=== PATIENT | male | born 1945 | race Caucasian/White ===

== ENCOUNTER → 2017-08-30 13:59 | Outpatient (CLI) | payer MEDICARE, MEDICAID, SELFPAY ==
--- NOTE | 2017-08-30 14:02 | ECHOCS_ITS ---
Reason For Study: CAD/ASHD Procedure This was a 2D Doppler, Color Flow transthoracic echocardiogram. Exam performed in department. Left Ventricle Mild concentric left ventricular hypertrophy. The estimated ejection fraction is 65 %. Stage 1 diastolic dysfunction. No regional wall motion abnormalities noted. Right Ventricle Normal size and thickness. Normal systolic function. Atria Normal left atrium. Normal right atrium. Normal atrial septum. Bubble contrast study negative for right to left interatrial shunt. Mitral Valve The mitral valve is structurally normal. No prolapse or stenosis seen. Mild (1+) mitral valve insufficiency. Tricuspid Valve Normal tricuspid valve. Trivial tricuspid valve insufficiency. Right ventricular systolic pressure estimated to be 31 mmHg. Aortic Valve Trisinus/trileaflet aortic valve. Mild focal aortic valve thickening. There is no aortic stenosis. Trivial aortic valve insufficiency. Pulmonic Valve Normal pulmonic valve. Great Vessels Normal aortic root. Normal arch. Normal inferior vena cava. Inferior vena cava collapse with sniff. Pericardium/Pleural No pericardial effusion. Medication Performed a rapid injection of agitated mix of 9 cc saline and 1cc air to assess for atrial septal defect. Definity0.4ml given slow IV push to enhance endocardial definition. MMode/2D Measurements & Calculations LVIDd: 4.9 cm IVSd: 1.4 cm Ao root diam: 3.1 cm LVIDs: 3.5 cm LVPWd: 0.86 cm RVDd: 3.9 cm FS: 28.3 % LAV(MOD-bp): 38.0 ml LA A4 area: 13.2 cm2 RA A4 area: 16.3 cm2 LAV(MOD-bp) Indexed: 17.4 ml/m2 LAV(MOD-sp2): 38.9 ml LAV(MOD-sp4): 33.9 ml Doppler Measurements & Calculations MV E max rosalino: 64.2 cm/sec Lat Peak E' Rosalino: 7.2 cm/sec Med Peak E' Rosalino: 6.0 cm/sec MV A max rosalino: 86.8 cm/sec E/E' lat: 9.0 E/E' med: 10.7 MV E/A: 0.74 Ao V2 max: 162.2 cm/sec LV V1 max: 77.4 cm/sec PA V2 max: 101.2 cm/sec Ao max P.5 mmHg LV V1 max P.4 mmHg Ao V2 mean: 113.8 cm/sec Ao mean P.7 mmHg Ao V2 VTI: 28.8 cm PI end-d rosalino: 108.3 cm/sec TR max rosalino: 242.8 cm/sec TR max P.6 mmHg Interpretation Summary Mild concentric left ventricular hypertrophy. The estimated ejection fraction is 65 %. Stage 1 diastolic dysfunction. Bubble contrast study negative for right to left interatrial shunt. Mild (1+) mitral valve insufficiency. Right ventricular systolic pressure estimated to be 31 mmHg. Trivial aortic valve insufficiency. There is no comparison study available. Contrast injection was performed. The study was technically difficult. Ordering Physician: Jamison Grimaldo Referring Physician: Denia Silvestre Performed By: Rut Beatty, GALDINO, RVT
== END ==
PROVIDERS: Family Provider Internal Medicine; PCP Internal Medicine; Visit Provider Internal Medicine Cardiovascular Disease
DX: I25.10 Atherosclerotic heart disease of native coronary artery without angina pectoris (principal)
CPT/HCPCS: 93306; Q9957; A4216; C8929

== ENCOUNTER → 2017-09-03 08:16 | Outpatient (CLI) | payer MEDICARE, MEDICAID, SELFPAY ==
--- NOTE | 2017-09-03 08:19 | STE_ITS ---
Reason For Study: CAD/ASHD Stress Results Protocol: Dobutamine Maximum Predicted HR: 147 bpm Target HR: 125 bpm% Maximum Predicted HR: 93 % DurationHeart Rate Stage (mm:ss) (bpm) BPDose Comment BASELINE 99 178/94 2CC DEFINITY STAGE 1 3:00 93 175/9510.001 CC DEFINITY STAGE 2 1:15 13 6 189/9820.00 RECOVERY 105 177/1 02 1CC DEFINITY Stress Duration: 4:15 mm:ss Maximum Stress HR: 136 bpm Baseline Echocardiogram Findings The estimated ejection fraction is 55 %. Septal motion consistent with IVCD. Stress Echo Wall motion Data Resting WMIntermediate WMStress WM Resting Wall Motion Wall Motion Stress Basal anteroseptal: Mildly No regional wall motion hypokinetic. abnormalities noted. EKG Data Normal intervals are noted. The patient was titrated from 10 mcg to a maximum of 20 mcg of dobutamine during the stress. The maximum heart rate attained was 148 beats per minute. This was 100% of maximum predicted heart rate. During dobutamine infusion, there were no ST or T wave changes noted to suggest ischemia. No clinical angina was noted. Interpretation Summary The study was technically difficult. Contrast injection was performed. The estimated ejection fraction is 55 %. Basal anteroseptal: Mildly hypokinetic The patient was titrated from 10 mcg to a maximum of 20 mcg of dobutamine during the stress. Normal, adequate, dobutamine echocardiogram. Negative for ischemia by EKG and echocardiographic criteria. Patient had baseline anteroseptal hypokinesis which improved during dobutamine infusion. No anginal symptoms noted. Moderate PVCs noted during infusion. Hypertensive blood pressure response to dobutamine. Test terminated due to attainment of target heart rate. Final LVEF is 75%. Decreased sensitivity due to poor echo windows requiring Definity agent augmentation. No complications. Ordering Physician: Jamison Grimaldo Referring Physician: Jamison Grimaldo Performed By: Gissel Haines RDCS, RVT
== END ==
PROVIDERS: Family Provider Internal Medicine; PCP Internal Medicine; Visit Provider Internal Medicine Cardiovascular Disease
DX: I25.10 Atherosclerotic heart disease of native coronary artery without angina pectoris (principal); I10 Essential (primary) hypertension; E78.5 Hyperlipidemia, unspecified; E11.9 Type 2 diabetes mellitus without complications
CPT/HCPCS: 93017; 93350; J7030; Q9957; A4216; C8928

== ENCOUNTER 2017-09-06 09:25 | Day surgery (SDC) | payer MEDICARE, MEDICAID, SELFPAY ==
[2017-09-06] VITALS (7 sets, daily range): BP systolic 123–152; BP diastolic 76–81; PULSE 79–91; RESP 16–18; TEMP 36.2–36.9; O2SAT 93–97; BMI 36.9
[2017-09-06 09:56] LABS: Prothrombin Time Fingerstick 12.4 SEC (11.9-14.4)
[2017-09-06 10:26] LABS: Bedside Glucose 138 mg/dL (70-110)
[2017-09-06] MEDS: Cefazolin 2 GM in 0.9% Normal Saline 100 ML IV (11:10)
--- NOTE | 2017-09-06 11:11 | RAD_ITS ---
STUDY: X-RAY - RIGHT ELBOW REASON FOR EXAM: Male, 71 years old. [Injection and the fixation of the olecranon fracture. TECHNIQUE: 2 coned-down view(s) of the elbow were obtained intraoperatively. COMPARISON: None. FINDINGS: There is evidence of a satisfactory open reduction and internal fixation of the avulsion fracture of the olecranon with screw and wire fixation. RAD/Elbow 2 Views IMPRESSION: Satisfactory ORIF of the avulsion fracture of the olecranon. Electronically Signed: Leonard Perkins MD at 13:13 EDT Tel [phone], Service support ,
--- NOTE | 2017-09-06 11:49 | PCM.DC.ORTHO ---
Discharge Diet: No Restrictions Discharge Activity: May Not Drive May shower in (days): 1 Ice area for (Minutes): 20 - Ice area for 20 minutes each hour while awake Keep extremity elevated above heart level: Operative Extremity, Right Arm Call your doctor if your incision/area has: Continuous Slow Oozing, Sudden Increased Bleeding, Increased Pain/ Swelling, Increased Redness, Foul Smelling Discharge Call your doctor if you observe: Fever of 101 or Higher, Coldness, Increased Pain, Numbness or Tingling, Change in Color Suture Line Care: Avoid Pulling/Pushing Cleanse incision/area with: Keep Dressing Clean & Dry Allergies/Adverse Reactions: Allergies ciprofloxacin [From Cipro] Allergy (Verified 09/05/17 09:16) Rash Medications to take at Discharge Aspirin E.C. [Ecotrin] 81 mg PO DAILY@0800 08/28/17 Atenolol [Tenormin (beta abram)] 25 mg PO DAILY 08/28/17 Esomeprazole Magnesium 40 mg PO DAILY PRN 08/28/17 Fenofibrate Nanocrystallized [Fenofibrate] 145 mg PO DAILY 08/28/17 Hydrochlorothiazide 12.5 mg PO DAILY 08/28/17 Levetiracetam [Keppra Xr] 1,500 mg PO BID 08/28/17 Losartan Potassium 50 mg PO DAILY 08/28/17 Metformin HCl [Metformin HCl ER] 500 mg PO DAILY 08/28/17 Multivit-Min/FA/Lycopen/Lutein [Centrum Silver Tablet] 1 ea PO DAILY 08/28/17 Niacin [Niacin ER] 500 mg PO QHS 08/28/17 Phenytoin Na [Dilantin] 200 mg PO DAILY 08/28/17 Phenytoin Na [Dilantin] 300 mg PO QHS 08/28/17 Rosuvastatin Calcium 20 mg PO DAILY 08/28/17 Oxycodone [Oxyir] 5 mg PO Q6H PRN PRN 7 Days #40 tablet 09/06/17 The following prescriptions were given: Oxycodone [Oxyir] 5 mg PO Q6H PRN PRN 7 Days #40 tablet PRN Reason: Pain Please Follow Up With: Obed Montes DO When: as scheduled
--- NOTE | 2017-09-06 11:56 | PCM.OPRPT ---
Report of Operation Date of Procedure: 09/06/17 Pre-Operative Diagnosis: Displaced fracture right olecranon Post-Operative Diagnosis: Same Surgery/Procedure Performed:: Open reduction with internal fixation of right olecranon fracture Description of Surgical Findings:: Comminuted olecranon fracture receiving tank operator: Royal Alegria Type of Anesthesia:: General Anesthesiologist: Go Wright Estimated Blood Loss (mL): 25 Fluids Replaced: See anesthesia report Description of Procedure: Implants: Tete cable ready pins 40 mm ?2 Surgical indications: Please see history and physical Procedure description: Patient was greeted in the preoperative area. His right upper tremor is marked with surgical marker. Preoperative antibiotics were administered he was then taken or Suite 1 the stable condition. After adequate anesthesia was obtained and airway was secured a well-padded tourniquet was placed on patient's right upper extremity. The arm was then prepped draped in usual sterile fashion. Surgical timeout was performed and surgery was commenced. A 4 inch Esmarch was used to examine with the limb and tourniquet was inflated to 250 mmHg. Standard posterior approach to the elbow was then performed incision was made with a 15 blade dissection was then carried length of the incision. The olecranon fracture was easily identified and fibrous tissue was removed from the fracture site. The wound and the fracture was then irrigated removed and any tissue that may obstruct healing. There was a comminuted portion laterally that was maintained reduced and pinned in position to maintain this piece as the fracture was fixed. A small drill hole was made distal to the incision and a pointed reduction forcep was then applied to the tip of the olecranon and the distal portion was placed in this drill hole the elbow was extended and the fracture was reduced. Confirmation of reduction was confirmed with biplanar fluoroscopic imaging. Once this was complete to cable ready pins were then placed in the olecranon and into the ulnar shaft. I then made a tunnel approximately 3 cm distal to the fracture site and shuttled one side of the cable through this tunnel. These were then placed in the current. This is not tightened with the similar tightening system to the appropriate tension on the cables and the clamp was then squeezed in order to maintain this reduction per cables were then trimmed and final imaging was obtained after the pin was removed. The wound was then irrigated and closed in layers. A well-padded dressing is applied posterior splint. Physician assistant scientist was integral in all portions of this procedure. They assisted with positioning the patient, draping the extremity, holding retractors, closing the wound, and applying the dressing. This was all done under my direct supervision. The physician assistant scientist was essential for a successful, efficient surgery. Postoperative: Maintain splint for comfort for 1-2 weeks. At that point patient will be protected in a sling with activity modification. No pushing pulling carrying with this extremity for 6 weeks. Will initiate therapy after his first postoperative visit for active/passive range of motion only - Complications none known - Admit VTE Documentation VTE Present on Admission: Yes VTE Mechan Device Prophylaxis: SCD's, Thigh High TERELL Hose VTE Pharm Prophylaxis ordered?: Yes
--- NOTE | 2017-09-06 12:01 | OP.PCM_ITS ---
Report of Operation Date of Procedure: 09/06/17 Pre-Operative Diagnosis: Displaced fracture right olecranon Post-Operative Diagnosis: Same Surgery/Procedure Performed:: Open reduction with internal fixation of right olecranon fracture Description of Surgical Findings:: Comminuted olecranon fracture preventative maintenance technician: Royal Alegria Type of Anesthesia:: General Anesthesiologist: Go Wright Estimated Blood Loss (mL): 25 Fluids Replaced: See anesthesia report Description of Procedure: Implants: Tete cable ready pins 40 mm ?2 Surgical indications: Please see history and physical Procedure description: Patient was greeted in the preoperative area. His right upper tremor is marked with surgical marker. Preoperative antibiotics were administered he was then taken or Suite 1 the stable condition. After adequate anesthesia was obtained and airway was secured a well-padded tourniquet was placed on patient's right upper extremity. The arm was then prepped draped in usual sterile fashion. Surgical timeout was performed and surgery was commenced. A 4 inch Esmarch was used to examine with the limb and tourniquet was inflated to 250 mmHg. Standard posterior approach to the elbow was then performed incision was made with a 15 blade dissection was then carried length of the incision. The olecranon fracture was easily identified and fibrous tissue was removed from the fracture site. The wound and the fracture was then irrigated removed and any tissue that may obstruct healing. There was a comminuted portion laterally that was maintained reduced and pinned in position to maintain this piece as the fracture was fixed. A small drill hole was made distal to the incision and a pointed reduction forcep was then applied to the tip of the olecranon and the distal portion was placed in this drill hole the elbow was extended and the fracture was reduced. Confirmation of reduction was confirmed with biplanar fluoroscopic imaging. Once this was complete to cable ready pins were then placed in the olecranon and into the ulnar shaft. I then made a tunnel approximately 3 cm distal to the fracture site and shuttled one side of the cable through this tunnel. These were then placed in the current. This is not tightened with the similar tightening system to the appropriate tension on the cables and the clamp was then squeezed in order to maintain this reduction per cables were then trimmed and final imaging was obtained after the pin was removed. The wound was then irrigated and closed in layers. A well- padded dressing is applied posterior splint. Physician junior sales assistant was integral in all portions of this procedure. They assisted with positioning the patient, draping the extremity, holding retractors , closing the wound, and applying the dressing. This was all done under my direct supervision. The physician junior sales assistant was essential for a successful, efficient surgery. Postoperative: Maintain splint for comfort for 1-2 weeks. At that point patient will be protected in a sling with activity modification. No pushing pulling carrying with this extremity for 6 weeks. Will initiate therapy after his first postoperative visit for active/passive range of motion only - Complications none known - Admit VTE Documentation VTE Present on Admission: Yes VTE Mechan Device Prophylaxis: SCD's, Thigh High TERELL Hose VTE Pharm Prophylaxis ordered?: Yes
== END 2017-09-06 14:40 | disposition home or self-care (01) ==
LOC: SDC 09:26
PROVIDERS: Family Provider Internal Medicine; PCP Internal Medicine; Visit Provider Orthopaedic Surgery
PROC: (CPT 24685; principal; 2017-09-06 10:40)
DX: S52.031A Displaced fracture of olecranon process with intraarticular extension of right ulna, initial encounter for closed fracture (principal); W10.9XXA Fall (on) (from) unspecified stairs and steps, initial encounter; Y93.9 Activity, unspecified; Y92.9 Unspecified place or not applicable; I25.10 Atherosclerotic heart disease of native coronary artery without angina pectoris; I25.2 Old myocardial infarction; I10 Essential (primary) hypertension; G40.909 Epilepsy, unspecified, not intractable, without status epilepticus; E11.9 Type 2 diabetes mellitus without complications; M19.90 Unspecified osteoarthritis, unspecified site; K21.9 Gastro-esophageal reflux disease without esophagitis; E66.9 Obesity, unspecified; Z68.38 Body mass index [BMI] 38.0-38.9, adult; Z90.49 Acquired absence of other specified parts of digestive tract; Z87.891 Personal history of nicotine dependence; Z79.84 Long term (current) use of oral hypoglycemic drugs; Z79.82 Long term (current) use of aspirin; Z79.899 Other long term (current) drug therapy
CPT/HCPCS: 01740; 24685; 36416; 73070; 73080; 76000; 82962; 85610; C1713; J7120; J2405

== ENCOUNTER → 2017-09-10 07:25 | Outpatient (CLI) | payer MEDICARE, MEDICAID, SELFPAY ==
[2017-08-27 16:59] LABS: Hematocrit 40.8 % (40-54); Hemoglobin 14.5 g/dl (13.0-16.5); Mean Corp Hgb Conc 35.5 g/gl (32-36); Mean Corpuscular Hgb 32.1 pg (27.0-32.0); Mean Corpuscular Volume 90.3 fL (80-94); Mean Platelet Vol. 8.8 fl (6.2-12.0); Platelet Count 203 K/mm3 (150-450); RBC Distribution Width CV 13.5 % (11.6-14.6); RBC Distribution Width SD 43.9 fl (35.1-43.9); Red Blood Count 4.52 M/mm3 (4.6-6.2); White Blood Count 11.6 K/mm3 (4.4-11.0)
[2017-08-27 17:00] LABS: Scan Indicated on CBC? Y/N NO
[2017-08-27 17:48] LABS: Hemoglobin A1c 6.2 % (4.2-6.3); Valproic Acid (Depakene) Level 4 ug/mL (50-100)
[2017-08-27 17:56] LABS: Anion Gap 9 (5-15); BUN 20 mg/dL (7-18); BUN/Creat Ratio 20.9 RATIO (10-20); Calcium,Total 9.3 mg/dL (8.5-10.1); Chloride 105 mmol/L (98-107); Creatinine, Serum 0.96 mg/dL (0.70-1.30); EST Glomerular Filtration Rate 82 mL/min (>60); Est Glom Filt Rate - Afr Amer 99 mL/min (>60); Glucose 116 mg/dL (74-106); Potassium 3.7 mmol/L (3.5-5.1); Sodium Level 141 mmol/L (136-145)
[2017-08-28 09:05] VITALS: BP 172/81; PULSE 113; RESP 16; TEMP 36.6; O2SAT 96; BMI 38.6
[2017-08-28 09:25] LABS: Bedside Glucose 155 mg/dL (70-110)
== END ==
PROVIDERS: Family Provider Internal Medicine; PCP Internal Medicine; Visit Provider Orthopaedic Surgery
DX: Z01.818 Encounter for other preprocedural examination (principal); E11.9 Type 2 diabetes mellitus without complications; Z79.84 Long term (current) use of oral hypoglycemic drugs
CPT/HCPCS: 36415; 80048; 80164; 82962; 83036; 85027; J7120

== ENCOUNTER → 2017-12-19 13:02 | Outpatient (CLI) | payer MEDICARE, MEDICAID, SELFPAY | PROVIDERS: Family Provider Internal Medicine; PCP Internal Medicine; Visit Provider Physician Assistant | DX: S50.02XA Contusion of left elbow, initial encounter (principal) | CPT/HCPCS: 73200 ==

== ENCOUNTER → 2018-04-11 07:27 | Outpatient (CLI) | payer MEDICARE, MEDICAID, SELFPAY ==
[2018-04-07 14:56] VITALS: BMI 38.9
[2018-04-11 08:46] LABS: AST(SGOT) 19 U/L (15-37); Alanine Aminotransfer ALT/SGPT 29 U/L (16-61); Albumin, Serum 3.7 g/dL (3.2-5.0); Alkaline Phosphatase 74 U/L (45-117); Bilirubin, Direct 0.08 mg/dL (0.00-0.30); Cholesterol 196 mg/dL (200); Globulin 3.7 g/dL (2.2-4.2); High Density Lipoprotein 43 mg/dL; Protein, Total 7.4 g/dL (6.4-8.2); Triglycerides 228 mg/dL; Very Low Density Lipoprotein 46 mg/dL (5-40)
== END ==
PROVIDERS: Family Provider Internal Medicine; PCP Internal Medicine; Referring Provider Internal Medicine Cardiovascular Disease; Visit Provider Internal Medicine Cardiovascular Disease
DX: E78.5 Hyperlipidemia, unspecified (principal); I25.10 Atherosclerotic heart disease of native coronary artery without angina pectoris
CPT/HCPCS: 36415; 80061; 80076

== ENCOUNTER → 2019-08-31 14:45 | Outpatient (CLI) | payer MEDICARE, MEDICAID, SELFPAY ==
[2019-05-21 14:54] VITALS: BMI 38.5
--- NOTE | 2019-08-31 14:49 | ECHOCS_ITS ---
Reason For Study: PHTN Procedure This was a 2D Doppler, Color Flow transthoracic echocardiogram. The study was technically difficult. Due to body habitus. Exam performed in department. Left Ventricle Mild concentric left ventricular hypertrophy. Normal LV size. The estimated ejection fraction is 65 %. Stage 1 diastolic dysfunction. No regional wall motion abnormalities noted. Right Ventricle Mildly dilated right ventricle. Normal systolic function. Atria Normal left atrium. Normal right atrium. Normal atrial septum. Mitral Valve The mitral valve is structurally normal. No prolapse or stenosis seen. Trivial mitral valve insufficiency. Tricuspid Valve Normal tricuspid valve. Unable to estimate RV systolic pressure due to insufficient tricuspid regurgitant envelope. Aortic Valve Trisinus/trileaflet aortic valve. Moderate focal aortic valve thickening. There is no aortic stenosis. Pulmonic Valve Normal pulmonic valve. Trivial pulmonic valve insufficiency. Great Vessels Normal aortic root. Normal arch. Normal inferior vena cava. Inferior vena cava collapse with sniff. Pericardium/Pleural No pericardial effusion. MMode/2D Measurements & Calculations LVIDd: 5.1 cm IVSd: 1.4 cm Ao root diam: 2.8 cm LVIDs: 3.7 cm LVPWd: 0.82 cm RVDd: 3.9 cm FS: 27.8 % LAV(MOD-bp): 64.0 ml LA A4 area: 20.5 cm2 LA dimension(2D): 4.3 cm LAV(MOD-bp) Indexed: 29.5 ml/m2 LAV(MOD-sp2): 64.9 ml LAV(MOD-sp4): 62.9 ml RA A4 area: 16.8 cm2 Time Measurements MV dec time: 0.15 sec Doppler Measurements & Calculations MV E max rosalino: 87.6 cm/sec Lat Peak E' Rosalino: 9.1 cm/sec Med Peak E' Rosalino: 5.2 cm/sec MV A max rosalino: 97.5 cm/sec E/E' lat: 9.6 E/E' med: 17.0 MV E/A: 0.90 Ao V2 max: 158.0 cm/sec LV V1 max: 87.4 cm/sec PA V2 max: 92.6 cm/sec Ao max P.0 mmHg LV V1 max P.1 mmHg Interpretation Summary The estimated ejection fraction is 65 %. Stage 1 diastolic dysfunction. Mildly dilated right ventricle. Trivial mitral valve insufficiency. Unable to estimate RV systolic pressure due to insufficient tricuspid regurgitant envelope. There is no aortic stenosis. Compared to echo report dated 08/30/2017, no appreciable changes noted. The study was technically difficult. Contrast injection was performed. Ordering Physician: Jamison Grimaldo Referring Physician: Denia Silvestre Performed By: Gissel Haines, GALDINO, RVT
== END ==
PROVIDERS: PCP Internal Medicine; Referring Provider Internal Medicine Cardiovascular Disease; Visit Provider Internal Medicine Cardiovascular Disease
DX: I27.20 Pulmonary hypertension, unspecified (principal); Z98.890 Other specified postprocedural states
CPT/HCPCS: 93306; Q9957; A4216; C8929

== ENCOUNTER → 2019-09-16 09:00 | Outpatient (CLI) | payer MEDICARE, MEDICAID, SELFPAY ==
[2019-05-21 14:54] VITALS: BMI 38.5
--- NOTE | 2019-09-16 09:02 | STEWCON_ITS ---
Reason For Study: CAD/ASHD Stress Results Protocol: Nj Protocol WITH DEFINITY Maximum Predicted HR: 145 bpm Target HR: 123 bpm % Maximum Predicted HR: 107 % DurationHeart Rate Stage (mm:ss) (bpm) BP Comment BASELINE 103 152/98 STAGE 1 3:00 134 180/80SLIGHT SOB STAGE 2 3:00 155 172/62 RECOVERY 111 132/88 Stress Duration: 6:00 mm:ss Maximum Stress HR: 155 bpm Baseline Echocardiogram Findings The estimated ejection fraction is 65 %. Stress Echo Wall motion Data Resting WM Intermediate WM Stress WM Resting Wall Motion Wall Motion Stress No regional wall motion No regional wall motion abnormalities noted. abnormalities noted. EKG Data The baseline ECG displays normal sinus rhythm. The patient exercised according to the regular Nj protocol for a total duration of 6:00. The maximum heart rate attained was 160 beats per minute. This was 110% of maximum predicted heart rate. The patient exercised into stage 3 of the Nj protocol. During stress, there were no ST or T wave changes noted to suggest ischemia. No clinical angina was noted. Interpretation Summary The estimated ejection fraction is 65 %. Normal, adequate, treadmill echocardiogram. Negative for ischemia by EKG and echocardiographic criteria. No anginal symptoms noted. Rare PAC and PVCs noted. Hypertensive blood pressure response to exercise. Below average exercise capacity for age. Test terminated due to the attainment of target heart rate and dyspnea. Final LVEF of 75%. Decrease sensitivity due to poor echo windows requiring Definity agent, and limited echo window availability. Patient tolerate procedure well. No complications. The study was technically limited. The study was technically difficult. Contrast injection was performed. Ordering Physician: Jamison Grimaldo Referring Physician: Jamison Grimaldo Performed By: Salome Blackwood, GALDINO, RVT
[2019-09-16 09:54] LABS: AST(SGOT) 26 U/L (15-37); Alanine Aminotransfer ALT/SGPT 30 U/L (16-61); Alkaline Phosphatase 64 U/L (45-117); Bilirubin, Direct 0.13 mg/dL (0.00-0.30); Cholesterol 203 mg/dL (200); Globulin 3.9 g/dL (2.2-4.2); High Density Lipoprotein 43 mg/dL; Protein, Total 7.9 g/dL (6.4-8.2); Triglycerides 310 mg/dL; Very Low Density Lipoprotein 62 mg/dL (5-40)
== END ==
PROVIDERS: PCP Internal Medicine; Referring Provider Internal Medicine Cardiovascular Disease; Visit Provider Internal Medicine Cardiovascular Disease
DX: E78.5 Hyperlipidemia, unspecified (principal); I25.10 Atherosclerotic heart disease of native coronary artery without angina pectoris; E11.9 Type 2 diabetes mellitus without complications; I10 Essential (primary) hypertension
CPT/HCPCS: 36415; 80061; 80076; 93017; 93350; Q9957; A4216; C8928

== ENCOUNTER 2020-09-10 07:31 | Observation (INO) | payer MEDICARE, MEDICAID, SELFPAY ==
[2020-09-09 13:04] VITALS: BMI 39.9
[2020-09-10] VITALS (11 sets, daily range): BP systolic 103–169; BP diastolic 71–104; PULSE 75–124; RESP 15–18; TEMP 36.3–37.3; O2SAT 93–98; BMI 41.5; BMI 38.5
--- NOTE | 2020-09-10 07:38 | EKG12_ITS ---
Test Reason : CP Blood Pressure : / mmHG Vent. Rate : 125 BPM Atrial Rate : 125 BPM P-R Int : 136 ms QRS Dur : 118 ms QT Int : 360 ms P-R-T Axes : 047 -41 074 degrees QTc Int : 519 ms Sinus tachycardia with frequent Premature ventricular complexes and Fusion complexes Left axis deviation Cannot rule out Anterior infarct , age undetermined Abnormal ECG Confirmed by PINEDA MCNEILL, JILLIAN ([id number]), photo editor AKASH STOCK ([id number]) on 09/13/2020 9:36:49 AM Referred By: Confirmed By:JILLIAN SUNG MD
--- NOTE | 2020-09-10 07:38 | CT_ITS ---
STUDY: CT BRAIN WITHOUT CONTRAST REASON FOR EXAM: Male, 74 years old. Status post fall, headache. RADIATION DOSAGE (If Supplied By Facility): CTDIvol = ( 44.99 ) mGy, DLP = ( 796.11 ) mGycm TECHNIQUE: Transaxial CT imaging of the brain was performed without administration of intravenous contrast material. Individualized dose optimization techniques were used for this CT. COMPARISON: No relevant priors. FINDINGS: Normal soft tissue structures. Normal calvarium. There is mild cerebral atrophy with widening of the extra-axial spaces and ventricular dilatation. Normal white matter tracts of the cerebral hemispheres. Normal basal ganglia and thalami. Normal brainstem. There is mild cerebellar atrophy. There is no intracranial hemorrhage. There are no findings of an acute ischemic infarction. There are mild calcifications of the cavernous internal carotid arteries. Normal visualized paranasal sinuses. CT/Brain/Head without Contrast IMPRESSION: No acute intracranial process. Electronically Signed: Kurtis Meza MD at 9:26 EDT Tel , Service support ,
--- NOTE | 2020-09-10 07:38 | RAD_ITS ---
STUDY: X-RAY CHEST REASON FOR EXAM: Male, 74 years old. Shortness of breath and weakness. TECHNIQUE: Single AP portable view of the chest. COMPARISON: 10/11/2012. FINDINGS: Hypoventilatory changes in the lung bases. No focal infiltrate is seen. There is no demonstrated pleural abnormality. Normal size heart. Normal mediastinum and jason. Normal visualized pulmonary arteries. Mild tortuosity of the thoracic aorta. No demonstrated acute osseous changes. There is no demonstrated abnormality of the visualized soft tissue structures of the upper abdomen. RAD/Chest 1 View (Portable) IMPRESSION: No active pulmonary disease. Electronically Signed: Kurtis Meza MD at 9:11 EDT Tel , Service support ,
--- NOTE | 2020-09-10 07:40 | EDS_ITS ---
HPI History of Present Illness Chief Complaint: Seizure Informant: patient and EMS Narrative Narrative: 74-year-old male presenting per EMS after seizure. Patient was found down by his roommate after having a seizure. EMS was called. On their arrival he was breathing but unresponsive. On arrival to the ED he is now responsive. He has a history of seizure disorder and is on Dilantin. He denies headache. He denies chest pain. Prior similar symptoms: Yes Recent Illness/Hospitalization: No PFSH PFSH Medical History Atherosclerosis of coronary artery of [place] heart without angina pectoris Essential hypertension GERD (gastroesophageal reflux disease) Hyperlipidemia Seizures Type 2 diabetes mellitus without complications Home Medications aspirin 81 mg PO DAILY@0800 08/28/17 [History Last Taken 09/05/17] atenolol 25 mg PO DAILY 08/28/17 [History Last Taken 09/06/17] esomeprazole magnesium 40 mg PO DAILY PRN 08/28/17 [History Last Taken 08/28/17 09:15] fenofibrate nanocrystallized 145 mg PO DAILY 08/28/17 [History Last Taken Unknown] levetiracetam 1,500 mg PO BID 08/28/17 [History Last Taken 09/06/17] losartan 50 mg PO DAILY 08/28/17 [History Last Taken 09/06/17] metformin 500 mg PO DAILY 08/28/17 [History Last Taken Unknown] bgpxwgwa-nne-BN-lycopen-lutein 1 ea PO DAILY 08/28/17 [History Last Taken Unknown] niacin 500 mg PO QHS 08/28/17 [History Last Taken Unknown] phenytoin sodium extended 200 mg PO DAILY 08/28/17 [History Last Taken 09/06/17] phenytoin sodium extended 300 mg PO QHS 08/28/17 [History Last Taken Unknown] rosuvastatin 20 mg PO DAILY 08/28/17 [History Last Taken Unknown] hydrochlorothiazide 25 mg tablet 25 mg PO DAILY 09/09/20 [History Last Taken Unknown] Allergy/AdvReac Type Severity Reaction Status Date / Time ciprofloxacin [From Cipro] Allergy Rash Verified 09/10/20 07:32 Family History Mother Heart disease Father Heart disease Surgical History History of left heart catheterization (06/25/05) Hx of cholecystectomy S/P ORIF (open reduction internal fixation) fracture (08/27/17) Social History Smoking Status: Former smoker ROS ROS ED Constitutional Constitutional ED: Denies fever(s) Eyes Eyes: Denies change in vision ENT ENT ED: Denies rhinorrhea or sore throat Cardiovascular Cardiovascular: Denies chest pain or palpitations Respiratory/Chest Respiratory/Chest: Denies cough or dyspnea Gastrointestinal Gastrointestinal: Denies abdominal pain, diarrhea, nausea or vomiting Genitourinary Genitourinary ED: Denies dysuria Musculoskeletal Musculoskeletal: Denies myalgias Integumentary Denies rash Neurologic Neurologic: Denies headache(s) Psychiatric Psychiatric: Denies suicidal thoughts EXAM Physical Exam Const Vital Signs: 09/10/20 07:32 09/10/20 07:56 09/10/20 08:52 Temperature 97.3 F L Temperature Source Temporal Pulse Rate 124 H 104 H Respiratory Rate 16 18 Blood Pressure 169/104 H 166/82 H Blood Pressure Mean 125 110 Pulse Ox 93 93 Oxygen Delivery Method Room Air Nasal Cannula Room Air Oxygen Flow Rate (L/min) 2 Fraction of Inspired Oxygen (FIO2) 93 09/10/20 09:42 Temperature Temperature Source Pulse Rate 108 H Respiratory Rate 16 Blood Pressure 144/90 H Blood Pressure Mean 108 Pulse Ox 98 Oxygen Delivery Method Room Air Oxygen Flow Rate (L/min) Fraction of Inspired Oxygen (FIO2) Positive well nourished and well developed General Appearance ED: well developed HEENT Reports normocephalic and head/scalp atraumatic Eyes PERRL and EOMs intact bilaterally Neck supple General: Negative for tenderness Chest Wall inspection of chest normal Resp normal respiratory effort and clear to auscultation bilaterally Cardio regular rate and regular rhythm GI non-tender and non-distended Palpation: soft; Negative for guarding or rebound tenderness present no CVA tenderness Extremity normal to inspection Neuro oriented x3, CN's II-XII intact bilaterally and no sensory deficits noted Sensorium / Orientation: alert Motor Exam: strength 5/5 throughout Psych mental status grossly normal Skin no rashes or lesions noted MDM MDM MDM Narrative Medical decision making narrative: Patient was given aspirin. Prehospital EKG shows anterior lateral ST depression, this is improved on hospital EKG. Patient continues to deny chest pain. CT head was unremarkable. Troponin 0.230. Will discuss with hospitalist for admission. Lab Data Labs: Laboratory Results - last 24 hr 09/10/20 09/10/20 09/10/20 07:45 07:45 07:45 WBC 6.7 RBC 4.19 L Hgb 13.6 Hct 39.4 L MCV 94.0 MCH 32.5 H MCHC 34.5 RDW Std Deviation 44.2 H RDW Coeff of Layla 13.0 Plt Count 184 MPV 8.8 Immature Gran % (Auto) 1.200 H Neut % (Auto) 47.8 Lymph % (Auto) 41.0 [place] % (Auto) 7.1 Eos % (Auto) 2.3 Baso % (Auto) 0.6 Absolute Neuts (auto) 3.2 Absolute Lymphs (auto) 2.73 Nucleated RBC % 0 Sodium 138 Potassium 3.4 L Chloride 100 Carbon Dioxide 21.0 Anion Gap 17 H BUN 20 H Creatinine 1.14 Estim Creat Clear Calc 49.75 Est GFR (MDRD) Af Amer 80 Est GFR (MDRD) Non-Af 66 BUN/Creatinine Ratio 17.5 Glucose 246 H Calcium 9.0 Troponin I 0.230 H Phenytoin 10.8 Radiography Chest X-Ray - ED: 1 View, Read by ED Physician and Read by Radiologist Diagnostic Testing: Radiology Impression Brain CT 09/10/20 07:38 IMPRESSION: No acute intracranial process. Electronically Signed: Kurtis Meza MD at 9:26 EDT Tel , Service support , Chest X-Ray 09/10/20 07:38 IMPRESSION: No active pulmonary disease. Electronically Signed: Kurtis Meza MD at 9:11 EDT Tel , Service support , EKG Initial EKG: Attestation: I personally reviewed and interpreted this EKG as follows: Interpretation: Sinus Tachycardia and S-T Depression (Lateral ST depression) Prior EKG tracings: available for review Prior: Changed Discharge Plan Dx/Rx/DC Orders Clinical Impression: Acute electrocardiogram changes, Seizure Disposition Disposition: Acute Care Hospital [facility]
[2020-09-10 07:58] LABS: Absolute Lymphocyte Count 2.73 X10^3/uL (0.83-4.51); Absolute Neutrophil Count 3.2 X10^3/uL (2.0-7.7); Basophil# 0.04 X10^3/uL; Basophil% 0.6 % (0-1); Eosinophil# 0.15 X10^3/uL; Eosinophils% 2.3 % (0-5); Hematocrit 39.4 % (40-54); Hemoglobin 13.6 g/dL (13.0-16.5); Lymphocyte # 2.73 X10^3/ul (0.83-4.51); Mean Corp Hgb Conc 34.5 g/dL (32-36); Mean Corpuscular Hgb 32.5 pg (27.0-32.0); Mean Platelet Vol. 8.8 fl (6.2-12.0); Monocyte# 0.47 X10^3/uL; Monocyte% 7.1 % (0-10); NRBC Flagged by Analyzer 0 % (0-5); Neutrophil # 3.19 X10^3/uL (2.7-7.7); Neutrophil % 47.8 % (47-70); Platelet Count 184 K/mm3 (150-450); RBC Distribution Width SD 44.2 fl (35.1-43.9); Red Blood Count 4.19 M/mm3 (4.6-6.2); White Blood Count 6.7 K/mm3 (4.4-11.0)
--- NOTE | 2020-09-10 08:00 | ED.RN ---
PT GIVES THIS RN PERMISSION TO SHARE INFORMATION WITH HIS FRIEND SCOT ZHANG VIA TELEPHONE. SCOT INFORMED OF PT CARE AT THIS TIME.
[2020-09-10 08:16] LABS: Anion Gap 17 (5-15); BUN 20 mg/dL (7-18); BUN/Creat Ratio 17.5 RATIO (10-20); Chloride 100 mmol/L (98-107); Creatinine, Serum 1.14 mg/dL (0.70-1.30); EST Glomerular Filtration Rate 66 mL/min (>60); Est Glom Filt Rate - Afr Amer 80 mL/min (>60); Estimated Creatinine Clearance 49.75 ml/min; Glucose 246 mg/dL (74-106); Potassium 3.4 mmol/L (3.5-5.1); Sodium Level 138 mmol/L (136-145)
[2020-09-10 08:23] LABS: Phenytoin (Dilantin) Level 10.8 mL (10.0-20.0)
--- NOTE | 2020-09-10 11:17 | HP.PCM.HOS_ITS ---
HPI - General General Date of Admission: 09/10/20 Chief Complaint: SEIZURE, ABNORMAL TROPONIN HPI Narrative LAKESHIA THORPE, is a 74 M who presents [facility] Medical History Atherosclerosis of coronary artery of [place] heart without angina pectoris Essential hypertension GERD (gastroesophageal reflux disease) Hyperlipidemia Seizures Type 2 diabetes mellitus without complications Home Medications aspirin 81 mg PO DAILY@0800 08/28/17 [History Last Taken 09/09/20] atenolol 25 mg PO DAILY 08/28/17 [History Last Taken 09/09/20] esomeprazole magnesium 40 mg PO DAILY PRN 08/28/17 [History Last Taken 09/09/20] fenofibrate nanocrystallized 145 mg PO DAILY 08/28/17 [History Last Taken 09/09/20] levetiracetam 1,500 mg PO BID 08/28/17 [History Last Taken 09/09/20] losartan 50 mg PO DAILY 08/28/17 [History Last Taken 09/09/20] metformin 500 mg PO DAILY 08/28/17 [History Last Taken 09/09/20] ioldaxjh-vvh-TS-lycopen-lutein 1 ea PO DAILY 08/28/17 [History Last Taken 09/09/20] niacin 500 mg PO QHS 08/28/17 [History Last Taken 09/09/20] phenytoin sodium extended 200 mg PO DAILY 08/28/17 [History Last Taken 09/09/20] phenytoin sodium extended 300 mg PO QHS 08/28/17 [History Last Taken 09/09/20] rosuvastatin 20 mg PO DAILY 08/28/17 [History Last Taken 09/09/20] hydrochlorothiazide 25 mg tablet 25 mg PO DAILY 09/09/20 [History Last Taken 09/09/20] Allergy/AdvReac Type Severity Reaction Status Date / Time ciprofloxacin [From Cipro] Allergy Rash Verified 09/10/20 07:32 Family History Mother Heart disease Father Heart disease Surgical History History of left heart catheterization (06/25/05) Hx of cholecystectomy S/P ORIF (open reduction internal fixation) fracture (08/27/17) Social History Smoking Status: Former smoker Vital Signs Vital Signs Vital Signs: 09/10/20 07:32 09/10/20 07:56 09/10/20 08:52 Temperature 97.3 F L Temperature Source Temporal Pulse Rate 124 H 104 H Respiratory Rate 16 18 Blood Pressure 169/104 H 166/82 H Blood Pressure Mean 125 110 Blood Pressure Source Blood Pressure Position Blood Pressure Location Pulse Ox 93 93 Oxygen Delivery Method Room Air Nasal Cannula Room Air Oxygen Flow Rate (L/min) 2 Fraction of Inspired Oxygen (FIO2) 93 09/10/20 09:42 09/10/20 10:03 09/10/20 10:36 Temperature 97.3 F L 98.7 F Temperature Source Temporal Oral Pulse Rate 108 H 111 H 107 H Respiratory Rate 16 15 18 Blood Pressure 144/90 H 103/90 H 161/73 H Blood Pressure Mean 108 94 102 Blood Pressure Source Monitor Blood Pressure Position Semi-Fowlers Blood Pressure Location Right Arm Pulse Ox 98 95 95 Oxygen Delivery Method Room Air Room Air Room Air Oxygen Flow Rate (L/min) Fraction of Inspired Oxygen (FIO2) 09/10/20 11:02 Temperature Temperature Source Pulse Rate 99 Respiratory Rate Blood Pressure Blood Pressure Mean Blood Pressure Source Blood Pressure Position Blood Pressure Location Pulse Ox Oxygen Delivery Method Oxygen Flow Rate (L/min) Fraction of Inspired Oxygen (FIO2) Lab / Micro Data Result Diagrams: 09/10/20 07:45 09/10/20 07:45 Labs: Laboratory Results - last 24 hr 09/10/20 09/10/20 09/10/20 07:45 07:45 07:45 WBC 6.7 RBC 4.19 L Hgb 13.6 Hct 39.4 L MCV 94.0 MCH 32.5 H MCHC 34.5 RDW Std Deviation 44.2 H RDW Coeff of Layla 13.0 Plt Count 184 MPV 8.8 Immature Gran % (Auto) 1.200 H Neut % (Auto) 47.8 Lymph % (Auto) 41.0 [place] % (Auto) 7.1 Eos % (Auto) 2.3 Baso % (Auto) 0.6 Absolute Neuts (auto) 3.2 Absolute Lymphs (auto) 2.73 Nucleated RBC % 0 Sodium 138 Potassium 3.4 L Chloride 100 Carbon Dioxide 21.0 Anion Gap 17 H BUN 20 H Creatinine 1.14 Estim Creat Clear Calc 49.75 Est GFR (MDRD) Af Amer 80 Est GFR (MDRD) Non-Af 66 BUN/Creatinine Ratio 17.5 Glucose 246 H Calcium 9.0 Troponin I 0.230 H Phenytoin 10.[address] 09/10/20 07:38 IMPRESSION: No acute intracranial process. Electronically Signed: Kurtis Meza MD at 9:26 EDT Tel , Service support , Chest X-Ray 09/10/20 07:38 IMPRESSION: No active pulmonary disease. Electronically Signed: Kurtis Meza MD at 9:11 EDT Tel , Service support ,
[2020-09-10] MEDS: Heparin Injection (Vial) 5,000 UNIT/ML VIAL 5000 UNIT SC (11:25)
[2020-09-10] MEDS: Atenolol 25 MG Tablet PO (11:26)
[2020-09-10] MEDS: Phenytoin Na 100 MG Capsule 200 MG PO (11:26)
[2020-09-10] MEDS: metFORMIN (XR) 500 MG Tablet PO (11:27)
[2020-09-10] MEDS: levETIRAcetam 750 MG Tablet 1500 MG PO ×2 (11:27→21:47)
[2020-09-10] MEDS: Fenofibrate 145 MG Tablet PO (11:27)
[2020-09-10] MEDS: Losartan Potassium 50 MG Tablet PO (11:27)
[2020-09-10] MEDS: hydroCHLOROthiazide 25 MG Tablet PO (11:27)
[2020-09-10 11:51] LABS: Bedside Glucose 143 mg/dL (70-110)
--- NOTE | 2020-09-10 13:07 | CASEMGMT ---
CRISTINO CM NOTE: Insurance review for hospitals In-network with [facility] Insurance if transfer is recommended is as follows: [facility], [employer], [facility], [facility], [facility], [facility], [facility] ([facility]), and . Renate BARBER RN CM
--- NOTE | 2020-09-10 13:50 | PCM.CONS.C ---
Assessment & Plan Assessment/Plan (1) Acute electrocardiogram changes: PLAN: Patient had some nonspecific ST-T changes that appear to be related to his tachycardia at presentation. This appears to be sinus tachycardia. Patient is currently in normal sinus rhythm. Patient does have underlying CAD that was diagnosed in 2005. He had a stress test last year that was negative for ischemia. He may have had progression of his underlying CAD as well. His troponin elevation could be related to progression of his underlying CAD or due to stable CAD and tachycardia/hypoxemia related to his seizure. I think it will be reasonable to get another troponin level. If his troponin level comes down then we could consider stress test as patient is asymptomatic from a CAD standpoint. If his troponin is going up significantly then we can consider coronary angiography. At this time continue aspirin, beta-abram, statin. If his third troponin is significantly elevated then he may need heparin drip to be started. (2) Atherosclerosis of coronary artery of [place] heart without angina pectoris: QUALIFIERS: Coronary Disease-Associated Artery/Lesion type: [place] artery Qualified Code(s): I25.10 - Atherosclerotic heart disease of [place] coronary artery without angina pectoris (3) Elevated troponin: HPI Consult Data Date of Consult: 09/10/20 HPI Narrative Reason for Consultation: Abnormal EKG HPI Narrative: 74-year-old male with past medical history of coronary artery disease, seizure disorder found by his roommate after a seizure episode. Initially paramedics found him unresponsive and then he became responsive. The emergency room he was tachycardic with what appears to be a sinus tachycardia. His troponin was also initially elevated at around 0.23 and then it went up to 1.9. Cardiology consult was requested for these reasons. Patient saw Dr. Carrasquillo in the office yesterday. He has been completely asymptomatic from a cardiac standpoint. He is a former patient of Dr. Mays'elizabeth who in 2005 performed a stress test which demonstrated inferior infarct with marked ischemia. 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 Patient had adequate collaterals from left to right. in addition his EKG dated 08/27/17 showed normal sinus rhythm, old anteroseptal wall myocardial infarction, no acute changes. He has had no subsequent catheterizations or stress test since his cath in 2005. He is a diabetic with hypertension, hypercholesterolemia which he reports is well controlled. He is a former smoker quit around 20 years ago after 1-4 pack per days for 20 years prior to that. Review of systems: All systems reviewed. All else is negative except that in the [facility] Medical History Atherosclerosis of coronary artery of [place] heart without angina pectoris Essential hypertension GERD (gastroesophageal reflux disease) Hyperlipidemia Seizures Type 2 diabetes mellitus without complications Home Medications aspirin 81 mg PO DAILY@0800 08/28/17 [History Last Taken 09/09/20] atenolol 25 mg PO DAILY 08/28/17 [History Last Taken 09/09/20] esomeprazole magnesium 40 mg PO DAILY PRN 08/28/17 [History Last Taken 09/09/20] fenofibrate nanocrystallized 145 mg PO DAILY 08/28/17 [History Last Taken 09/09/20] levetiracetam 1,500 mg PO BID 08/28/17 [History Last Taken 09/09/20] losartan 50 mg PO DAILY 08/28/17 [History Last Taken 09/09/20] metformin 500 mg PO DAILY 08/28/17 [History Last Taken 09/09/20] qccwncdh-dzg-OB-lycopen-lutein 1 ea PO DAILY 08/28/17 [History Last Taken 09/09/20] niacin 500 mg PO QHS 08/28/17 [History Last Taken 09/09/20] phenytoin sodium extended 200 mg PO DAILY 08/28/17 [History Last Taken 09/09/20] phenytoin sodium extended 300 mg PO QHS 08/28/17 [History Last Taken 09/09/20] rosuvastatin 20 mg PO DAILY 08/28/17 [History Last Taken 09/09/20] hydrochlorothiazide 25 mg tablet 25 mg PO DAILY 09/09/20 [History Last Taken 09/09/20] Allergy/AdvReac Type Severity Reaction Status Date / Time ciprofloxacin [From Cipro] Allergy Rash Verified 09/10/20 07:32 Family History Mother Heart disease Father Heart disease Surgical History History of left heart catheterization (06/25/05) Hx of cholecystectomy S/P ORIF (open reduction internal fixation) fracture (08/27/17) Social History Smoking Status: Former smoker Physical Exam Const alert and oriented x3 Orientation / Consciousness: awake HEENT normocephalic Eyes no scleral icterus Neck supple Chest inspection of chest normal Resp normal respiratory effort Cardio regular rate Skin no rashes or lesions noted Neuro oriented x3 Psych mental status grossly normal Charges/Coding Visit Charges Inpatient E&M: 52255 Init Hosp L2
--- NOTE | 2020-09-10 14:02 | PCM.HP.STD ---
HPI - General General Date of Admission: 09/10/20 Chief Complaint: SEIZURE, ABNORMAL TROPONIN HPI Narrative LAKESHIA THORPE, is a 74 M who presents to the emergency room at [facility] after suffering a seizure at home. Patient states that his last seizure was approximately 2 years ago. Patient denies any chest pain, shortness of breath, fever, or chills. Work-up in the emergency room included an EKG which showed ST-T wave changes in the lateral precordial leads, patient's troponin was slightly elevated. Patient's potassium was 3.4, BUN was 20, and glucose was 246. Patient was placed in observation status on PCU, cardiac enzymes will be cycled, and his home medications will be continued. Patient will be seen in consultation by cardiology. REPLACED BY [facility] Medical History Atherosclerosis of coronary artery of [place] heart without angina pectoris Essential hypertension GERD (gastroesophageal reflux disease) Hyperlipidemia Seizures Type 2 diabetes mellitus without complications Home Medications aspirin 81 mg PO DAILY@0800 08/28/17 [History Last Taken 09/09/20] atenolol 25 mg PO DAILY 08/28/17 [History Last Taken 09/09/20] esomeprazole magnesium 40 mg PO DAILY PRN 08/28/17 [History Last Taken 09/09/20] fenofibrate nanocrystallized 145 mg PO DAILY 08/28/17 [History Last Taken 09/09/20] levetiracetam 1,500 mg PO BID 08/28/17 [History Last Taken 09/09/20] losartan 50 mg PO DAILY 08/28/17 [History Last Taken 09/09/20] metformin 500 mg PO DAILY 08/28/17 [History Last Taken 09/09/20] eerixulv-smx-SZ-lycopen-lutein 1 ea PO DAILY 08/28/17 [History Last Taken 09/09/20] niacin 500 mg PO QHS 08/28/17 [History Last Taken 09/09/20] phenytoin sodium extended 200 mg PO DAILY 08/28/17 [History Last Taken 09/09/20] phenytoin sodium extended 300 mg PO QHS 08/28/17 [History Last Taken 09/09/20] rosuvastatin 20 mg PO DAILY 08/28/17 [History Last Taken 09/09/20] hydrochlorothiazide 25 mg tablet 25 mg PO DAILY 09/09/20 [History Last Taken 09/09/20] Allergy/AdvReac Type Severity Reaction Status Date / Time ciprofloxacin [From Cipro] Allergy Rash Verified 09/10/20 07:32 Family History Mother Heart disease Father Heart disease Surgical History History of left heart catheterization (06/25/05) Hx of cholecystectomy S/P ORIF (open reduction internal fixation) fracture (08/27/17) Social History Smoking Status: Former smoker ROS Constitutional Constitutional: Denies anorexia, change in weight, fever(s), night sweats or weakness Eyes Eyes: Denies blurry vision, change in vision, discharge from eye(s) or eye pain Cardiovascular Cardiovascular: Denies chest pain, claudication, edema or palpitations Respiratory/Chest Respiratory/Chest: Denies cough, hemoptysis, shortness of breath at rest or shortness of breath with exertion Gastrointestinal Gastrointestinal: Denies abdominal pain, constipation, diarrhea, hematemesis, hematochezia, melena, nausea or vomiting Genitourinary Genitourinary: Denies dysuria, hematuria, urinary frequency, urinary hesitancy, urinary incontinence or urinary urgency Musculoskeletal Musculoskeletal: Denies back pain, joint pain, joint stiffness, joint swelling, myalgias or neck pain Neurologic Neurologic: Reports seizures; Denies abnormal gait, abnormal speech, dizziness, focal weakness, headache(s), loss of vision, numbness, other visual disturbances, paresthesias, syncope or tingling Psychiatric Psychiatric: Denies anxiety, cognitive impairment, depression, irritability, mood swings or suicidal ideation Endocrine Endocrinology: Denies change in body appearance, cold intolerance, excessive sweating, heat intolerance, polydipsia or polyuria Hematologic/Lymphatic Hematologic/Lymphatic: Denies none, anemia, easy bleeding, easy bruising or lymphadenopathy Allergic/Immunologic Allergic/Immunologic: Denies rhinitis, urticaria, eczemia or asthma Vital Signs Vital Signs Vital Signs: 09/10/20 07:32 09/10/20 07:56 09/10/20 08:52 Temperature 97.3 F L Temperature Source Temporal Pulse Rate 124 H 104 H Respiratory Rate 16 18 Blood Pressure 169/104 H 166/82 H Blood Pressure Mean 125 110 Blood Pressure Source Blood Pressure Position Blood Pressure Location Pulse Ox 93 93 Oxygen Delivery Method Room Air Nasal Cannula Room Air Oxygen Flow Rate (L/min) 2 Fraction of Inspired Oxygen (FIO2) 93 09/10/20 09:42 09/10/20 10:03 09/10/20 10:30 Temperature 97.3 F L Temperature Source Temporal Pulse Rate 108 H 111 H Respiratory Rate 16 15 Blood Pressure 144/90 H 103/90 H Blood Pressure Mean 108 94 Blood Pressure Source Blood Pressure Position Blood Pressure Location Pulse Ox 98 95 Oxygen Delivery Method Room Air Room Air Room Air Oxygen Flow Rate (L/min) Fraction of Inspired Oxygen (FIO2) 09/10/20 10:36 09/10/20 11:02 Temperature 98.7 F Temperature Source Oral Pulse Rate 107 H 99 Respiratory Rate 18 Blood Pressure 161/73 H Blood Pressure Mean 102 Blood Pressure Source Monitor Blood Pressure Position Semi-Fowlers Blood Pressure Location Right Arm Pulse Ox 95 Oxygen Delivery Method Room Air Oxygen Flow Rate (L/min) Fraction of Inspired Oxygen (FIO2) Physical Exam Const alert, oriented x3, no apparent distress and healthy appearing General Appearance: cooperative, well kempt and well developed Orientation / Consciousness: awake, oriented to person, oriented to place and oriented to time HEENT normocephalic and moist oral mucous membranes Eyes PERRL, EOMs intact bilaterally and conjunctivae normal Neck nuchal rigidity, supple, no JVD, thyroid normal and no carotid bruits General: trachea midline Resp normal respiratory effort and clear to auscultation bilaterally Auscultation: Negative for rales, rhonchi or wheezes Cardio regular rate, regular rhythm, no murmurs, no rub and no gallops GI normal to inspection, nondistended, normoactive bowel sounds, soft to palpation, non-tender and non-distended Extremity no clubbing, cyanosis or edema Skin no rashes or lesions noted General Skin Exam: no breakdown Neuro oriented x3, CN's II-XII intact bilaterally, no focal motor deficits and no sensory deficits noted Sensorium / Orientation: awake and alert Speech: speech normal Psych thought process normal and affect normal Lab / Micro Data Result Diagrams: 09/10/20 07:45 09/10/20 07:45 Labs: Laboratory Results - last 24 hr 09/10/20 09/10/20 09/10/20 07:45 07:45 07:45 WBC 6.7 RBC 4.19 L Hgb 13.6 Hct 39.4 L MCV 94.0 MCH 32.5 H MCHC 34.5 RDW Std Deviation 44.2 H RDW Coeff of Layla 13.0 Plt Count 184 MPV 8.8 Immature Gran % (Auto) 1.200 H Neut % (Auto) 47.8 Lymph % (Auto) 41.0 [place] % (Auto) 7.1 Eos % (Auto) 2.3 Baso % (Auto) 0.6 Absolute Neuts (auto) 3.2 Absolute Lymphs (auto) 2.73 Nucleated RBC % 0 Sodium 138 Potassium 3.4 L Chloride 100 Carbon Dioxide 21.0 Anion Gap 17 H BUN 20 H Creatinine 1.14 Estim Creat Clear Calc 49.75 Est GFR (MDRD) Af Amer 80 Est GFR (MDRD) Non-Af 66 BUN/Creatinine Ratio 17.5 Glucose 246 H Calcium 9.0 Troponin I 0.230 H Phenytoin 10.8 POC Glucose 09/10/20 09/10/20 09/10/20 11:24 11:31 13:18 WBC RBC Hgb Hct MCV MCH MCHC RDW Std Deviation RDW Coeff of Layla Plt Count MPV Immature Gran % (Auto) Neut % (Auto) Lymph % (Auto) [place] % (Auto) Eos % (Auto) Baso % (Auto) Absolute Neuts (auto) Absolute Lymphs (auto) Nucleated RBC % Sodium Potassium Chloride Carbon Dioxide Anion Gap BUN Creatinine Estim Creat Clear Calc Est GFR (MDRD) Af Amer Est GFR (MDRD) Non-Af BUN/Creatinine Ratio Glucose Calcium Troponin I 1.940 H* 2.720 H* Phenytoin POC Glucose 143 H Radiology Impression Brain CT 09/10/20 07:38 IMPRESSION: No acute intracranial process. Electronically Signed: Kurtis Meza MD at 9:26 EDT Tel , Service support , Chest X-Ray 09/10/20 07:38 IMPRESSION: No active pulmonary disease. Electronically Signed: Kurtis Meza MD at 9:11 EDT Tel , Service support , Assessment & Plan Assessment/Plan (1) Elevated troponin: PLAN: 1. Elevated troponin-etiology unclear at this point, cardiology will see the patient and make recommendations, cardiac enzymes will be cycled #2 breakthrough seizure in a patient with known seizure disorder-patient will remain on his present seizure medications #3 coronary artery disease by history #4 type 2 diabetes-patient is only on metformin, I do not think his blood sugars need to be monitored while he is in the hospital #5 essential hypertension #6 hyperlipidemia Visit Charges OBSV E&M: 31529 Initial observation care L3
[2020-09-10] MEDS: Atorvastatin Calcium 40 MG Tablet PO (21:47)
[2020-09-10] MEDS: Phenytoin Na 100 MG Capsule 300 MG PO (21:48)
[2020-09-10 21:58] LABS: International Normalized Ratio 1.1; Partial Thromboplast Time 25.8 Seconds (24.1-36.2); Prothrombin Time (Protime)PT. 13.2 SECONDS (11.7-14.9)
[2020-09-10] MEDS: HEPARIN/D5w 25,000 UNITS 25,000 UNITS/250 ML IV.SOLN. 15 UNITS IV (22:15)
[2020-09-11] VITALS (11 sets, daily range): BP systolic 126–164; BP diastolic 64–86; PULSE 62–103; RESP 16–18; TEMP 36.6–37.1; O2SAT 95–97
--- NOTE | 2020-09-11 04:53 | NURSING ---
refrigeration tech said she tried for over 30min to get pt labs (PTT) drawn this am so she will have another cath lab radiology technician come down in 10 minutes to do it.
[2020-09-11] MEDS: metFORMIN (XR) 500 MG Tablet PO (09:42)
[2020-09-11] MEDS: levETIRAcetam 750 MG Tablet 1500 MG PO ×2 (09:42→22:19)
[2020-09-11] MEDS: Fenofibrate 145 MG Tablet PO (09:42)
[2020-09-11] MEDS: Losartan Potassium 50 MG Tablet PO (09:42)
[2020-09-11] MEDS: Phenytoin Na 100 MG Capsule 200 MG PO (09:42)
[2020-09-11] MEDS: Aspirin E.C. 81 MG Tablet PO (09:42)
[2020-09-11] MEDS: hydroCHLOROthiazide 25 MG Tablet PO (09:42)
[2020-09-11] MEDS: Atenolol 25 MG Tablet PO (09:42)
[2020-09-11 11:45] LABS: Partial Thromboplast Time 66.3 Seconds (24.1-36.2)
--- NOTE | 2020-09-11 11:52 | PCM.PN.HOSP ---
Subjective Subjective Patient was seen and examined today, he denies any chest pain or shortness of breath. Patient's troponin peaked at 3.45 yesterday at 7:41 PM. I suspect the patient will need a cardiac catheterization tomorrow rather than a stress test, cardiology will see the patient today and make the determination. Objective Data Objective Data Vital Signs: Vital Signs Temp Pulse Resp BP Pulse Ox 98.7 F 103 H 18 160/86 H 96 09/11/20 09:41 09/11/20 09:41 09/11/20 09:41 09/11/20 09:41 09/11/20 09:41 Oxygen Flow Rate (L/min) 2 Oxygen Delivery Method Room Air Weight: 111.7 kg Body Mass Index (BMI) 38.5 Intake & Output: Intake and Output for Last 24 Hours 09/09/20 09/10/20 09/11/20 23:59 23:59 23:59 Intake Total 840 / 840 103.75 / 103.75 Balance 840 / 840 103.75 / 103.75 Lab / Micro Data Result Diagrams: 09/10/20 07:45 09/10/20 07:45 Labs: Laboratory Results - last 24 hr 09/10/20 09/10/20 09/10/20 11:31 13:18 19:41 PT INR APTT Troponin I 1.940 H* 2.720 H* 3.450 H* 09/10/20 09/11/20 09/11/20 21:37 04:39 05:10 PT 13.2 INR 1.1 APTT 25.8 71.0 H Troponin I 2.150 H* 09/11/20 10:56 PT INR APTT 66.3 H Troponin I Physical Exam Const alert, oriented x3, no apparent distress and healthy appearing General Appearance: cooperative, well kempt and well developed Orientation / Consciousness: awake, oriented to person, oriented to place and oriented to time HEENT normocephalic and moist oral mucous membranes Eyes PERRL, EOMs intact bilaterally and conjunctivae normal Neck nuchal rigidity, supple, no JVD, thyroid normal and no carotid bruits General: trachea midline Resp normal respiratory effort and clear to auscultation bilaterally Auscultation: Negative for rales, rhonchi or wheezes Cardio regular rate, regular rhythm, no murmurs, no rub and no gallops GI normal to inspection, nondistended, normoactive bowel sounds, soft to palpation, non-tender and non-distended Extremity no clubbing, cyanosis or edema Skin no rashes or lesions noted General Skin Exam: no breakdown Neuro oriented x3, CN's II-XII intact bilaterally, no focal motor deficits and no sensory deficits noted Sensorium / Orientation: awake and alert Speech: speech normal Psych thought process normal and affect normal Assessment & Plan Assessment/Plan (1) Elevated troponin: PLAN: 1. [facility]AB[facility] cardiology will make a determination whether the patient will undergo a stress test or cardiac catheterization tomorrow, patient is willing to undergo a cardiac catheterization if necessary. #2 breakthrough seizure in a patient with known seizure disorder-patient will remain on his present seizure medications #3 coronary artery disease by history #4 type 2 diabetes-patient will be placed on sliding scale insulin and fingerstick blood sugar checks, Metformin will be discontinued for now #5 essential hypertension #6 hyperlipidemia Visit Charges Inpatient E&M: 92992 Subs Hosp L2
[2020-09-11 12:21] LABS: Bedside Glucose 155 mg/dL (70-110)
[2020-09-11] MEDS: HEPARIN/D5w 25,000 UNITS 25,000 UNITS/250 ML IV.SOLN. 15 UNITS IV (14:52)
--- NOTE | 2020-09-11 15:10 | PCM.PN.CARD ---
Subjective Subjective Patient continues to do well from a cardiac standpoint. He denies any cardiac complaints. Objective Data Vital Signs: Vital Signs Temp Pulse Resp BP Pulse Ox 98.7 F 103 H 18 160/86 H 96 09/11/20 09:41 09/11/20 09:41 09/11/20 09:41 09/11/20 09:41 09/11/20 09:41 Oxygen Flow Rate (L/min) 2 Oxygen Delivery Method Room Air Weight: 246 lb 4.101 oz Body Mass Index (BMI) 38.5 Intake & Output: Intake and Output for Last 24 Hours 09/09/20 09/10/20 09/11/20 23:59 23:59 23:59 Intake Total 840 / 840 729.25 / 729.25 Balance 840 / 840 729.25 / 729.25 Lab / Micro Data Result Diagrams: 09/10/20 07:45 09/10/20 07:45 Labs: Laboratory Results - last 24 hr 09/10/20 09/10/20 09/11/20 19:41 21:37 04:39 PT 13.2 INR 1.1 APTT 25.8 Troponin I 3.450 H* 2.150 H* POC Glucose 09/11/20 09/11/20 09/11/20 05:10 10:56 12:17 PT INR APTT 71.0 H 66.3 H Troponin I POC Glucose 155 H Cardiology Labs/Tests 09/10/20 19:41: Troponin I 3.450 H* 09/10/20 21:37: PT 13.2, INR 1.1, APTT 25.8 09/11/20 04:39: Troponin I 2.150 H* 09/11/20 05:10: APTT 71.0 H 09/11/20 10:56: APTT 66.3 H Rhythm: EKG: ECHO: Stress Test: Cardiac Cath: PCI: CT Surgery: Holter monitor: EPS: PPM: CXR: Chest CT Scan: Physical Exam Const alert and oriented x3 Orientation / Consciousness: awake HEENT normocephalic Eyes no scleral icterus Neck supple Chest inspection of chest normal Resp normal respiratory effort Skin no rashes or lesions noted Psych mental status grossly normal Assessment & Plan Assessment/Plan (1) Elevated troponin: PLAN: Troponin peaked at around 3 and started trending down. This could be related to underlying CAD and tachycardia presentation. Patient continues to remain asymptomatic. Discussed coronary angiography versus stress testing with the patient. I think it be reasonable to proceed with stress testing to see if patient has evidence of significant ischemia. Patient is agreeable to this plan. (2) Atherosclerosis of coronary artery of [place] heart without angina pectoris: QUALIFIERS: Coronary Disease-Associated Artery/Lesion type: [place] artery Qualified Code(s): I25.10 - Atherosclerotic heart disease of [place] coronary artery without angina pectoris PLAN: We will proceed with stress testing as discussed. Patient has history of occluded RCA with collaterals and a 50% stenosis in the LAD by coronary angiography in 2005. Multi Select Codes Visit Charges Visit Charges: 33125 Subs Hosp L2
[2020-09-11 16:40] LABS: Bedside Glucose 141 mg/dL (70-110)
[2020-09-11 17:21] LABS: Partial Thromboplast Time 69.3 Seconds (24.1-36.2)
[2020-09-11] MEDS: Phenytoin Na 100 MG Capsule 300 MG PO (22:19)
[2020-09-11] MEDS: Atorvastatin Calcium 40 MG Tablet PO (22:20)
[2020-09-11 23:01] LABS: Bedside Glucose 148 mg/dL (70-110)
[2020-09-11 23:49] LABS: Partial Thromboplast Time 71.8 Seconds (24.1-36.2)
[2020-09-12] VITALS (11 sets, daily range): BP systolic 134–145; BP diastolic 67–90; PULSE 79–107; RESP 16–18; TEMP 36.3–36.9; O2SAT 95–99
--- NOTE | 2020-09-12 05:55 | EKG12_ITS ---
Test Reason : AM EKG Blood Pressure : / mmHG Vent. Rate : 098 BPM Atrial Rate : 098 BPM P-R Int : 120 ms QRS Dur : 132 ms QT Int : 376 ms P-R-T Axes : 103 -20 036 degrees QTc Int : 480 ms Normal sinus rhythm Non-specific intra-ventricular conduction block Nonspecific T wave abnormality Abnormal ECG Confirmed by YANELIS MCNEILL, TARA ([id number]), continuity editor AKASH STOCK ([id number]) on 09/14/2020 9:47:57 AM Referred By: DR VITALE Confirmed By:TARA HILARIO MD
[2020-09-12 06:02] LABS: Partial Thromboplast Time 202.7 Seconds (24.1-36.2)
[2020-09-12] MEDS: Aspirin E.C. 81 MG Tablet PO (06:16)
[2020-09-12] MEDS: Losartan Potassium 50 MG Tablet PO (06:16)
[2020-09-12 06:50] LABS: Bedside Glucose 153 mg/dL (70-110)
[2020-09-12 07:00] LABS: Partial Thromboplast Time 73.4 Seconds (24.1-36.2)
[2020-09-12] MEDS: HEPARIN/D5w 25,000 UNITS 25,000 UNITS/250 ML IV.SOLN. 15 UNITS IV (08:16)
--- NOTE | 2020-09-12 09:23 | PN.CARD_ITS ---
Subjective Subjective The patient appears to be resting comfortably at this time. He denies any concerning chest discomfort or difficulty breathing, palpitations, or other acute concerns prior to or since his seizure event. He was evaluated by Dr. Chau with concerns that his cardiac enzyme change may have been a type II event related to his [employer] event versus a primary type I event. Thus he recommended further evaluation with a pharmacologic stress nuclear imaging study prior to proceeding to additional cardiovascular evaluation with diagnostic cardiac catheterization. Objective Data Vital Signs: Vital Signs Temp Pulse Resp BP Pulse Ox 98.2 F 97 18 145/79 H 96 09/12/20 06:10 09/12/20 06:10 09/12/20 06:10 09/12/20 06:10 09/12/20 06:10 Oxygen Flow Rate (L/min) 2 Oxygen Delivery Method Room Air Weight: 246 lb 4.101 oz Body Mass Index (BMI) 38.5 Intake & Output: Intake and Output for Last 24 Hours 09/10/20 09/11/20 09/12/20 23:59 23:59 23:59 Intake Total 840 / 840 1569.25 / 1569.25 250.00 / 250.00 Balance 840 / 840 1569.25 / 1569.25 250.00 / 250.00 Lab / Micro Data Result Diagrams: 09/10/20 07:45 09/10/20 07:45 Labs: Laboratory Results - last 24 hr 09/11/20 09/11/20 09/11/20 10:56 12:17 16:36 APTT 66.3 H POC Glucose 155 H 141 H 09/11/20 09/11/20 09/11/20 17:02 22:25 23:25 APTT 69.3 H 71.8 H POC Glucose 148 H 09/12/20 09/12/20 09/12/20 05:04 06:15 06:30 APTT 202.7 H* 73.4 H POC Glucose 153 H Cardiology Labs/Tests 09/11/20 10:56: APTT 66.3 H 09/11/20 17:02: APTT 69.3 H 09/11/20 23:25: APTT 71.8 H 09/12/20 05:04: APTT 202.7 H* 09/12/20 06:30: APTT 73.4 H Rhythm: Sinus rhythm; PVCs Transthoracic echocardiogram: 08-31-2019 Interpretation Summary The estimated ejection fraction is 65 %. Stage 1 diastolic dysfunction. Mildly dilated right ventricle. Trivial mitral valve insufficiency. Unable to estimate RV systolic pressure due to insufficient tricuspid regurgitant envelope. There is no aortic stenosis. Compared to echo report dated 08/30/2017, no appreciable changes noted. The study was technically difficult. Contrast injection was performed. Stress echocardiogram: 09-16-2019 Reason For Study: CAD/ASHD Stress Results ? Protocol:? Nj Protocol WITH DEFINITY? Maximum Predicted HR: ? 145 bpm ? Target HR: 123 bpm ? % Maximum Predicted HR: 107 % ? DurationHeart Rate ? Stage? (mm:ss) ? (bpm) ? ? BP ? Comment ? BASELINE ? 103? ? 152/98 ? STAGE 1 ? 3:00 ? ? 134? ? 180/80SLIGHT SOB ? STAGE 2 ? 3:00 ? ? 155? ? 172/62 ? RECOVERY ? 111? ? 132/88 ? Stress Duration: ? 6:00 mm:ss ? Maximum Stress HR: 155 bpm Baseline Echocardiogram Findings The estimated ejection fraction is 65 %. ? Stress Echo Wall motion Data ? Resting WM ? Intermediate WM ? Stress WM ? Resting Wall Motion? Wall Motion Stress No regional wall motion? No regional wall motion abnormalities noted. ? abnormalities noted. EKG Data The baseline ECG displays normal sinus rhythm. The patient exercised according to the regular Nj protocol for a total duration of 6:00. The maximum heart rate attained was 160 beats per minute. This was 110% of maximum predicted heart rate. The patient exercised into stage 3 of the Nj protocol. During stress, there were no ST or T wave changes noted to suggest ischemia. No clinical angina was noted. Interpretation Summary The estimated ejection fraction is 65 %. Normal, adequate, treadmill echocardiogram. Negative for ischemia by EKG and echocardiographic criteria. No anginal symptoms noted. Rare PAC and PVCs noted. Hypertensive blood pressure response to exercise. Below average exercise capacity for age. Test terminated due to the attainment of target heart rate and dyspnea. Final LVEF of 75%. Decrease sensitivity due to poor echo windows requiring Definity agent, and limited echo window availability. Patient tolerate procedure well. No complications. The study was technically limited. The study was technically difficult. Contrast injection was performed. Ordering Physician: Jamison Grimaldo Referring Physician: Jamison Grimaldo Performed By: Salome Blackwood RDCS, RVT Cardiac catheterization: [facility]: 06-25-2005: Per Dr. Rufino Willoughby Left ventricle: LVEF 50% Left ventricle: Inferior base-akinesis Left main coronary artery: Scattered plaque LAD: Proximal 50% stenosis LCx: No severe stenosis Intermediate ramus: Sequential 30% stenosis Right coronary artery: Chronically occluded-proximally with the distal vessel filling from left to right collateral flow Recommendations: Medical management Assessment & Plan Assessment/Plan (1) Elevated troponin: PLAN: The patient does have elevated troponin I levels compatible with a non-ST segment elevation [place]. The etiology is unclear whether this is a type II event secondary to his underlying [employer]/seizure event versus a type I event. At the present time he has been recommended, as noted above, for further evaluation noninvasively of his cardiovascular status prior to proceeding directly with an invasive evaluation. Depending upon his noninvasive valuation consideration will be given as to whether or not he needs proceed with additional cardiac versus noncardiac evaluation. (2) Atherosclerosis of coronary artery of [place] heart without angina pectoris: QUALIFIERS: Coronary Disease-Associated Artery/Lesion type: [place] artery Qualified Code(s): I25.10 - Atherosclerotic heart disease of [place] coronary artery without angina pectoris PLAN: He does have a history of CAD. His previous noninvasive and invasive studies are as noted. At the moment he appears without any acute symptoms. He will continue his evaluation care as noted. (3) Hyperlipidemia: QUALIFIERS: Hyperlipidemia type: unspecified Qualified Code(s): E78.5 - Hyperlipidemia, unspecified PLAN: He should continue risk factor evaluation and care. (4) Essential hypertension: PLAN: His blood pressure will be followed. He will continue medical management. (5) Seizure: PLAN: He does have a seizure disorder. He has been on medical therapy. He was reported as having a seizure that led to this hospitalization. He will need to continue evaluation care per internal medicine and neurology. Addt'l Comments The above was discussed and reviewed with the patient and previously with Dr. Chau. This note was generated using a voice recognition system and there may be incorr ect words, spelling or punctuation that were not noted when reviewing the office note prior to saving.
--- NOTE | 2020-09-12 11:10 | CASEMGMT ---
Pt has been out of dept for stress test, unable to complete GUPTA form. SStmejia GREGG CM
--- NOTE | 2020-09-12 12:09 | CASEMGMT ---
This RN CM to room with GUPTA form, explanation done-pt voices understanding, and signs GUPTA form. Original to chart and copy to pt. Pt has a copy of Medicare IP vs OBS at bedside. Pt voices no further questions/concerns/needs. SStaten CRISTINO CM
[2020-09-12] MEDS: Phenytoin Na 100 MG Capsule 200 MG PO (12:13)
[2020-09-12] MEDS: levETIRAcetam 750 MG Tablet 1500 MG PO ×2 (12:13→21:40)
[2020-09-12] MEDS: 0.9% Saline Lock 10 ML Syringe IV (12:13)
[2020-09-12] MEDS: hydroCHLOROthiazide 25 MG Tablet PO (12:13)
[2020-09-12] MEDS: Fenofibrate 145 MG Tablet PO (12:14)
[2020-09-12] MEDS: Atenolol 25 MG Tablet PO ×2 (12:14→17:27)
[2020-09-12 12:31] LABS: Bedside Glucose 175 mg/dL (70-110)
--- NOTE | 2020-09-12 13:56 | STRESSREP ---
Stress Test Report Pharmacologic myocardial perfusion stress test. 74-year-old man with a history of coronary artery disease and abnormal troponin enzymes. Stress protocol: Rest EKG demonstrates normal sinus rhythm with a rate of 93 bpm poor R wave progression is noted previous anterior infarct cannot be completely excluded and T wave inversions are noted in lead III. 0.4 mg of regadenoson was infused per usual protocol followed by rapid intravenous saline flush injection continuous EKG monitoring was performed. Patient maintained sinus rhythm throughout the recording. At rest there were no ST or T wave changes noted to suggest ischemia T wave inversions were noted inferiorly. At peak infusion this T wave inversions persisted. Nonspecific changes were noted. The peak blood pressure was 170/70 mmHg. Myocardial perfusion protocol. 14.7 mCi of technetium 99m sestamibi was injected at rest. 0.4 mg of regadenoson was infused per usual protocol. At peak infusion 44.8 mCi of technetium 99m sestamibi was injected stress images were obtained stress and rest images were reconstructed and compared in the short axis vertical long and horizontal long axis. Gated images were also obtained. Perfusion SPECT analysis: Review of the stress images demonstrate normal cardiac silhouette size. There is a medium-sized defect noted involving the mid to basal inferior wall. The resting images demonstrate a similar pattern with mildly improved perfusion noted in the inferior wall. The septum anterior wall and lateral wall appeared to be well perfused on the stress and resting images. The above is suggestive of a previous inferior infarct with mild olga-infarct ischemia. Gated SPECT analysis: The gated ejection fraction is 51%. Conclusion: Pharmacologic myocardial perfusion stress test with evidence of basal to mid inferior infarct. Mild olga-infarct ischemia. Preserved ejection fraction.
--- NOTE | 2020-09-12 16:04 | CASEMGMT ---
According to the [facility] website, the following are in-network tertiary facilities: [facility], [facility], [facility], [facility], [facility], [facility], [employer], and . Hope GREGG CM
--- NOTE | 2020-09-12 16:29 | PCM.PN.HOSP ---
Subjective Subjective Patient reports that he is feeling well today. Denies chest pain or shortness of breath. We discussed the results of his stress test and they were indeed abnormal in the Dr. Neida would review and make recommendations. We did discuss what a left heart cath would involved if this was decided to be performed. Objective Data Objective Data Vital Signs: Vital Signs Temp Pulse Resp BP Pulse Ox 98.4 F 107 H 18 137/90 H 96 09/12/20 12:08 09/12/20 12:08 09/12/20 12:08 09/12/20 12:08 09/12/20 12:08 Oxygen Flow Rate (L/min) 2 Oxygen Delivery Method Room Air Weight: 111.7 kg Body Mass Index (BMI) 38.5 Intake & Output: Intake and Output for Last 24 Hours 09/10/20 09/11/20 09/12/20 23:59 23:59 23:59 Intake Total 840 / 840 1569.25 / 1569.25 400.00 / 400.00 Balance 840 / 840 1569.25 / 1569.25 400.00 / 400.00 Lab / Micro Data Result Diagrams: 09/10/20 07:45 09/10/20 07:45 Labs: Laboratory Results - last 24 hr 09/11/20 09/11/20 09/11/20 16:36 17:02 22:25 APTT 69.3 H POC Glucose 141 H 148 H 09/11/20 09/12/20 09/12/20 23:25 05:04 06:15 APTT 71.8 H 202.7 H* POC Glucose 153 H 09/12/20 09/12/20 06:30 12:11 APTT 73.4 H POC Glucose 175 H Physical Exam Const alert, oriented x3 and no apparent distress Constitutional Narrative: Obese white male sitting up in a chair, watching television, appears comfortable Exam Limitations: no limitations Nutritional Appearance: obese HEENT head/scalp atraumatic and moist oral mucous membranes Head and Scalp: normocephalic Eyes PERRL, EOMs intact bilaterally and conjunctivae normal Resp normal respiratory effort, no retractions, no use of accessory muscles and clear to auscultation bilaterally Cardio regular rate, regular rhythm, S1 normal heart sound, S2 normal heart sound, no murmurs, no rub, no gallops, no clicks and no JVD GI normal to inspection, nondistended, normoactive bowel sounds, soft to palpation, non-tender and non-distended Extremity normal to inspection Extremity Narrative: Trace to 1+ bilateral lower extremity edema, no clubbing or cyanosis Peripheral Pulses: Yes pulses 2+ throughout Neuro oriented x3, CN's II-XII intact bilaterally and moves all extremities Sensorium / Orientation: awake, alert, oriented to person, oriented to place and oriented to time Speech: speech normal Psych affect normal Assessment & Plan Assessment/Plan (1) Elevated troponin: PLAN: NSTEMI -Stress test indicative of basal to mid inferior infarct with mild olga-infarct ischemia, EF is preserved at 51% -Continue aspirin and Plavix -Continue beta-abram/ARB -Continue heparin drip -Suspect patient will need left heart cath in the morning--> awaiting cardiology input Hypokalemia -Repeat potassium in a.m. History of CAD/HTN/HPL -Continue aspirin Plavix -Continue antihypertensives -Continue statin but increase dose to 80 mg daily Hypertriglyceridemia -Continue TriCor DM-2 -Blood sugars are in goal range -Check hemoglobin A1c -Continue current insulin regimen Seizure disorder -Patient with breakthrough seizure on admission -No further seizures since admission -Continue current antiepileptics DVT prophylaxis -Heparin drip CODE STATUS -Full code Visit Charges Inpatient E&M: 70862 Subs Hosp L2
[2020-09-12 17:26] LABS: Bedside Glucose 130 mg/dL (70-110)
[2020-09-12] MEDS: Clopidogrel Bisulfate 300 MG Tablet PO (17:27)
[2020-09-12] MEDS: Phenytoin Na 100 MG Capsule 300 MG PO (21:40)
[2020-09-12] MEDS: Atorvastatin Calcium 80 MG Tablet PO (21:41)
[2020-09-12] MEDS: Insulin Lispro 100 UNIT/ML INSULN.PEN SC (21:45)
[2020-09-12 22:26] LABS: Bedside Glucose 155 mg/dL (70-110)
[2020-09-13] VITALS (14 sets, daily range): BP systolic 109–158; BP diastolic 57–135; PULSE 67–89; RESP 16–18; TEMP 36.3–36.9; O2SAT 95–96
[2020-09-13 00:02] LABS: Phosphorus 2.7 mg/dL (2.5-4.9)
[2020-09-13 00:06] LABS: Anion Gap 8 (5-15); BUN 18 mg/dL (7-18); BUN/Creat Ratio 18.7 RATIO (10-20); Calcium,Total 9.3 mg/dL (8.5-10.1); Chloride 100 mmol/L (98-107); Creatinine, Serum 0.96 mg/dL (0.70-1.30); EST Glomerular Filtration Rate 81 mL/min (>60); Est Glom Filt Rate - Afr Amer 98 mL/min (>60); Glucose 138 mg/dL (74-106); Magnesium 1.8 mg/dL (1.6-2.6); Potassium 3.1 mmol/L (3.5-5.1); Sodium Level 134 mmol/L (136-145)
[2020-09-13] MEDS: HEPARIN/D5w 25,000 UNITS 25,000 UNITS/250 ML IV.SOLN. 15 UNITS IV (01:08)
[2020-09-13] MEDS: Potassium Chloride Oral Tablet 20 MEQ 60 MEQ PO (01:10)
--- NOTE | 2020-09-13 05:55 | EKG12_ITS ---
Test Reason : AM EKG Blood Pressure : / mmHG Vent. Rate : 077 BPM Atrial Rate : 077 BPM P-R Int : 206 ms QRS Dur : 124 ms QT Int : 402 ms P-R-T Axes : 059 001 -44 degrees QTc Int : 454 ms Normal sinus rhythm Septal infarct , age undetermined Abnormal ECG Confirmed by YANELIS MCNEILL, TARA ([id number]), editorial assistant AKASH STOCK ([id number]) on 09/14/2020 9:47:28 AM Referred By: MELISSA Confirmed By:TARA HILARIO MD
[2020-09-13] MEDS: Atenolol 50 MG Tablet PO (05:57)
[2020-09-13] MEDS: Clopidogrel Bisulfate 75 MG Tablet PO (05:57)
[2020-09-13] MEDS: Aspirin E.C. 81 MG Tablet PO (05:57)
[2020-09-13] MEDS: Losartan Potassium 50 MG Tablet PO (05:57)
[2020-09-13] MEDS: 0.9% Saline Lock 10 ML Syringe IV (06:04)
[2020-09-13 06:52] LABS: Absolute Lymphocyte Count 2.56 X10^3/uL (0.83-4.51); Absolute Neutrophil Count 2.5 X10^3/uL (2.0-7.7); Basophil# 0.04 X10^3/uL; Basophil% 0.7 % (0-1); Eosinophil# 0.11 X10^3/uL; Eosinophils% 1.9 % (0-5); Hematocrit 39.3 % (40-54); Hemoglobin 13.6 g/dL (13.0-16.5); Lymphocyte # 2.56 X10^3/ul (0.83-4.51); Lymphocyte % 43.5 % (19-41); Mean Corp Hgb Conc 34.6 g/dL (32-36); Mean Corpuscular Hgb 32.3 pg (27.0-32.0); Mean Corpuscular Volume 93.3 fL (80-94); Mean Platelet Vol. 9.2 fl (6.2-12.0); Monocyte# 0.64 X10^3/uL; Monocyte% 10.9 % (0-10); NRBC Flagged by Analyzer 0 % (0-5); Neutrophil # 2.51 X10^3/uL (2.7-7.7); Neutrophil % 42.5 % (47-70); Platelet Count 169 K/mm3 (150-450); RBC Distribution Width CV 13.1 % (11.6-14.6); Red Blood Count 4.21 M/mm3 (4.6-6.2); White Blood Count 5.9 K/mm3 (4.4-11.0)
[2020-09-13 07:00] LABS: Partial Thromboplast Time 30.2 Seconds (24.1-36.2)
[2020-09-13 07:01] LABS: Bedside Glucose 147 mg/dL (70-110)
[2020-09-13 08:15] LABS: Hemoglobin A1c 6.7 % (3.8-5.6)
[2020-09-13] MEDS: 0.9% Normal Saline 1,000 ML 75 ML IV (08:40)
--- NOTE | 2020-09-13 08:40 | NURSING ---
Returns from heart catheterization
--- NOTE | 2020-09-13 08:53 | CL.D_ITS ---
Patient Name: LAKESHIA THORPE Study Date: 09/13/2020 Performing: Hugh Carrasquillo MD Ht: 67 inches 170 cm : 1945 Wt: 247.2 lbs 112 kg Age: 74 Gender: male BSA: 2.21 PROCEDURE(S) PERFORMED [id number]/LV CLINICAL PROFILE AND INDICATIONS Indications: ACS > 24 hrs, Suspected CAD, LV Dysfunction Heart Failure: None Stress/Imaging Stress/Image Study Performed: No Angina Classification Anginal Classification w/in 2 Weeks: No symptoms CAD Presentations: No Sxs, no angina. CONCLUSIONS Elevated Left Ventricular End Diastolic Pressure (mild) Segmented LV systolic dysfunction- Mild LVEF: by LV gram 55 % [place] Multivessel CAD Left to Right Collaterals Right to Right Bridging Collaterals RECOMMENDATIONS Risk factor modification Medical therapy DESCRIPTION OF PROCEDURE The patient arrived to the procedure lab. The risks and benefits of the procedure as well as a full d escription of our services here and current unavailability of surgical backup were fully explained to the patient and/or their significant other prior to the catheterization. The Timeout was completed, verifying the correct patient and procedure. The patient's procedural site was prepped and draped in the usual fashion. Local anesthetic was given subcutaneously to right radial region with Lidocaine 2% . Using a modified Seldinger technique, arterial access was obtained via the right radial artery, a 6 Fr sheath was inserted. Left Coronary Artery selective angiography was performed in multiple views u sing a 5 Fr. 4.0 Warrior catheter. Right Coronary Artery selective angiography was then performed in mu ltiple views using a 5 Fr. 4.0 Warrior catheter. Left Ventriculography was performed in SOLO projection using a 5 Fr. Pigtail catheter. LV to AO pullback pressures were then recorded.The arterial sheath was pulled and a TR Band was applied for hemostasis CORONARY ANGIOGRAPHY DOMINANCE: Right Dominant LEFT HEART ASSESSMENT Left Ventricular Ejection Fraction: by LV Gram 55 % Inferior Basal Akinesis. Inferior Mid Hypokinesis Elevated Left Ventricular End Diastolic Pressure LVEDP: 16 mmHg LEFT MAIN: Angiographically normal LEFT ANTERIOR DESCENDING ARTERY: Mild luminal irregularities PROX LAD: Moderate calcification, concentric: 25 % Stenosis, diffuse: 10 - 25 % Stenosis MID LAD: s/p SP: eccentric: 25 % Stenosis CIRCUMFLEX ARTERY: Mild luminal irregularities PROX CIRC: Mild calcification RAMUS: Mild luminal irregularities RIGHT CORONARY ARTERY: PROX RCA: is occluded DISTAL RCA: fills late from bridging collaterals and partially from left to right collaterals COLLATERAL FLOW: Collateral flow from Left to Right Collateral flow from Right to Right AORTIC ROOT: Angiographically normal COMPLICATIONS No Complications PROCEDURE MEDICATIONS Fentanyl 50 mcg IV Versed 1 mg IV Fentanyl 50 mcg IV Versed 1 mg IV Oxygen: 2 L/min via nasal cannula Heparin diluted in 23cc Heparinized saline. Patient given 10cc IA of this solution. 09/13/2020 08:07: 07 Verapamil 2.5mg, Ntg 100mcgs, 2000 units of Heparin diluted in 23cc Heparinized saline. Patient give n 10cc IA of this solution. 09/13/2020 08:07:07 SUMMARY OF HEMODYNAMIC DATA Time AIR REST ECG 07:42:41 AO 126/76 (96) SA 08:11:00 LV 131/2, 19 08:20:03 LV 136/-4, 16 08:20:09 LV 143/7, 31 08:21:12 LV 137/2, 16 08:21:18 LVp 140/0, 22 08:21:22 AOp 136/64 (95) 08:21:27 Signed By Hugh Carrasquillo MD On 09/13/2020 08:53:00 Hugh Carrasquillo MD
[2020-09-13] MEDS: Phenytoin Na 100 MG Capsule 200 MG PO (09:53)
[2020-09-13] MEDS: Isosorbide Mononitrate 30 MG Tablet PO (09:54)
[2020-09-13] MEDS: levETIRAcetam 750 MG Tablet 1500 MG PO (09:54)
[2020-09-13] MEDS: hydroCHLOROthiazide 25 MG Tablet PO (09:54)
[2020-09-13] MEDS: Fenofibrate 145 MG Tablet PO (09:54)
--- NOTE | 2020-09-13 12:10 | PCM.DC.SUM ---
Providers Date of Admission: 09/10/20 Primary Care Physician: Dr. Denia Silvestre MD Consultations 09/10/20 11:20 Consult: Cardiology Routine Consulting Provider: Agata Chau Reason for Consult: ABNORMAL EKG EMERGENT Consult: No MD Notified: Yes Date Notified:: 09/10/20 Time Notified: 11:20 Method of Notification: Verbal Reason For Visit: ELEVATED TROPONIN Diagnosis Discharge Diagnosis (1) Elevated troponin: Status: Acute Code(s): R77.8 - Other specified abnormalities of plasma proteins Medications at Discharge Home Medications aspirin 81 mg PO DAILY@0800 08/28/17 atenolol 25 mg PO DAILY 08/28/17 esomeprazole magnesium 40 mg PO DAILY PRN 08/28/17 fenofibrate nanocrystallized 145 mg PO DAILY 08/28/17 levetiracetam 1,500 mg PO BID 08/28/17 losartan 50 mg PO DAILY 08/28/17 metformin 500 mg PO DAILY 08/28/17 pjiuawqr-wmd-TD-lycopen-lutein 1 ea PO DAILY 08/28/17 niacin 500 mg PO QHS 08/28/17 phenytoin sodium extended 200 mg PO DAILY 08/28/17 phenytoin sodium extended 300 mg PO QHS 08/28/17 rosuvastatin 20 mg PO DAILY 08/28/17 hydrochlorothiazide 25 mg tablet 25 mg PO DAILY 09/09/20 atorvastatin 80 mg PO QHS #30 tab 09/13/20 clopidogrel 75 mg PO DAILY #30 tab 09/13/20 isosorbide mononitrate 30 mg PO DAILY #30 tab 09/13/20 Hospital Course Operations None Procedures Cardiac catheterization and Nuclear stress test Summary of Care Provided Minutes Spent on Discharge: 37 Hospital Course: Mr. Pete is a 74-year-old male who presented to the emergency room at [facility] on 09/10/2020 after suffering a seizure at home. Upon presentation the patient reported that his last seizure prior to presentation was 2 years ago. On admission he denied any chest pain, shortness of breath, fever, or chills and had denied being ill or feeling ill. Work-up in the emergency department included an EKG which showed some ST-T wave changes in the lateral and precordial leads. The patient's troponin was slightly elevated at 0.230 and he was admitted to PCU for further work-up. His cardiac enzymes were cycled during his hospitalization and peaked at 3.450. He was initiated on a heparin drip and placed on aspirin. A stress test was performed on 09/12/2020 and had evidence of basal to mid inferior infarct with mild olga-infarct ischemia and a preserved ejection fraction at 51%. He was taken to the [facility] on the a.m. 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 Recommendations based on his left heart cath were risk factor modification medical therapy. Hemoglobin A1c was obtained during his hospitalization was found to be 6.7. His lipids were obtained and his total cholesterol was 203, his LDL was 98 his VLDL was 62 and his HDL was 43. With this his statin dose was increased from 40 mg to 80 mg nightly and a prescription was sent for this at discharge. Imdur 30 mg and Plavix 75 mg were also added to his home regimen upon discharge. He suffered from no further seizures during his hospitalization and was stable on his phenytoin home dose. His phenytoin level was therapeutic on admission at 10.8 although this is in the low therapeutic window. He is to follow-up with Dr. Carrasquillo in the outpatient setting in 4 weeks and with his primary care physician in the next week. Discharge diagnoses NSTEMI type I Hypokalemia CAD Hypertension Hyperlipidemia-uncontrolled Hypertriglyceridemia [id number] Seizure disorder GERD Physical Exam Const alert, oriented x3, no apparent distress and healthy appearing Constitutional Narrative: Obese white male sitting up in bed, watching television, appears comfortable, nursing is at bedside General Appearance: cooperative, well kempt and well developed Orientation / Consciousness: awake, oriented to person, oriented to place and oriented to time Exam Limitations: no limitations Nutritional Appearance: obese HEENT normocephalic, head/scalp atraumatic and moist oral mucous membranes HEENT Narrative: Mallampati 3, no thrush Eyes PERRL, EOMs intact bilaterally and conjunctivae normal Neck nuchal rigidity, supple and thyroid normal Neck Narrative: Trachea midline General: trachea midline Resp normal respiratory effort, no retractions, no use of accessory muscles and clear to auscultation bilaterally Auscultation: Negative for rales, rhonchi or wheezes Cardio regular rate, regular rhythm, S1 normal heart sound, S2 normal heart sound, no murmurs, no rub, no gallops, no clicks and no JVD GI normal to inspection, nondistended, normoactive bowel sounds, soft to palpation, non-tender and non-distended Extremity normal to inspection Extremity Narrative: Trace to 1+ bilateral lower extremity edema, no clubbing or cyanosis, right wrist with compressive device in place status post [facility] Skin no rashes or lesions noted General Skin Exam: no breakdown Neuro oriented x3, CN's II-XII intact bilaterally, moves all extremities, no focal motor deficits and no sensory deficits noted Sensorium / Orientation: awake, alert, oriented to person, oriented to place and oriented to time Speech: speech normal Psych thought process normal and affect normal Psych Narrative: Very pleasant ABG / Lab / Microbiology Data Result Diagrams: 09/13/20 05:45 09/12/20 23:13 Laboratory: Laboratory Results - last 24 hr 09/12/20 09/12/20 09/12/20 12:11 17:15 21:39 WBC RBC Hgb Hct MCV MCH MCHC RDW Std Deviation RDW Coeff of Layla Plt Count MPV Immature Gran % (Auto) Neut % (Auto) Lymph % (Auto) [place] % (Auto) Eos % (Auto) Baso % (Auto) Absolute Neuts (auto) Absolute Lymphs (auto) Nucleated RBC % APTT Sodium Potassium Chloride Carbon Dioxide Anion Gap BUN Creatinine Estim Creat Clear Calc Est GFR (MDRD) Af Amer Est GFR (MDRD) Non-Af BUN/Creatinine Ratio Glucose Hemoglobin A1c Calcium Phosphorus Magnesium POC Glucose 175 H 130 H 155 H 09/12/20 09/12/20 09/13/20 23:13 23:13 05:45 WBC RBC Hgb Hct MCV MCH MCHC RDW Std Deviation RDW Coeff of Layla Plt Count MPV Immature Gran % (Auto) Neut % (Auto) Lymph % (Auto) [place] % (Auto) Eos % (Auto) Baso % (Auto) Absolute Neuts (auto) Absolute Lymphs (auto) Nucleated RBC % APTT 30.2 Sodium 134 L Potassium 3.1 L Chloride 100 Carbon Dioxide 26.0 Anion Gap 8 BUN 18 Creatinine 0.96 Estim Creat Clear Calc 61.20 Est GFR (MDRD) Af Amer 98 Est GFR (MDRD) Non-Af 81 BUN/Creatinine Ratio 18.7 Glucose 138 H Hemoglobin A1c Calcium 9.3 Phosphorus 2.7 Magnesium 1.8 POC Glucose 09/13/20 09/13/20 09/13/20 05:45 05:45 06:08 WBC 5.9 RBC 4.21 L Hgb 13.6 Hct 39.3 L MCV 93.3 MCH 32.3 H MCHC 34.6 RDW Std Deviation 44.0 H RDW Coeff of Layla 13.1 Plt Count 169 MPV 9.2 Immature Gran % (Auto) 0.500 Neut % (Auto) 42.5 L Lymph % (Auto) 43.5 H [place] % (Auto) 10.9 H Eos % (Auto) 1.9 Baso % (Auto) 0.7 Absolute Neuts (auto) 2.5 Absolute Lymphs (auto) 2.56 Nucleated RBC % 0 APTT Sodium Potassium Chloride Carbon Dioxide Anion Gap BUN Creatinine Estim Creat Clear Calc Est GFR (MDRD) Af Amer Est GFR (MDRD) Non-Af BUN/Creatinine Ratio Glucose Hemoglobin A1c 6.7 H Calcium Phosphorus Magnesium POC Glucose 147 H D/C Instructions Discharge Diet: Low fat / Low cholesterol and 1800 Calorie Control Diet Discharge Activity: Return to Normal Activity (On 09/14/2020) Meaningful Use Info Meaningful Use Diagnoses (Choose all that apply): AMI AMI/Post PCI/Angioplasty Aspirin given w/in 24hrs of arrival?: Yes ASA at discharge?: Yes Antiplatelet Therapy at Discharge:: Yes Statins at discharge?: Yes Glenn/ARB at discharge?: Yes Beta Hieu at discharge?: Yes Done w/ Acute OR measure.: Yes Documented LVEF (%): 55 Discharge Plan Admission Admit Date/Time: 09/10/20 09:48 Primary Reason for Your Visit: Seizure Attending Provider: Jyoti Dill Primary Care Provider: Denia Silvestre Consulting Providers: Agata Chau Discharge Orders/Prescriptions Prescriptions: New isosorbide mononitrate 30 mg Tablet Extended Release 24 Hr 30 mg PO DAILY Qty: 30 RF: 1 clopidogrel 75 mg Tablet 75 mg PO DAILY Qty: 30 RF: 1 atorvastatin 80 mg Tablet 80 mg PO QHS Qty: 30 RF: 1 Continued hydrochlorothiazide 25 mg tablet 25 mg PO DAILY RF: 0 losartan 50 MG tablet 50 mg PO DAILY RF: 0 niacin 500 MG tablet extended release 24 hr 500 mg PO QHS RF: 0 atenolol 25 MG tablet 25 mg PO DAILY RF: 0 phenytoin sodium extended 100 MG capsule 200 mg PO DAILY RF: 0 phenytoin sodium extended 100 MG capsule 300 mg PO QHS RF: 0 aspirin 81 MG tablet 81 mg PO DAILY@0800 RF: 0 esomeprazole magnesium 40 MG capsule,delayed release(DR/EC) 40 mg PO DAILY PRN (Reason: Heartburn) RF: 0 rosuvastatin 20 MG tablet 20 mg PO DAILY RF: 0 abmyxutt-igq-UE-lycopen-lutein 1 EACH tablet 1 ea PO DAILY RF: 0 fenofibrate nanocrystallized 145 MG tablet 145 mg PO DAILY RF: 0 metformin 500 MG tablet,ER rolanda.retention 24 hr 500 mg PO DAILY RF: 0 levetiracetam 750 MG tablet extended release 24 hr 1,500 mg PO BID RF: 0 Referrals / Follow Up: Denia Silvestre MD [Primary Care Provider] - (Follow-up within 1 week) Hugh Carrasquillo MD [STAFF PHYSICIAN] - (4 weeks) Disposition Disposition (needs filled in before D/C Order can be placed): Home, self care Visit Charges Inpatient E&M: 21213 Disch Hosp
[2020-09-13 12:36] LABS: Bedside Glucose 188 mg/dL (70-110)
--- NOTE | 2020-09-13 12:59 | PN.CARD_ITS ---
Subjective Subjective The patient underwent diagnostic cardiac catheterization earlier this day. He did not require coronary artery revascularization therapy. Objective Data Vital Signs: Vital Signs Temp Pulse Resp BP Pulse Ox 98.1 F 74 16 113/62 96 09/13/20 08:45 09/13/20 12:19 09/13/20 12:19 09/13/20 12:19 09/13/20 12:19 Oxygen Flow Rate (L/min) 2 Oxygen Delivery Method Room Air Weight: 246 lb 4.101 oz Body Mass Index (BMI) 38.5 Intake & Output: Intake and Output for Last 24 Hours 09/11/20 09/12/20 09/13/20 23:59 23:59 23:59 Intake Total 1569.25 / 1569.25 970.00 / 970.00 518 / 518 Balance 1569.25 / 1569.25 970.00 / 970.00 518 / 518 Lab / Micro Data Result Diagrams: 09/13/20 05:45 09/12/20 23:13 Labs: Laboratory Results - last 24 hr 09/12/20 09/12/20 09/12/20 17:15 21:39 23:13 WBC RBC Hgb Hct MCV MCH MCHC RDW Std Deviation RDW Coeff of Layla Plt Count MPV Immature Gran % (Auto) Neut % (Auto) Lymph % (Auto) [place] % (Auto) Eos % (Auto) Baso % (Auto) Absolute Neuts (auto) Absolute Lymphs (auto) Nucleated RBC % APTT Sodium 134 L Potassium 3.1 L Chloride 100 Carbon Dioxide 26.0 Anion Gap 8 BUN 18 Creatinine 0.96 Estim Creat Clear Calc 61.20 Est GFR (MDRD) Af Amer 98 Est GFR (MDRD) Non-Af 81 BUN/Creatinine Ratio 18.7 Glucose 138 H Hemoglobin A1c Calcium 9.3 Phosphorus Magnesium 1.8 POC Glucose 130 H 155 H 09/12/20 09/13/20 09/13/20 23:13 05:45 05:45 WBC 5.9 RBC 4.21 L Hgb 13.6 Hct 39.3 L MCV 93.3 MCH 32.3 H MCHC 34.6 RDW Std Deviation 44.0 H RDW Coeff of Layla 13.1 Plt Count 169 MPV 9.2 Immature Gran % (Auto) 0.500 Neut % (Auto) 42.5 L Lymph % (Auto) 43.5 H [place] % (Auto) 10.9 H Eos % (Auto) 1.9 Baso % (Auto) 0.7 Absolute Neuts (auto) 2.5 Absolute Lymphs (auto) 2.56 Nucleated RBC % 0 APTT 30.2 Sodium Potassium Chloride Carbon Dioxide Anion Gap BUN Creatinine Estim Creat Clear Calc Est GFR (MDRD) Af Amer Est GFR (MDRD) Non-Af BUN/Creatinine Ratio Glucose Hemoglobin A1c Calcium Phosphorus 2.7 Magnesium POC Glucose 09/13/20 09/13/20 09/13/20 05:45 06:08 12:19 WBC RBC Hgb Hct MCV MCH MCHC RDW Std Deviation RDW Coeff of Layla Plt Count MPV Immature Gran % (Auto) Neut % (Auto) Lymph % (Auto) [place] % (Auto) Eos % (Auto) Baso % (Auto) Absolute Neuts (auto) Absolute Lymphs (auto) Nucleated RBC % APTT Sodium Potassium Chloride Carbon Dioxide Anion Gap BUN Creatinine Estim Creat Clear Calc Est GFR (MDRD) Af Amer Est GFR (MDRD) Non-Af BUN/Creatinine Ratio Glucose Hemoglobin A1c 6.7 H Calcium Phosphorus Magnesium POC Glucose 147 H 188 H Cardiology Labs/Tests 09/12/20 23:13: Sodium 134 L, Potassium 3.1 L, Chloride 100, Carbon Dioxide 26.0, Anion Gap 8, BUN 18, Creatinine 0.96, Est GFR (MDRD) Af Amer 98, Est GFR (MDRD) Non-Af 81, BUN/Creatinine Ratio 18.7, Glucose 138 H, Calcium 9.3, Magnesium 1.8 09/12/20 23:13: Phosphorus 2.7 09/13/20 05:45: APTT 30.2 09/13/20 05:45: WBC 5.9, RBC 4.21 L, Hgb 13.6, Hct 39.3 L, MCV 93.3, MCH 32.3 H, MCHC 34.6, Plt Count 169, MPV 9.2, Immature Gran % (Auto) 0.500, Neut % (Auto) 42.5 L, Lymph % (Auto) 43.5 H, [place] % (Auto) 10.9 H, Eos % (Auto) 1.9, Baso % (Auto) 0.7, Absolute Neuts (auto) 2.5, Nucleated RBC % 0 05/25/21 05:45: Hemoglobin A1c 6.7 H Rhythm: Sinus rhythm EKG: Sinus rhythm; septal GA-indeterminate age-cannot be excluded Cardiac Cath: CONCLUSIONS Elevated Left Ventricular End Diastolic Pressure (mild) Segmented LV systolic dysfunction- Mild LVEF: by LV gram 55 % [place] Multivessel CAD Left to Right Collaterals Right to Right Bridging Collaterals RECOMMENDATIONS Risk factor modification Medical therapy DESCRIPTION OF PROCEDURE The patient arrived to the procedure lab. The risks and benefits of the procedure as well as a full description of our services here and current unavailability of surgical backup were fully explained to the patient and/or their significant other prior to the catheterization. The Timeout was completed, verifying the correct patient and procedure. The patient's procedural site was prepped and draped in the usual fashion. Local anesthetic was given subcutaneously to right radial region with Lidocaine 2%. Using a modified Seldinger technique, arterial access was obtained via the right radial artery, a 6Fr sheath was inserted. Left Coronary Artery selective angiography was performed in multiple views using a 5 Fr. 4.0 [place] catheter. Right Coronary Artery selective angiography was then performed in multiple views using a 5 Fr. 4.0 [place] catheter. Left Ventriculography was performed in SOLO projection using a 5 Fr. Pigtail catheter. LV to AO pullback pressures were then recorded.The arterial sheath was pulled and a TR Band was applied for hemostasis CORONARY ANGIOGRAPHY DOMINANCE: Right Dominant LEFT HEART ASSESSMENT Left Ventricular Ejection Fraction: by LV Gram 55 % Inferior Basal Akinesis. Inferior Mid Hypokinesis Elevated Left Ventricular End Diastolic Pressure LVEDP: 16 mmHg LEFT MAIN: Angiographically normal LEFT ANTERIOR DESCENDING ARTERY: Mild luminal irregularities PROX LAD: Moderate calcification, concentric: 25 % Stenosis, diffuse: 10 - 25 % Stenosis MID LAD: s/p SP: eccentric: 25 % Stenosis CIRCUMFLEX ARTERY: Mild luminal irregularities PROX CIRC: Mild calcification RAMUS: Mild luminal irregularities RIGHT CORONARY ARTERY: PROX RCA: is occluded DISTAL RCA: fills late from bridging collaterals and partially from left to right collaterals COLLATERAL FLOW: Collateral flow from Left to Right Collateral flow from Right to Right AORTIC ROOT: Angiographically normal Physical Exam Const alert and oriented x3 Orientation / Consciousness: awake HEENT normocephalic, head/scalp atraumatic and hearing grossly normal bilaterally Eyes PERRL, EOMs intact bilaterally, conjunctivae normal and no scleral icterus Neck full ROM and supple Chest inspection of chest normal Resp normal respiratory effort Cardio regular rate, regular rhythm, S1 normal heart sound and S2 normal heart sound GI normal to inspection, nondistended, normoactive bowel sounds Extremity no pedal edema Extremity Narrative: Right radial artery: Pulse 2+/4+: No bruits: No hematoma Skin no rashes or lesions noted Neuro oriented x3 Psych mental status grossly normal Assessment & Plan Assessment/Plan (1) Elevated troponin: PLAN: The patient does have elevated troponin I levels compatible with a non-ST segment elevation GA. 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 Based upon the patient's evaluation with both noninvasive and invasive studies the concern would be that this would be a type II event superimposed upon his underlying known CAD process. (2) Atherosclerosis of coronary artery of tolowa dee-ni' heart without angina pectoris: QUALIFIERS: Coronary Disease-Associated Artery/Lesion type: tolowa dee-ni' artery Qualified Code(s): I25.10 - Atherosclerotic heart disease of tolowa dee-ni' coronary artery without angina pectoris PLAN: He does have a history of CAD. His previous noninvasive and invasive studies are as noted. He has undergone additional noninvasive and subsequently invasive evaluation. Based upon his invasive valuation he has appears to have a chronically occluded RCA which subsequently fills from left to right and right to right collaterals. It did not appear he required further revascularization therapy. Thus he will continue medical management. (3) Hyperlipidemia: QUALIFIERS: Hyperlipidemia type: unspecified Qualified Code(s): E78.5 - Hyperlipidemia, unspecified PLAN: He should continue risk factor evaluation and care. (4) Essential hypertension: PLAN: His blood pressure will be followed. He will continue medical management. (5) Seizure: PLAN: He does have a seizure disorder. He has been on medical therapy. He was reported as having a seizure that led to this hospitalization. He will need to continue evaluation care per internal medicine and neurology. Addt'l Comments The above was discussed and evaluated with the patient. The aforementioned information was conveyed to Dr. Dill of the [facility] staff. This note was generated using a voice recognition system and there may be incorr ect words, spelling or punctuation that were not noted when reviewing the office note prior to saving.
--- NOTE | 2020-09-13 13:48 | PCM.DC ---
Discharge Instructions Diet Discharge Diet: Low fat / Low cholesterol and 1800 Calorie Control Diet Activity Discharge Activity: Return to Normal Activity (On 09/14/2020) Follow Up Care Test Results: Test results from this visit will be discussed in further detail at your follow-up appointment, if applicable. Discharge Plan Admission Admit Date/Time: 09/10/20 09:48 Primary Reason for Your Visit: Seizure Attending Provider: Jyoti Dill Primary Care Provider: Denia Silvestre Consulting Providers: Agata Chau Discharge Orders/Prescriptions Prescriptions: New isosorbide mononitrate 30 mg Tablet Extended Release 24 Hr 30 mg PO DAILY Qty: 30 RF: 1 clopidogrel 75 mg Tablet 75 mg PO DAILY Qty: 30 RF: 1 atorvastatin 80 mg Tablet 80 mg PO QHS Qty: 30 RF: 1 Continued hydrochlorothiazide 25 mg tablet 25 mg PO DAILY RF: 0 losartan 50 MG tablet 50 mg PO DAILY RF: 0 niacin 500 MG tablet extended release 24 hr 500 mg PO QHS RF: 0 atenolol 25 MG tablet 25 mg PO DAILY RF: 0 phenytoin sodium extended 100 MG capsule 200 mg PO DAILY RF: 0 phenytoin sodium extended 100 MG capsule 300 mg PO QHS RF: 0 aspirin 81 MG tablet 81 mg PO DAILY@0800 RF: 0 esomeprazole magnesium 40 MG capsule,delayed release(DR/EC) 40 mg PO DAILY PRN (Reason: Heartburn) RF: 0 rosuvastatin 20 MG tablet 20 mg PO DAILY RF: 0 yuwftfot-fld-JM-lycopen-lutein 1 EACH tablet 1 ea PO DAILY RF: 0 fenofibrate nanocrystallized 145 MG tablet 145 mg PO DAILY RF: 0 metformin 500 MG tablet,ER rolanda.retention 24 hr 500 mg PO DAILY RF: 0 levetiracetam 750 MG tablet extended release 24 hr 1,500 mg PO BID RF: 0 Referrals / Follow Up: Denia Silvestre MD [Primary Care Provider] - (Follow-up within 1 week) Hugh Carrasquillo MD [STAFF PHYSICIAN] - (4 weeks) Disposition Disposition (needs filled in before D/C Order can be placed): Home, self care
== END 2020-09-13 12:29 | disposition home or self-care (01) ==
LOC: ED 09:46 → PCU 10:17
PROVIDERS: Nurse Practitioner Family; Specialist; Admitting Provider Internal Medicine; Emergency Provider Emergency Medicine; PCP Internal Medicine; Visit Provider Internal Medicine
DX: I21.4 Non-ST elevation (NSTEMI) myocardial infarction (principal); G40.909 Epilepsy, unspecified, not intractable, without status epilepticus; E78.5 Hyperlipidemia, unspecified; I10 Essential (primary) hypertension; E11.9 Type 2 diabetes mellitus without complications; K21.9 Gastro-esophageal reflux disease without esophagitis; I25.10 Atherosclerotic heart disease of native coronary artery without angina pectoris; E87.6 Hypokalemia; Z79.82 Long term (current) use of aspirin; Z79.02 Long term (current) use of antithrombotics/antiplatelets; Z79.899 Other long term (current) drug therapy; Z87.891 Personal history of nicotine dependence; Z79.84 Long term (current) use of oral hypoglycemic drugs
CPT/HCPCS: 36415; 70450; 71045; 78452; 80048; 80185; 82962; 83036; 83735; 84100; 84484; 85025; 85610; 85730; 93005; 93017; 93458; 96361; 96365; 96366; 96372; 99152; 99153; 99218; 99285; A9500; J7030; Q9967; A4216; C1769; C1894; G0378; J2785

== ENCOUNTER 2022-02-01 07:24 | Observation (INO) | payer MEDICARE, MEDICAID, SELFPAY ==
[2022-02-01] VITALS (11 sets, daily range): BP systolic 136–175; BP diastolic 62–106; PULSE 93–123; RESP 14–22; TEMP 36.1–37.7; O2SAT 91–95; BMI 37.5; BMI 38.7
--- NOTE | 2022-02-01 07:42 | EX.ED.DYSGE1 ---
HPI History of Present Illness Chief Complaint: Neuro S/Sx Informant: patient Onset/Context/Timing Onset: Today Context: Sudden Onset Timing: Intermittent Quality: Weakness Location: Left face Worsened by: Nothing Relieved by: Nothing Narrative Narrative: EMS was called because the patient was found unresponsive in the bathroom this morning. Upon EMS arrival patient was unresponsive with left facial weakness. Upon arrival to the emergency department, patient is more awake and alert. Patient states he thinks he had a seizure. Patient states he has a history of seizures. Patient denies any bowel or bladder incontinence. Patient denies biting his tongue. Patient states he is on phenytoin and Keppra for his seizures. Patient denies any headaches. Patient denies any chest pain or shortness of breath. Patient denies any nausea or vomiting. [facility] Medical History Atherosclerosis of coronary artery of [place] heart without angina pectoris Essential hypertension Former smoker GERD (gastroesophageal reflux disease) Hyperlipidemia Seizures Type 2 diabetes mellitus without complications Home Medications aspirin 81 mg tablet,delayed release 81 mg PO DAILY@0800 heart health 08/28/17 [History Last Taken 09/09/20] atenolol 25 mg tablet 25 mg PO DAILY heart rate 08/28/17 [History Last Taken 09/09/20] esomeprazole magnesium 40 mg capsule,delayed release 40 mg PO DAILY PRN Heartburn 08/28/17 [History Last Taken 09/09/20] fenofibrate nanocrystallized 145 mg tablet 145 mg PO DAILY cholesterol 08/28/17 [History Last Taken 09/09/20] levetiracetam 750 mg tablet,extended release 24 hr 1,500 mg PO BID seizures 08/28/17 [History Last Taken 09/09/20] losartan 50 mg tablet 50 mg PO DAILY blood pressure 08/28/17 [History Last Taken 09/09/20] metformin 500 mg 24 hr tablet,extended release 500 mg PO DAILY diabetes 08/28/17 [History Last Taken 09/09/20] drjvbmin-xhm-aokst acid 0.4 mg-lycopene 300 mcg-lutein 250 mcg tablet 1 ea PO DAILY supplement 08/28/17 [History Last Taken 09/09/20] niacin 500 mg tablet,extended release 24 hr 500 mg PO QHS cholesterol 08/28/17 [History Last Taken 09/09/20] phenytoin sodium extended 100 mg capsule 200 mg PO DAILY seizures 08/28/17 [History Last Taken 09/09/20] phenytoin sodium extended 100 mg capsule 300 mg PO QHS seizures 08/28/17 [History Last Taken 09/09/20] hydrochlorothiazide 25 mg tablet 25 mg PO DAILY water pill 09/09/20 [History Last Taken 09/09/20] clopidogrel 75 mg tablet 75 mg PO DAILY #90 tabs 10/11/20 [Rx Last Taken Unknown] isosorbide mononitrate 30 mg tablet,extended release 24 hr See Rx Instructions .Route .COMPLEX #90 tabs 10/20/21 [Rx Last Taken Unknown] atorvastatin 80 mg tablet 80 mg PO QHS #90 tabs 10/24/21 [Rx Last Taken Unknown] Allergy/AdvReac Type Severity Reaction Status Date / Time ciprofloxacin [From Cipro] Allergy Rash Verified 02/01/22 07:31 Family History Mother Heart disease Father Heart disease Surgical History History of bilateral cataract extraction History of left heart catheterization (09/13/20) Hx of cholecystectomy S/P ORIF (open reduction internal fixation) fracture (08/27/17) Social History Smoking Status: Former smoker ROS ROS ED Constitutional Constitutional ED: Denies chills or fever(s) Eyes Eyes: Denies blurry vision or change in vision ENT ENT ED: Denies rhinorrhea or sore throat Cardiovascular Cardiovascular: Denies chest pain or palpitations Respiratory/Chest Respiratory/Chest: Denies cough or dyspnea Gastrointestinal Gastrointestinal: Denies nausea or vomiting Genitourinary Genitourinary ED: Denies dysuria or hematuria Musculoskeletal Musculoskeletal: Denies back pain or neck pain Integumentary Denies abscess or rash Neurologic Neurologic: Denies headache(s) or weakness Allergic/Immunologic Allergic/Immunologic ED: Denies mouth swelling or urticaria EXAM Physical Exam Const Vital Signs: 02/01/22 07:26 02/01/22 07:34 02/01/22 09:00 Temperature 97.6 F L Temperature Source Temporal Pulse Rate 123 H 119 H 113 H Respiratory Rate 14 21 H 22 H Blood Pressure 164/106 H 170/87 H 162/89 H Blood Pressure Mean 125 114 113 Pulse Ox 93 94 91 Oxygen Delivery Method Room Air Room Air Room Air Positive well nourished and well developed General Appearance ED: well developed HEENT Reports moist mucous membranes Neck supple and no JVD Resp normal respiratory effort and clear to auscultation bilaterally Cardio regular rate, regular rhythm and no murmurs GI normal to inspection, nondistended, normoactive bowel sounds and non-tender Palpation: soft Extremity normal to inspection General Extremety ED: Negative for edema or tenderness General Extremity: Negative for edema Neuro oriented x3, CN's II-XII intact bilaterally and no sensory deficits noted Sensorium / Orientation: alert Motor Exam: strength 5/5 throughout Psych mental status grossly normal Skin no rashes or lesions noted MDM MDM MDM Narrative Medical decision making narrative: EKG was obtained. On my interpretation, shows sinus tachycardia with a rate of 119. MD interval was normal at 136 ms. QRS interval was slightly prolonged at 132 ms. QTc interval was slightly prolonged at 514 ms. There is borderline left axis deviation at -27. There is some ST depression in leads V4, V5, and V6 which is slightly worse compared to previous EKG dated 09/13/2020. CT scan of the brain was obtained. There is no acute intracranial abnormality. This was interpreted by the radiologist and reviewed by myself. Portable 1 view chest x-ray was obtained. On my interpretation, lung de [place] cruz are clear. There is normal cardiac silhouette. Bony thorax is normal. There is no acute process noted. Radiologist also interpreted the x-ray and agrees. CBC was within normal limits. PT with INR and PTT were within normal limits. Dilantin level was therapeutic at 12.2. Comprehensive metabolic profile was within normal limits with the exception of a slightly elevated glucose of 227. Troponin was elevated at 333. Case was discussed with the hospitalist. She will admit the patient to her service. Case was discussed with cardiology. He felt that the seizure probably caused some demand ischemia with his history of coronary artery disease. He will follow the troponins. He recommended no further treatment. Patient understood and was agreeable with the plan. All questions were answered. Lab Data Attestation: I reviewed the patient's lab results. Labs: Laboratory Results - last 24 hr 02/01/22 02/01/22 02/01/22 07:28 08:25 08:25 WBC 5.7 RBC 4.39 L Hgb 14.1 Hct 42.2 MCV 96.1 H MCH 32.1 H MCHC 33.4 RDW Std Deviation 45.1 H RDW Coeff of Layla 12.9 Plt Count 137 L MPV 9.1 Immature Gran % (Auto) 0.900 Neut % (Auto) 71.4 H Lymph % (Auto) 17.7 L [place] % (Auto) 7.4 Eos % (Auto) 1.9 Baso % (Auto) 0.7 Absolute Neuts (auto) 4.0 Absolute Lymphs (auto) 1.00 Nucleated RBC % 0 PT 12.9 INR 1.0 APTT 23.3 L Sodium Potassium Chloride Carbon Dioxide Anion Gap BUN Creatinine Estim Creat Clear Calc Est GFR (MDRD) Af Amer Est GFR (MDRD) Non-Af BUN/Creatinine Ratio Glucose Calcium Total Bilirubin AST ALT Alkaline Phosphatase Troponin I High Sens Total Protein Albumin Globulin Albumin/Globulin Ratio Phenytoin POC Glucose 228 H 02/01/22 02/01/22 08:25 08:25 WBC RBC Hgb Hct MCV MCH MCHC RDW Std Deviation RDW Coeff of Layla Plt Count MPV Immature Gran % (Auto) Neut % (Auto) Lymph % (Auto) [place] % (Auto) Eos % (Auto) Baso % (Auto) Absolute Neuts (auto) Absolute Lymphs (auto) Nucleated RBC % PT INR APTT Sodium 138 Potassium 3.9 Chloride 101 Carbon Dioxide 25.0 Anion Gap 12 BUN 22 H Creatinine 0.98 Estim Creat Clear Calc 60.10 Est GFR (MDRD) Af Amer 95 Est GFR (MDRD) Non-Af 78 BUN/Creatinine Ratio 22.4 H Glucose 227 H Calcium 9.4 Total Bilirubin 0.20 AST 52 H ALT 53 Alkaline Phosphatase 86 Troponin I High Sens 333 H* Total Protein 8.0 Albumin 3.8 Globulin 4.2 Albumin/Globulin Ratio 0.9 Phenytoin 12.2 POC Glucose Radiography Diagnostic Testing: Clinical Impression(s) from Imaging Studies Brain CT 02/01/22 07:49 IMPRESSION: Chronic involutional changes of the brain. Electronically Signed: Leonard Perkins MD at 8:59 EDT , Chest X-Ray 02/01/22 07:49 IMPRESSION: Borderline cardiomegaly. The lungs are clear. Electronically Signed: Leonard Perkins MD at 9:00 EDT , EKG Initial EKG: Attestation: I personally reviewed and interpreted this EKG as follows: Interpretation: Sinus Tachycardia (119) and S-T Depression (V4, V5, and V6) Comments: There is a nonspecific interventricular conduction delay. Prior EKG tracings: available for review Prior: Changed (The ST depression in the lateral leads is somewhat worse compared to previous EKG dated 09/13/2020.) Discharge Plan Triage Chief Complaint: Neuro S/Sx ED Provider: Go Mcgrath Dx/Rx/DC Orders Clinical Impression: Elevated troponin, Seizure, Essential hypertension Prescriptions: No Action hydrochlorothiazide 25 mg tablet 25 mg PO DAILY clopidogrel 75 mg tablet 75 mg PO DAILY Qty: 90 3RF losartan 50 MG tablet 50 mg PO DAILY niacin 500 MG tablet extended release 24 hr 500 mg PO QHS atenolol 25 MG tablet 25 mg PO DAILY phenytoin sodium extended 100 MG capsule 200 mg PO DAILY phenytoin sodium extended 100 MG capsule 300 mg PO QHS aspirin 81 MG tablet 81 mg PO DAILY@0800 esomeprazole magnesium 40 MG capsule,delayed release(DR/EC) 40 mg PO DAILY PRN (Reason: Heartburn) byqlpvwa-vhk-MQ-lycopen-lutein 1 EACH tablet 1 ea PO DAILY fenofibrate nanocrystallized 145 MG tablet 145 mg PO DAILY metformin 500 MG tablet,ER ro[place]a.retention 24 hr 500 mg PO DAILY levetiracetam 750 MG tablet extended release 24 hr 1,500 mg PO BID isosorbide mononitrate 30 mg tablet extended release 24 hr See Rx Instructions .ROUTE .COMPLEX Qty: 90 3RF Dose Instruction: TAKE 1 TABLET BY MOUTH EVERY DAY Rx Instructions: TAKE 1 TABLET BY MOUTH EVERY DAY atorvastatin 80 mg tablet 80 mg PO QHS Qty: 90 3RF Primary Care Provider: Denia Silvestre Referrals: Denia Silvestre MD [Primary Care Provider] - Disposition Disposition: Acute Care Hospital [facility]
--- NOTE | 2022-02-01 07:49 | CT_ITS ---
STUDY: CT BRAIN WITHOUT CONTRAST REASON FOR EXAM: Male, 76 years old. Facial weakness RADIATION DOSAGE (If Supplied By Facility): CTDIvol = ( 44.99 ) mGy, DLP = ( 779.24 ) mGycm TECHNIQUE: Transaxial CT imaging of the brain was performed without administration of intravenous contrast material. Individualized dose optimization techniques were used for this CT. COMPARISON: Comparison is made with prior study of 09/10/2020. FINDINGS: Normal soft tissue structures. Normal calvarium. There is mild cerebral atrophy with widening of the extra-axial spaces and ventricular dilatation. There are areas of decreased attenuation within the white matter tracts of the supratentorial brain, consistent with microvascular disease changes. Normal basal ganglia and thalami. Normal brainstem. Normal cerebellum. There is no intracranial hemorrhage. There are no findings of an acute ischemic infarction. Calcific plaques at the level of the cavernous portions of the internal carotid arteries bilaterally. Normal visualized paranasal sinuses. CT/Brain/Head without Contrast IMPRESSION: Chronic involutional changes of the brain. Electronically Signed: Leonard Perkins MD at 8:59 EDT ,
--- NOTE | 2022-02-01 07:49 | RAD_ITS ---
STUDY: X-RAY CHEST REASON FOR EXAM: Male, 76 years old. Weakness TECHNIQUE: Single AP portable view of the chest. COMPARISON: Comparison is made with prior study 09/10/2020 FINDINGS: EKG electrodes are seen. The lungs are clear and expanded. Mild elevation of the right hemidiaphragm. There is no demonstrated pleural abnormality. There is borderline cardiomegaly. Normal mediastinum and jason. Normal visualized pulmonary arteries. There is atherosclerotic tortuosity of the aortic arch and descending thoracic aorta. Normal visualized thoracic spine. Normal visualized ribs, clavicles, and shoulders. There is no demonstrated abnormality of the visualized soft tissue structures of the upper abdomen. RAD/Chest 1 View (Portable) IMPRESSION: Borderline cardiomegaly. The lungs are clear. Electronically Signed: Leonard Perkins MD at 9:00 EDT ,
--- NOTE | 2022-02-01 07:49 | EKG12_ITS ---
Test Reason : CP Blood Pressure : / mmHG Vent. Rate : 119 BPM Atrial Rate : 119 BPM P-R Int : 136 ms QRS Dur : 132 ms QT Int : 366 ms P-R-T Axes : 000 -27 057 degrees QTc Int : 514 ms Sinus tachycardia Non-specific intra-ventricular conduction block Abnormal ECG Confirmed by COLE MCNELIL, SCOTT ([id number]), editor map AKASH STOCK ([id number]) on 02/05/2022 9:44:40 A M Referred By: JOSEPHINE Confirmed By:MICHELLE GALVAN MD
[2022-02-01 07:51] LABS: Bedside Glucose 228 mg/dL (74-106)
[2022-02-01 08:33] LABS: Basophil# 0.04 X10^3/uL; Basophil% 0.7 % (0-1); Eosinophil# 0.11 X10^3/uL; Eosinophils% 1.9 % (0-5); Hematocrit 42.2 % (40-54); Hemoglobin 14.1 g/dL (13.0-16.5); Lymphocyte % 17.7 % (19-41); Mean Corp Hgb Conc 33.4 g/dL (32-36); Mean Corpuscular Hgb 32.1 pg (27.0-32.0); Mean Corpuscular Volume 96.1 fL (80-94); Mean Platelet Vol. 9.1 fl (6.2-12.0); Monocyte# 0.42 X10^3/uL; Monocyte% 7.4 % (0-10); NRBC Flagged by Analyzer 0 % (0-5); Neutrophil # 4.04 X10^3/uL (2.7-7.7); Neutrophil % 71.4 % (47-70); Platelet Count 137 K/mm3 (150-450); RBC Distribution Width CV 12.9 % (11.6-14.6); RBC Distribution Width SD 45.1 fl (35.1-43.9); Red Blood Count 4.39 M/mm3 (4.6-6.2); White Blood Count 5.7 K/mm3 (4.4-11.0)
[2022-02-01 08:48] LABS: Phenytoin (Dilantin) Level 12.2 mL (10.0-20.0)
[2022-02-01 08:49] LABS: Prothrombin Time (Protime)PT. 12.9 SECONDS (11.7-14.9)
[2022-02-01 08:50] LABS: Partial Thromboplast Time 23.3 Seconds (24.1-36.2)
[2022-02-01 08:57] LABS: ALB/GLOB Ratio 0.9 RATIO (0.9-2.4); AST(SGOT) 52 U/L (15-37); Alanine Aminotransfer ALT/SGPT 53 U/L (16-61); Albumin, Serum 3.8 g/dL (3.2-5.0); Alkaline Phosphatase 86 U/L (45-117); Anion Gap 12 (5-15); BUN 22 mg/dL (7-18); BUN/Creat Ratio 22.4 RATIO (10-20); Calcium,Total 9.4 mg/dL (8.5-10.1); Chloride 101 mmol/L (98-107); Creatinine, Serum 0.98 mg/dL (0.70-1.30); EST Glomerular Filtration Rate 78 mL/min (>60); Est Glom Filt Rate - Afr Amer 95 mL/min (>60); Globulin 4.2 g/dL (2.2-4.2); Glucose 227 mg/dL (74-106); Potassium 3.9 mmol/L (3.5-5.1); Sodium Level 138 mmol/L (136-145); Troponin-I HS 333 pg/mL (3.0-78.0)
--- NOTE | 2022-02-01 09:41 | PCM.HP.STD ---
HPI - General General Date of Admission: 02/01/22 Date of Service: 02/01/22 Chief Complaint: Altered mental status - 1 day HPI Narrative LAKESHIA THORPE, is a 76 M who presents with the above. Patient was brought to the emergency room when he was found unresponsive. Patient was found to have a facial droop. Upon arrival to the emergency room, patient was more awake. Patient believes that he had a seizure episode. He has history of seizures and is on antiepileptics. He denies biting his tongue or any bowel or bladder incontinence. He stated that he has been relatively well. He denied any chest pain or dizziness or palpitations or leg swelling or weight gain. In the ED, her blood pressure was elevated at 164/106, heart rate 120, respiratory 14, temperature 97.6 F, 27.3% on room air. WBC count 5.7, hemoglobin 14.1, hematocrit 42.2, platelet count 137, INR is 1.0, sodium 130 coagula 3.9, chloride 101, bicarbonate 25, BUN 20, creatinine 0.98. Glucose is 227. Initial troponin was 333. CT of the brain showed chronic involuntary changes. Chest x-ray showed borderline cardiomegaly, no acute abnormality. [facility] Medical History Atherosclerosis of coronary artery of [place] heart without angina pectoris Essential hypertension Former smoker GERD (gastroesophageal reflux disease) Hyperlipidemia Seizures Type 2 diabetes mellitus without complications Home Medications aspirin 81 mg tablet,delayed release 81 mg PO DAILY@0800 heart health 08/28/17 [History Last Taken 09/09/20] atenolol 25 mg tablet 25 mg PO DAILY heart rate 08/28/17 [History Last Taken 09/09/20] esomeprazole magnesium 40 mg capsule,delayed release 40 mg PO DAILY PRN Heartburn 08/28/17 [History Last Taken 09/09/20] fenofibrate nanocrystallized 145 mg tablet 145 mg PO DAILY cholesterol 08/28/17 [History Last Taken 09/09/20] levetiracetam 750 mg tablet,extended release 24 hr 1,500 mg PO BID seizures 08/28/17 [History Last Taken 09/09/20] losartan 50 mg tablet 50 mg PO DAILY blood pressure 08/28/17 [History Last Taken 09/09/20] metformin 500 mg 24 hr tablet,extended release 500 mg PO DAILY diabetes 08/28/17 [History Last Taken 09/09/20] qvdbappd-kvc-wbazo acid 0.4 mg-lycopene 300 mcg-lutein 250 mcg tablet 1 ea PO DAILY supplement 08/28/17 [History Last Taken 09/09/20] niacin 500 mg tablet,extended release 24 hr 500 mg PO QHS cholesterol 08/28/17 [History Last Taken 09/09/20] phenytoin sodium extended 100 mg capsule 200 mg PO DAILY seizures 08/28/17 [History Last Taken 09/09/20] phenytoin sodium extended 100 mg capsule 300 mg PO QHS seizures 08/28/17 [History Last Taken 09/09/20] hydrochlorothiazide 25 mg tablet 25 mg PO DAILY water pill 09/09/20 [History Last Taken 09/09/20] clopidogrel 75 mg tablet 75 mg PO DAILY #90 tabs 10/11/20 [Rx Last Taken Unknown] isosorbide mononitrate 30 mg tablet,extended release 24 hr See Rx Instructions .Route .COMPLEX #90 tabs 10/20/21 [Rx Last Taken Unknown] atorvastatin 80 mg tablet 80 mg PO QHS #90 tabs 10/24/21 [Rx Last Taken Unknown] Allergy/AdvReac Type Severity Reaction Status Date / Time ciprofloxacin [From Cipro] Allergy Rash Verified 02/01/22 07:31 Family History Mother Heart disease Father Heart disease Surgical History History of bilateral cataract extraction History of left heart catheterization (09/13/20) Hx of cholecystectomy S/P ORIF (open reduction internal fixation) fracture (08/27/17) Social History (Updated 02/01/22 @ 16:[address] Clarisa Cisneros MD) Smoking Status: Former smoker substance use type: does not use ROS ROS Narrative Constitutional: Denies: Anorexia, Chills, Fever, Night Sweats, Weight Change Eyes: Denies: Blurred vision, Cataracts, Conjunctivae Inflammation, Pain, Redness, Vision Change HEENT: Denies: Difficulty Hearing, Difficulty Swallowing, Head Aches, Hearing Changes, Sinus Congestion, Sinus Drainage Cardiovascular: Denies: Chest Pain, Orthopnea, Palpitations Respiratory: Denies: Cough, Shortness of breath at rest, Sputum production Gastrointestinal: Denies: Abdominal Pain, Nausea, Vomiting Genitourinary: Denies: Dysuria Musculoskeletal: Denies: Joint Pain, Joint stiffness, Joint swelling, Joint Tenderness Skin: Denies: Rash, Wounds Neurological: See HPI Vital Signs Vital Signs Vital Signs: 02/01/22 07:26 02/01/22 07:34 02/01/22 09:00 Temperature 97.6 F L Temperature Source Temporal Pulse Rate 123 H 119 H 113 H Respiratory Rate 14 21 H 22 H Blood Pressure 164/106 H 170/87 H 162/89 H Blood Pressure Mean 125 114 113 Pulse Ox 93 94 91 Oxygen Delivery Method Room Air Room Air Room Air Weight Weight: 112.037 kg Body Mass Index (BMI) 37.5 Physical Exam Narrative Physical exam: General: Alert, Oriented x3, Cooperative, No apparent distress, obese HEENT: Atraumatic Oral: Moist Mucosa Neck: Supple Lungs: Diminished to auscultation Cardiovascular: HS I+II, regular, no murmurs Abdomen: Bowel Sounds Present, Soft, Non Tender Extremities: Bilateral pedal edema +1 Skin: No rashes, No breakdown Neurological: Grossly intact Psych/Mental Status: Appropriate Results Lab / Micro Data Result Diagrams: 02/01/22 08:25 02/01/22 08:25 Labs: Laboratory Results - last 24 hr 02/01/22 07:28: POC Glucose 228 H 02/01/22 08:25: WBC 5.7, RBC 4.39 L, Hgb 14.1, Hct 42.2, MCV 96.1 H, MCH 32.1 H, MCHC 33.4, RDW Std Deviation 45.1 H, RDW Coeff of Layla 12.9, Plt Count 137 L, MPV 9.1, Immature Gran % (Auto) 0.900, Neut % (Auto) 71.4 H, Lymph % (Auto) 17.7 L, [place] % (Auto) 7.4, Eos % (Auto) 1.9, Baso % (Auto) 0.7, Absolute Neuts (auto) 4.0, Absolute Lymphs (auto) 1.00, Nucleated RBC % 0 02/01/22 08:25: PT 12.9, INR 1.0, APTT 23.3 L 02/01/22 08:25: Sodium 138, Potassium 3.9, Chloride 101, Carbon Dioxide 25.0, Anion Gap 12, BUN 22 H, Creatinine 0.98, Estim Creat Clear Calc 60.10, Est GFR (MDRD) Af Amer 95, Est GFR (MDRD) Non-Af 78, BUN/Creatinine Ratio 22.4 H, Glucose 227 H, Calcium 9.4, Total Bilirubin 0.20, AST 52 H, ALT 53, Alkaline Phosphatase 86, Troponin I High Sens 333 H*, Total Protein 8.0, Albumin 3.8, Globulin 4.2, Albumin/Globulin Ratio 0.9 02/01/22 08:25: Phenytoin 12.[address] 02/01/22 07:49 IMPRESSION: Chronic involutional changes of the brain. Electronically Signed: Leonard Perkins MD at 8:59 EDT , Chest X-Ray 02/01/22 07:49 IMPRESSION: Borderline cardiomegaly. The lungs are clear. Electronically Signed: Leonard Perkins MD at 9:00 EDT , Assessment & Plan Assessment/Plan (1) Seizure: (2) Elevated troponin: PLAN: Plan 1. Acute episode of altered mental status likely secondary to seizure activity Patient with seizure disorder; patient will probably found in the postictal state Admit to PCU, seizure precaution, stat EEG Continue on phenytoin and Keppra Will consider SOC consult after EEG 2. Elevated cardiac enzyme/NSTEMI, type II likely secondary demand ischemia History of underlining CAD/ischemic cardiomyopathy, on medical therapy EKG showed T wave inversion in V5 to V6, which is new Cardiology consulted Trend troponin Continue aspirin, statin, atenolol, Plavix, fenofibrate 3. Hypertension, uncontrolled, continue hydrochlorothiazide, atenolol Hydralazine prn 4. Type II DM, on metformin, hold metformin, continue sliding scale blood glucose checks 5. DVT prophylaxis?Lovenox subcu Charges/Coding Visit Charges Inpatient E&M: 25207 Subs Hosp L2
[2022-02-01] MEDS: levETIRAcetam 750 MG Tablet 1500 MG PO ×2 (10:56→21:28)
[2022-02-01] MEDS: Phenytoin Na 100 MG Capsule 200 MG PO (10:57)
--- NOTE | 2022-02-01 12:22 | EKG12_ITS ---
Test Reason : Blood Pressure : / mmHG Vent. Rate : 103 BPM Atrial Rate : 103 BPM P-R Int : 198 ms QRS Dur : 130 ms QT Int : 350 ms P-R-T Axes : 059 -34 046 degrees QTc Int : 458 ms Sinus tachycardia Left axis deviation Non-specific intra-ventricular conduction block Abnormal ECG When compared with ECG of 13-SEP-2020 05:57, QRS axis Shifted left Nonspecific T wave abnormality, improved in Inferior leads Confirmed by COLE MCNEILL, SCOTT ([id number]), medical editor AMARI BOOTHE ([id number]) on 02/02/2022 8:14:34 AM Referred By: JOANA Confirmed By:MICHELLE GALVAN MD
--- NOTE | 2022-02-01 12:56 | TELEMED_ITS ---
[facility] has confirmed receipt of a request for visit. This document confirms receipt of the order initiating the consult. To find the results of the consultation, please view the patient's reports for the scanned Telemed Consult.
[2022-02-01 13:02] LABS: Troponin-I HS 1067 pg/mL (3.0-78.0)
[2022-02-01] MEDS: 0.9% Normal Saline 1,000 ML 75 ML IV (13:02)
[2022-02-01] MEDS: Enoxaparin 40 MG/0.4 ML Syringe SC (13:03)
--- NOTE | 2022-02-01 13:14 | PCM.CONS.C ---
Assessment & Plan Assessment/Plan (1) Elevated troponin: PLAN: Likely secondary to anoxia at the time of seizure superimposed on underlying stable coronary artery disease. Patient does not have any cardiac symptoms. 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 (2) Atherosclerosis of coronary artery of [place] heart without angina pectoris: QUALIFIERS: Coronary Disease-Associated Artery/Lesion type: [place] artery Qualified Code(s): I25.10 - Atherosclerotic heart disease of [place] coronary artery without angina pectoris PLAN: Stable. Continue present management. (3) Essential hypertension: PLAN: If patient's blood pressure continues to remain elevated then we can increase her losartan 200 mg p.o. daily. (4) Seizure: PLAN: Management per the primary team. HPI Consult Data Date of Consult: 02/01/22 HPI Narrative Reason for Consultation: Elevated troponin HPI Narrative: LAKESHIA THORPE, is a 76 M who was found to be unresponsive at home. EMS was called and when they arrived he was still unresponsive. In the emergency room slowly he regained consciousness. He mentioned to the ER doctor that he feels that he had a seizure. He felt like how he would feel in the postictal period. His EKG revealed ST depressions in the lateral leads and patient was in sinus tachycardia on arrival. He denied any chest pain, shortness of breath, palpitations, dizziness etc. He does have history of CAD with an occluded RCA by coronary angiography in 2005. His last stress test in 2020 revealed evidence of inferior infarction with mild olga-infarct ischemia. Patient had collateral circulation to the RPL. [facility] Medical History Atherosclerosis of coronary artery of [place] heart without angina pectoris Essential hypertension Former smoker GERD (gastroesophageal reflux disease) Hyperlipidemia Seizures Type 2 diabetes mellitus without complications Home Medications aspirin 81 mg tablet,delayed release 81 mg PO DAILY@0800 heart health 08/28/17 [History Last Taken 09/09/20] atenolol 25 mg tablet 25 mg PO DAILY heart rate 08/28/17 [History Last Taken 09/09/20] esomeprazole magnesium 40 mg capsule,delayed release 40 mg PO DAILY PRN Heartburn 08/28/17 [History Last Taken 09/09/20] fenofibrate nanocrystallized 145 mg tablet 145 mg PO DAILY cholesterol 08/28/17 [History Last Taken 09/09/20] levetiracetam 750 mg tablet,extended release 24 hr 1,500 mg PO BID seizures 08/28/17 [History Last Taken 09/09/20] losartan 50 mg tablet 50 mg PO DAILY blood pressure 08/28/17 [History Last Taken 09/09/20] metformin 500 mg 24 hr tablet,extended release 500 mg PO DAILY diabetes 08/28/17 [History Last Taken 09/09/20] uigkiquj-rlt-qhkei acid 0.4 mg-lycopene 300 mcg-lutein 250 mcg tablet 1 ea PO DAILY supplement 08/28/17 [History Last Taken 09/09/20] niacin 500 mg tablet,extended release 24 hr 500 mg PO QHS cholesterol 08/28/17 [History Last Taken 09/09/20] phenytoin sodium extended 100 mg capsule 200 mg PO DAILY seizures 08/28/17 [History Last Taken 09/09/20] phenytoin sodium extended 100 mg capsule 300 mg PO QHS seizures 08/28/17 [History Last Taken 09/09/20] hydrochlorothiazide 25 mg tablet 25 mg PO DAILY water pill 09/09/20 [History Last Taken 09/09/20] clopidogrel 75 mg tablet 75 mg PO DAILY #90 tabs 10/11/20 [Rx Last Taken Unknown] isosorbide mononitrate 30 mg tablet,extended release 24 hr See Rx Instructions .Route .COMPLEX #90 tabs 10/20/21 [Rx Last Taken Unknown] atorvastatin 80 mg tablet 80 mg PO QHS #90 tabs 10/24/21 [Rx Last Taken Unknown] Allergy/AdvReac Type Severity Reaction Status Date / Time ciprofloxacin [From Cipro] Allergy Rash Verified 02/01/22 07:31 Family History Mother Heart disease Father Heart disease Surgical History History of bilateral cataract extraction History of left heart catheterization (09/13/20) Hx of cholecystectomy S/P ORIF (open reduction internal fixation) fracture (08/27/17) Social History Smoking Status: Former smoker Physical Exam Const alert and oriented x3 HEENT normocephalic Eyes no scleral icterus Resp normal respiratory effort Cardio regular rate and regular rhythm Extremity no pedal edema Psych mental status grossly normal Risk Stratification Risk Stratification Applicable: No Charges/Coding Visit Charges Inpatient E&M: 66731 Init Hosp L2 Objective Data Vital Signs: Vital Signs Temp Pulse Resp BP Pulse Ox O2 Del Method 99.8 F H 107 H 18 175/86 H 95 Room Air 02/01/22 11:57 02/01/22 11:57 02/01/22 11:57 02/01/22 11:57 02/01/22 11:57 02/01/22 11:57 Oxygen Delivery Method Room Air Weight: 246 lb 15.742 oz Body Mass Index (BMI) 38.7 Intake & Output: Intake and Output for Last 24 Hours 01/30/22 01/31/22 02/01/22 23:59 23:59 23:59 Intake Total 500 / 500 Balance 500 / 500 Lab / Micro Data Result Diagrams: 02/01/22 08:25 02/01/22 08:25 Labs: Laboratory Results - last 24 hr 02/01/22 07:28: POC Glucose 228 H 02/01/22 08:25: WBC 5.7, RBC 4.39 L, Hgb 14.1, Hct 42.2, MCV 96.1 H, MCH 32.1 H, MCHC 33.4, RDW Std Deviation 45.1 H, RDW Coeff of Layla 12.9, Plt Count 137 L, MPV 9.1, Immature Gran % (Auto) 0.900, Neut % (Auto) 71.4 H, Lymph % (Auto) 17.7 L, [place] % (Auto) 7.4, Eos % (Auto) 1.9, Baso % (Auto) 0.7, Absolute Neuts (auto) 4.0, Absolute Lymphs (auto) 1.00, Nucleated RBC % 0 02/01/22 08:25: PT 12.9, INR 1.0, APTT 23.3 L 02/01/22 08:25: Sodium 138, Potassium 3.9, Chloride 101, Carbon Dioxide 25.0, Anion Gap 12, BUN 22 H, Creatinine 0.98, Estim Creat Clear Calc 60.10, Est GFR (MDRD) Af Amer 95, Est GFR (MDRD) Non-Af 78, BUN/Creatinine Ratio 22.4 H, Glucose 227 H, Calcium 9.4, Total Bilirubin 0.20, AST 52 H, ALT 53, Alkaline Phosphatase 86, Troponin I High Sens 333 H*, Total Protein 8.0, Albumin 3.8, Globulin 4.2, Albumin/Globulin Ratio 0.9 02/01/22 08:25: Phenytoin 12.2 02/01/22 12:27: Troponin I High Sens 1067 H* Cardiology Labs/Tests 02/01/22 08:25: WBC 5.7, RBC 4.39 L, Hgb 14.1, Hct 42.2, MCV 96.1 H, MCH 32.1 H, MCHC 33.4, Plt Count 137 L, MPV 9.1, Immature Gran % (Auto) 0.900, Neut % (Auto) 71.4 H, Lymph % (Auto) 17.7 L, Ector % (Auto) 7.4, Eos % (Auto) 1.9, Baso % (Auto) 0.7, Absolute Neuts (auto) 4.0, Nucleated RBC % 0 02/01/22 08:25: PT 12.9, INR 1.0, APTT 23.3 L 02/01/22 08:25: Sodium 138, Potassium 3.9, Chloride 101, Carbon Dioxide 25.0, Anion Gap 12, BUN 22 H, Creatinine 0.98, Est GFR (MDRD) Af Amer 95, Est GFR (MDRD) Non-Af 78, BUN/Creatinine Ratio 22.4 H, Glucose 227 H, Calcium 9.4, Total Bilirubin 0.20 Rhythm: EKG: ECHO: Stress Test: Cardiac Cath: PCI: CT Surgery: Holter monitor: EPS: PPM: CXR: Chest CT Scan: Radiography Diagnostic Testing: Radiology Impression Brain CT 02/01/22 07:49 IMPRESSION: Chronic involutional changes of the brain. Electronically Signed: Leonard Perkins MD at 8:59 EDT , Chest X-Ray 02/01/22 07:49 IMPRESSION: Borderline cardiomegaly. The lungs are clear. Electronically Signed: Leonard Perkins MD at 9:00 EDT ,
[2022-02-01 14:38] LABS: Troponin-I HS 1223 pg/mL (3.0-78.0)
[2022-02-01 14:45] LABS: Bedside Glucose 151 mg/dL (74-106)
[2022-02-01] MEDS: Insulin Lispro 100 UNIT/ML INSULN.PEN SC ×2 (17:47→21:31)
[2022-02-01 18:06] LABS: Bedside Glucose 158 mg/dL (74-106)
[2022-02-01] MEDS: Isosorbide Mononitrate 30 MG Tablet PO (18:36)
[2022-02-01] MEDS: Losartan Potassium 50 MG Tablet PO (18:36)
[2022-02-01] MEDS: Aspirin E.C. 81 MG Tablet PO (18:36)
[2022-02-01] MEDS: Clopidogrel Bisulfate 75 MG Tablet PO (18:37)
[2022-02-01] MEDS: hydroCHLOROthiazide 25 MG Tablet PO (18:37)
[2022-02-01] MEDS: Phenytoin Na 100 MG Capsule 300 MG PO (21:27)
[2022-02-01] MEDS: Niacin SA 500 MG Tablet PO (21:28)
[2022-02-01] MEDS: Atorvastatin Calcium 80 MG Tablet PO (21:28)
[2022-02-01 22:10] LABS: Bedside Glucose 194 mg/dL (74-106)
[2022-02-02 02:20] VITALS: BP 141/85; PULSE 87; RESP 18; TEMP 36.9; O2SAT 96
[2022-02-02 03:00] VITALS: PULSE 83
[2022-02-02] MEDS: Insulin Lispro 100 UNIT/ML INSULN.PEN SC ×2 (06:42→11:56)
[2022-02-02 07:05] LABS: Bedside Glucose 185 mg/dL (74-106)
[2022-02-02 07:08] LABS: Absolute Lymphocyte Count 1.63 X10^3/uL (0.83-4.51); Absolute Neutrophil Count 3.3 X10^3/uL (2.0-7.7); Basophil# 0.02 X10^3/uL; Basophil% 0.3 % (0-1); Eosinophil# 0.15 X10^3/uL; Eosinophils% 2.6 % (0-5); Hematocrit 38.6 % (40-54); Hemoglobin 13.4 g/dL (13.0-16.5); Lymphocyte # 1.63 X10^3/ul (0.83-4.51); Mean Corp Hgb Conc 34.7 g/dL (32-36); Mean Corpuscular Hgb 32.8 pg (27.0-32.0); Mean Corpuscular Volume 94.4 fL (80-94); Mean Platelet Vol. 8.8 fl (6.2-12.0); Monocyte# 0.65 X10^3/uL; Monocyte% 11.2 % (0-10); NRBC Flagged by Analyzer 0 % (0-5); Neutrophil # 3.33 X10^3/uL (2.7-7.7); Neutrophil % 57.2 % (47-70); Platelet Count 170 K/mm3 (150-450); RBC Distribution Width CV 12.9 % (11.6-14.6); RBC Distribution Width SD 44.1 fl (35.1-43.9); Red Blood Count 4.09 M/mm3 (4.6-6.2); White Blood Count 5.8 K/mm3 (4.4-11.0)
[2022-02-02 07:43] LABS: ALB/GLOB Ratio 0.9 RATIO (0.9-2.4); AST(SGOT) 38 U/L (15-37); Alanine Aminotransfer ALT/SGPT 45 U/L (16-61); Albumin, Serum 3.5 g/dL (3.2-5.0); Alkaline Phosphatase 65 U/L (45-117); Anion Gap 9 (5-15); BUN 17 mg/dL (7-18); BUN/Creat Ratio 19.9 RATIO (10-20); Calcium,Total 8.9 mg/dL (8.5-10.1); Chloride 103 mmol/L (98-107); Creatinine, Serum 0.85 mg/dL (0.70-1.30); EST Glomerular Filtration Rate 92 mL/min (>60); Est Glom Filt Rate - Afr Amer 112 mL/min (>60); Estimated Creatinine Clearance 66.96 ml/min; Globulin 3.9 g/dL (2.2-4.2); Glucose 176 mg/dL (74-106); Potassium 3.4 mmol/L (3.5-5.1); Protein, Total 7.4 g/dL (6.4-8.2); Sodium Level 137 mmol/L (136-145)
[2022-02-02 08:20] VITALS: BP 163/86; PULSE 109; RESP 16; TEMP 37.1; O2SAT 94
[2022-02-02 09:00] VITALS: PULSE 105
[2022-02-02] MEDS: Atenolol 25 MG Tablet PO (09:33)
[2022-02-02] MEDS: Fenofibrate 145 MG Tablet PO (09:33)
[2022-02-02] MEDS: Multivitamins,Ther W-Minerals Tablet 1 TABLET PO (09:33)
[2022-02-02] MEDS: levETIRAcetam 750 MG Tablet 1500 MG PO (09:33)
[2022-02-02] MEDS: Phenytoin Na 100 MG Capsule 200 MG PO (09:34)
[2022-02-02] MEDS: Enoxaparin 40 MG/0.4 ML Syringe SC (09:35)
[2022-02-02] MEDS: Isosorbide Mononitrate 30 MG Tablet PO (09:39)
[2022-02-02] MEDS: Aspirin E.C. 81 MG Tablet PO (09:39)
[2022-02-02] MEDS: Losartan Potassium 50 MG Tablet PO (09:39)
[2022-02-02] MEDS: Clopidogrel Bisulfate 75 MG Tablet PO (09:40)
[2022-02-02] MEDS: Potassium Chloride Oral Tablet 20 MEQ 60 MEQ PO (09:40)
[2022-02-02] MEDS: hydroCHLOROthiazide 25 MG Tablet PO (09:43)
--- NOTE | 2022-02-02 10:50 | CASEMGMT ---
RN CM Face to Face with patient for initial transition planning/care coordination assessment. RN CM introduced self and role at [facility]. Patient sitting in chair, alert and oriented. Patient willing to participate in assessment and is able to answer all questions appropriately. Care providers, pharmacy, and demographics verified. Patient wishes to discharge home, denies need for home health at this time. Patient states he has no further needs or concerns at this time. CM to follow for discharge planning needs that may arise. PCP: Nirmala Specialists: Neida arborist Preferred Pharmacy: [facility] Insurance: L[employer] Caz[employer] Prescription Benefit: yes Living Will/HPOA: none LNOK: sister Living Arrangements: Patient lives with friend Roland in a single story home with 2 steps to enter the home. Patient states he is independent at home. Transportation: self, Roland DME/HHC: Patient states he has shower chair, raised toilet, cane, walker, wheelchair, hospital bed. No previous HHC or SNF. Disposition Plan: Patient to discharge home with family support and follow-up plans in place. Mariam BARBER, RN, CM
[2022-02-02 12:21] LABS: Bedside Glucose 162 mg/dL (74-106)
--- NOTE | 2022-02-02 12:34 | PN.CARD_ITS ---
Subjective Subjective Doing well. Denies cardiac complaints. Troponin 333, 1067, 1223. Objective Data Vital Signs: Vital Signs Temp Pulse Resp BP Pulse Ox O2 Del Method 98.8 F 105 H 16 163/86 H 94 Room Air 02/02/22 08:20 02/02/22 09:00 02/02/22 08:20 02/02/22 08:20 02/02/22 08:20 02/02/22 08:20 Oxygen Delivery Method Room Air Weight: 242 lb 1.081 oz Body Mass Index (BMI) 38.7 Intake & Output: Intake and Output for Last 24 Hours 01/31/22 02/01/22 02/02/22 23:59 23:59 23:59 Intake Total 500 / 500 1000 / 1000 Balance 500 / 500 1000 / 1000 Lab / Micro Data Result Diagrams: 02/02/22 06:30 02/02/22 06:30 Labs: Laboratory Results - last 24 hr 02/01/22 12:27: Troponin I High Sens 1067 H* 02/01/22 14:02: Troponin I High Sens 1223 H* 02/01/22 14:28: POC Glucose 151 H 02/01/22 17:41: POC Glucose 158 H 02/01/22 21:30: POC Glucose 194 H 02/02/22 06:30: WBC 5.8, RBC 4.09 L, Hgb 13.4, Hct 38.6 L, MCV 94.4 H, MCH 32.8 H, MCHC 34.7, RDW Std Deviation 44.1 H, RDW Coeff of Layla 12.9, Plt Count 170, MPV 8.8, Immature Gran % (Auto) 0.700, Neut % (Auto) 57.2, Lymph % (Auto) 28.0, [place] % (Auto) 11.2 H, Eos % (Auto) 2.6, Baso % (Auto) 0.3, Absolute Neuts (auto) 3.3, Absolute Lymphs (auto) 1.63, Nucleated RBC % 0 02/02/22 06:30: Sodium 137, Potassium 3.4 L, Chloride 103, Carbon Dioxide 25.0, Anion Gap 9, BUN 17, Creatinine 0.85, Estim Creat Clear Calc 66.96, Est GFR (MDRD) Af Amer 112, Est GFR (MDRD) Non-Af 92, BUN/Creatinine Ratio 19.9, Glucose 176 H, Calcium 8.9, Total Bilirubin 0.40, AST 38 H, ALT 45, Alkaline Phosphatase 65, Total Protein 7.4, Albumin 3.5, Globulin 3.9, Albumin/Globulin Ratio 0.9 02/02/22 06:41: POC Glucose 185 H 02/02/22 11:55: POC Glucose 162 H Cardiology Labs/Tests 02/02/22 06:30: WBC 5.8, RBC 4.09 L, Hgb 13.4, Hct 38.6 L, MCV 94.4 H, MCH 32.8 H, MCHC 34.7, Plt Count 170, MPV 8.8, Immature Gran % (Auto) 0.700, Neut % (Auto) 57.2, Lymph % (Auto) 28.0, [place] % (Auto) 11.2 H, Eos % (Auto) 2.6, Baso % (Auto) 0.3, Absolute Neuts (auto) 3.3, Nucleated RBC % 0 02/02/22 06:30: Sodium 137, Potassium 3.4 L, Chloride 103, Carbon Dioxide 25.0, Anion Gap 9, BUN 17, Creatinine 0.85, Est GFR (MDRD) Af Amer 112, Est GFR (MDRD) Non-Af 92, BUN/Creatinine Ratio 19.9, Glucose 176 H, Calcium 8.9, Total Bilirubin 0.40 Rhythm: EKG: ECHO: Stress Test: Cardiac Cath: PCI: CT Surgery: Holter monitor: EPS: PPM: CXR: Chest CT Scan: Physical Exam Const alert and oriented x3 HEENT normocephalic Eyes no scleral icterus Chest inspection of chest normal Resp normal respiratory effort Cardio regular rate and regular rhythm Skin no rashes or lesions noted Psych mental status grossly normal Assessment & Plan Assessment/Plan (1) Elevated troponin: PLAN: Likely secondary to anoxia at the time of seizure superimposed on underlying stable coronary artery disease. Patient does not have any cardiac symptoms. 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 (2) Atherosclerosis of coronary artery of [place] heart without angina pectoris: QUALIFIERS: Coronary Disease-Associated Artery/Lesion type: [place] artery Qualified Code(s): I25.10 - Atherosclerotic heart disease of [place] coronary artery without angina pectoris PLAN: Stable. Continue present management. (3) Essential hypertension: PLAN: Reasonable to increase the atenolol to 50 mg p.o. daily (4) Seizure: PLAN: Management per the primary team. Charges/Coding Visit Charges Inpatient E&M: 57660 Subs Hosp L2
--- NOTE | 2022-02-02 12:37 | PCM.DC ---
Discharge Instructions Diet Discharge Diet: Low fat / Low cholesterol, 1800 Calorie Control Diet and 2000 mg Sodium Diet Activity Discharge Activity: Return to Normal Activity Follow Up Care Test Results: Test results from this visit will be discussed in further detail at your follow-up appointment, if applicable. Discharge Plan Admission Admit Date/Time: 02/01/22 09:32 Primary Reason for Your Visit: Acute encephalopathy Attending Provider: Clarisa Cisneros Primary Care Provider: Denia Silvestre Consulting Providers: Agata Chau Instructions Additional Instructions / Restrictions: Continue to take all your medications as prescribed Follow-up with your neurologist in the outpatient within 2 to 4-weeks Discharge Orders/Prescriptions Prescriptions: New levetiracetam 1,000 mg Tablet 2,000 mg PO BID 30 Days Qty: 120 0RF Continued hydrochlorothiazide 25 mg tablet 25 mg PO DAILY clopidogrel 75 mg tablet 75 mg PO DAILY Qty: 90 3RF losartan 50 MG tablet 50 mg PO DAILY niacin 500 MG tablet extended release 24 hr 500 mg PO QHS atenolol 25 MG tablet 25 mg PO DAILY phenytoin sodium extended 100 MG capsule 200 mg PO DAILY phenytoin sodium extended 100 MG capsule 300 mg PO QHS aspirin 81 MG tablet 81 mg PO DAILY@0800 esomeprazole magnesium 40 MG capsule,delayed release(DR/EC) 40 mg PO DAILY PRN (Reason: Heartburn) mxzuurlu-lyu-AV-lycopen-lutein 1 EACH tablet 1 ea PO DAILY fenofibrate nanocrystallized 145 MG tablet 145 mg PO DAILY metformin 500 MG tablet,ER rolanda.retention 24 hr 500 mg PO DAILY isosorbide mononitrate 30 mg tablet extended release 24 hr See Rx Instructions .ROUTE .COMPLEX Qty: 90 3RF Dose Instruction: TAKE 1 TABLET BY MOUTH EVERY DAY Rx Instructions: TAKE 1 TABLET BY MOUTH EVERY DAY atorvastatin 80 mg tablet 80 mg PO QHS Qty: 90 3RF Discontinued levetiracetam 750 MG tablet extended release 24 hr 1,500 mg PO BID Other Ambulatory Orders: 30 Day Event Recorder Preventi (Routine) Timeframe: 1 Day Facility: [facility] - Location: Cardiovascular Services Ordered By: Dr. Clarisa Cisneros Referrals / Follow Up: Denia Silvestre MD [Primary Care Provider] - Hugh Carrasquillo MD [Med Staff - Active Staff] - Within 2 Weeks Disposition Disposition (needs filled in before D/C Order can be placed): Home, Self Care
[2022-02-02 13:45] VITALS: PULSE 98
--- NOTE | 2022-02-02 13:48 | CASEMGMT ---
Pt is up in room independently and states no concerns with going home at discharge. SStmejia RN CM
[2022-02-02 14:20] VITALS: BP 150/79; PULSE 88; RESP 16; TEMP 36.7; O2SAT 96
--- NOTE | 2022-02-02 14:40 | CASEMGMT ---
SW did not complete a PHQ 9 as physician does not feel patient had a Stroke or TIA. Rabia Forde LOG CARRIER OPERATOR KHADIJAH
--- NOTE | 2022-02-02 16:28 | CT_ITS ---
INDICATION: encephalopathy, rule out stroke EXAMINATION: CT BRAIN - CT Head or Brain W/O Contrast Injection TECHNIQUE: Multiple axial images were obtained of the head without intravenous contrast. A radiation dose optimization technique was used for this scan. IV Contrast dosage and agent: None. RADIATION DOSAGE (If Supplied By Facility): CTDIvol = ( 44.99 ) mGy, DLP = ( 796.11 ) mGycm COMPARISON: No relevant prior examinations for comparison FINDINGS: HEMISPHERES: 1. The cerebral parenchyma, ventricular system, subarachnoid spaces have normal configuration and density. There is a normal gyral pattern. There is normal green[place]/white differentiation. No midline shift.. 2. Diffuse involutional change and mild chronic microvascular deep white matter disease. 3. No intraparenchymal mass, hemorrhage, or acute territorial infarct. CEREBELLUM - BRAINSTEM: The cerebellum, brainstem, basilar and suprasellar cisterns have normal appearance. No Chiari malformation. PITUITARY: Infundibulum and pituitary have normal configuration. Midline structures appear normal. CSF SPACES: Appropriate for age. No hydrocephalus. Basal cisterns are patent. VESSELS: 1. No significant vascular calcifications in the cavernous carotid vessels. 2. No hyperdense vascular signs noted.. ORBITS AND PARANASAL SINUSES: 1. Normal appearance of the bony orbits. Normal appearance of the globes and retrobulbar soft tissues.. 2. Paranasal sinuses are clear. BONY ELEMENTS: Bony elements of the cranial vault, facial skeleton and skull base have normal appearance. SCALP AND SOFT TISSUES: Normal appearance of the soft tissues of the scalp and the visualized face OTHER: None ASPECTS Score for Acute Strokes: 10 CT/Brain/Head without Contrast IMPRESSION: 1. Diffuse involutional change, chronic microvascular deep white matter disease. 2. No intracranial mass, hemorrhage or acute territorial infarct. 3. No radiographically significant sinus disease.. Electronically Signed: Basil Madrid MD at 17:41 EDT ,
--- NOTE | 2022-02-02 17:03 | DS.PCM_ITS ---
Providers Date of Admission: 02/01/22 Date of Discharge: 02/02/22 Primary Care Physician: Dr. Denia Silvestre MD Consultations 02/01/22 12:22 Consult: Cardiology Routine Consulting Provider: Agata Chau Reason for Consult: NSTEMI EMERGENT Consult: No MD Notified: Yes Date Notified: 02/01/22 Time Notified: 12:36 Method of Notification: Text Reason For Visit: TIA Diagnosis Discharge Diagnosis (1) Elevated troponin: Status: Acute Code(s): R77.8 - Other specified abnormalities of plasma proteins (2) Atherosclerosis of coronary artery of [place] heart without angina pectoris: Status: Chronic Code(s): I25.10 - Atherosclerotic heart disease of [place] coronary artery without angina pectoris Qualifiers: Coronary Disease-Associated Artery/Lesion type: [place] artery Qualified Code(s): I25.10 - Atherosclerotic heart disease of [place] coronary artery without angina pectoris (3) Essential hypertension: Status: Chronic Code(s): I10 - Essential (primary) hypertension (4) Seizure: Status: Acute Code(s): R56.9 - Unspecified convulsions Plan 1. Acute seizure 2. Elevated cardiac enzyme/NSTEMI, type II likely secondary demand ischemia 3. Hypertension 4. Type II DM, on metformin, hold metformin, continue sliding scale blood glucose checks 5. DVT prophylaxis?Lovenox subcu Medications at Discharge Home Medications aspirin 81 mg tablet,delayed release 81 mg PO DAILY@0800 heart health 08/28/17 atenolol 25 mg tablet 25 mg PO DAILY heart rate 08/28/17 esomeprazole magnesium 40 mg capsule,delayed release 40 mg PO DAILY PRN Heartburn 08/28/17 fenofibrate nanocrystallized 145 mg tablet 145 mg PO DAILY cholesterol 08/28/17 metformin 500 mg 24 hr tablet,extended release 500 mg PO DAILY diabetes 08/28/17 aockjaic-pue-wtpmf acid 0.4 mg-lycopene 300 mcg-lutein 250 mcg tablet 1 ea PO DAILY supplement 08/28/17 niacin 500 mg tablet,extended release 24 hr 500 mg PO QHS cholesterol 08/28/17 phenytoin sodium extended 100 mg capsule 200 mg PO DAILY seizures 08/28/17 phenytoin sodium extended 100 mg capsule 300 mg PO QHS seizures 08/28/17 hydrochlorothiazide 25 mg tablet 25 mg PO DAILY water pill 09/09/20 clopidogrel 75 mg tablet 75 mg PO DAILY #90 tabs 10/11/20 isosorbide mononitrate 30 mg tablet,extended release 24 hr See Rx Instructions .Route .COMPLEX #90 tabs 10/20/21 atorvastatin 80 mg tablet 80 mg PO QHS #90 tabs 10/24/21 levetiracetam 1,000 mg tablet 2,000 mg PO BID 30 days #120 tabs 02/02/22 losartan 100 mg tablet 100 mg PO DAILY 30 days #30 tabs 02/02/22 Hospital Course Operations None Procedures Electroencephalogram (02/02/22) Summary of Care Provided Minutes Spent on Discharge: 40 Hospital Course: 76-year-old male with past medical history of seizure disorder, who was brought in by the EMS squad after he was found unresponsive. Patient was found lying on his bathroom floor, he stated that he had a seizure disorder. He was felt to have had a facial droop. He was brought to the emergency room. Patient however did not have any neurological deficits upon reevaluation the emergency room. He was more awake and oriented. He denies biting his tongue or have any bowel or bladder incontinence. His vitals in the emergency room showed uncontrolled blood pressure. His admitting blood work were unremarkable except for elevated troponin. CT of the brain was unremarkable. He was admitted to the progressive care unit, monitored on telemetry with no events. He underwent EEG that was unremarkable. Cardiology was consulted and recommended medical management and follow-up in the outpatient within 2 weeks. Teleneurology was consulted and recommended increasing Keppra to 2000 mg p.o. twice daily as well as a repeat CT of the head. Head CT showed chronic involutional changes. Patient was discharged home to follow-up with neurology in 2 to 4 weeks. Physical Exam Narrative Physical exam: General: Alert, Oriented x3, Cooperative, No apparent distress, obese HEENT: Atraumatic Oral: Moist Mucosa Neck: Supple Lungs: Diminished to auscultation Cardiovascular: HS I+II, regular, no murmurs Abdomen: Bowel Sounds Present, Soft, Non Tender Extremities: Bilateral pedal edema +1 Skin: No rashes, No breakdown Neurological: Grossly intact Psych/Mental Status: Appropriate Weight / BMI Weight Weight: 109.8 kg Body Mass Index (BMI) 38.7 ABG / Lab / Microbiology Data Result Diagrams: 02/02/22 06:30 02/02/22 06:30 Laboratory: Laboratory Results - last 24 hr 02/01/22 17:41: POC Glucose 158 H 02/01/22 21:30: POC Glucose 194 H 02/02/22 06:30: WBC 5.8, RBC 4.09 L, Hgb 13.4, Hct 38.6 L, MCV 94.4 H, MCH 32.8 H, MCHC 34.7, RDW Std Deviation 44.1 H, RDW Coeff of Layla 12.9, Plt Count 170, MPV 8.8, Immature Gran % (Auto) 0.700, Neut % (Auto) 57.2, Lymph % (Auto) 28.0, [place] % (Auto) 11.2 H, Eos % (Auto) 2.6, Baso % (Auto) 0.3, Absolute Neuts (auto) 3.3, Absolute Lymphs (auto) 1.63, Nucleated RBC % 0 02/02/22 06:30: Sodium 137, Potassium 3.4 L, Chloride 103, Carbon Dioxide 25.0, Anion Gap 9, BUN 17, Creatinine 0.85, Estim Creat Clear Calc 66.96, Est GFR (M DRD) Af Amer 112, Est GFR (MDRD) Non-Af 92, BUN/Creatinine Ratio 19.9, Glucose 176 H, Calcium 8.9, Total Bilirubin 0.40, AST 38 H, ALT 45, Alkaline Phosphatase 65, Total Protein 7.4, Albumin 3.5, Globulin 3.9, Albumin/Globulin Ratio 0.9 02/02/22 06:41: POC Glucose 185 H 02/02/22 11:55: POC Glucose 162 H D/C Instructions Discharge Diet: Low fat / Low cholesterol, 1800 Calorie Control Diet and 2000 mg Sodium Diet Meaningful Use Info Meaningful Use Diagnoses (Choose all that apply): None applicable Discharge Plan Admission Admit Date/Time: 02/01/22 09:32 Primary Reason for Your Visit: Acute encephalopathy Attending Provider: Clarisa Cisneros Primary Care Provider: Denia Silvestre Consulting Providers: Agata Chau Instructions Additional Instructions / Restrictions: Take note of changes to your medications Continue to take all your medications as prescribed Follow-up with your primary care doctor within a week to have repeat blood work to check on your kidney function. Follow-up with your neurologist in the outpatient within 2 to 4-weeks Discharge Orders/Prescriptions Prescriptions: New levetiracetam 1,000 mg Tablet 2,000 mg PO BID 30 Days Qty: 120 0RF losartan 100 mg tablet 100 mg PO DAILY 30 Days Qty: 30 0RF Continued hydrochlorothiazide 25 mg tablet 25 mg PO DAILY clopidogrel 75 mg tablet 75 mg PO DAILY Qty: 90 3RF niacin 500 MG tablet extended release 24 hr 500 mg PO QHS atenolol 25 MG tablet 25 mg PO DAILY phenytoin sodium extended 100 MG capsule 200 mg PO DAILY phenytoin sodium extended 100 MG capsule 300 mg PO QHS aspirin 81 MG tablet 81 mg PO DAILY@0800 esomeprazole magnesium 40 MG capsule,delayed release(DR/EC) 40 mg PO DAILY PRN (Reason: Heartburn) noxxxoyp-pmf-LW-lycopen-lutein 1 EACH tablet 1 ea PO DAILY fenofibrate nanocrystallized 145 MG tablet 145 mg PO DAILY metformin 500 MG tablet,ER rolanda.retention 24 hr 500 mg PO DAILY isosorbide mononitrate 30 mg tablet extended release 24 hr See Rx Instructions .ROUTE .COMPLEX Qty: 90 3RF Dose Instruction: TAKE 1 TABLET BY MOUTH EVERY DAY Rx Instructions: TAKE 1 TABLET BY MOUTH EVERY DAY atorvastatin 80 mg tablet 80 mg PO QHS Qty: 90 3RF Discontinued losartan 50 MG tablet 50 mg PO DAILY levetiracetam 750 MG tablet extended release 24 hr 1,500 mg PO BID Other Ambulatory Orders: 30 Day Event Recorder Preventi (Routine) Timeframe: 1 Day Facility: [facility] - Location: Cardiovascular Services Ordered By: Dr. Clarisa Cisneros Referrals / Follow Up: Denia Silvestre MD [Primary Care Provider] - Hugh Carrasquillo MD [Med Staff - Active Staff] - Within 2 Weeks Disposition Disposition (needs filled in before D/C Order can be placed): Home, Self Care Charges/Coding Visit Charges Inpatient E&M: 98549 Disch Hosp
[2022-02-02 17:46] LABS: Bedside Glucose 148 mg/dL (74-106)
[2022-02-02 18:32] LABS: Phenytoin (Dilantin) Level 11.3 mL (10.0-20.0)
== END 2022-02-02 18:17 | disposition home or self-care (01) | DRG 100 ==
LOC: ED 10:28 → PCU 17:48
PROVIDERS: Admitting Provider Internal Medicine; Emergency Provider Emergency Medicine; PCP Internal Medicine; Visit Provider Internal Medicine
DX: G40.909 Epilepsy, unspecified, not intractable, without status epilepticus (principal); I21.4 Non-ST elevation (NSTEMI) myocardial infarction; E11.9 Type 2 diabetes mellitus without complications; I10 Essential (primary) hypertension; E78.5 Hyperlipidemia, unspecified; I25.10 Atherosclerotic heart disease of native coronary artery without angina pectoris; K21.9 Gastro-esophageal reflux disease without esophagitis; Z79.82 Long term (current) use of aspirin; Z79.84 Long term (current) use of oral hypoglycemic drugs; Z79.02 Long term (current) use of antithrombotics/antiplatelets; Z87.891 Personal history of nicotine dependence; Z79.899 Other long term (current) drug therapy; R29.810 Facial weakness
CPT/HCPCS: 36415; 70450; 71045; 80053; 80185; 82962; 84484; 85025; 85610; 85730; 93005; 95819; 96360; 96361; 96372; 97802; 99218; 99285; J7030; J7040; A4216; G0378

== ENCOUNTER 2022-12-30 12:23 | Emergency (ER) | payer MEDICARE, MEDICAID, SELFPAY ==
[2022-12-30 12:24] VITALS: BP 173/89; PULSE 106; RESP 18; TEMP 36; O2SAT 92; BMI 37.8
--- NOTE | 2022-12-30 12:42 | CT_ITS ---
EXAM: CT HEAD WITHOUT INTRAVENOUS CONTRAST CLINICAL INDICATION: Seizure TECHNIQUE: Multiple axial images were obtained of the head without intravenous contrast. This CT exam was performed using one or more of the following dose reduction techniques: automated exposure control, adjustment of the mA and/or kV according to patient size, and/or use of iterative reconstruction technique. COMPARISON: CT Head dated 02/02/2022 FINDINGS: BRAIN AND EXTRA-AXIAL SPACES: Normal. No intra- or extra-axial hemorrhage. No acute infarct. No intracranial mass or mass effect. There is preservation of the greenwood/white matter interface. Posterior fossa structures are unremarkable. Prominence of the cortical sulci and ventricles related to volume loss change. Basal cisterns are patent. BONES/JOINTS: No suspicious lytic or blastic abnormality. SINUSES: No acute sinusitis. MASTOID AIR CELLS: No significant opacification. CT/Brain/Head without Contrast IMPRESSION: No acute intracranial abnormality. Chronic senescent changes. Electronically Signed: Alcon Gillespie MD at 13:59 EDT ,
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
[2022-12-30] MEDS: 0.9% Normal Saline (500mL Bag) 500 ML 1000 ML IV (13:05)
[2022-12-30 13:13] LABS: Absolute Lymphocyte Count 1.98 X10^3/uL (0.83-4.51); Basophil# 0.04 X10^3/uL; Basophil% 0.7 % (0-1); Eosinophil# 0.23 X10^3/uL; Eosinophils% 3.9 % (0-5); Hematocrit 43.1 % (40-54); Hemoglobin 14.8 g/dL (13.0-16.5); Lymphocyte # 1.98 X10^3/ul (0.83-4.51); Lymphocyte % 33.3 % (19-41); Mean Corp Hgb Conc 34.3 g/dL (32-36); Mean Corpuscular Hgb 32.4 pg (27.0-32.0); Mean Corpuscular Volume 94.3 fL (80-94); Mean Platelet Vol. 8.8 fl (6.2-12.0); Monocyte# 0.61 X10^3/uL; Monocyte% 10.3 % (0-10); NRBC Flagged by Analyzer 0 % (0-5); Neutrophil # 3.03 X10^3/uL (2.7-7.7); Neutrophil % 50.8 % (47-70); Platelet Count 158 K/mm3 (150-450); RBC Distribution Width CV 12.7 % (11.6-14.6); RBC Distribution Width SD 43.8 fl (35.1-43.9); Red Blood Count 4.57 M/mm3 (4.6-6.2)
[2022-12-30 13:37] LABS: Anion Gap 9 (5-15); BUN 19 mg/dL (7-18); BUN/Creat Ratio 18.8 RATIO (10-20); Calcium,Total 9.4 mg/dL (8.5-10.1); Chloride 100 mmol/L (98-107); Creatinine, Serum 1.01 mg/dL (0.70-1.30); EST Glomerular Filtration Rate 76 mL/min (>60); Est Glom Filt Rate - Afr Amer 92 mL/min (>60); Estimated Creatinine Clearance 55.45 ml/min; Glucose 158 mg/dL (74-106); Phenytoin (Dilantin) Level 10.6 mL (10.0-20.0); Potassium 4.1 mmol/L (3.5-5.1); Sodium Level 134 mmol/L (136-145)
== END 2022-12-30 15:21 | disposition home or self-care (01) ==
PROVIDERS: Emergency Provider Emergency Medicine; PCP Internal Medicine; Visit Provider Emergency Medicine
DX: R56.9 Unspecified convulsions (principal); I25.10 Atherosclerotic heart disease of native coronary artery without angina pectoris; Z87.891 Personal history of nicotine dependence
CPT/HCPCS: 70450; 80048; 80185; 85025; 96360; 99285; J7040; A4216

== ENCOUNTER 2023-04-16 07:36 | Emergency (ER) | payer MEDICARE, MEDICAID, SELFPAY ==
[2023-04-16] VITALS (7 sets, daily range): BP systolic 138–184; BP diastolic 70–106; PULSE 101–111; RESP 16–20; TEMP 35.6; O2SAT 91–98; BMI 36.6
--- NOTE | 2023-04-16 08:39 | CT_ITS ---
INDICATION: injury EXAMINATION: CT CERVICAL SPINE - CT Spine Cervical W/O Contrast Injection TECHNIQUE: Helically acquired images were obtained of the cervical spine. 2D reformatted images were reviewed. A radiation dose optimization technique was used for this scan. IV Contrast dosage and agent: None. RADIATION DOSAGE (If Supplied By Facility): CTDIvol = ( 26.53 ) mGy, DLP = ( 584.64 ) mGycm COMPARISON: No relevant prior comparison study available FINDINGS: VERTEBRAE: No fracture or traumatic subluxation. There is multilevel endplate spondylosis and facet hypertrophy. No discrete lytic or blastic abnormality. Normal alignment. Normal craniocervical junction and cervicothoracic junction. DISCS and SPINAL CANAL: There is multilevel degenerative disc disease. No critical stenosis. NECK SOFT TISSUES: No prevertebral soft tissue swelling. There is no cervical adenopathy. There are vascular calcifications. LUNG APICES: Clear. CT/Spine Cervical without Contras IMPRESSION: Multilevel degenerative changes. Atherosclerosis. Electronically Signed: Devi Mendez MD at 10:05 EST ,
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
--- NOTE | 2023-04-16 08:41 | EX.ED.DYSGE1 ---
HPI History of Present Illness Chief Complaint: Seizure Informant: patient Onset/Context/Timing Onset: Today Narrative Narrative: Patient presents secondary to seizure and scalp laceration. Patient has a history of seizures and is currently on Keppra and Dilantin. He reported had a seizure this morning. He is not sure how EMS was contacted. He has a laceration to the scalp and states the area is slightly sore. He has no other injury. He normally takes his a.m. seizure medications at 10 AM and has not yet had his morning dose. [facility] Medical History Atherosclerosis of coronary artery of [place] heart without angina pectoris Essential hypertension Former smoker GERD (gastroesophageal reflux disease) Hyperlipidemia Seizures Type 2 diabetes mellitus without complications Home Medications aspirin 81 mg tablet,delayed release 81 mg PO DAILY@0800 heart health 08/28/17 [History Last Taken 09/09/20] esomeprazole magnesium 40 mg capsule,delayed release 40 mg PO DAILY PRN Heartburn 08/28/17 [History Last Taken 09/09/20] fenofibrate nanocrystallized 145 mg tablet 145 mg PO DAILY cholesterol 08/28/17 [History Last Taken 09/09/20] metformin 500 mg 24 hr tablet,extended release (gastric retention) 500 mg PO DAILY diabetes 08/28/17 [History Last Taken 09/09/20] gxxnflnb-cmx-seuqm acid 0.4 mg-lycopene 300 mcg-lutein 250 mcg tablet 1 ea PO DAILY supplement 08/28/17 [History Last Taken 09/09/20] niacin 500 mg tablet,extended release 24 hr 500 mg PO QHS cholesterol 08/28/17 [History Last Taken 09/09/20] phenytoin sodium extended 100 mg capsule 200 mg PO DAILY seizures 08/28/17 [History Last Taken 09/09/20] phenytoin sodium extended 100 mg capsule 300 mg PO QHS seizures 08/28/17 [History Last Taken 09/09/20] hydrochlorothiazide 25 mg tablet 25 mg PO DAILY water pill 09/09/20 [History Last Taken 09/09/20] clopidogrel 75 mg tablet 75 mg PO DAILY #90 tabs 10/11/20 [Rx Last Taken Unknown] losartan 100 mg tablet 100 mg PO DAILY 30 days #30 tabs 02/02/22 [Rx Last Taken Unknown] atorvastatin 80 mg tablet 80 mg PO QHS #90 tabs 10/18/22 [Rx Last Taken Unknown] isosorbide mononitrate 30 mg tablet,extended release 24 hr See Rx Instructions .Route .COMPLEX #90 tabs 10/18/22 [Rx Last Taken Unknown] atenolol 25 mg tablet 25 mg PO BID heart rate 12/18/22 [History Last Taken Unknown] levetiracetam 1,000 mg tablet 2,000 mg PO BID 12/18/22 [History Last Taken Unknown] amlodipine 2.5 mg tablet See Rx Instructions .Route .COMPLEX #30 tabs 01/09/23 [Rx Last Taken Unknown] Allergy/AdvReac Type Severity Reaction Status Date / Time ciprofloxacin [From Cipro] Allergy Rash Verified 04/16/23 07:36 Family History Mother Heart disease Father Heart disease Surgical History History of bilateral cataract extraction History of left heart catheterization (09/13/20) Hx of cholecystectomy S/P ORIF (open reduction internal fixation) fracture (08/27/17) Social History Smoking Status: Former smoker substance use type: does not use ROS ROS ED Constitutional Constitutional ED: Denies chills or fever(s) Eyes Eyes: Denies change in vision or discharge from eye(s) ENT ENT ED: Denies discharge from eye(s), rhinorrhea or sore throat Cardiovascular Cardiovascular: Denies chest pain Respiratory/Chest Respiratory/Chest: Denies cough or dyspnea Gastrointestinal Gastrointestinal: Denies abdominal pain, nausea or vomiting Genitourinary Genitourinary ED: Denies dysuria Musculoskeletal Musculoskeletal: Denies back pain or extremity pain Integumentary Denies Abrasions or rash Neurologic Neurologic: Denies headache(s) or weakness Psychiatric Psychiatric: Denies anxiety or depression Allergic/Immunologic Allergic/Immunologic ED: Denies lip swelling or urticaria EXAM Physical Exam Const Vital Signs: 04/16/23 07:37 04/16/23 08:52 04/16/23 09:26 Temperature 96.1 F L Temperature Source Temporal Pulse Rate 111 H 105 H Respiratory Rate 19 H 16 18 Blood Pressure 184/100 H 154/106 H 155/100 H Blood Pressure Mean 128 122 118 Pulse Ox 91 98 94 Oxygen Delivery Method Room Air Room Air Room Air 04/16/23 10:21 04/16/23 10:38 04/16/23 10:57 Temperature Temperature Source Pulse Rate 101 H 108 H Respiratory Rate 20 H 16 Blood Pressure 156/94 H 155/97 H 138/70 H Blood Pressure Mean 114 116 92 Pulse Ox 94 96 Oxygen Delivery Method Room Air 04/16/23 11:00 Temperature Temperature Source Pulse Rate 110 H Respiratory Rate 16 Blood Pressure 146/88 H Blood Pressure Mean 107 Pulse Ox 96 Oxygen Delivery Method Room Air Positive well nourished and well developed General Appearance ED: well developed HEENT HEENT Narrative: Scalp Laceration: 5 cm linear scalp laceration over the posterior parietal scalp. Bleeding well-controlled. Eyes EOMs intact bilaterally Chest Wall inspection of chest normal and palpation of chest normal Resp normal respiratory effort and clear to auscultation bilaterally Cardio regular rate and regular rhythm GI non-tender Palpation: soft Extremity normal to inspection Neuro oriented x3 and no sensory deficits noted Motor Exam: strength 5/5 throughout Psych mental status grossly normal MDM MDM MDM Narrative Medical decision making narrative: Patient sent for CT imaging of the brain and C-spine to evaluate for fracture, hematoma, malalignment. Dilantin level will be obtained. Patient given his a.m. dose of Keppra and Dilantin. Lab Data Labs: Laboratory Results - last 24 hr 04/16/23 04/16/23 08:30 10:29 WBC 6.8 RBC 3.82 L Hgb 12.3 L Hct 35.8 L MCV 93.7 MCH 32.2 H MCHC 34.4 RDW Std Deviation 44.0 H RDW Coeff of Layla 13.0 Plt Count 157 MPV 9.1 Immature Gran % (Auto) 0.400 Neut % (Auto) 63.6 Lymph % (Auto) 22.8 [place] % (Auto) 9.4 Eos % (Auto) 3.4 Baso % (Auto) 0.4 Absolute Neuts (auto) 4.4 Absolute Lymphs (auto) 1.56 Nucleated RBC % 0 PT 13.6 INR 1.0 APTT 21.9 L Sodium 137 Potassium 3.7 Chloride 104 Carbon Dioxide 26.0 Anion Gap 7 BUN 25 H Creatinine 1.02 Estim Creat Clear Calc 56.81 Est GFR (MDRD) Af Amer 91 Est GFR (MDRD) Non-Af 75 BUN/Creatinine Ratio 24.5 H Glucose 216 H Calcium 9.1 Phenytoin 11.2 Radiography Diagnostic Testing: Clinical Impression(s) from Imaging Studies Brain CT 04/16/23 08:39 IMPRESSION: New bilateral acute subarachnoid hemorrhages. N.B. : The above Results were Read Back by Devi Mendez MD to Joyce Castle MD, and understanding confirmed on 04/16/2023 10:05:44 (ET). Electronically Signed: Devi Mendez MD at 10:07 EST , ADDENDUM: 04/16/23 1014 IMPRESSION: New bilateral acute subarachnoid hemorrhages. N.B. : The above Results were Read Back by eDvi Mendez MD to Joyce Castle MD, and understanding confirmed on 04/16/2023 10:05:44 (ET). Electronically Signed: Devi Mendez MD at 10:07 EST , Cervical Spine CT 04/16/23 08:39 IMPRESSION: Multilevel degenerative changes. Atherosclerosis. Electronically Signed: Devi Mendez MD at 10:05 EST , Treatment and Re-Evaluation :: Patient's scalp wound was anesthetized with 4 cc of 1% lidocaine with epinephrine. Wound is cleansed and irrigated. 5 simple interrupted sutures of 4-0 nylon are placed with good approximation. I received a phone call from the radiologist stating the patient has evidence of new bilateral acute subarachnoid hemorrhages. No midline shift. CT the C-spine reveals degenerative changes with no acute findings. Test results are discussed with the patient at bedside. He is alert and oriented and moving all 4 extremities. Family has requested [facility] in [place] if possible. Patient is excepted at [facility] in transfer. Baseline labs are obtained as well as coags. These are largely unremarkable. Patient was given amlodipine and atenolol which she is due for this morning to help with blood pressure and heart rate control. Patient remained stable during observation while awaiting transfer. Procedures Lacerations Scalp Laceration: Length: 1.97 in Depth: Sub Q Shape: Linear Laceration repair: Irrigated, Lidocaine with epi and Local Number of Sutures/Chuck: 5 Suture Information: Vicryl, Simple and 4-0 Discharge Plan Triage Chief Complaint: Seizure ED Provider: Joyce Castle Dx/Rx/DC Orders Clinical Impression: Subarachnoid hemorrhage, Recurrent seizures, Scalp laceration Prescriptions: No Action hydrochlorothiazide 25 mg tablet 25 mg PO DAILY clopidogrel 75 mg tablet 75 mg PO DAILY Qty: 90 3RF levetiracetam 1,000 mg tablet 2,000 mg PO BID niacin 500 MG tablet extended release 24 hr 500 mg PO QHS phenytoin sodium extended 100 MG capsule 200 mg PO DAILY phenytoin sodium extended 100 MG capsule 300 mg PO QHS aspirin 81 MG tablet 81 mg PO DAILY@0800 esomeprazole magnesium 40 MG capsule,delayed release(DR/EC) 40 mg PO DAILY PRN (Reason: Heartburn) pkqingil-pcd-EB-lycopen-lutein 1 EACH tablet 1 ea PO DAILY fenofibrate nanocrystallized 145 MG tablet 145 mg PO DAILY metformin 500 MG tablet,ER rolanda.retention 24 hr 500 mg PO DAILY atenolol 25 mg tablet 25 mg PO BID losartan 100 mg tablet 100 mg PO DAILY 30 Days Qty: 30 0RF isosorbide mononitrate 30 mg tablet extended release 24 hr See Rx Instructions .ROUTE .COMPLEX Qty: 90 3RF Dose Instruction: TAKE 1 TABLET BY MOUTH EVERY DAY Rx Instructions: TAKE 1 TABLET BY MOUTH EVERY DAY atorvastatin 80 mg tablet 80 mg PO QHS Qty: 90 3RF amlodipine 2.5 mg tablet See Rx Instructions .ROUTE .COMPLEX Qty: 30 11RF Dose Instruction: TAKE 1 TABLET BY MOUTH EVERY DAY Rx Instructions: TAKE 1 TABLET BY MOUTH EVERY DAY Primary Care Provider: Denia Silvestre Referrals: Denia Silvestre MD [Primary Care Provider] - Disposition Disposition: Acute Care Hospital Discharge Location: [facility] Discharge Date/Time: 04/16/23 12:22
[2023-04-16] MEDS: Phenytoin Na 100 MG Capsule 200 MG PO (09:23)
[2023-04-16] MEDS: levETIRAcetam 1,000 MG Tablet 2000 MG PO (09:23)
[2023-04-16] MEDS: Lidocaine 1% /Epi 1:100 (20ml) 20 ML Vial INFILT (09:27)
[2023-04-16 09:52] LABS: Phenytoin (Dilantin) Level 11.2 mL (10.0-20.0)
--- NOTE | 2023-04-16 10:25 | NURSING ---
CALLED [facility], ETA IS 20 MIN
[2023-04-16 10:27] LABS: Absolute Lymphocyte Count 1.56 X10^3/uL (0.83-4.51); Absolute Neutrophil Count 4.4 X10^3/uL (2.0-7.7); Basophil# 0.03 X10^3/uL; Basophil% 0.4 % (0-1); Eosinophil# 0.23 X10^3/uL; Eosinophils% 3.4 % (0-5); Hematocrit 35.8 % (40-54); Hemoglobin 12.3 g/dL (13.0-16.5); Lymphocyte # 1.56 X10^3/ul (0.83-4.51); Lymphocyte % 22.8 % (19-41); Mean Corp Hgb Conc 34.4 g/dL (32-36); Mean Corpuscular Hgb 32.2 pg (27.0-32.0); Mean Corpuscular Volume 93.7 fL (80-94); Mean Platelet Vol. 9.1 fl (6.2-12.0); Monocyte# 0.64 X10^3/uL; Monocyte% 9.4 % (0-10); NRBC Flagged by Analyzer 0 % (0-5); Neutrophil # 4.35 X10^3/uL (2.7-7.7); Neutrophil % 63.6 % (47-70); Platelet Count 157 K/mm3 (150-450); Red Blood Count 3.82 M/mm3 (4.6-6.2); White Blood Count 6.8 K/mm3 (4.4-11.0)
[2023-04-16 10:41] LABS: Anion Gap 7 (5-15); BUN 25 mg/dL (7-18); BUN/Creat Ratio 24.5 RATIO (10-20); Calcium,Total 9.1 mg/dL (8.5-10.1); Chloride 104 mmol/L (98-107); Creatinine, Serum 1.02 mg/dL (0.70-1.30); EST Glomerular Filtration Rate 75 mL/min (>60); Est Glom Filt Rate - Afr Amer 91 mL/min (>60); Estimated Creatinine Clearance 56.81 ml/min; Glucose 216 mg/dL (74-106); Potassium 3.7 mmol/L (3.5-5.1); Sodium Level 137 mmol/L (136-145)
[2023-04-16 10:47] LABS: Prothrombin Time (Protime)PT. 13.6 SECONDS (11.7-14.9)
[2023-04-16 10:48] LABS: Partial Thromboplast Time 21.9 Seconds (24.1-36.2)
[2023-04-16] MEDS: Atenolol 25 MG Tablet PO (10:54)
[2023-04-16] MEDS: amLODIPine 2.5 MG Tablet PO (10:54)
--- NOTE | 2023-04-16 10:54 | ED.RN ---
scanner not working, computer reset, battery changed and refreshed. charge nurse aware. dose and patient verified with rosalie paige.
--- NOTE | 2023-04-16 11:17 | NURSING ---
CALLED [facility], TALKED TO FREDI. [facility] IS 3 MIN AWAY
--- NOTE | 2023-04-16 11:50 | NURSING ---
CALLED [facility], TALKED TO FRIDA. THEY ARE ON SCENE
== END 2023-04-16 12:22 | disposition short-term general hospital (02) ==
PROVIDERS: Emergency Provider Emergency Medicine; PCP Internal Medicine; Referring Provider Emergency Medicine; Visit Provider Emergency Medicine
DX: S06.6XAA Traumatic subarachnoid hemorrhage with loss of consciousness status unknown, initial encounter (principal); G40.909 Epilepsy, unspecified, not intractable, without status epilepticus; E11.9 Type 2 diabetes mellitus without complications; S01.01XA Laceration without foreign body of scalp, initial encounter; I25.10 Atherosclerotic heart disease of native coronary artery without angina pectoris; Z87.891 Personal history of nicotine dependence; X58.XXXA Exposure to other specified factors, initial encounter
CPT/HCPCS: 12001; 70450; 72125; 80048; 80185; 85025; 85610; 85730; 99285; A4216

== ENCOUNTER 2023-04-21 07:28 | Emergency (ER) | payer MEDICARE, MEDICAID, SELFPAY ==
[2023-04-21 07:29] VITALS: BP 135/110; PULSE 116; RESP 25; TEMP 36.4; O2SAT 96; BMI 35.7
--- NOTE | 2023-04-21 07:32 | CT_ITS ---
EXAM: CT HEAD WITHOUT INTRAVENOUS CONTRAST CLINICAL INDICATION: seizure, fall TECHNIQUE: Multiple axial images were obtained of the head without intravenous contrast. This CT exam was performed using one or more of the following dose reduction techniques: automated exposure control, adjustment of the mA and/or kV according to patient size, and/or use of iterative reconstruction technique. RADIATION DOSE: CTDIvol = 44.99 mGy, DLP = 745.49 mGy-cm COMPARISON: CT head without contrast 04/16/2023. FINDINGS: BRAIN AND EXTRA-AXIAL SPACES: Traumatic subarachnoid hemorrhage in the left superior frontal lobe sulcus and in the right postcentral sulcus. No evidence of acute infarct. No intracranial mass or mass effect. There is preservation of the [place]/white matter interface. Posterior fossa structures are unremarkable. Ventricles are appropriate for age. No hydrocephalus. Basal cisterns are patent. BONES/JOINTS: Unremarkable. No discrete lytic or blastic abnormalities. VASCULATURE: Prominent calcified plaques in the cavernous segments of both internal carotid arteries are unchanged. SINUSES: Unremarkable as visualized. Clear. MASTOID AIR CELLS: Unremarkable. Clear. ORBITS: Visualized globes, extraocular muscles, optic nerves and retrobulbar fat appear unremarkable. CT/Brain/Head without Contrast IMPRESSION: 1. Traumatic subarachnoid hemorrhage in the right postcentral sulcus and in the left superior frontal lobe sulcus. 2. No significant interval change compared to 04/16/2023. Electronically Signed: Montana Acosta MD at 8:45 EST ,
--- NOTE | 2023-04-21 08:01 | EX.ED.DYSGE1 ---
HPI History of Present Illness Chief Complaint: Seizure Informant: patient Onset/Context/Timing Onset: Today Narrative Narrative: Patient presents via EMS after seizure. He has a history of seizure disorder. He was seen here last week after a seizure and fall striking his head. He had a scalp laceration and was found to have bilateral subarachnoid hemorrhages. He was transferred to [facility]. Patient states that they repeated his CT and then discharged him after couple days. He was told to stop taking his Keppra. I was able to look at the discharge paperwork from [place]. In the body of the instructions it states that your Keppra dose is being increased to 1250 twice daily. When the medications are listed it states to stop taking Keppra but does not list his new dose or prescription. Interestingly, patient was previously on Keppra 2000 mg twice daily. Patient does not remember episode this morning. He is alert and appropriate on arrival to the emergency room. [facility] Medical History Atherosclerosis of coronary artery of [place] heart without angina pectoris Essential hypertension Former smoker GERD (gastroesophageal reflux disease) Hyperlipidemia Seizures Type 2 diabetes mellitus without complications Home Medications aspirin 81 mg tablet,delayed release 81 mg PO DAILY@0800 heart health 08/28/17 [History Last Taken 09/09/20] esomeprazole magnesium 40 mg capsule,delayed release 40 mg PO DAILY PRN Heartburn 08/28/17 [History Last Taken 09/09/20] fenofibrate nanocrystallized 145 mg tablet 145 mg PO DAILY cholesterol 08/28/17 [History Last Taken 09/09/20] metformin 500 mg 24 hr tablet,extended release (gastric retention) 500 mg PO DAILY diabetes 08/28/17 [History Last Taken 09/09/20] ruvntplo-snj-biufj acid 0.4 mg-lycopene 300 mcg-lutein 250 mcg tablet 1 ea PO DAILY supplement 08/28/17 [History Last Taken 09/09/20] niacin 500 mg tablet,extended release 24 hr 500 mg PO QHS cholesterol 08/28/17 [History Last Taken 09/09/20] phenytoin sodium extended 100 mg capsule 200 mg PO DAILY seizures 08/28/17 [History Last Taken 09/09/20] phenytoin sodium extended 100 mg capsule 300 mg PO QHS seizures 08/28/17 [History Last Taken 09/09/20] hydrochlorothiazide 25 mg tablet 25 mg PO DAILY water pill 09/09/20 [History Last Taken 09/09/20] clopidogrel 75 mg tablet 75 mg PO DAILY #90 tabs 10/11/20 [Rx Last Taken Unknown] losartan 100 mg tablet 100 mg PO DAILY 30 days #30 tabs 02/02/22 [Rx Last Taken Unknown] atorvastatin 80 mg tablet 80 mg PO QHS #90 tabs 10/18/22 [Rx Last Taken Unknown] isosorbide mononitrate 30 mg tablet,extended release 24 hr See Rx Instructions .Route .COMPLEX #90 tabs 10/18/22 [Rx Last Taken Unknown] atenolol 25 mg tablet 25 mg PO BID heart rate 12/18/22 [History Last Taken Unknown] levetiracetam 1,000 mg tablet 2,000 mg PO BID 12/18/22 [History Last Taken Unknown] amlodipine 2.5 mg tablet See Rx Instructions .Route .COMPLEX #30 tabs 01/09/23 [Rx Last Taken Unknown] Allergy/AdvReac Type Severity Reaction Status Date / Time ciprofloxacin [From Cipro] Allergy Rash Verified 04/21/23 07:29 Family History Mother Heart disease Father Heart disease Surgical History History of bilateral cataract extraction History of left heart catheterization (09/13/20) Hx of cholecystectomy S/P ORIF (open reduction internal fixation) fracture (08/27/17) Social History Smoking Status: Former smoker substance use type: does not use ROS ROS ED Constitutional Constitutional ED: Denies chills or fever(s) Eyes Eyes: Denies change in vision ENT ENT ED: Denies rhinorrhea or sore throat Cardiovascular Cardiovascular: Denies chest pain or palpitations Respiratory/Chest Respiratory/Chest: Denies cough or dyspnea Gastrointestinal Gastrointestinal: Denies abdominal pain or vomiting Musculoskeletal Musculoskeletal: Denies neck pain Integumentary Reports other Details: Sutured scalp laceration. Neurologic Neurologic: Denies headache(s) EXAM Physical Exam Const Vital Signs: 04/21/23 07:29 04/21/23 08:28 Temperature 97.6 F L Temperature Source Temporal Pulse Rate 116 H 107 H Respiratory Rate 25 H 25 H Blood Pressure 135/110 H 164/70 H Blood Pressure Mean 118 101 Pulse Ox 96 96 Oxygen Delivery Method Room Air Room Air Positive well nourished and well developed General Appearance ED: well developed HEENT HEENT Narrative: Posterior parietal scalp sutures intact. Scabs noted over the lesion. No tenderness to this area or active bleeding. Eyes EOMs intact bilaterally Neck Neck Narrative: No C-spine tenderness. Chest Wall inspection of chest normal and palpation of chest normal Resp normal respiratory effort and clear to auscultation bilaterally Cardio Rate: tachycardic GI non-tender Palpation: soft Extremity normal to inspection Neuro oriented x3 and no sensory deficits noted Motor Exam: strength 5/5 throughout Psych mental status grossly normal MDM MDM MDM Narrative Medical decision making narrative: Patient's records from [facility] reviewed. He is scheduled for a repeat CT scan and neurosurgery follow-up on the . He is to stay off Plavix and aspirin until cleared by neurosurgery. IV line established and patient given a gram of Keppra here. CT scan of the head obtained to evaluate for fracture, worsening bleed, edema. Radiography Diagnostic Testing: Clinical Impression(s) from Imaging Studies Brain CT 04/21/23 07:32 IMPRESSION: 1. Traumatic subarachnoid hemorrhage in the right postcentral sulcus and in the left superior frontal lobe sulcus. 2. No significant interval change compared to 04/16/2023. Electronically Signed: Montana Acosta MD at 8:45 EST , Treatment and Re-Evaluation :: Patient is been stable throughout his stay in the emergency department. I did give him his morning dose of atenolol. I also gave him a gram of IV Keppra as he has been off of it. CT scan of the head reveals traumatic subarachnoid hemorrhage in the right postcentral sulcus and left superior frontal lobe sulcus. This is with no significant change when compared to prior study. Patient resting comfortably this time. I advised him to go back on his Keppra and Dilantin as he was on prior to his last visit. He is to call his neurologist this week to notify them that he has been seen twice for seizure. I believe today's seizure was secondary to not being on his Keppra. His discharge instructions from [place] were confusing and he thought he was to stop it completely. He is to have his sutures removed from his scalp 7 to 10 days after they were initially placed, so later this week. He will call his primary care office for this or return to the emergency room. Discharge Plan Triage Chief Complaint: Seizure ED Provider: Joyce Castle Dx/Rx/DC Orders Clinical Impression: Seizure Instructions: ED Seizure, Recurrent (Adult) Prescriptions: No Action hydrochlorothiazide 25 mg tablet 25 mg PO DAILY clopidogrel 75 mg tablet 75 mg PO DAILY Qty: 90 3RF levetiracetam 1,000 mg tablet 2,000 mg PO BID niacin 500 MG tablet extended release 24 hr 500 mg PO QHS phenytoin sodium extended 100 MG capsule 200 mg PO DAILY phenytoin sodium extended 100 MG capsule 300 mg PO QHS aspirin 81 MG tablet 81 mg PO DAILY@0800 esomeprazole magnesium 40 MG capsule,delayed release(DR/EC) 40 mg PO DAILY PRN (Reason: Heartburn) uidltnbr-mtq-BI-lycopen-lutein 1 EACH tablet 1 ea PO DAILY fenofibrate nanocrystallized 145 MG tablet 145 mg PO DAILY metformin 500 MG tablet,ER rolanda.retention 24 hr 500 mg PO DAILY atenolol 25 mg tablet 25 mg PO BID losartan 100 mg tablet 100 mg PO DAILY 30 Days Qty: 30 0RF isosorbide mononitrate 30 mg tablet extended release 24 hr See Rx Instructions .ROUTE .COMPLEX Qty: 90 3RF Dose Instruction: TAKE 1 TABLET BY MOUTH EVERY DAY Rx Instructions: TAKE 1 TABLET BY MOUTH EVERY DAY atorvastatin 80 mg tablet 80 mg PO QHS Qty: 90 3RF amlodipine 2.5 mg tablet See Rx Instructions .ROUTE .COMPLEX Qty: 30 11RF Dose Instruction: TAKE 1 TABLET BY MOUTH EVERY DAY Rx Instructions: TAKE 1 TABLET BY MOUTH EVERY DAY Primary Care Provider: Denia Silvestre Referrals: Denia Silvestre MD [Primary Care Provider] - 5 Days for suture removal Activity Restrictions/Additional Instructions: Please call your neurologist this week for follow-up. Follow-up at [facility] on the for repeat CT scan as well as visit with neurosurgery. Disposition Disposition: Home, Self Care
--- OUTSIDE RECORDS SUMMARY | 2023-04-21 08:06 | XMS RPT_ITS | CCD ---
Author Name Unknown Address [address] [place] [address] Organization [facility] Care Team Providers Care 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 Name Role Phone BOBBI URIBE Attending Unavailable RONYBOBBI GAUTHIER Primary Care Unavailable RONYBOBBI GAUTHIER Admitting Unavailable RONYBOBBI GAUTHIER Attending Unavailable RONYBOBBI GAUTHIER Primary Care Unavailable RONYBOBBI GAUTHIER Admitting Unavailable David Carrion MD Primary Care Provider Herson Roca Unavailable David Carrion MD Primary Care Provider Herson Roca Unavailable Herson Roca Unavailable David Carrion MD Primary Care Provider Herson Roca Unavailable David Carrion MD Primary Care Provider GANTA, DAVID Primary Care Unavailable DENBOW, SWATHI Attending Unavailable GANTA, DAVID Primary Care Unavailable OLDER, STACIA Attending Unavailable GANTA, DAVID Primary Care Unavailable OLDER, STACIA Referring Unavailable GANTA, DAVID Primary Care Unavailable OLDER, STACIA Attending Unavailable GANTA, DAVID Primary Care Unavailable GANTA, DAVID Referring Unavailable GANTA, DAVID Primary Care Unavailable OLDER, STACIA Attending Unavailable DENBOW, SWATHI Referring Unavailable GANTA, DAVID Primary Care Unavailable NATASHA RAMOS Referring Unavailable GANTA, DAVID Primary Care Unavailable DENBOW, SWATHI Attending Unavailable GANTA, DAVID Primary Care Unavailable DENBOW, SWATHI Referring Unavailable GANTA, DAVID Primary Care Unavailable MURALI MCNEILL, DR DAVID Romo Primary Care Physician Blanca Rounding Nurse, Lauro Unavailable Jac MUELLER MD, RAVI Attending Unavailable ANKIT MCNEILL, SOULEYMANE Encinas Admitting Unavailable RADHA MCNEILL, DR JUANITA Sanders Consulting Jac CARRION MD, DR DAVID Romo Primary Care Unavaildmitri RESTREPO MD, CHEYANNE Bonilla Consulting DR DAVID Cheema MD Consulting Adrián FISHER MD, HENRIK Lord Consulting Unavailable ANKIT MCNEILL, SOULEYMANE Encinas Consulting Unavailable NATALIA MCNEILL, HENRIK Lord Attending Unavailable MURALI MCNEILL, DR DAVID Romo Primary Care Unavaildmitir e Allergies Allergy Classification Reported Allergen(s) Allergy Type Date of Onset Reaction(s) Facility (20 sources) Ciprofloxacin; Translations: [CIPROFLOXACIN] Drug Allergy 05-14-2006 [facility] Work Phone: (2 sources) Codeine; Translations: [codeine] Drug Allergy [facility] Medications Current Medications Medication Drug Class(es) Dates Sig (Normalized) Sig (Original) amLODIPine 2.5 mg oral tablet (5 sources) Dihydropyridine Calcium Channel Hieu Start: 04-16-2023 amLODIPine 2.5 mg oral tablet Dose : 2.5 mg = 1 tab(s), Oral, qDay, # 30 tab(s), 0 Refill(s) Start Date: 04/16/23 Status: Ordered Completed/Discontinued Medications Medication Drug Class(es) Dates Sig (Normalized) Sig (Original) aspirin 81 mg delayed release oral tablet (20 sources) Platelet Aggregation Inhibitor, Nonsteroidal Anti-inflammatory Drug Start: 07-27-2014 take 1 tablet by mouth once daily aspirin, enteric coated (ASPIRIN, ENTERIC COATED) 81 mg EC tablet Take 1 tablet by mouth once daily. 0 07/27/2014 Active Problems Active Problems Problem Classification Problem Date Documented Date Episodic/Chronic Asthma (20 sources) Unspecified asthma, uncomplicated; Translations: [Asthma, unspecified type, unspecified] 01-29-2005 Chronic Coronary atherosclerosis and other heart disease (5 sources) Coronary atherosclerosis; Translations: [Atherosclerotic heart disease of [place] coronary artery without angina pectoris] Onset: 03-28-2022 Chronic Diabetes mellitus without complication (20 sources) Type 2 diabetes mellitus without complication; Translations: [Type 2 diabetes mellitus without complications] Onset: 07-28-2015 Chronic Disorders of lipid metabolism (20 sources) Pure hypercholesterolemia; Translations: [Pure hypercholesterolemia, unspecified] Onset: 09-24-2006 Chronic Diverticulosis and diverticulitis (20 sources) Diverticulosis of colon; Translations: [Diverticulosis of large intestine without perforation or abscess without bleeding] Onset: 03-30-2005 03-30-2005 Chronic Epilepsy; convulsions (20 sources) Seizure disorder; Translations: [Epilepsy, unspecified, not intractable, without status epilepticus] Onset: 07-28-2015 Chronic Epilepsy; convulsions (20 sources) Seizure; Translations: [Unspecified convulsions] 01-29-2005 Episodic Esophageal disorders (20 sources) Gastroesophageal reflux disease; Translations: [Gastro-esophageal reflux disease without esophagitis] 01-29-2005 Chronic Essential hypertension (20 sources) Essential hypertension; Translations: [Essential (primary) hypertension] Onset: 01-26-2015 Chronic Immunizations and screening for infectious disease (1 source) Encounter for immunization; Translations: [Encounter for immunization] Onset: 01-23-2023 Episodic Intracranial injury (1 source) Subarachnoid hemorrhage due to traumatic injury; Translations: [Traumatic subarachnoid hemorrhage without loss of consciousness, initial encounter] Episodic Nonspecific chest pain (20 sources) Chest pain; Translations: [Chest pain, unspecified] 01-29-2005 Episodic Open wounds of head; neck; and trunk (1 source) Scalp laceration; Translations: [Laceration without foreign body of scalp, initial encounter] Episodic Other aftercare (1 source) Post-discharge follow-up; Translations: [Encounter for follow-up examination after completed treatment for conditions other than malignant neoplasm] Episodic Other circulatory disease (1 source) Ecchymosis; Translations: [Hemorrhage, not elsewhere classified] Episodic Other nutritional; endocrine; and metabolic disorders (20 sources) Metabolic syndrome X; Translations: [Metabolic syndrome] Onset: 06-14-2006 06-14-2006 Chronic Other screening for suspected conditions (not mental disorders or infectious disease) (19 sources) Liver function tests abnormal; Translations: [Abnormal results of liver function studies] Onset: 09-24-2006 09-24-2006 Episodic Residual codes; unclassified (20 sources) Sleep apnea; Translations: [Sleep apnea, unspecified] Onset: 06-14-2006 06-14-2006 Chronic Residual codes; unclassified (1 source) History of clinical finding in subject; Translations: [Personal history of other medical treatment] Episodic Residual codes; unclassified (1 source) Pain; Translations: [Pain, unspecified] Episodic Residual codes; unclassified (1 source) Edema of lower extremity; Translations: [Localized edema] Episodic Residual codes; unclassified (1 source) Localized edema; Translations: [Leg edema] Onset: 01-21-2023 Episodic Skin and subcutaneous tissue infections (2 sources) Infection of skin; Translations: [Local infection of the skin and subcutaneous tissue, unspecified] Episodic Spondylosis; intervertebral disc disorders; other back problems (20 sources) Degeneration of intervertebral disc; Translations: [Degeneration of intervertebral disc, site unspecified] 01-29-2005 Chronic Past or Other Problems Problem Classification Problem Date Documented Date Episodic/Chronic Hemorrhoids (20 sources) Internal hemorrhoids; Translations: [Other hemorrhoids] Onset: 03-30-2005 03-30-2005 Episodic Malaise and fatigue (3 sources) Asthenia; Translations: [Weakness] Onset: 03-28-2022 01-23-2023 Episodic Other and unspecified benign neoplasm (20 sources) Benign neoplasm of colon; Translations: [Benign neoplasm of colon, unspecified] Onset: 03-30-2005 03-30-2005 Episodic Other and unspecified benign neoplasm (20 sources) History of polyp of colon; Translations: [Personal history of colonic polyps] Onset: 09-23-2008 09-23-2008 Episodic Other connective tissue disease (20 sources) Neuropathy; Translations: [Neuralgia, neuritis, and radiculitis, unspecified] Onset: 11-14-2010 11-14-2010 Episodic Other hematologic conditions (3 sources) Patient encounter status; Translations: [Other specified abnormalities of plasma proteins] Onset: 03-28-2022 01-23-2023 Episodic Other non-traumatic joint disorders (20 sources) Shoulder joint pain; Translations: [Pain in unspecified shoulder] Onset: 04-12-2006 04-12-2006 Episodic Other skin disorders (20 sources) Sebaceous cyst of skin; Translations: [Sebaceous cyst] Onset: 04-09-2006 04-09-2006 Episodic Syncope (2 sources) Syncope Onset: 10-11-2012 10-11-2012 Episodic Results Test Name Value Interpretation Reference Range Facil ity Vital Signs Date Time Vital Sign Value Performing Clinician Traci dan 04-19-2023 14:41-0500 Blood Pressure Location SOULEYMANE PHAM MD [facility] 04-19-2023 14:41-0500 Blood Pressure Method SOULEYMANE PHAM MD [facility] 04-19-2023 14:41-0500 Body temperature 97.52 [degF] SOULEYMANE PHAM MD [facility] 04-19-2023 14:41-0500 Diastolic Blood Pressure Non-Invasive 66 mm[Hg] SOULEYMANE PHAM MD [facility] 04-19-2023 14:41-0500 Heart rate 84 /min SOULEYMANE PHAM MD [facility] 04-19-2023 14:41-0500 Reason For Taking VItal Signs SOULEYMANE PHAM MD [facility] 04-19-2023 14:41-0500 Respiratory rate 20 /min SOULEYMANE PHAM MD [facility] 04-19-2023 14:41-0500 Systolic Blood Pressure Non-Invasive 129 mm[Hg] SOULEYMANE PHAM MD [facility] 04-19-2023 11:22-0500 Blood Pressure Cuff Size SOULEYMANE PHAM MD [facility] 04-19-2023 11:22-0500 Blood Pressure Location SOULEYMANE PHAM MD [facility] 04-19-2023 11:22-0500 Blood Pressure Method SOULEYMANE PHAM MD [facility] 04-19-2023 11:22-0500 Body temperature 98.06 [degF] SOULEYMANE PHAM MD [facility] 04-19-2023 11:22-0500 Diastolic Blood Pressure Non-Invasive 75 mm[Hg] SOULEYMANE PHAM MD [facility] 04-19-2023 11:22-0500 Heart rate 86 /min SOULEYMANE PHAM MD [facility] 04-19-2023 11:22-0500 Reason For Taking VItal Signs SOULEYMANE PHAM MD [facility] 04-19-2023 11:22-0500 Respiratory rate 18 /min SOULEYMANE PHAM MD [facility] 04-19-2023 11:22-0500 Systolic Blood Pressure Non-Invasive 125 mm[Hg] SOULEYMANE PHAM MD [facility] 04-19-2023 07:59-0500 Heart rate 98 /min SOULEYMANE PHAM MD [facility] 04-19-2023 07:36-0500 Body temperature 97.52 [degF] SOULEYMANE PHAM MD [facility] 04-19-2023 07:36-0500 Diastolic Blood Pressure Non-Invasive 82 mm[Hg] SOULEYMANE PHAM MD [facility] 04-19-2023 07:36-0500 Heart rate 91 /min SOULEYMANE PHAM MD [facility] 04-19-2023 07:36-0500 Reason For Taking VItal Signs SOULEYMANE PHAM MD [facility] 04-19-2023 07:36-0500 Respiratory rate 18 /min SOULEYMANE PHAM MD [facility] 04-19-2023 07:36-0500 Systolic Blood Pressure Non-Invasive 148 mm[Hg] SOULEYMANE PHAM MD [facility] 04-19-2023 02:25-0500 Blood Pressure Location SOULEYMANE PHAM MD [facility] 04-19-2023 02:25-0500 Blood Pressure Method SOULEYMANE PHAM MD [facility] 04-18-2023 18:20-0500 Blood Pressure Cuff Size SOULEYMANE PHAM MD [facility] 04-18-2023 08:26-0500 Heart rate 98 /min SOULEYMANE PHAM MD [facility] 04-18-2023 07:13-0500 Blood Pressure Cuff Size SOULEYMANE PHAM MD [facility] 04-17-2023 19:04-0500 Heart rate 101 /min SOULEYMANE PHAM MD [facility] 04-17-2023 19:04-0500 Mean blood pressure 97 mm[Hg] SOULEYMANE PHAM MD [facility] 04-17-2023 18:17-0500 Body height 170 cm SOULEYMANE PHAM MD [facility] 04-17-2023 18:17-0500 Body weight 110 kg SOULEYMANE PHAM MD [facility] 04-17-2023 18:17-0500 Body weight 38.06 kg/m2 SOULEYMANE PHAM MD [facility] 04-17-2023 18:07-0500 Heart rate 98 /min SOULEYMANE PHAM MD [facility] 04-17-2023 18:07-0500 Mean blood pressure 90 mm[Hg] SOULEYMANE PHAM MD [facility] 04-17-2023 18:01-0500 Heart rate 92 /min SOULEYMANE PHAM MD [facility] 04-17-2023 18:01-0500 Mean blood pressure 112 mm[Hg] SOULEYMANE PHAM MD [facility] 04-17-2023 08:07-0500 Heart rate 95 /min SOULEYMANE PHAM MD [facility] 04-16-2023 16:26-0500 Body height 170 cm SOULEYMANE PHAM MD [facility] 04-16-2023 16:26-0500 Body weight 110 kg SOULEYMANE PHAM MD [facility] 04-16-2023 16:26-0500 Body weight 38.06 kg/m2 SOULEYMANE PHAM MD [facility] 04-16-2023 13:34-0500 Body weight 110 kg SOULEYMANE PHAM MD [facility] 10-24-2022 12:29-0400 Body weight 105.23 kg Swathi Denbow PA-C Work Phone: [facility] 10-24-2022 12:29-0400 Diastolic blood pressure 70 mm[Hg] Swathi Denbow PA-C Work Phone: [facility] 10-24-2022 12:29-0400 Heart rate 68 /min Swathi Denbow PA-C Work Phone: [facility] 10-24-2022 12:29-0400 Respiratory rate 20 /min Swathi Denbow PA-C Work Phone: [facility] 10-24-2022 12:29-0400 Systolic blood pressure 120 mm[Hg] Swathi Denbow PA-C Work Phone: [facility] 10-12-2022 11:35-0400 Diastolic blood pressure 83 mm[Hg] Stacia Older [employer] Work Phone: [facility] 10-12-2022 11:35-0400 Heart rate 76 /min Stacia Older [employer] Work Phone: [facility] 10-12-2022 11:35-0400 Systolic blood pressure 154 mm[Hg] Stacia Older [employer] Work Phone: [facility] 10-12-2022 11:05-0400 Body temperature 97 [degF] Stacia Older [employer] Work Phone: [facility] 10-12-2022 11:05-0400 Body weight 107.5 kg Stacia Older [employer] Work Phone: [facility] 10-12-2022 11:05-0400 Respiratory rate 16 /min Stacia Older [employer] Work Phone: [facility] 10-12-2022 11:05-0400 SaO2% (BldA) [Mass fraction] 97 % Stacia Older [employer] Work Phone: [facility] 04-02-2022 10:51-0500 Diastolic blood pressure 78 mm[Hg] Stacia Older [employer] Work Phone: [facility] 04-02-2022 10:51-0500 Systolic blood pressure 150 mm[Hg] Stacia Older [employer] Work Phone: [facility] 04-02-2022 10:25-0500 Body height 172.7 cm Stacia Older [employer] Work Phone: [facility] 04-02-2022 10:25-0500 Body weight 111.13 kg Stacia Older [employer] Work Phone: [facility] 04-02-2022 10:25-0500 Heart rate 98 /min Stacia Older [employer] Work Phone: [facility] 04-02-2022 10:25-0500 SaO2% (BldA) [Mass fraction] 97 % Stacia Older [employer] Work Phone: [facility] 02-19-2022 10:05-0400 Diastolic blood pressure 81 mm[Hg] Stacia Older [employer] Work Phone: [facility] 02-19-2022 10:05-0400 Systolic blood pressure 151 mm[Hg] Stacia Older [employer] Work Phone: [facility] 02-19-2022 09:38-0400 Body weight 110.22 kg Stacia Older [employer] Work Phone: [facility] 02-19-2022 09:38-0400 Heart rate 88 /min Stacia Older [employer] Work Phone: [facility] 02-19-2022 09:38-0400 Respiratory rate 16 /min Stacia Older [employer] Work Phone: [facility] 02-14-2022 08:09-0400 Body height 172.7 cm David Carrion MD Work Phone: [facility] 02-14-2022 08:09-0400 Body temperature 98.29 [degF] David Carrion MD Work Phone: [facility] 02-14-2022 08:09-0400 Body weight 109.77 kg David Carrion MD Work Phone: [facility] 02-14-2022 08:09-0400 Diastolic blood pressure 82 mm[Hg] David Carrion MD Work Phone: [facility] 02-14-2022 08:09-0400 Heart rate 104 /min David Carrion MD Work Phone: [facility] 02-14-2022 08:09-0400 Respiratory rate 18 /min David Carrion MD Work Phone: [facility] 02-14-2022 08:09-0400 SaO2% (BldA) [Mass fraction] 95 % David Carrion MD Work Phone: [facility] 02-14-2022 08:09-0400 Systolic blood pressure 150 mm[Hg] David Carrion MD Work Phone: [facility] 02-12-2022 09:42-0400 Body weight 108.86 kg Stacia Older [employer] Work Phone: [facility] 02-12-2022 09:42-0400 Diastolic blood pressure 80 mm[Hg] Stacia Older [employer] Work Phone: [facility] 02-12-2022 09:42-0400 Heart rate 80 /min Stacia Older [employer] Work Phone: [facility] 02-12-2022 09:42-0400 Respiratory rate 16 /min Stacia Older [employer] Work Phone: [facility] 02-12-2022 09:42-0400 Systolic blood pressure 142 mm[Hg] Stacia Older [employer] Work Phone: [facility] 10-13-2021 12:48-0400 Body weight 111.13 kg Stacia Older [employer] Work Phone: [facility] 10-13-2021 12:48-0400 Diastolic blood pressure 80 mm[Hg] Stacia Older [employer] Work Phone: [facility] 10-13-2021 12:48-0400 Heart rate 80 /min Stacia Older [employer] Work Phone: [facility] 10-13-2021 12:48-0400 Respiratory rate 16 /min Stacia Older [employer] Work Phone: [facility] 10-13-2021 12:48-0400 Systolic blood pressure 150 mm[Hg] Stacia Older [employer] Work Phone: [facility] Encounters Encounter Date Encounter Type Care Provider Facility Start: 04-19-2023 End: 04-19-2023 AMB External Visit YASHIRA HILL MD [facility] Start: 04-18-2023 ambulatory HENRIK FISHER MD Facilit y:A Start: 04-16-2023 End: 04-19-2023 Evaluation and management of inpatient RAVI MUELLER MD Facility:A Start: 04-16-2023 End: 04-19-2023 Evaluation and management of inpatient SOULEYMANE PHAM MD [facility] Start: 04-05-2023 Refill Stacia Older [employer] Work Phone: [facility] [place] Procedures Date Procedure Procedure Detail Performing Clinician Start: 10-13-2021 Adult depression scr eening assessment Stacia Older [employer] Work Phone: Start: 10-19-2014 Colonoscopy Stacia Older [employer] Work Phone: Plan of Treatment Date Care Activity Detail Author Start: 01-24-2024 Annual PCP Team Stunt Person juancho Disease Visit Annual PCP Team Chronic Disease Visit [facility] Start: 01-18-2024 Glaucoma screening Dilated Retinal E xam [facility] Start: 01-18-2024 Hepatitis C antibody , confirmatory test Dilated Retinal Exam [facility] Start: 12-21-2023 COLOGUARD (FIT-DNA) COLOGUARD (FIT-D NA) [facility] Start: 12-21-2023 Screening for malign ant neoplasm of colon Cologuard (FIT-DNA) [facility] Start: 10-25-2023 ANNUAL PCP TEAM AUTO SERVICE REPRESENTATIVE JUANCHO DISEASE VISIT ANNUAL PCP TEAM CHRONIC DISEASE VISIT [facility] Start: 10-25-2023 BP CONTROLLED (<130/80) BP CONTROLLE D (<130/80) [facility] Start: 10-13-2023 ANNUAL PCP TEAM AUTO SERVICE REPRESENTATIVE JUANCHO DISEASE VISIT ANNUAL PCP TEAM CHRONIC DISEASE VISIT [facility] Start: 10-10-2023 Hepatitis B surface antibody level LDL CHOLESTEROL [facility] Start: 07-23-2023 Hemoglobin A1c measurement HbA1C [facility] Start: 07-23-2023 Hemoglobin A1c/Hemoglobin.total in Blood HbA1C [facility] Start: 07-13-2023 ANNUAL PCP TEAM AUTO SERVICE REPRESENTATIVE JUANCHO DISEASE VISIT ANNUAL PCP TEAM CHRONIC DISEASE VISIT [facility] Start: 07-10-2023 Hepatitis B screening URINE AL BUMIN:CREATININE RATIO [facility] Start: 04-10-2023 Hemoglobin A1c/Hemoglobin.total in Blood HBA1C [facility] Start: 04-02-2023 ANNUAL PCP TEAM AUTO SERVICE REPRESENTATIVE JUANCHO DISEASE VISIT ANNUAL PCP TEAM CHRONIC DISEASE VISIT [facility] Start: 04-02-2023 COLORECTAL CANCER SCREENING COLORECTAL CANCER SCREENING [facility] Immunizations Immunization Date Immunization Notes Care Provider Fa shyla 01-23-2023 COVID-19 vaccine, ag e 12+ yr, season (PFIZER-BIONTMcPhy) Swathi Dodge PA-C Work Phone: [facility] Work Phone: 01-14-2023 influenza (aIIV4) vaccine, age 65+ yr, quadrivalent, PF (FLUAD QUAD) Swathi Dodge PA-C Work Phone: [facility] 01-14-2023 influenza, high dose seasonal, preservative-free Swathi Dodge PA-C Work Phone: [facility] Work Phone: 04-20-2022 COVID-19 booster vaccine, age 12+ yr, bivalent ([facility]) David Carrion MD Work Phone: [facility] 01-12-2022 influenza (aIIV4) vaccine, age 65+ yr, quadrivalent, PF (FLUAD QUADRIVALENT) Stacia Older [employer] Work Phone: [facility] 01-12-2022 influenza, high dose seasonal, preservative-free Swathi Dodge PA-C Work Phone: [facility] 01-12-2022 influenza, high-dose , quadrivalent vaccine (FLUZONE HIGH DOSE QUADRIVALENT) Stacia Older [employer] Work Phone: [facility] 01-13-2021 influenza, high-dose , quadrivalent vaccine (FLUZONE HIGH DOSE QUADRIVALENT) Stacia Older [employer] Work Phone: [facility] 07-21-2020 COVID-19 vaccine (JOSÉ MIGUEL) Stacia Older [employer] Work Phone: [facility] Work Phone: 01-23-2020 influenza, high-dose , quadrivalent vaccine (FLUZONE HIGH DOSE QUADRIVALENT) Stacia Older [employer] Work Phone: [facility] 01-23-2019 influenza, high dose seasonal, preservative-free Stacia Older [employer] Work Phone: [facility] 01-20-2018 influenza, high dose seasonal, preservative-free Stacia Older [employer] Work Phone: [facility] Work Phone: 02-11-2017 influenza, high dose seasonal, preservative-free Stacia Older [employer] Work Phone: [facility] Work Phone: 02-02-2016 influenza, high dose seasonal, preservative-free Stacia Older [employer] Work Phone: [facility] Work Phone: 07-28-2015 pneumococcal polysaccharide vaccine, 23 valent Stacia Older [employer] Work Phone: [facility] 01-26-2015 influenza, high dose seasonal, preservative-free Stacia Older [employer] Work Phone: [facility] [facility] pneumococcal conjuga te vaccine, 13 valent Stacia Older [employer].COIL CLEANER Work Phone: [facility] 01-20-2014 influenza, seasonal, injectable Stacia Older [employer].COIL CLEANER Work Phone: [facility] 01-08-2013 influenza virus vacc ine, unspecified formulation Stacia Older [employer]AT[employer].COIL CLEANER Work Phone: [facility] 01-16-2012 influenza virus vacc ine, unspecified formulation Stacia Older [employer]AT[employer] INTER[employer].COIL CLEANER Work Phone: [facility] 01-17-2011 influenza virus vacc ine, unspecified formulation Stacia Older [employer]ATORY INTER[employer].COIL CLEANER Work Phone: [facility] 01-24-2010 influenza virus vacc ine, unspecified formulation Stacia Older [employer]AT[employer] INTER[employer].COIL CLEANER Work Phone: [facility] 01-19-2009 influenza virus vacc ine, unspecified formulation Stacia Older [employer]ATORY INTER[employer].COIL CLEANER Work Phone: [facility] 02-05-2008 influenza virus vacc ine, unspecified formulation Stacia Older [employer].COIL CLEANER Work Phone: [facility] Work Phone: 02-28-2006 influenza virus vacc ine, unspecified formulation Stacia Older [employer]AT[employer] INTER[employer].COIL CLEANER Work Phone: [facility] Work Phone: 02-15-2005 influenza virus vacc ine, unspecified formulation Stacia Older [employer].COIL CLEANER Work Phone: [facility] Work Phone: 03-22-2003 pneumococcal polysaccharide vaccine, 23 valent Stacia Older [employer].COIL CLEANER Work Phone: [facility] Work Phone: 08-03-2002 tetanus and diphther ia toxoids, not adsorbed, for adult use Stacia Chappell APRN.COIL CLEANER Work Phone: [facility] Work Phone: Payers Date Payer Category Payer Medicare [id number] 2019 Unknown [id number] 2019 Unknown ANTHEM BLUE CR[employer] S [employer] BLUE SHIELD ANTHEM MEDIBLUE HMO [id number] 2019-Present [phone] [id number] [place], [place] [id number] HMO [id number] 2019 Unknown ANTHEM BLUE CROS S AND BLUE SHIELD ANTHEM MEDIBLUE HMO [id number] 2019-Present [phone] [address] [place] [id number] HMO [id number] 2003 Medicaid MEDICAID [facility] MEDICAID [id number] 2003-Present [phone] [address] [place] [address] Medicaid [id number] 2003 Medicaid MEDICAID [facility] MEDICAID [id number] 2003-Present [phone] [address] [place] [id number] Medicaid [id number] 2003 Medicaid [id number] 1943 Unknown [id number] 1943 Unknown [id number] 1943 Unknown [id number] 1943 Unknown [id number] Social History Date Type Detail Facility Start: [facility]14[facility]2022 [facility] Work Phone: End: 02-16-1985 History of tobacco use Current smoker [facility] End: 02-16-1985 History of tobacco use Cigarette Smoker [facility] Start: 10-13-2021 End: 01-23-2023 Alcohol intake Current non-drinker of alcohol (finding) [facility] Start: 1945 Sex Assigned At Not on file [facility] Start: 10-03-2021 End: 10-13-2021 Exposure to SARS-CoV-2 (event) Unable to assess [facility] Start: 02-14-2022 End: 10-12-2022 Cigarettes smoked current (pack per day) - Reported 4.5 [facility] Work Phone: Start: 02-14-2022 Tobacco use and exposure Smokeless tobacco non-user [facility] Work Phone: Start: 02-04-2022 End: 02-14-2022 Exposure to SARS-CoV-2 (event) Not sure [facility] Work Phone: Start: 10-12-2022 End: 10-24-2022 Tobacco use panel [facility] Work Phone: Adult Depression Screening Assessment 0 [facility] Work Phone: Sex Assigned At Sex [facility] Medical Equipment Procedure Code Equipment Code Equipment Origin al Text Equipment Identifier Dates Start: 02-02-2016 End: 12-25-2022 Functional Status Date Assessment Result Facility 04-19-2023 Functional Status Room check performed [facility] 04-19-2023 Functional Status [facility] 04-19-2023 Functional Status [facility] 04-19-2023 Functional Status [facility] 04-18-2023 Functional Status [facility] 04-17-2023 Functional Status [facility] 04-17-2023 Functional Status [facility] 04-17-2023 Functional Status Pt. reports th at he has lived w/ his step-son since pt's a few years ago. Reports that his step-son works but is hoping to retire soon. [facility] 04-17-2023 Functional Status [facility] 04-17-2023 Functional Status [facility] 04-16-2023 Functional Status [facility] Mental Status Date Assessment Result Facility 04-19-2023 Mental Status Orientation Oriented x 4 [facility] 04-19-2023 Mental Status [facility] 04-19-2023 Mental Status [facility] 04-18-2023 Mental Status Oriented x 4 [facility] 04-18-2023 Mental Status [facility] Clinical Notes 04-27-2014 to 04-19-2023 Note Date & Type Note Facility 04-19-2023 Note Discharge Instructions Thank you for allowing [facility] to assist you with your healthcare needs. The following is important discharge information regarding your hospital visit. Your Care Team DAVID CARRION MD Your Diagnosis Fall-head inj What to do next Instructions From Your Doctor You have been scheduled for a follow-up head CT at [facility]. Please arrive to radiology department, [facility]-floor on 05/02/2023 at 10:15 AM for this test. After CT has been completed, then go to neurosurgical office in the physician office building, fifth floor for follow-up appointment with Dr. Fisher's nurse practitioner, Brenda to review CT results and for reevaluation. Remain OFF Plavix and aspirin until cleared by neurosurgery to resume. Also, no medications containing aspirin or NSAIDs such as Motrin/ibuprofen, Aleve, Advil until cleared by neurosurgery to resume. No driving until cleared by neurosurgery. No lifting greater than 10 pounds. Avoid strenuous activities or exercise. Avoid any activities that would increase risk of injuring head. Notify neurosurgery office promptly return to the ER with any new or worsening symptoms. Call neurosurgery office with any questions or concerns. No driving for at least 6 months, you need to be cleared by neurology before resuming driving The dose of your Keppra has been increased to 1250 mg twice per day Make appointment to follow-up with neurology Your echocardiogram showed that you have an enlarged heart, this is likely chronic and did not contribute to your medical condition that caused you to be hospitalized. Continue taking all your usual cardiac medications and follow-up with your ski maker wood with regards to your echocardiogram that was done here in hospital. Scheduled Follow-Up Appointments Appointment Type When Where Contact InformationCT Head or Brain w/o Contrast 05/02/2023 10:15 AM EST Radiology [phone] NS OV 05/02/2023 11:00 AM EST Neurosurgery [address] [place] [address] Follow Up Appointments Follow Up with BRENDA SILVA, Neurosurgery When 05/02/2023 11:00 AM EST Where: [address] [facility] [place], [place] [id number]- [phone] Follow Up with [facility] When Within 1-2 days Why: [facility] has accepted to follow at discharge for your home care services - RN/OT/ PT. A nurse will contact you at your home to arrange for the start of your care. Please call [phone] with any futher questions or concerns. Follow Up with [facility] When Why: Call to make appointment in 3 to 4 weeks Where: Follow Up with DAVID CARRION MD When Within 1-2 days Why: Follow-up as needed Where: [address] [place] [address]- The Following Activity and Diet Have Been Ordered for You Discharge Activity - Ordered -- Activity As Tolerated, 04/19/23 15:00:00 EST Discharge Driving Restrictions - Ordered -- No driving until follow up appt, You need to be cleared by a neurologist before resuming driving, 04/19/23 15:00:00 EST Discharge Diet - Ordered -- 04/19/23 15:00:00 EST The Following Equipment Has Been Ordered for You No qualifying data available. The Following Treatments Have Been Ordered for You Discharge Labs Discharge Outpatient Labwork - Ordered -- bmp, Electrolyte abnormalities, follow-up within: 2-4 days, Results Notify to: DAVID CARRION MD, 04/19/23 15:00:00 EST Discharge Radiology No qualifying data available. Other Therapies No qualifying data available. Post Acute Orders No qualifying data available. Someone Will Contact You Regarding These Home Health Referrals No home referrals have been ordered for you. No one will call you. Allergies Cipro codeine (Hives) Medications Please ask your primary doctor or pharmacist before taking any other medication not listed, including over the counter drugs, herbal medications, vitamins and or supplements as they may interact with your home medications. What How Much When Instructions Last Dose Changed fenofibrate (fenofibrate 145 mg oral tablet) 1 tab(s) by mouth Once a day Changed losartan (losartan 100 mg oral tablet) 1 tab(s) by mouth Every day Changed phenytoin (phenytoin 200 mg oral capsule, extended release) 1 cap by mouth Once a day Changed phenytoin (phenytoin 300 mg oral capsule, extended release) 1 cap by mouth Daily at bedtime Unchanged amLODIPine (amLODIPine 2.5 mg oral tablet) 1 tab(s) by mouth Once a day Unchanged atenolol (atenolol 25 mg oral tablet) 1 tab(s) by mouth Every day Unchanged atorvastatin (atorvastatin 80 mg oral tablet) 1 tab(s) by mouth Every day Unchanged esomeprazole (NexIUM 40 mg oral delayed release capsule (NF)) 1 cap by mouth Every day Unchanged hydroCHLOROthiazide (hydroCHLOROthiazide 25 mg oral tablet) 1 tab(s) by mouth Once a day Unchanged isosorbide mononitrate (isosorbide mononitrate 30 mg oral tablet, extended release) 1 tab(s) by mouth Once a day (in the morning) Unchanged metFORMIN (metFORMIN 500 mg oral tablet) 1 tab(s) by mouth Every day Unchanged niacin (Niaspan ER 500 mg oral tablet, extended release) 1 tab(s) by mouth Daily at bedtime Unchanged rosuvastatin (Crestor 40 mg oral tablet (NF)) 1 tab(s) by mouth Daily at bedtime What How Much When Comments Stop Taking aspirin (aspirin 81 mg oral tablet (chewable)) 1 tab(s) by mouth Once a day with a meal Stop Taking clopidogrel (clopidogrel 75 mg oral tablet) 1 tab(s) by mouth Once a day Stop Taking divalproex sodium (Depakote 500 mg oral delayed release tablet) 2 tab(s) by mouth Two (2) times a day Stop Taking levETIRAcetam 1,000 Milligram Two (2) times a day Please take this list to your next doctor s visit. Bring all medications you take, including over the counter medications, herbals and other supplements with you to your doctor s visit. Patients and families are reminded to discard old lists and to update any records with all medication providers or retail pharmacies. Additional Information VACCINATE! IT SAVES LIVES! Members of the community who have not yet received the COVID-19 vaccine and would like to receive it can visit one of [facility] vaccine clinics. There are many vaccine clinic locations within the [facility]. For locations and available times, please visit https://gettheshot.coronavirus.[place].gov /. It is important to note that some COVID mobile vaccine clinics are held outdoors and may be canceled in rainy or stormy conditions. To learn more about pediatric vaccinations (ages 5-11), we invite you to visit the [facility] webpage. https://www.ViViFis.org/pages/51-Aqzef-Lhlfvoqhgyz-Zepblvwspq-[email or web address] uestions.html To learn more about the COVID-19 vaccine, we invite you to visit the CDC website for a list of frequently asked questions.https://www.cdc.gov/coronavir us/2019-ncov/vaccines/faq.html [facility] Patient Portal Access Instructions: Stay connected with your healthcare team and access your personal medical information anytime with the [facility] Patient Portal. Please follow the directions below to create your [facility] account: 1.Access the email account you provided upon registration to the hospital/physician office.2.Look for an invitation email from [facility].3.Open the email and access the invitation link: Accept Invitation to [facility].4.Fill in the required de la cruz to create your account. To access your account, visit [employer]. Click the blue button labeled Access Patient Portal and then log in with the username and password that you created in the steps above. You will be able to view your test results, lab results, a summary of your visits, upcoming appointments and more. There is also a convenient messaging option where you can send secure messages to your provider. In addition, you will have the ability to download any documents or summaries to your computer and/or send the information securely to a physician. Remember that your healthcare information is confidential, so carefully consider who you will allow to register on the [facility] Patient Portal for access to your information. You can also access the [facility] Patient Portal on the [facility] jose juan. Simply click on Patient Portal and then log into your account. If you would like to receive a full copy of your medical records, please contact the [facility] Medical Records Department by calling [phone], Saturday through Saturday between 8 a.m. and 4:30 p.m. HOW TO SAFELY DISPOSE OF PRESCRIPTION MEDICATIONS Please use one of the following methods to safely dispose of your unused medications. 1.Use a drug disposal kit: the drug disposal pouch allows you to safely discard your old and unused drugs. Ask your nurse to give you one when you are discharged.2.Visit a local take-back location: Many local pharmacies and police departments have programs that collect old and unwanted prescription drugs. Call your local pharmacy or go to http://GlocalReach.[employer] Data[employer]ision/2S2Ca7r to find one close to you.3.Make use of household items: Use cat litter or old coffee grounds to dispose medications if other options are not available. Mix your drugs with these household products, seal them in an airtight container and throw it into the garbage. Call [facility]: [phone] to be sure your drugs can be disposed of in this way. Some medicines may require a different approach.4.Never flush your medications down the toilet. IF YOU HAVE BEEN PRESCRIBED AN OPIOID FOR PAIN If you have been prescribed an opioid (such as hydrocodone, oxycodone or morphine), it is critical to understand the possible side effects and risks of opioid pain medications. Even when taken as directed, opioids can have several side effects including: Tolerance, meaning you might need to take more of a medication for the same pain relief. Nausea, vomiting and/or constipation. Sleepiness, dizziness, dry mouth, confusion, depression or itching. Physical dependence, meaning you have withdrawal symptoms when a medication is stopped, can develop within a few days. KNOW YOUR RESPONSIBILITIES It is important to know exactly how much and how often to take the opioid pain medications you are prescribed. Never take opioids in higher amounts or more often than prescribed. Do not combine opioids with alcohol or other drugs that cause drowsiness, such as benzodiazepines, also known as benzos, including diazepam and alprazolam, muscle relaxants or sleep aids. Never sell or share prescription opioids. This is illegal. Store opioids in a secure place and out of reach of others (including children, family, friends and visitors). The last page of this document has been signed and retained as a CHART COPY. Signatures Patient Education Materials Medication Leaflets My discharge plan and instructions have been reviewed and explained to me and I,LAKESHIA THORPE understand my current condition and have read and understand these discharge instructions. I have received a written copy of the plan/instructions. If I have questions, I am aware that I should contact my doctor. 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 Breakthrough seizure 2. Bilateral subarachnoid hemorrhage 3. Elevated troponins 4. History of coronary artery disease on dual antiplatelet therapy 5. Hypertension 6. Left ventricular hypertrophy and septal wall hypertrophy on echocardiogram Hospital Course 77-year-old former smoking male PMH HTN, HLD, CAD on aspirin and Plavix ([place] several years ago not requiring stenting), DM2 and seizures that presented status post unwitnessed fall and breakthrough seizure (stepson walked in the room after hearing a thud visualizing a tonic-clonic seizure) which sh. e hit his head resulting in a laceration to his right scalp with bilateral frontal subarachnoid hemorrhage minimal right to left shift visualized on CT head therefore he was admitted to the MICU. He received DDAVP. His initial stay was in the intensive care unit, transferred to hospitalist service daily. Seen by neurosurgery and neurology, decision made to increase the dose of his Keppra to 1250 mg twice per day. Neurosurgery did not Think there was any surgical intervention that was required and they will follow him up on an outpatient basis. The patient also had elevated troponins, he did not complain of any chest pain or shortness of breath. He was very clear as well as the bystanders that he has a seizure episode that he had and not a syncopal episode. Echocardiogram done prior to being discharged from hospital showed that she had increased wall thickness of the left ventricle and septal hypertrophy, systolic function was at the lower limit of normal but he did not have any wall motion abnormalities. The patient is to follow-up with his ski maker wood, cardiology not consulted during this hospitalization because his presenting symptoms to hospital was not because of his syncope but because of his seizure. The findings on his echo does not have anything to do with the reason he presented to the hospital. Advised not to drive for at least 6 months. Allergies Cipro codeine (Hives) Consults Consult to Physician (Physician Consult) - Ordered -- 04/16/23 16:25:00 KACI CALDERON RAMNATH SANTOSH MD, Not specified, Hx seizures, please assist with management of seizure meds. Thank you Imaging Results and Diagnostics XR Chest 1 View Result Date: April 18, 2023 Verified By: LEATHA IYER MD CLINICAL STATEMENT: IMPRESSION: Clear lungs. CT Head or Brain w/o Contrast Result Date: April 17, 2023 Verified By: ANI AMAYA MD CLINICAL STATEMENT: IMPRESSION: Similar appearing right frontal and left frontal subarachnoid hemorrhages.Minimal right to left midline shift only seen on axial views favored to beartifactual. Soft tissue contusion with small locules of air over the posterior rightfrontal lobe, consistent with history of recent trauma. I have personally reviewed the images of this examination and agree with theresident's findings and interpretation. Physical Exam Vitals and Measurements T: 36.4 C (Oral) TMIN: 36.4 C (Oral) TMAX: 37.0 C (Oral) HR: 84 RR: 20 BP: 129/66 SpO2: 95% Weight Dosing Weight: 110 kg (04/17/23) Dosing Weight: 110 kg (04/16/23) GENERAL: Pt is comfortable in bed. Appears in no acute distress. HEENT: Mucous membranes pink and moist, sutured 8 cm longitudinal laceration noted to posterior parietal region [midline] NEURO: Alert and oriented X 3 CVS: S1 & S2 audible, Regular Rate and Rhythm CHEST : No accesory muscle use, equal air entry bilaterally, no adventitious breath sounds GI: Normoactive BS, abdomen soft and non tender EXTREMITIES: No LE edema Code Status Code Status - Ordered -- 04/16/23 14:53:00 EST, Full Code, Constant Order Admission Date 04/17/2023 Discharge Date 04/19/2023 Patient Instructions You have been scheduled for a follow-up head CT at [facility]. Please arrive to radiology department, ground-floor on 05/02/2023 at 10:15 AM for this test. After CT has been completed, then go to neurosurgical office in the physician office building, fifth floor for follow-up appointment with Dr. Fisher's nurse practitioner, Brenda to review CT results and for reevaluation. Remain OFF Plavix and aspirin until cleared by neurosurgery to resume. Also, no medications containing aspirin or NSAIDs such as Motrin/ibuprofen, Aleve, Advil until cleared by neurosurgery to resume. No driving until cleared by neurosurgery. No lifting greater than 10 pounds. Avoid strenuous activities or exercise. Avoid any activities that would increase risk of injuring head. Notify neurosurgery office promptly return to the ER with any new or worsening symptoms. Call neurosurgery office with any questions or concerns. No driving for at least 6 months, you need to be cleared by neurology before resuming driving The dose of your Keppra has been increased to 1250 mg twice per day Make appointment to follow-up with neurology Your echocardiogram showed that you have an enlarged heart, this is likely chronic and did not contribute to your medical condition that caused you to be hospitalized. Continue taking all your usual cardiac medications and follow-up with your ski maker wood with regards to your echocardiogram that was done here in hospital. Medications Changed fenofibrate (fenofibrate 145 mg oral tablet)1 tab(s) by mouth once a day. losartan (losartan 100 mg oral tablet)1 tab(s) by mouth every day. phenytoin (phenytoin 200 mg oral capsule, extended release)1 cap by mouth once a day. phenytoin (phenytoin 300 mg oral capsule, extended release)1 cap by mouth daily at bedtime. Unchanged amLODIPine (amLODIPine 2.5 mg oral tablet)1 tab(s) by mouth once a day. atenolol (atenolol 25 mg oral tablet)1 tab(s) by mouth every day. atorvastatin (atorvastatin 80 mg oral tablet)1 tab(s) by mouth every day. esomeprazole (NexIUM 40 mg oral delayed release capsule (NF))1 cap by mouth every day. hydroCHLOROthiazide (hydroCHLOROthiazide 25 mg oral tablet)1 tab(s) by mouth once a day. isosorbide mononitrate (isosorbide mononitrate 30 mg oral tablet, extended release)1 tab(s) by mouth once a day (in the morning). metFORMIN (metFORMIN 500 mg oral tablet)1 tab(s) by mouth every day. niacin (Niaspan ER 500 mg oral tablet, extended release)1 tab(s) by mouth daily at bedtime. rosuvastatin (Crestor 40 mg oral tablet (NF))1 tab(s) by mouth daily at bedtime. Discontinued aspirin (aspirin 81 mg oral tablet (chewable))1 tab(s) by mouth once a day with a meal. clopidogrel (clopidogrel 75 mg oral tablet)1 tab(s) by mouth once a day. divalproex sodium (Depakote 500 mg oral delayed release tablet)2 tab(s) by mouth two (2) times a day. Refills: 1. levETIRAcetam1,000 Milligram two (2) times a day. Follow Up [facility] When 05/02/2023 11:00 AM EST Where: [address] [place] [address] [phone] Follow Up with [facility] When Why: Call to make appointment in 3 to 4 weeks Where: Follow Up with DAVID CARRION MD When Within 1-2 days Why: Follow-up as needed Where: [address] [place] [address]- Follow Up Appointments No qualifying data available. Follow Up Labs/Studies Discharge Labs Discharge Outpatient Labwork - Ordered -- bmp, Electrolyte abnormalities, follow-up within: 2-4 days, Results Notify to: DAVID CARRION MD, 04/19/23 15:00:00 EST Discharge Studies No Follow-up Studies Discharge Diet Discharge Diet - Ordered -- 04/19/23 15:00:00 EST Discharge Activity Discharge Activity - Ordered -- Activity As Tolerated, 04/19/23 15:00:00 EST Condition on Discharge Stable Discharge Disposition Home Information Provided To The patient Time Spent Greater than 40 minutes was spent in discharge planning. More than 50% of the time was spent in direct patient care which included time spent speaking with the patient about her medical condition and treatment plan. Digitally Signed by RAVI MUELLER MD on 04/19/2023 07:15 PM [facility] 12-28-2023 HCoV 229E RNA ABDULKADIR+non-probe Ql (Nph)Not Detected *NA* (04/18/23 9:52 PM)AH Auto Viro/Sero [id number] Note ORIGINAL HISTORY: Fall COMPARISON: No FINDINGS: The lungs are clear. The cardiac silhouette is within normal size limits. The pulmonary vasculature is unremarkable in appearance. IMPRESSION: Clear lungs. Interpreted by: Leatha Iyer MD Preliminary Report By: Leatha Iyer MD Electronically signed By Leatha Iyer MD Dictated Date: 04/18/2023 9:35:40 PM Prelim Date: 04/18/2023 9:36:11 PM Sign Date: 04/18/2023 9:36:11 PM Ordering Provider: [facility]12-28-2023 Note Date of Service 04/18/2023 Chief Complaint Seizure Subjective 77-year-old former smoking male PMH HTN, HLD, CAD on aspirin and Plavix ([place] several years ago not requiring stenting), DM2 and seizures that presented status post unwitnessed fall and breakthrough seizure (stepson walked in the room after hearing a thud visualizing a tonic-clonic seizure) which shehit his head resulting in a laceration to his right scalp with bilateral frontal subarachnoid hemorrhage minimal right to left shift visualized on CT head therefore he was admitted to the MICU. He received DDAVP and was resumed on his Dilantin and Keppra. Neurosurgery and neurology are on board. Repeat CT head 04/17 was stable. Today is patient's first day out of MICU therefore thorough chart review was completed. Patient again does not recall the fall but states he had not needed anything prior that morning. He states he could not be certain whether he had passed out or not prior to falling. He has been intermittently hypoxic while here but denies any respiratory symptoms. He currently denies chest pain, dyspnea, nausea, vomiting, diarrhea, headache and dizziness. Plan of care was discussed with patient and nursing staff. Objective Vitals and Measurements T: 36.6 C (Oral) TMIN: 36.4 C (Oral) TMAX: 37.4 C (Oral) HR: 86 RR: 18 BP: 140/79 SpO2: 98% Intake and Output 7AM Yesterday to 7AM Today , Obese Intake and Output (Last 24 hours) Intake Oral Intake 240.00 Output Stool Count 1.00 Urine Count 3.00 Total Summary Total Intake 240.00 Total Output 0.00 Fluid Balance 240.00 Physical Exam General: AAO x 3, no acute distress Heart: RRR, S1/S2. No murmurs. Lungs: CTA B/L, unlabored Abdomen: Soft, nontender, nondistended, + bowel sounds, obese Extremities: No edema, +2 dorsalis pedis pulses bilaterally. Weight Dosing Weight: 110 kg (04/17/23) Dosing Weight: 110 kg (04/16/23) Medications Medications (10) Active Scheduled: (6) amLODIPine 2.5 mg tablet 2.5 mg 1 tab(s), Oral, qDay atenolol 25 mg Tablet 25 mg 1 tab(s), Oral, Daily levETIRAcetam 1,250 mg 12.5 mL, IV Piggyback, BID pantoprazole 40 mg EC tablet 40 mg 1 tab(s), Oral, qDayAC phenytoin 100 mg ER capsule 200 mg 2 cap(s), Oral, qDay phenytoin 100 mg ER capsule 300 mg 3 cap(s), Oral, qHS Continuous: (0) PRN: (4) dextrose 50% Solution Disp syringe 50 mL 12.5 gram(s) 25 mL, IV Push, AsDirected hydralazine 20 mg/mL (1mL) vial 10 mg 0.5 mL, IV Push, q4hr HYDROmorphone 0.5 mg/0.5 mL PF syringe 0.5 mg 0.5 mL, IV Push, q3h HYDROmorphone 0.5 mg/0.5 mL PF syringe 0.2 mg 0.2 mL, IV Push, q3h Lab Results 04/18 04:29 WBC: 7.3 Hgb: 11.0 L Hct: 30.3 L Platelet: 119 L Neutrophil %: 59.4 Glucose Level: 159 H Sodium Level: 138 Potassium Level: 3.7 BUN: 21.0 Creatinine Lvl (s): 0.62 EKG No qualifying data available. Assessment/Plan Fall and breakthrough seizure Bilateral frontal subarachnoid hemorrhage minimal right to left shift with brain edema Elevated troponin on admission possibly secondary to seizure CAD on aspirin and Plavix status post DDAVP (desmopressin) Hypoxia History of seizures on Dilantin and Keppra HTN on Norvasc, HCTZ, isosorbide mononitrate, losartan and atenolol GERD on PPI elevated troponin of 295 on admission Thrombocytopenia Hypokalemia-resolved Hyperlipidemia on statin DM2 on metformin -Continue current antiepileptic therapy, which Keppra was increased to 1250 mg twice daily, but Dilantin kept at home dose. Patient will need to follow-up with neurosurgery outpatient in 2 weeks witha repeat head CT as patient was on aspirin and Plavix and will need clearance prior to resuming these medications. Per neurology note which was personally reviewed, No clear indication for dual antiplatelet from neurology standpoint. Per patient he was on dual antiplatelets from cardiology standpoint. Aspirin may be resumed when cleared by neurosurgery. Defer the need for dual antiplatelet in future to cardiology. -Order fall workup checking TSH, B12 and vitamin D. -Being that we cannot rule out syncope will order echocardiogram with elevated troponin on admission and repeat troponin. Will also order new baseline EKG. Patient would also benefit from a 30-day CardioNet monitor at discharge. -With intermittent hypoxia will order CXR and respiratory PCR. Patient would likely benefit from anoutpatient sleep study as he denies any history of sleep apnea. -Home medications/med rec were evaluated with the patient and restarted. -Monitor thrombocytopenia. Order a.m. CBC, BMP and magnesium level. DVT prophylaxis: SCDs. Disposition: [facility] with home PT/OT once stable for discharge. Referrals sent. Outpatient follow-up with his neurologist Dr[facility] in 4 to 6 weeks. No driving for 6 months at discharge until cleared by neurologist. Digitally Signed by YESENIA FAYE DO on 04/18/2023 09:26 PM [id number] Evaluation + Plan noteExtracted from: Title:History and Physical Author:FELTON LAU MD Date:04/17/23 1. Status post mechanical fa ll with seizure 2. Bilateral frontal subarachnoid hemorrhage minimal right to left shift, repeat CT stable 3. History of coronary artery disease on aspirin and Plavix, status post DDAVP 4. History of underlying seizure disorder maintained on Dilantin and Keppra 5. GI and DVT prophylaxis Plan: 1. Continue antiepileptic therapy with Dilantin and Keppra 2. Neurology has been consulted 3. Appreciate neurosurgery recommendations. Repeat CT head stable. Can be transferred out of the ICU from a neurosurgical standpoint 4. Therapy as tolerated, diet as tolerated 5. Repeat CBC and BMP in morning Overall prognosis guarded. No family available for update. Stable for transfer out of ICU today Future Appointments Appointment Date:05/02/2023 10:15:00 AM Scheduled Provider: Location:XRAY Appointment Type:CT Head or Brain w/o Contrast Appointment Date:05/02/2023 11:00:00 AM Scheduled Provider: Location:NEUROS Appointment Type:NS OV Future Scheduled Tests Radiology* CT Head or Brain w/o Contrast 05/02/23 [facility] 2023 Neurological surgery Consult note Date of Service 04/16/2023 Reason for Consultation [facility] Referring Physician Dr. Pham History of Present Illness This is a 77-year-old male with a past medical history of arthrosclerosis of the coronary artery, [place], hypertension, former smoker(quit in his 40s-smoked 4 PPD), GERD, hyperlipidemia, seizures, and diabetes type 2, who presented to the [place] emergency department after he sustained a seizure at home. His stepson states he was in the kitchen, and heard him fall in his room. He states he found him on the ground seizing, with a laceration to the back of his head. The patient does not recall exactly what happened. He remembers waking up in the ambulance part way to the hospital. He states he previously had a seizure in October and prior to that he had 2 seizures April 2022. He does follow with Dr. Natasha [facility] with [facility]. He is currently on Dilantin and Keppra. His Dilantin level was 11.2. During his workup in the emergency department, he had a CT of the head, which demonstrated bilateral subarachnoid hemorrhage. Due to these findings, he was transferred to [facility] for further evaluation by neurosurgery and neurology. On exam currently, he is awake, alert, and oriented x 3. He is moving all 4 extremities without difficulty. Follows commands. No lateralizing weakness noted. No pronator drift noted. Speech is clear.Facial structures appear symmetrical. He was able to mobilize to the bathroom with supervision. Posterior scalp laceration which has been sutured. Patient noted to be on Plavix and aspirin. Review of Systems Constitutional: No fever, chills, wt loss, wt gain, fatigue, or night sweats HEENT: Posterior head pain due to scalp laceration. No visual changes or hearing changes Cardiovascular: No chest pain, SOB, or or palpitations Respiratory: No cough, SOB, wheezing, or congestion. Gastrointestinal: No abd pain, nausea, vomiting, diarrhea, or loss of appetite. Genitourinary: No urinary frequency, burning, hematuria, or incontinence Musculoskeletal: No weakness, cramps, joint pain or swelling Skin: No rashes, lesions, or sores Neurological: No incoordination, numbness, or tingling. No gait disturbance Psychiatric: No changes in mood Physical Exam Vitals and Measurements T: 37.5 C (Oral) HR: 92(Monitored) RR: 20 BP: 162/79 SpO2: 95% WT: 110 kg Weight Dosing Weight: 110 kg (04/16/23) General Appearance: This patient is well-developed and well nourished, and appears stated age. No acute distress. Head: Normocephalic, posterior scalp laceration sutured EENT: Mucous membranes moist. No vision or hearing changes Cardiac: S1 and S2 heard without murmur, rub, or gallop. Regular rate and rhythm. Lungs: Lungs clear. Respirations easy. No shortness of breath noted. Abdomen: BSP x 4. Abd soft, nontender, nondistended. Musculoskeletal: Moves all 4 ext without difficulty Extremities: Bilateral pedal pulses palpable. No edema noted Neurological: See HPI. Skin: Nason, warm, and dry. Psychiatric: Mood stable. Cooperative. Lab Results No 36 Hour Lab Data Assessment/Plan Bilateral subarachnoid hemorrhage: -CT of the head has been reviewed by Dr. Fisher. Patient has areas of subarachnoid hemorrhage bilaterally. -CT results were discussed with the patient and family at the bedside. -He will have a repeat CT of the head tomorrow morning. -He is noted to be on Plavix and aspirin. These medications will be placed on hold. DDAVP ordered. -Continue close monitoring of his neurological exam and notify neurosurgery with any changes. -Monitor blood pressure and keep systolic blood pressure less than 140. Seizure: -Patient sustained a breakthrough seizure while on Keppra 1000 mg twice daily and Dilantin extendedrelease 200 mg in the morning and 300 mg at bedtime. -Patient follows with Dr. Ramos at [facility]. -Neurology has been consulted. 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 He states he takes these medications because he had an NY several years ago but did not require stenting. He states the artery opened on its own . -DDAVP has been ordered. -He will need to remain off of these medications until cleared by neurosurgery. Please see Dr. Fisher's addendum for further details recommendations. Problem List/Past Medical History Ongoing Syncope Historical No qualifying data 1. HTN 2. CAD 3. [place] 4. HTN 5. Previous tobacco use 6. Hyperlipidemia 7. Seizures 8. DM type 2 Procedure/Surgical History Right elbow ORIF Cholecystectomy Medications Inpatient No active inpatient medications Home amLODIPine 2.5 mg oral tablet, 2.5 mg= 1 tab(s), Oral, qDay aspirin 81 mg oral tablet (chewable), 81 mg= 1 tab(s), Oral, qDayM atenolol 25 mg oral tablet, 25 mg= 1 tab(s), Oral, Daily atorvastatin 80 mg oral tablet, 80 mg= 1 tab(s), Oral, Daily clopidogrel 75 mg oral tablet, 75 mg= 1 tab(s), Oral, qDay Crestor 40 mg oral tablet (NF), 40 mg= 1 tab(s), Oral, qHS Depakote 500 mg oral delayed release tablet, 1000 mg= 2 tab(s), Oral, BID, 1 refills, Not taking fenofibrate 145 mg oral tablet, 145 mg= 1 tab(s), Oral, qDay hydroCHLOROthiazide 25 mg oral tablet, 25 mg= 1 tab(s), Oral, qDay isosorbide mononitrate 30 mg oral tablet, extended release, 30 mg= 1 tab(s), Oral, qAM levETIRAcetam, 1000 mg, BID losartan 100 mg oral tablet, 100 mg= 1 tab(s), Oral, Daily metFORMIN 500 mg oral tablet, 500 mg= 1 tab(s), Oral, Daily NexIUM 40 mg oral delayed release capsule (NF), 40 mg= 1 cap(s), Oral, Daily Niaspan ER 500 mg oral tablet, extended release, 500 mg= 1 tab(s), Oral, qHS phenytoin 200 mg oral capsule, extended release, 200 mg= 1 cap(s), Oral, qDay phenytoin 300 mg oral capsule, extended release, 300 mg= 1 cap(s), Oral, qHS Allergies Cipro codeine (Hives) Social History Smoking Status - 10/11/2012 Former smoker Quit smoking in his 40s. Prior to that, he smoked 4 packs/day. Denies alcohol or illicit drug use. Family History Unknown family history. Immunizations No qualifying data available. Digitally Signed by UMA PAK on 04/16/2023 04:48 PM [id number] Neurology Consult note Date of Service 04/17/2023 Reason for Consultation Breakthrough seizures Referring Physician Dr. Pham History of Present Illness 77 yr M with PMH HTN, HLD, DM, history of seizures, CAD on dual plan antiplatelets at baseline admitted s/p fall and breakthrough seizures. Per documentation patient had a generalized tonic-clonic seizures, he was unaware of the event, denies any tongue bite or urinary incontinence. Per patient he is on Keppra 1000 mg twice daily and Dilantin 300 mg nightly and 200 mg every morning at baseline. Per patient he has been on Keppra and Dilantin for many years, has had seizures for many years. During this admission patient found to have right posterior frontal and left anterior frontal SAH. Per documentation patient has been on dual antiplatelets at baseline from cardiology standpoint of view for many years. CT head on admission showed bilateral SAH, neurosurgery was consulted, patient was given DDAVP and dual antiplatelets for was held. Per patient he lives with his stepson, denies any frequent falls, per patient his seizures are usually well-controlled, follows up with Dr. Natasha Ramos from [facility]. At present patient denies any new onset focal neurological deficits, sensory loss, speech disturbances, visual disturbances, FLORES or dizziness. Review of Systems Complete ROS negative except as documented in HPI. Physical Exam Vitals and Measurements T: 36.8 C (Oral) TMIN: 36.5 C (Oral) TMAX: 37.5 C (Oral) HR: 89(Monitored) RR: 16 BP: 122/69 SpO2: 93% HT: 170 cm WT: 110 kg BMI: 38.06 Weight Dosing Weight: 110 kg (04/16/23) Dosing Weight: 110 kg (04/16/23) General Examination: conscious, alert, oriented, AoA x3 HEENT: normocephalic, pupils BERL Heart: normal S1 S2 Lungs: Bilateral air entry present Abdomen: bowel sounds present Psychiatry: Denies Anxiety, depression or suicidal ideations at present Neuro: Conscious, alert, oriented AoA x3, CN II-XII no Nystagmus, EOMI, pupils BERL, No facial sensory loss, no facial asymmetry, Power 5/5 B/L UE and LE, tone normal all 4 extremities, No tremors, No pronator drift, Reflexes + B/S/T/K/A, Plantars B/L flexor, No cerebellar signs, Romberg s deferred, No sensory loss to light touch/temperature, gait deferred, No frontal release signs. No involuntary movements, No NR, No Kernig s sign, No Brudzinski s sign Lab Results 04/17 05:13 WBC: 8.9 Hgb: 12.3 L Hct: 34.3 L Platelet: 178 Neutrophil %: 63.7 Protime: 12.1 PT International Ratio: 1.1 Glucose Level: 181 H Sodium Level: 139 Potassium Level: 3.7 BUN: 18.0 Creatinine Lvl (s): 0.74 04/16 18:00 Glucose Level: 158 H Sodium Level: 138 Potassium Level: 3.4 L BUN: 18.0 Creatinine Lvl (s): 0.63 Imaging Results and Diagnostics CT Head or Brain w/o Contrast Result Date: April 17, 2023 Verified By: ANI AMAYA MD CLINICAL STATEMENT: IMPRESSION: Similar appearing right frontal and left frontal subarachnoid hemorrhages.Minimal rightto left midline shift only seen on axial views favored to beartifactual. Soft tissue contusion withsmall locules of air over the posterior rightfrontal lobe, consistent with history of recent trauma. I have personally reviewed the images of this examination and agree with theresident's findings and interpretation. Assessment/Plan 77 yr M with PMH HTN, HLD, DM, history of seizures, CAD on dual plan antiplatelets at baseline admitted s/p fall and breakthrough seizures. Per documentation patient had a generalized tonic-clonic seizures, he was unaware of the event, denies any tongue bite or urinary incontinence. Per patient he is on Keppra 1000 mg twice daily and Dilantin 300 mg nightly and 200 mg every morning at baseline. Per patient he has been on Keppra and Dilantin for many years, has had seizures for many years. During this admission patient found to have right posterior frontal and left anterior frontal SAH. Per documentation patient has been on dual antiplatelets at baseline from cardiology standpoint of view for many years. CT head on admission showed bilateral SAH, neurosurgery was consulted, patient was given DDAVP and dual antiplatelets for was held. Per patient he lives with his stepson, denies any frequent falls, per patient his seizures are usually well-controlled, follows up with Dr. Natasha Ramos from [facility]. Impressions: Breakthrough seizure Bilateral SAH - posterior right frontal and anterior left frontal SAH Plan: -CT head images reviewed -Labs reviewed. Check UA. AST/ALT 41/32, per documentation phenytoin level was normal. -Defer management of SAH to neurosurgery. -No clear indication for dual antiplatelet from neurology standpoint. Per patient he was on dual antiplatelets from cardiology standpoint. Aspirin may be resumed when cleared by neurosurgery. Defer the need for dual antiplatelet in future to cardiology. -Keppra increased to 1250 mg twice daily during this admission. -Patient is on Dilantin at baseline. Home dose continued. Patient is on Dilantin 200 mg once daily and 300 mg p.o. nightly. Patient follows up with [facility] as outpatient, defer making changes to her seizure medications to outpatient neurology. Per patient has been on Dilantin for many years. -Patient counseled to be compliant with AEDs -Avoid medications like Wellbutrin, Tramadol , antibiotics like Meropenem/Cefepime which can lower seizure threshold -Seizure precautions discussed in detail. Patient counseled not climb on ladders, heights, roofs, patient counseled not to swim alone, patient counseled not to work with sharp objects, SUDEP risks discussed, avoid sleep deprivation, excessive alcohol consumption, avoid using bath tubs and use shower for bathing. -Patient counseled not to drive for 6 months and would need clearance from outpatient neurologist prior to driving. Per patient he does not drive. -ICU H&P documentation reviewed -ED attending note reviewed -Case discussed with ICU attending in detail. -GI/DVT prophylaxis -PT/OT/ST -Fall precautions -Further medical management per medical team -Case discussed with hospitalist medical team -Patient counseled the risks and health hazards of smoking, excessive alcohol intake, marijuana/cocaine/drug abuse and patient counseled not to smoke cigarettes, drink excessive alcohol as well as not to smoke marijuana. Patient understands the same. -Follow up with Neurology in 4-6 weeks as outpatient -Please call with questions if any. -Thank you for allowing us to participate in patients care and management. -All questions were answered -Will sign off at present. Please call with questions if any in the interim. This note has been generated using [employer] dictation software. It may contain incorrect words, punctuation's and spellings that were not noted in the review of the note prior to signing. Problem List/Past Medical History Ongoing Syncope Historical No qualifying data Procedure/Surgical History No qualifying data available. Medications Inpatient amLODIPine, 2.5 mg= 1 tab(s), Oral, qDay atenolol, 25 mg= 1 tab(s), Oral, Daily Dextrose, 25 gram(s)= 50 mL, IV Push, AsDirected, PRN Dextrose 50% IV Push, 12.5 gram(s)= 25 mL, IV Push, AsDirected, PRN Dilaudid, 0.5 mg= 0.5 mL, IV Push, q3h, PRN Dilaudid, 0.2 mg= 0.2 mL, IV Push, q3h, PRN HumuLIN R, sliding scale insulin, Subcutaneous, q4h, PRN hydrALAZINE, 10 mg= 0.5 mL, IV Push, q4hr, PRN Insulin Regular for IV 100 unit(s) + NS Premix Diluent 100 mL Keppra phenytoin, 200 mg= 2 cap(s), Oral, qDay phenytoin, 300 mg= 3 cap(s), Oral, qHS Protonix, 40 mg= 1 tab(s), Oral, qDayAC Sodium Chloride 0.9% intravenous solution 1,000 mL, 1000 mL, Intravenous Zofran, 4 mg= 2 mL, IV Push, q4h, PRN Home amLODIPine 2.5 mg oral tablet, 2.5 mg= 1 tab(s), Oral, qDay aspirin 81 mg oral tablet (chewable), 81 mg= 1 tab(s), Oral, qDayM atenolol 25 mg oral tablet, 25 mg= 1 tab(s), Oral, Daily atorvastatin 80 mg oral tablet, 80 mg= 1 tab(s), Oral, Daily clopidogrel 75 mg oral tablet, 75 mg= 1 tab(s), Oral, qDay Crestor 40 mg oral tablet (NF), 40 mg= 1 tab(s), Oral, qHS Depakote 500 mg oral delayed release tablet, 1000 mg= 2 tab(s), Oral, BID, 1 refills, Not taking fenofibrate 145 mg oral tablet, 145 mg= 1 tab(s), Oral, qDay hydroCHLOROthiazide 25 mg oral tablet, 25 mg= 1 tab(s), Oral, qDay isosorbide mononitrate 30 mg oral tablet, extended release, 30 mg= 1 tab(s), Oral, qAM levETIRAcetam, 1000 mg, BID losartan 100 mg oral tablet, 100 mg= 1 tab(s), Oral, Daily metFORMIN 500 mg oral tablet, 500 mg= 1 tab(s), Oral, Daily NexIUM 40 mg oral delayed release capsule (NF), 40 mg= 1 cap(s), Oral, Daily Niaspan ER 500 mg oral tablet, extended release, 500 mg= 1 tab(s), Oral, qHS phenytoin 200 mg oral capsule, extended release, 200 mg= 1 cap(s), Oral, qDay phenytoin 300 mg oral capsule, extended release, 300 mg= 1 cap(s), Oral, qHS Allergies Cipro codeine (Hives) Social History Smoking Status - 10/11/2012 Former smoker Family History Noncontributory Immunizations No qualifying data available. Digitally Signed by LOW CLEMONS MD on 04/17/2023 11:27 AM Digitally Signed by LOW CLEMONS MD on 04/17/2023 11:30 AM [id number] History and physical note Date of Service 04/17/23 Chief Complaint Seizure History of Present Illness Mr. Thorpe is a 77-year-old male past medical history hypertension, coronary disease, type 2 diabetes and seizure disorder who presented to the emergency department status post fall and seizure in which he struck his head. He sustained a laceration to the posterior right scalp and was on aspirin andPlavix at the time for coronary artery disease. He received DDAVP and was resumed on his Dilantin and Keppra. He was admitted to the ICU for close monitoring and has been hemodynamically stable overnight. Neurosurgery and neurology have been consulted as he does follow with [facility]. CT this morning shows similar appearing left frontal subarachnoid hemorrhage with minimal right to left shift. Review of Systems Constitutional-no fevers, chills, night sweats, weight loss or gain HEENT-no runny nose or sore throat Cardiovascular-denies chest pain, palpitations or orthopnea Pulmonary-he has a cough that is nonproductive, no wheezing or shortness of breath, no dyspnea on exertion Gastrointestinal-no nausea, vomiting, constipation or diarrhea noted Musculoskeletal he has some joint pain and left shoulder status post fall, no redness, stiffness orswelling Neurological-no numbness, tingling, weakness Skin - no itching, rashes or hives All other components of review of systems have been reviewed and are negative Physical Exam Vitals and Measurements T: 36.8 C (Oral) TMIN: 36.5 C (Oral) TMAX: 37.5 C (Oral) HR: 89(Monitored) RR: 16 BP: 122/69 SpO2:93% HT: 170 cm WT: 110 kg BMI: 38.06 Weight Dosing Weight: 110 kg (04/16/23) Dosing Weight: 110 kg (04/16/23) General-no acute distress, alert HEENT-normocephalic, extraocular movements are intact, he does have laceration of the posterior aspect of the scalp which is sutured Pulmonary-clear, no wheeze Cardiovascular-regular, no appreciable murmurs, gallops or rubs Abdomen-soft, nontender, bowel sounds positive Extremities-no cyanosis, clubbing or edema Neurologic-grossly nonfocal Lab Results 04/17 05:13 WBC: 8.9 Hgb: 12.3 L Hct: 34.3 L Platelet: 178 Neutrophil %: 63.7 Protime: 12.1 PT International Ratio: 1.1 Glucose Level: 181 H Sodium Level: 139 Potassium Level: 3.7 BUN: 18.0 Creatinine Lvl (s): 0.74 04/16 18:00 Glucose Level: 158 H Sodium Level: 138 Potassium Level: 3.4 L BUN: 18.0 Creatinine Lvl (s): 0.63 Imaging Results and Diagn[address] CT HEAD IMPRESSION: Similar appearing right frontal and left frontal subarachnoid hemorrhages. Minimal right to left midline shift only seen on axial views favored to be artifactual. Soft tissue contusion with small locules of air over the posterior right frontal lobe, consistent with history of recent trauma. Assessment/Plan 1. Status post mechanical fall with seizure 2. Bilateral frontal subarachnoid hemorrhage minimal right to left shift, repeat CT stable 3. History of coronary artery disease on aspirin and Plavix, status post DDAVP 4. History of underlying seizure disorder maintained on Dilantin and Keppra 5. GI and DVT prophylaxis Plan: 1. Continue antiepileptic therapy with Dilantin and Keppra 2. Neurology has been consulted 3. Appreciate neurosurgery recommendations. Repeat CT head stable. Can be transferred out of the ICU from a neurosurgical standpoint 4. Therapy as tolerated, diet as tolerated 5. Repeat CBC and BMP in morning Overall prognosis guarded. No family available for update. Stable for transfer out of ICU today Problem List/Past Medical History Ongoing Syncope Historical No qualifying data Procedure/Surgical History No qualifying data available. Medications Home Medications (17) Active amLODIPine 2.5 mg oral tablet 2.5 mg = 1 tab(s), Oral, qDay aspirin 81 mg oral tablet (chewable) 81 mg = 1 tab(s), Oral, qDayM atenolol 25 mg oral tablet 25 mg = 1 tab(s), Oral, Daily atorvastatin 80 mg oral tablet 80 mg = 1 tab(s), Oral, Daily clopidogrel 75 mg oral tablet 75 mg = 1 tab(s), Oral, qDay Crestor 40 mg oral tablet (NF) 40 mg = 1 tab(s), Oral, qHS Depakote 500 mg oral delayed release tablet 1,000 mg = 2 tab(s), Oral, BID fenofibrate 145 mg oral tablet 145 mg = 1 tab(s), Oral, qDay hydroCHLOROthiazide 25 mg oral tablet 25 mg = 1 tab(s), Oral, qDay isosorbide mononitrate 30 mg oral tablet, extended release 30 mg = 1 tab(s), Oral, qAM levETIRAcetam 1,000 mg, BID losartan 100 mg oral tablet 100 mg = 1 tab(s), Oral, Daily metFORMIN 500 mg oral tablet 500 mg = 1 tab(s), Oral, Daily NexIUM 40 mg oral delayed release capsule (NF) 40 mg = 1 cap(s), Oral, Daily Niaspan ER 500 mg oral tablet, extended release 500 mg = 1 tab(s), Oral, qHS phenytoin 200 mg oral capsule, extended release 200 mg = 1 cap(s), Oral, qDay phenytoin 300 mg oral capsule, extended release 300 mg = 1 cap(s), Oral, qHS Allergies Cipro codeine (Hives) Social History Smoking Status - 10/11/2012 Former smoker Smoking 40 years ago. Used to work in a [employer] No qualifying data available. Code Status Code Status - Ordered -- 04/16/23 14:53:00 EST, Full Code, Constant Order Digitally Signed by FELTON LAU MD on 04/17/2023 10:31 AM [id number] Note ORIGINAL EXAMINATION: CT OF THE HEAD WITHOUT KWGDYOUJ50/27/2023 5:25 am TECHNIQUE: Axial CT images from skull base to vertex without IV contrast. This exam was performed according to our departmental dose optimization program, and includes the following measures where applicable: automated exposure control, adjustment of the mAs and/or kVp according to patient size and/or exam, and an iterative reconstruction algorithm. COMPARISON: CT head 04/16/2023 HISTORY: ORDERING SYSTEM PROVIDED HISTORY: Reason for Exam: FOLLOW UP ON [facility] FINDINGS: Similar appearance of posterior right frontal and anterior left frontal subarachnoid hemorrhages. Minimal bsnmw-md-ngci midline shift only seen on axial view is favored to be due to patient positioning.. No new intracranial hemorrhage mass, or extra-axial fluid collection. No CT evidence for acute infarction. Scattered foci of white matter hypoattenuation are noted in the cerebral white matter, nonspecific but compatible with mild chronic microvascular angiopathy. Atherosclerotic calcifications are present in the cavernous carotid arteries bilaterally. There is proportionate enlargement of the ventricular system and cortical sulci, compatible with parenchymal volume loss. Bilateral lens implants. The remainder of the visualized orbits are unremarkable. Soft tissue contusion over the posterior right frontal lobe with small locules of air, which may be due to recent trauma. The skull base and calvarium demonstrate no acute abnormality. Mucosal thickening of the right greater than left ethmoid air cells. No air-fluid levels are visualized. The remainder of the included paranasal sinuses and mastoid air cells are predominantly clear. IMPRESSION: Similar appearing right frontal and left frontal subarachnoid hemorrhages. Minimal right to left midline shift only seen on axial views favored to be artifactual. Soft tissue contusion with small locules of air over the posterior right frontal lobe, consistent with history of recent trauma. I have personally reviewed the images of this examination and agree with the resident's findings and interpretation. Interpreted by: Ani Amaya MD Preliminary Report By: Renny Mcgrath Electronically signed By Ani Amaya MD Dictated Date: 04/17/2023 5:30:47 AM Prelim Date: 04/17/2023 5:41:55 AM Sign Date: 04/17/2023 5:55:44 AM Ordering Provider: [facility]12-26-2023 Neurological surgery Consult note Date of Service 04/16/2023 Reason for Consultation [facility] Referring Physician Dr. Pham History of Present Illness This is a 77-year-old male with a past medical history of arthrosclerosis of the coronary artery, [place], hypertension, former smoker(quit in his 40s-smoked 4 PPD), GERD, hyperlipidemia, seizures, and diabetes type 2, who presented to the [place] emergency department after he sustained a seizure at home. His stepson states he was in the kitchen, and heard him fall in his room. He states he found him on the ground seizing, with a laceration to the back of his head. The patient does not recall exactly what happened. He remembers waking up in the ambulance part way to the hospital. He states he previously had a seizure in October and prior to that he had 2 seizures April 2022. He does follow with Dr. Natasha [facility]. He is currently on Dilantin and Keppra. His Dilantin level was 11.2. During his workup in the emergency department, he had a CT of the head, which demonstrated bilateral subarachnoid hemorrhage. Due to these findings, he was transferred to [facility] for furtherevaluation by neurosurgery and neurology. On exam currently, he is awake, alert, and oriented x 3. He is moving all 4 extremities without difficulty. Follows commands. No lateralizing weakness noted. No pronator drift noted. Speech is clear.Facial structures appear symmetrical. He was able to mobilize to the bathroom with supervision. Posterior scalp laceration which has been sutured. Patient noted to be on Plavix and aspirin. Review of Systems Constitutional: No fever, chills, wt loss, wt gain, fatigue, or night sweats HEENT: Posterior head pain due to scalp laceration. No visual changes or hearing changes Cardiovascular: No chest pain, SOB, or or palpitations Respiratory: No cough, SOB, wheezing, or congestion. Gastrointestinal: No abd pain, nausea, vomiting, diarrhea, or loss of appetite. Genitourinary: No urinary frequency, burning, hematuria, or incontinence Musculoskeletal: No weakness, cramps, joint pain or swelling Skin: No rashes, lesions, or sores Neurological: No incoordination, numbness, or tingling. No gait disturbance Psychiatric: No changes in mood Physical Exam Vitals and Measurements T: 37.5 C (Oral) HR: 92(Monitored) RR: 20 BP: 162/79 SpO2: 95% WT: 110 kg Weight Dosing Weight: 110 kg (04/16/23) General Appearance: This patient is well-developed and well nourished, and appears stated age. No acute distress. Head: Normocephalic, posterior scalp laceration sutured EENT: Mucous membranes moist. No vision or hearing changes Cardiac: S1 and S2 heard without murmur, rub, or gallop. Regular rate and rhythm. Lungs: Lungs clear. Respirations easy. No shortness of breath noted. Abdomen: BSP x 4. Abd soft, nontender, nondistended. Musculoskeletal: Moves all 4 ext without difficulty Extremities: Bilateral pedal pulses palpable. No edema noted Neurological: See HPI. Skin: Nason, warm, and dry. Psychiatric: Mood stable. Cooperative. Lab Results No 36 Hour Lab Data Assessment/Plan Bilateral subarachnoid hemorrhage: -CT of the head has been reviewed by Dr. Fisher. Patient has areas of subarachnoid hemorrhage bilaterally. -CT results were discussed with the patient and family at the bedside. -He will have a repeat CT of the head tomorrow morning. -He is noted to be on Plavix and aspirin. These medications will be placed on hold. DDAVP ordered. -Continue close monitoring of his neurological exam and notify neurosurgery with any changes. -Monitor blood pressure and keep systolic blood pressure less than 140. Seizure: -Patient sustained a breakthrough seizure while on Keppra 1000 mg twice daily and Dilantin extendedrelease 200 mg in the morning and 300 mg at bedtime. -Patient follows with Dr. Ramos at [facility]. -Neurology has been consulted. 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 He states he takes these medications because he had an NY several years ago but did not require stenting. He states the artery opened on its own . -DDAVP has been ordered. -He will need to remain off of these medications until cleared by neurosurgery. Please see Dr. Fisher's addendum for further details recommendations. Problem List/Past Medical History Ongoing Syncope Historical No qualifying data 1. HTN 2. CAD 3. [place] 4. HTN 5. Previous tobacco use 6. Hyperlipidemia 7. Seizures 8. DM type 2 Procedure/Surgical History Right elbow ORIF Cholecystectomy Medications Inpatient No active inpatient medications Home amLODIPine 2.5 mg oral tablet, 2.5 mg= 1 tab(s), Oral, qDay aspirin 81 mg oral tablet (chewable), 81 mg= 1 tab(s), Oral, qDayM atenolol 25 mg oral tablet, 25 mg= 1 tab(s), Oral, Daily atorvastatin 80 mg oral tablet, 80 mg= 1 tab(s), Oral, Daily clopidogrel 75 mg oral tablet, 75 mg= 1 tab(s), Oral, qDay Crestor 40 mg oral tablet (NF), 40 mg= 1 tab(s), Oral, qHS Depakote 500 mg oral delayed release tablet, 1000 mg= 2 tab(s), Oral, BID, 1 refills, Not taking fenofibrate 145 mg oral tablet, 145 mg= 1 tab(s), Oral, qDay hydroCHLOROthiazide 25 mg oral tablet, 25 mg= 1 tab(s), Oral, qDay isosorbide mononitrate 30 mg oral tablet, extended release, 30 mg= 1 tab(s), Oral, qAM levETIRAcetam, 1000 mg, BID losartan 100 mg oral tablet, 100 mg= 1 tab(s), Oral, Daily metFORMIN 500 mg oral tablet, 500 mg= 1 tab(s), Oral, Daily NexIUM 40 mg oral delayed release capsule (NF), 40 mg= 1 cap(s), Oral, Daily Niaspan ER 500 mg oral tablet, extended release, 500 mg= 1 tab(s), Oral, qHS phenytoin 200 mg oral capsule, extended release, 200 mg= 1 cap(s), Oral, qDay phenytoin 300 mg oral capsule, extended release, 300 mg= 1 cap(s), Oral, qHS Allergies Cipro codeine (Hives) Social History Smoking Status - 10/11/2012 Former smoker Quit smoking in his 40s. Prior to that, he smoked 4 packs/day. Denies alcohol or illicit drug use. Family History Unknown family history. Immunizations No qualifying data available. Digitally Signed by UMA PAK on 04/16/2023 04:48 PM [id number] Hospital Discharge instructions Follow Up Care 04/16/2023 13:22:48 With:[facility] Address:Unknown When:1-2 days Comments:[facility] has accepted to follow at discharge for your home care services - RN/OT/ PT. A nurse will contact you at your home to arrange for the start of your care. Please call [phone] with any futher questions or concerns. With:[facility] Address: When: Unknown Comments:Call to make appointment in 3 to 4 weeks With:DAVID CARRION MD Address: [address] [place] [address]- When:1-2 days Comments:Follow-up as needed With:BRENDA SILVA, Neurosurgery Address: [address] [place] [address]- [phone] When:05/02/2023 11:00:00 [facility] 12-15-2023 Miscellaneous Notes* Telephone Encounter - Lizet De Luna LPN - 04/05/2023 11:57 AM EST Spoke with pt and apt booked. Will get TSH lab done. Lizet De Luna LPN * Telephone Encounter - Susan Escoto APRN.CNP - 04/05/2023 11:40 AM EST Patient is due for follow-up in April, please encourage him to schedule Susan Escoto APRN.EVA * Telephone Encounter - Tonia Barnes - 04/05/2023 7:53 AM EST Patient has been identified by name and date of : No Patient phones for refill(s): Requested Prescriptions Pending Prescriptions Disp Refills metFORMIN ER (GLUCOPHAGE XR) 500 mg 24 hr tablet [Pharmacy Med Name: METFORMIN HCL ER 500 MG TABLET] 180 tablet 1 Sig: take 1 tablet by mouth twice a day with food Date of last office visit in primary care: 01/23/2023 Date of next office visit in primary care: Visit date not found Last 2 Encounter Wt Readings: Date: Wt: 01/23/2023 108 kg (238 lb) 10/24/2022 105.2 kg (232 lb) Previous labs/tests for medication: Diabetes: Hemoglobin A1C (%) Date Value 01/21/2023 7.0 10/09/2022 7.4 02/22/2021 6.8 04/21/2020 6.6 Hemoglobin A1C (POCT) (%) Date Value 06/06/2021 6.7 12/02/2020 6.1 Please advise. Thank you. Tonia Barnes. [facility]11-29-2023 Miscellaneous Notes* Telephone Encounter - Yanely Drew LPN - 03/20/2023 10:26 AM EST PATIENT NOTIFIED OF SAME. * Telephone Encounter - Renetta Garcia APRN.CNP - 03/20/2023 7:58 AM EST Please let patient know that repeat thyroid test was normal. Keep next follow up as scheduled. documented in this encounterW[facility]10-31-2023 Miscellaneous Notes* Telephone Encounter - Diamond Martinez RN - 02/19/2023 9:45 AM EDT Patient calls and notified of results and providers instructions. Patient verbalizes understanding. Patient denies any changes in energy level, skin/hair/nails, weight change, constipation or diarrhea, mood fluctuations, or any other symptoms. Diamond Martinez RN * Telephone Encounter - Swathi Dodge PA-C - 02/18/2023 6:17 PM EDT Please call patient and let him know his thyroid was borderline on recent check, all other labs stable. Advise rechecking this in 2 weeks, lab ordered- can you ask if any changes in energy level, skin/hair/nails, weight change, constipation or diarrhea, mood fluctuations, or any other thyroid-related symptoms. Swathi Dodge PA-C documented in this encounterWooster [facility]10-04-2023 NoteHNO ID: [id number] Author: Swathi Dodge PA-C Service: ? Author Type: Physician Heating And Cooling Systems Engineer Type: Progress Notes Filed: 01/23/2023 1:21 PM Note Text: CC: Patient presents with: Edema: Swelling in B/L legs are about the same. Left leg swells more. Puts his feet up at night and swelling is typically gone in the morning. Hypertension: Monitoring BP at home. Cardiology recently added Amlodipine 2.5 mg daily. BP has been stable. Denies chest pain. SOB only with exertion. Diabetes: Sugar this a.m 171 checking once daily. HPI Lakeshia Thorpe is a 77 year old male who presents today for 3-month follow-up and discuss recently obtained labs. Last visit was on 10/24/2022. Hx of CAD, status post NY several years ago, HTN: Mr. Thorpe indicates a history of hypertension and states that he is feeling well and denies any symptoms referable to elevated blood pressure. Specifically denies headache, chest pain, palpitations, dyspnea (has mild at baseline, but unchanged from normal). Recently had 2.5 mg Amlodipine added by cardiology (sees Marlni Jurado). Checks BP routinely and they're running ~118/69s-70s Patient denies any side effects of his medication(s) and is compliant with their regimen. He endorses regular aerobic exercise, walking and moving around frequently throughout the day. Last 3 Encounter BP Readings: Date: BP: 01/23/2023 134/60 10/24/2022 120/70 10/12/2022 154/83[BP Patric[ Diabetes: Lakeshia Thorpe denies excessive thirst or increased frequency of urination, chest pain or dyspnea , numbness, tingling or pain in extremities, new or unusual visual symptoms, low sugar/hypoglycemic reactions, weight loss/gain, lightheadedness/dizziness, and bowel changes/loose stools. He is compliant with medication(s) and is tolerating med(s) without any side effects. Home blood sugar readings: checks daily, 171 this AM. Hypoglycemia: No Diabetic diet: Attempts to minimize carb consumption Last Ophthalmology exam was within the past 3 months (Dr. Ramirez at [facility]). Started on preservision supplement due age-related changes w/ macular degeneration, but denies any concerns with sugar in my eyes Patient's last HgA1C was Hemoglobin A1C (%) Date Value 01/21/2023 7.0 10/09/2022 7.4 02/22/2021 6.8 04/21/2020 6.6 Hemoglobin A1C (POCT) (%) Date Value 06/06/2021 6.7 12/02/2020 6.1 Borderline TSH- has never been on levothyroxine previously. Denies fatigue, cold intolerance, constipation, weight gain, hair loss, and dry skin. TSH (mIU/L) Date Value 01/21/2023 4.210 REVIEW OF SYSTEMS See HPI All other systems negative. 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 History of [place] (myocardial infarction) Internal hemorrhoids without mention of complication Other and unspecified hyperlipidemia 09/24/2006 Other convulsions Pure hypercholesterolemia Seizures (HCC) Unspecified asthma(493.90) Unspecified essential hypertension PAST SURGICAL HISTORY Procedure Laterality Date ANESTHESIA HERNIA REPAIR LOWER ABDOMEN NOS 07/05/05 CHOLECYSTECTOMY 03/27/89 Cholecystectomy COLECTOMY PARTIAL W/ANASTOMOSIS 07/05/05 LAP RIGHT COLECTOMY COLONOSCOPY FLX DX W/COLLJ SPEC WHEN PFRMD 03/30/2005 Colonoscopy COLONOSCOPY FLX DX W/COLLJ SPEC WHEN PFRMD 05/14/05 COLONOSCOPY FLX DX W/COLLJ SPEC WHEN PFRMD 10/22/08 COLONOSCOPY FLX DX W/COLLJ SPEC WHEN PFRMD 10-19-14 COLONOSCOPY W/BIOPSY SINGLE/MULTIPLE 08/09/06 Small polyp prox. transverse EGD TRANSORAL BIOPSY SINGLE/MULTIPLE 10-19-14 HEMORRHOIDECTOMY INTERNAL RUBBER BAND LIGATIONS 02/24/99 Hemorrhoidectomy REM LESION NEC,HND,SCAL,FEET,GENITALIA 1.1-2.0CM 05/22/06 Exc. catie cyst posterior neck SKIN BX, 1 LESION 12/19/10 Amputation left anterior thigh skin lesion ALLERGIES Cipro [Ciprofloxacin] MEDICATIONS amLODIPine (NORVASC) 2.5 mg tablet Take 1 tablet by mouth every afternoon. vit A/vit C/vit E/zinc/copper (PRESERVISION AREDS ORAL) Take by mouth. Lancets lancets Test blood sugar(s) one times daily. Dx: Type 2 DM - Controlled E11.9 Insulin: No blood sugar diagnostic (ONETOUCH ULTRA TEST) test strip TEST BLOOD SUGAR(S) ONCE DAILY. levETIRAcetam (KEPPRA) 1,000 mg tablet Take 2 tablets by mouth twice daily. phenytoin ER (DILANTIN) 100 mg ER capsule 2 capsules in the am and 3 capsules in the pm metFORMIN ER (GLUCOPHAGE XR) 500 mg 24 hr tablet Take 1 tablet by mouth twice daily with meals. atenolol (TENORMIN) 25 mg tablet Take 1 tablet by mouth twice daily. clopidogrel (PLAVIX) 75 mg tablet TAKE 1 TABLET BY MOUTH EVERY DAY niacin ER (NIASPAN) 500 mg tablet TAKE 1 TABLET BY MOUTH EVERYDAY AT BEDTIME esomeprazole (NEXIUM) 40 (more content not included)...[facility]09-05-2023 Miscellaneous Notes* Telephone Encounter - Joyce Fountain - 12/25/2022 1:00 PM EDT Pharmacy verified in [facility] Patient has been identified by name and date of : Yes Patient aware RX will be sent to pharmacy. No need to notify patient. Patient phones for refill(s): Requested Prescriptions Pending Prescriptions Disp Refills Lancets lancets 100 Each 3 Sig: Test blood sugar(s) one times daily. Dx: Type 2 DM - Controlled E11.9 Insulin: No blood sugar diagnostic (ONETOUCH ULTRA TEST) test strip 100 Strip 5 Sig: TEST BLOOD SUGAR(S) ONCE DAILY. Date of last office visit : 10/24/2022 Date of next office visit : 01/23/2023 Last 2 Encounter Wt Readings: Date: Wt: 10/24/2022 105.2 kg (232 lb) 10/12/2022 107.5 kg (237 lb) Not applicable Please advise. Joyce Perera documented in this encounterW[facility]07-07-2023 Miscellaneous Notes* Telephone Encounter - Tonia Pérez LPN - 10/26/2022 10:05 AM EDT patient notified. Tonia Pérez LPN * Telephone Encounter - Swathi Dodge PA-C - 10/26/2022 7:15 AM EDT Please call patient and let him know I apologize- I think they proposed an old prescription (dosage) to me. I sent in the proper dosage now. I'm really sorry about that. Swathi Dodge PA-C * Telephone Encounter - Lizet De Luna LPN - 10/25/2022 10:34 AM EDT Pt called in and he normally takes Keppra 1,000 mg (2) tablets twice a day. The prescription sent to the pharmacy was for 750 mg. Pt asking if this was mistake or is he to decrease. Pt reports 1,000 mg (2)tablets twice a day does well on this. Please advise pt. He is waiting to product picker medication [facility]. documented in this encounterWooster [facility]07-05-2023 NoteHNO ID: [id number] Author: Swathi Dodge PA-C Service: ? Author Type: Physician Heating And Cooling Systems Engineer Type: Progress Notes Filed: 10/24/2022 2:56 PM Note Text: CC: Patient presents with: Follow Up: blood pressure HPI Lakeshia Thorpe is a 76 year old male who presents today for BP f/u. Patient was last seen for this approximately 2 weeks ago (on 10/12). Medication changes: Atenolol was increased to 25 mg BID Taking all medications as prescribed: Yes - also on HCTZ and Losartan Side effects: No Home BP's: Yes - brings BP logs today. Ranging from 102/51 to 127/69. Denies: headache, chest pain, palpitations, dyspnea, and peripheral edema. Last 4 Encounter BP Readings: Date: BP: 10/12/2022 154/83[BP Patric[ 07/12/2022 130/78 04/02/2022 150/78 02/19/2022 151/81 Last 3 Encounter Wt Readings: Date: Wt: 10/12/2022 107.5 kg (237 lb) 07/12/2022 109.3 kg (241 lb) 04/02/2022 111.1 kg (245 lb) Has been cutting down on portion size, and has been minimizing starches and sweets -- is now down about 10 lbs from his baseline. States he's in the process of ordering a smart watch off of [employer] that checks BP, HR, and pulse ox and syncs to his phone; so he will no longer have to manually write out a log-- the one he borrowed from his stepson seems to be accurate and matches up with his readings. Will be seeing cardiology, Marlin Escoto, [facility] at [facility] 11/07/22. REVIEW OF SYSTEMS All other systems negative. PAST MEDICAL HISTORY Diagnosis Date Benign neoplasm of colon Benign neoplasm of colon Chest pain, unspecified Degeneration of intervertebral disc, site unspecified Diabetes (HCC) Diverticulosis of colon (without mention of hemorrhage) Esophageal reflux Internal hemorrhoids without mention of complication Other and unspecified hyperlipidemia 09/24/2006 Other convulsions Pure hypercholesterolemia Seizures (HCC) Unspecified asthma(493.90) Unspecified essential hypertension PAST SURGICAL HISTORY Procedure Laterality Date ANESTHESIA HERNIA REPAIR LOWER ABDOMEN NOS 07/05/05 CHOLECYSTECTOMY 03/27/89 Cholecystectomy COLECTOMY PARTIAL W/ANASTOMOSIS 07/05/05 LAP RIGHT COLECTOMY COLONOSCOPY FLX DX W/COLLJ SPEC WHEN PFRMD 03/30/2005 Colonoscopy COLONOSCOPY FLX DX W/COLLJ SPEC WHEN PFRMD 05/14/05 COLONOSCOPY FLX DX W/COLLJ SPEC WHEN PFRMD 10/22/08 COLONOSCOPY FLX DX W/COLLJ SPEC WHEN PFRMD 10-19-14 COLONOSCOPY W/BIOPSY SINGLE/MULTIPLE 08/09/06 Small polyp prox. transverse EGD TRANSORAL BIOPSY SINGLE/MULTIPLE 10-19-14 HEMORRHOIDECTOMY INTERNAL RUBBER BAND LIGATIONS 02/24/99 Hemorrhoidectomy REM LESION NEC,HND,SCAL,FEET,GENITALIA 1.1-2.0CM 05/22/06 Exc. catie cyst posterior neck SKIN BX, 1 LESION 12/19/10 Amputation left anterior thigh skin lesion ALLERGIES Cipro [Ciprofloxacin] MEDICATIONS phenytoin ER (DILANTIN) 100 mg ER capsule 2 capsules in the am and 3 capsules in the pm metFORMIN ER (GLUCOPHAGE XR) 500 mg 24 hr tablet Take 1 tablet by mouth twice daily with meals. atenolol (TENORMIN) 25 mg tablet Take 1 tablet by mouth twice daily. clopidogrel (PLAVIX) 75 mg tablet TAKE 1 TABLET BY MOUTH EVERY DAY blood sugar diagnostic ([employer] ULTRA TEST) test strip TEST BLOOD SUGAR(S) ONCE DAILY. niacin ER (NIASPAN) 500 mg tablet TAKE 1 TABLET BY MOUTH EVERYDAY AT BEDTIME esomeprazole (NEXIUM) 40 mg capsule TAKE 1 CAPSULE BY MOUTH ONCE DAILY NEEDED. hydroCHLOROthiazide (HYDRODIURIL, ESIDRIX) 25 mg tablet TAKE 1 TABLET BY MOUTH EVERY DAY fenofibrate nanocrystallized (TRICOR) 145 mg tablet TAKE 1 TABLET BY MOUTH EVERY DAY losartan (COZAAR) 100 mg tablet Take 1 tablet by mouth once daily. levETIRAcetam (KEPPRA) 1,000 mg tablet Take 2 tablets by mouth twice daily. Lancets lancets Test blood sugar(s) one times daily. Dx: Type 2 DM - Controlled E11.9 Insulin: No atorvastatin (LIPITOR) 80 mg tablet Take 1 tablet by mouth daily at bedtime. For cholesterol. isosorbide mononitrate ER (IMDUR) 30 mg 24 hr tablet Take 1 tablet by mouth once daily. blood sugar diagnostic (BLOOD GLUCOSE TEST) test strip Test blood sugar(s) one times daily. Dx: Type 2 DM - Controlled E11.9 Insulin: No betamethasone dipropionate 0.05 % ointment Apply 1 application to affected area twice daily. blood sugar diagnostic (TRUETRACK TEST) test strip Test blood sugar(s) 1 times daily. Dx: 250.00. Insulin: No FOLIC ACID/MULTIVIT-MIN/LUTEIN (CENTRUM SILVER ORAL) Take by mouth. aspirin, enteric coated (ASPIRIN, ENTERIC COATED) 81 mg EC tablet Take 1 tablet by mouth once daily. FAMILY HISTORY Problem Relation Age of Onset Diabetes Mother other (stone cutters consumption [Other]) Father smoker, drinker Social History Tobacco Use Smoking status: Former Packs/day: 4.50 Years: 25.00 Pack years: 112.50 Types: Cigarettes Quit date: 02/16/1985 Years since quittin.7 Smokeless tobacco: Never Substance Use Topics Alcohol use: No Drug use: No PHYSICAL EXAM BP 120/70 Pulse 6 (more content not included)...[facility] 10-24-2022 Miscellaneous Notes* Telephone Encounter - Tonia Elisa MORRISON - 10/24/2022 1:35 PM EDT Patient has been identified by name and date of : No Patient phones for refill(s): Requested Prescriptions Pending Prescriptions Disp Refills levETIRAcetam (KEPPRA) 750 mg tablet [Pharmacy Med Name: LEVETIRACETAM 750 MG TABLET] 360 tablet 3 Sig: TAKE 2 TABLETS BY MOUTH TWICE A DAY Date of last office visit in primary care: 10/24/22 Last 2 Encounter Wt Readings: Date: Wt: 10/24/2022 105.2 kg (232 lb) 10/12/2022 107.5 kg (237 lb) Previous labs/tests for medication: Not applicable Please advise. Thank you. Tonia Pérez LPN documented in [facility] History of Present illness Narrative* Swathi Dodge PA-C - 10/24/2022 12:24 PM EDT CC: Patient presents with: Follow Up: blood pressure HPI Lakeshia Thorpe is a 76 year old male who presents today for BP f/u. Patient was last seen for this approximately 2 weeks ago (on 10/12). Medication changes: Atenolol was increased to 25 mg BID Taking all medications as prescribed: Yes - also on HCTZ and Losartan Side effects: No Home BP's: Yes - brings BP logs today. Ranging from 102/51 to 127/69. Denies: headache, chest pain, palpitations, dyspnea, and peripheral edema. Last 4 Encounter BP Readings: Date: BP: 10/12/2022 154/83[BP Patric[ 07/12/2022 130/78 04/02/2022 150/78 02/19/2022 151/81 Last 3 Encounter Wt Readings: Date: Wt: 10/12/2022 107.5 kg (237 lb) 07/12/2022 109.3 kg (241 lb) 04/02/2022 111.1 kg (245 lb) Has been cutting down on portion size, and has been minimizing starches and sweets -- is now down about 10 lbs from his baseline. States he's in the process of ordering a smart watch off of [employer] that checks BP, HR, and pulse oxand syncs to his phone; so he will no longer have to manually write out a log-- the one he borrowedfrom his stepson seems to be accurate and matches up with his readings. Will be seeing cardiology, Marlin Escoto, EV[facility] at [facility] 11/07/22. REVIEW OF SYSTEMS All other systems negative. PAST MEDICAL HISTORY Diagnosis Date Benign neoplasm of colon Benign neoplasm of colon Chest pain, unspecified Degeneration of intervertebral disc, site unspecified Diabetes (HCC) Diverticulosis of colon (without mention of hemorrhage) Esophageal reflux Internal hemorrhoids without mention of complication Other and unspecified hyperlipidemia 09/24/2006 Other convulsions Pure hypercholesterolemia Seizures (HCC) Unspecified asthma(493.90) Unspecified essential hypertension PAST SURGICAL HISTORY Procedure Laterality Date ANESTHESIA HERNIA REPAIR LOWER ABDOMEN NOS 07/05/05 CHOLECYSTECTOMY 03/27/89 Cholecystectomy COLECTOMY PARTIAL W/ANASTOMOSIS 07/05/05 LAP RIGHT COLECTOMY COLONOSCOPY FLX DX W/COLLJ SPEC WHEN PFRMD 03/30/2005 Colonoscopy COLONOSCOPY FLX DX W/COLLJ SPEC WHEN PFRMD 05/14/05 COLONOSCOPY FLX DX W/COLLJ SPEC WHEN PFRMD 10/22/08 COLONOSCOPY FLX DX W/COLLJ SPEC WHEN PFRMD 10-19-14 COLONOSCOPY W/BIOPSY SINGLE/MULTIPLE 08/09/06 Small polyp prox. transverse EGD TRANSORAL BIOPSY SINGLE/MULTIPLE 10-19-14 HEMORRHOIDECTOMY INTERNAL RUBBER BAND LIGATIONS 02/24/99 Hemorrhoidectomy REM LESION NEC,HND,SCAL,FEET,GENITALIA 1.1-2.0CM 05/22/06 Exc. catie cyst posterior neck SKIN BX, 1 LESION 12/19/10 Amputation left anterior thigh skin lesion ALLERGIES Cipro [Ciprofloxacin] MEDICATIONS phenytoin ER (DILANTIN) 100 mg ER capsule 2 capsules in the am and 3 capsules in the pm metFORMIN ER (GLUCOPHAGE XR) 500 mg 24 hr tablet Take 1 tablet by mouth twice daily with meals. atenolol (TENORMIN) 25 mg tablet Take 1 tablet by mouth twice daily. clopidogrel (PLAVIX) 75 mg tablet TAKE 1 TABLET BY MOUTH EVERY DAY blood sugar diagnostic ([employer] ServicesTOUCH ULTRA TEST) test strip TEST BLOOD SUGAR(S) ONCE DAILY. niacin ER (NIASPAN) 500 mg tablet TAKE 1 TABLET BY MOUTH EVERYDAY AT BEDTIME esomeprazole (NEXIUM) 40 mg capsule TAKE 1 CAPSULE BY MOUTH ONCE DAILY NEEDED. hydroCHLOROthiazide (HYDRODIURIL, ESIDRIX) 25 mg tablet TAKE 1 TABLET BY MOUTH EVERY DAY fenofibrate nanocrystallized (TRICOR) 145 mg tablet TAKE 1 TABLET BY MOUTH EVERY DAY losartan (COZAAR) 100 mg tablet Take 1 tablet by mouth once daily. levETIRAcetam (KEPPRA) 1,000 mg tablet Take 2 tablets by mouth twice daily. Lancets lancets Test blood sugar(s) one times daily. Dx: Type 2 DM - Controlled E11.9 Insulin: No atorvastatin (LIPITOR) 80 mg tablet Take 1 tablet by mouth daily at bedtime. For cholesterol. isosorbide mononitrate ER (IMDUR) 30 mg 24 hr tablet Take 1 tablet by mouth once daily. blood sugar diagnostic (BLOOD GLUCOSE TEST) test strip Test blood sugar(s) one times daily. Dx: Type 2 DM - Controlled E11.9 Insulin: No betamethasone dipropionate 0.05 % ointment Apply 1 application to affected area twice daily. blood sugar diagnostic (TRUETRACK TEST) test strip Test blood sugar(s) 1 times daily. Dx: 250.00. Insulin: No FOLIC ACID/MULTIVIT-MIN/LUTEIN (CENTRUM SILVER ORAL) Take by mouth. aspirin, enteric coated (ASPIRIN, ENTERIC COATED) 81 mg EC tablet Take 1 tablet by mouth once daily. FAMILY HISTORY Problem Relation Age of Onset Diabetes Mother other (stone cutters consumption [Other]) Father smoker, drinker Social History Tobacco Use Smoking status: Former Packs/day: 4.50 Years: 25.00 Pack years: 112.50 Types: Cigarettes Quit date: 02/16/1985 Years since quittin.7 Smokeless tobacco: Never Substance Use Topics Alcohol use: No Drug use: No PHYSICAL EXAM BP 120/70 Pulse 68 Resp 20 Wt 105.2 kg (232 lb) BMI 35.28 kg/m General Appearance: in no acute distress, alert Pysch: mood and affect broad and appropriate Skin: Skin color, texture, turgor normal for age; Head: normocephalic, atraumatic Eyes: conjunctiva pink and moist, no icterus, sclera white, non-injected Oropharynx: moist mucus membranes Lymph nodes: No cervical lymphadenopathy Lungs: Lungs clear to auscultation. No wheezing, rhonchi, rales. Heart: RRR without murmur, gallop, or rubs. Abdomen: Abdomen soft, non-tender. Bowel sounds normal. No masses, organomegaly Extremities: 1+ pitting edema noted bilaterally ~nursing home up anterior shins; No deformities, skin discoloration, clubbing or cyanosis. Good capillary refill. Neurological: Gait normal. Sensation grossly intact. ASSESSMENT/PLAN: 1. Essential hypertension - ICD9: 401.9, ICD10: I10 (primary diagnosis) - Controlled - Continue current medications - Recommend home blood pressure monitoring, to bring results to next visit - Encouraged sodium restriction, DASH or Mediterranean diet - Recommend regular aerobic exercise - BASIC METABOLIC PNL - HGB A1C - TSH BLD 2. Type 2 diabetes mellitus without complication, without long-term current use of insulin (HCC) - ICD9: 250.00, ICD10: E11.9 - Worsening control on recent A1c - Continue current medications- had metformin readded at prior visit Labs future ordered to complete prior to upcoming visit - BASIC METABOLIC PNL - HGB A1C - TSH BLD 3. Leg edema - ICD9: 782.3, ICD10: R60.0 Incidentally noted on exam-- f/u as planned w/ cardio. See above regarding BP control Will also add on TSH to evaluate further - TSH BLD Prescription instructions reviewed with patient as applicable. Potential red flag symptoms discussed with the patient. Reviewed appropriate action plan to take ifred flag symptoms occur. F/u in 3 months for recheck of sugars/other chronic issues. Patient agreeable to treatment plan. Swathi Dodge PA-C documented in this encounter[facility]06-[facility]23 NoteHNO ID: [id number] Author: Stacia Chappell APRN.COIL CLEANER Service: ? Author Type: Nurse Practitioner Type: Progress Notes Filed: 10/12/2022 2:57 PM Note Text: CC: Patient presents with: Recheck: 3 Month DM follow up HPI Lakeshia Thorpe is a 76 year old male who presents today for diabetic follow up. Has an upcoming appointment with neruology. No further seizure activity. Needs refill on phenytoin. States unable to get through with neurology office to get this sent in. Brought last paperwork from neuro office verifying phenytoin dose. DIABETES MELLITUS: Mr. Thorpe denies excessive thirst or increased frequency of urination, chest pain or dyspnea , numbness, tingling or pain in extremities, new or unusual visual symptoms, low sugar/hypoglycemic reactions, weight loss/gain, lightheadedness/dizziness, and bowel changes/loose stools. Follows a diabetic diet some of the time. He is compliant with medication(s) and is tolerating med(s) without any side effects. He reports checking his glucose on a once a day schedule with sugars in the fasting 160s-170s range. Patient's last HgA1C was Hemoglobin A1C (%) Date Value 10/09/2022 7.4 07/09/2022 7.0 02/22/2021 6.8 04/21/2020 6.6 Hemoglobin A1C (POCT) (%) Date Value 06/06/2021 6.7 12/02/2020 6.1 ) Last Ophthalmology exam was within the past 12 months HTN and HLD: Mr. Thorpe indicates that he is feeling well and denies any symptoms referable to elevated blood pressure. Specifically denies headache, chest pain, palpitations, dyspnea, and no change in chronic dependant edema. Patient denies any side effects of his medication(s) and is compliant with their regimen. He does not check BP's generally. Lakeshia works out regularly 1-2 times per week with yardwork. He watches his diet for sodium, low fat and low cholesterol some of the time. Last 3 Encounter BP Readings: Date: BP: 10/12/2022 148/98 - 154/83 07/12/2022 130/78 04/02/2022 150/78 REVIEW OF SYSTEMS General: no fevers, no chills, no night sweats, no recurrent infections, no change in appetite, no change in energy, and no significant changes in weight Respiratory: no cough, no wheezing, no shortness of breath, no hemoptysis Cardiovascular: no chest pain, no chest pressure, and no palpitations Neurologic: No headache, weakness, numbness, tingling, dizziness, memory loss, syncope. PAST MEDICAL HISTORY Diagnosis Date Benign neoplasm of colon Benign neoplasm of colon Chest pain, unspecified Degeneration of intervertebral disc, site unspecified Diabetes (HCC) Diverticulosis of colon (without mention of hemorrhage) Esophageal reflux Internal hemorrhoids without mention of complication Other and unspecified hyperlipidemia 09/24/2006 Other convulsions Pure hypercholesterolemia Seizures (HCC) Unspecified asthma(493.90) Unspecified essential hypertension PAST SURGICAL HISTORY Procedure Laterality Date ANESTHESIA HERNIA REPAIR LOWER ABDOMEN NOS 07/05/05 CHOLECYSTECTOMY 03/27/89 Cholecystectomy COLECTOMY PARTIAL W/ANASTOMOSIS 07/05/05 LAP RIGHT COLECTOMY COLONOSCOPY FLX DX W/COLLJ SPEC WHEN PFRMD 03/30/2005 Colonoscopy COLONOSCOPY FLX DX W/COLLJ SPEC WHEN PFRMD 05/14/05 COLONOSCOPY FLX DX W/COLLJ SPEC WHEN PFRMD 10/22/08 COLONOSCOPY FLX DX W/COLLJ SPEC WHEN PFRMD 10-19-14 COLONOSCOPY W/BIOPSY SINGLE/MULTIPLE 08/09/06 Small polyp prox. transverse EGD TRANSORAL BIOPSY SINGLE/MULTIPLE 10-19-14 HEMORRHOIDECTOMY INTERNAL RUBBER BAND LIGATIONS 02/24/99 Hemorrhoidectomy REM LESION NEC,HND,SCAL,FEET,GENITALIA 1.1-2.0CM 05/22/06 Exc. catie cyst posterior neck SKIN BX, 1 LESION 12/19/10 Amputation left anterior thigh skin lesion ALLERGIES Cipro [Ciprofloxacin] MEDICATIONS clopidogrel (PLAVIX) 75 mg tablet TAKE 1 TABLET BY MOUTH EVERY DAY niacin ER (NIASPAN) 500 mg tablet TAKE 1 TABLET BY MOUTH EVERYDAY AT BEDTIME esomeprazole (NEXIUM) 40 mg capsule TAKE 1 CAPSULE BY MOUTH ONCE DAILY NEEDED. hydroCHLOROthiazide (HYDRODIURIL, ESIDRIX) 25 mg tablet TAKE 1 TABLET BY MOUTH EVERY DAY fenofibrate nanocrystallized (TRICOR) 145 mg tablet TAKE 1 TABLET BY MOUTH EVERY DAY losartan (COZAAR) 100 mg tablet Take 1 tablet by mouth once daily. levETIRAcetam (KEPPRA) 1,000 mg tablet Take 2 tablets by mouth twice daily. phenytoin ER (DILANTIN) 100 mg ER capsule 2 capsules in the am and 3 capsules in the pm metFORMIN ER (GLUCOPHAGE XR) 500 mg 24 hr tablet Take 1 tablet by mouth twice daily with meals. atenolol (TENORMIN) 25 mg tablet Take 1 tablet by mouth twice daily. blood sugar diagnostic (Systems Maintenance ServicesTOUCH ULTRA TEST) test strip TEST BLOOD SUGAR(S) ONCE DAILY. Lancets lancets Test blood sugar(s) one times daily. Dx: Type 2 DM - Controlled E11.9 Insulin: No atorvastatin (LIPITOR) 80 mg tablet Take 1 tablet by mouth daily at bedtime. For cholesterol. isosorbide mononitrate ER (IMDUR) 30 mg 24 hr tablet Take 1 tablet by mouth once daily. blood sugar diagnostic (BLO (more content not included)...[facility]06-[facility] History of Present illness Narrative* Stacia Chappell, CRISTIN.COIL CLEANER - 10/12/2022 11:13 AM EDT CC: Patient presents with: Recheck: 3 Month DM follow up HPI Lakeshia Thorpe is a 76 year old male who presents today for diabetic follow up. Has an upcoming appointment with neruology. No further seizure activity. Needs refill on phenytoin.States unable to get through with neurology office to get this sent in. Brought last paperwork fromneuro office verifying phenytoin dose. DIABETES MELLITUS: Mr. Thorpe denies excessive thirst or increased frequency of urination, chest pain or dyspnea , numbness, tingling or pain in extremities, new or unusual visual symptoms, low sugar/hypoglycemic reactions, weight loss/gain, lightheadedness/dizziness, and bowel changes/loose stools.Follows a diabetic diet some of the time. He is compliant with medication(s) and is tolerating med(s) without any side effects. He reports checking his glucose on a once a day schedule with sugars inthe fasting 160s-170s range. Patient's last HgA1C was Hemoglobin A1C (%) Date Value 10/09/2022 7.4 07/09/2022 7.0 02/22/2021 6.8 04/21/2020 6.6 Hemoglobin A1C (POCT) (%) Date Value 06/06/2021 6.7 12/02/2020 6.1 ) Last Ophthalmology exam was within the past 12 months HTN and HLD: Mr. Thorpe indicates that he is feeling well and denies any symptoms referable to elevated blood pressure. Specifically denies headache, chest pain, palpitations, dyspnea, and no change in chronic dependant edema. Patient denies any side effects of his medication(s) and is compliant with their regimen. He does not check BP's generally. Lakeshia works out regularly 1-2 times per week with yardwork. He watches his diet for sodium, low fat and low cholesterol some of the time. Last 3 Encounter BP Readings: Date: BP: 10/12/2022 148/98 - 154/83 07/12/2022 130/78 04/02/2022 150/78 REVIEW OF SYSTEMS General: no fevers, no chills, no night sweats, no recurrent infections, no change in appetite, no change in energy, and no significant changes in weight Respiratory: no cough, no wheezing, no shortness of breath, no hemoptysis Cardiovascular: no chest pain, no chest pressure, and no palpitations Neurologic: No headache, weakness, numbness, tingling, dizziness, memory loss, syncope. PAST MEDICAL HISTORY Diagnosis Date Benign neoplasm of colon Benign neoplasm of colon Chest pain, unspecified Degeneration of intervertebral disc, site unspecified Diabetes (HCC) Diverticulosis of colon (without mention of hemorrhage) Esophageal reflux Internal hemorrhoids without mention of complication Other and unspecified hyperlipidemia 09/24/2006 Other convulsions Pure hypercholesterolemia Seizures (HCC) Unspecified asthma(493.90) Unspecified essential hypertension PAST SURGICAL HISTORY Procedure Laterality Date ANESTHESIA HERNIA REPAIR LOWER ABDOMEN NOS 07/05/05 CHOLECYSTECTOMY 03/27/89 Cholecystectomy COLECTOMY PARTIAL W/ANASTOMOSIS 07/05/05 LAP RIGHT COLECTOMY COLONOSCOPY FLX DX W/COLLJ SPEC WHEN PFRMD 03/30/2005 Colonoscopy COLONOSCOPY FLX DX W/COLLJ SPEC WHEN PFRMD 05/14/05 COLONOSCOPY FLX DX W/COLLJ SPEC WHEN PFRMD 10/22/08 COLONOSCOPY FLX DX W/COLLJ SPEC WHEN PFRMD 10-19-14 COLONOSCOPY W/BIOPSY SINGLE/MULTIPLE 08/09/06 Small polyp prox. transverse EGD TRANSORAL BIOPSY SINGLE/MULTIPLE 10-19-14 HEMORRHOIDECTOMY INTERNAL RUBBER BAND LIGATIONS 02/24/99 Hemorrhoidectomy REM LESION NEC,HND,SCAL,FEET,GENITALIA 1.1-2.0CM 05/22/06 Exc. catie cyst posterior neck SKIN BX, 1 LESION 12/19/10 Amputation left anterior thigh skin lesion ALLERGIES Cipro [Ciprofloxacin] MEDICATIONS clopidogrel (PLAVIX) 75 mg tablet TAKE 1 TABLET BY MOUTH EVERY DAY niacin ER (NIASPAN) 500 mg tablet TAKE 1 TABLET BY MOUTH EVERYDAY AT BEDTIME esomeprazole (NEXIUM) 40 mg capsule TAKE 1 CAPSULE BY MOUTH ONCE DAILY NEEDED. hydroCHLOROthiazide (HYDRODIURIL, ESIDRIX) 25 mg tablet TAKE 1 TABLET BY MOUTH EVERY DAY fenofibrate nanocrystallized (TRICOR) 145 mg tablet TAKE 1 TABLET BY MOUTH EVERY DAY losartan (COZAAR) 100 mg tablet Take 1 tablet by mouth once daily. levETIRAcetam (KEPPRA) 1,000 mg tablet Take 2 tablets by mouth twice daily. phenytoin ER (DILANTIN) 100 mg ER capsule 2 capsules in the am and 3 capsules in the pm metFORMIN ER (GLUCOPHAGE XR) 500 mg 24 hr tablet Take 1 tablet by mouth twice daily with meals. atenolol (TENORMIN) 25 mg tablet Take 1 tablet by mouth twice daily. blood sugar diagnostic (ONETOUCH ULTRA TEST) test strip TEST BLOOD SUGAR(S) ONCE DAILY. Lancets lancets Test blood sugar(s) one times daily. Dx: Type 2 DM - Controlled E11.9 Insulin: No atorvastatin (LIPITOR) 80 mg tablet Take 1 tablet by mouth daily at bedtime. For cholesterol. isosorbide mononitrate ER (IMDUR) 30 mg 24 hr tablet Take 1 tablet by mouth once daily. blood sugar diagnostic (BLOOD GLUCOSE TEST) test strip Test blood sugar(s) one times daily. Dx: Type 2 DM - Controlled E11.9 Insulin: No betamethasone dipropionate 0.05 % ointment Apply 1 application to affected area twice daily. blood sugar diagnostic (TRUETRACK TEST) test strip Test blood sugar(s) 1 times daily. Dx: 250.00. Insulin: No FOLIC ACID/MULTIVIT-MIN/LUTEIN (CENTRUM SILVER ORAL) Take by mouth. aspirin, enteric coated (ASPIRIN, ENTERIC COATED) 81 mg EC tablet Take 1 tablet by mouth once daily. FAMILY HISTORY Problem Relation Age of Onset Diabetes Mother other (stone cutters consumption [Other]) Father smoker, drinker Social History Tobacco Use Smoking status: Former Packs/day: 4.50 Years: 25.00 Pack years: 112.50 Types: Cigarettes Quit date: 02/16/1985 Years since quittin.6 Smokeless tobacco: Never Substance Use Topics Alcohol use: No Drug use: No PHYSICAL EXAM BP 154/83 Pulse 76 Temp 36.1 C (97 F) (Temporal) Resp 16 Wt 107.5 kg (237 lb) SpO2 97% BMI 36.04 kg/m General Appearance: well appearing, in no acute distress, alert Skin: Skin color, texture, turgor normal for age; Eyes: conjunctiva pink and moist, no icterus, sclera white, non-injected Neck: Thyroid normal size and symmetric without palpable nodules, Neck supple, No adenopathy Lymph nodes: No cervical lymphadenopathy and No supraclavicular lymphadenopathy Lungs: Lungs clear to auscultation. No wheezing, rhonchi, rales. Heart: RRR without murmur, gallop, or rubs. No ectopy Health maintenance reviewed with patient: BP CONTROLLED (<130/80) Never done DIABETIC FOOT EXAM due on 10/13/2022 DTAP,TDAP,TD(1 - Tdap) due on 10/13/2022 HEPATITIS C SCREENING due on 10/13/2022 SHINGRIX VACCINE(1 of 2) due on 10/13/2022 COLORECTAL CANCER SCREENING due on 04/02/2023 DILATED RETINAL EXAM due on 01/16/2023 HBA1C due on 04/10/2023 URINE ALBUMIN:CREATININE RATIO due on 07/10/2023 ANNUAL PCP TEAM CHRONIC DISEASE VISIT due on 07/13/2023 LDL CHOLESTEROL due on 10/10/2023 INFLUENZA Completed ADVANCE DIRECTIVE DISCUSSION Completed DEPRESSION ASSESSMENT Completed COVID-19 VACCINE Completed PNEUMOCOCCAL: 65+ Completed DATA REVIEWED: Most recent labs ASSESSMENT/PLAN: 1. Type 2 diabetes mellitus without complication, without long-term current use of insulin (HCC) - ICD9: 250.00, ICD10: E11.9 (primary diagnosis) - Uncontrolled increasing metformin, patient states he might not remember twice a day so if not will take 2 pills once a day - Continue current medications - Blood glucose monitoring on a once daily schedule - Counseled on healthy diet and regular exercise - Discussed need for and benefit of weight loss. BMI 36.04 kg/(m^2) - METFORMIN ER 500 MG TABLET,EXTENDED RELEASE 24 HR 2. Essential hypertension - ICD9: 401.9, ICD10: I10 - Uncontrolled - Continue current medications but increasing atenolol - Recommend home blood pressure monitoring, to bring results to next visit - Encouraged sodium restriction, DASH or Mediterranean diet - Recommend regular aerobic exercise - ATENOLOL 25 MG TABLET 3. Seizure disorder (HCC) - ICD9: 345.90, ICD10: G40.909 - no further seizure activity - continue current medications and upcoming neurology appointment. - PHENYTOIN SODIUM EXTENDED 100 MG CAPSULE 4. Pure hypercholesterolemia - ICD9: 272.0, ICD10: E78.00 - controlled except triglycerides still elevated, with better glucose control this should improve as well - continue current medications. - Counseled on healthy diet and regular exercise - Discussed need for and benefit of weight loss. BMI 36.04 kg/(m^2) Prescription instructions reviewed with patient as applicable. Potential red flag symptoms discussed with the patient. Reviewed appropriate action plan to take if red flag symptoms occur. Patient agreeable to treatment plan. Stacia Chappell APRN.CNP documented in this encounterW[facility]04-26-2023 Miscellaneous Notes* Telephone Encounter - Carolina Thorpe RN - 08/15/2022 9:00 AM EDT Patient calls and states that pharmacist told him that he is due for a new meter. Last Office Visit: 07/12/2022 Future Office Visit: 10/12/2022 Requested Prescriptions Pending Prescriptions Disp Refills Blood-Glucose Meter (ONETOUCH ULTRA2 METER) monitoring kit 1 Each 0 Si Each as needed for up to 1 day. One Touch Meter Kit Diagnosis: Type 2 DM - Controlled E11.9 Date of Last Labs: 07/09/2022 documented in this encounterW[facility]04-24-2023 NoteHNO ID: [id number] Author: Robin Nj Service: ? Author Type: ? Type: Progress Notes Filed: 08/13/2022 8:26 AM Note Text: [facility] of Present illness Narrative* Robin Nj - 08/13/2022 8:26 AM EDT error documented in this encounterW[facility]04-21-2023 NoteHNO ID: [id number] Author: Robin Nj Service: ? Author Type: ? Type: Progress Notes Filed: 08/10/2022 1:57 PM Note Text: Lakeshia Devyn Thorpe is identified through a medication adherence outreach initiative based on pharmacy claims data from [employer] (insurer) for MARIE medication(s) and Non-insulin DM medication(s). Patient is reviewed 08/10/22 due to medication adherence concerns with the following medications (name, strength, sig): losartan 100mg, take 1/2 tablet by mouth daily, Metformin ER 500mg. Take 1 tablet daily Per data/report, last fill date and days supply: Metformin due 07/24/22, losartan due 08/12/22 Per reconcile dispense, last fill date and days supply: Metformin filled on 07/28/22 for 90 day, losartan filled on 08/03/22 for 90 days Outcome of review/outreach: (choose outcome source and status) - Filled before Next fill date per reconcile dispense (losartan) - Filled after Next fill date per reconcile dispense ( metformin) [facility] NotePatient Outreach (PHPOHE) LAKESHIA THORPE ([id number]) 1945 M NFR Date Time Provider Department 08/10/22 DAVID CARRION PHPOHE During your visit today, we recorded the following information about you: Robin Nj 08/13/2022 8:26 AM Signed error Allergies As of Date: 08/10/2022 Noted Allergy Reaction CIPRO (CIPROFLOXACIN) 05/14/2006 Comments: Mild rash on chest, was taking robitussin with codeine at same time Date Reviewed: 07/12/2022 Reviewed by: Britney Wadsworth Ma - Fully Assessed Prescriptions as of 08/13/2022 - blood sugar diagnostic (Systems Maintenance ServicesTOUCH ULTRA TEST) test strip TEST BLOOD SUGAR(S) ONCE DAILY. - niacin ER (NIASPAN) 500 mg tablet TAKE 1 TABLET BY MOUTH EVERYDAY AT BEDTIME - esomeprazole (NEXIUM) 40 mg capsule TAKE 1 CAPSULE BY MOUTH ONCE DAILY NEEDED. - atenolol (TENORMIN) 25 mg tablet TAKE 1 TABLET BY MOUTH EVERY DAY - hydroCHLOROthiazide (HYDRODIURIL, ESIDRIX) 25 mg tablet TAKE 1 TABLET BY MOUTH EVERY DAY - fenofibrate nanocrystallized (TRICOR) 145 mg tablet TAKE 1 TABLET BY MOUTH EVERY DAY - metFORMIN ER (GLUCOPHAGE XR) 500 mg 24 hr tablet TAKE 1 TABLET BY MOUTH EVERY DAY - losartan (COZAAR) 100 mg tablet Take 1 tablet by mouth once daily. - levETIRAcetam (KEPPRA) 1,000 mg tablet Take 2 tablets by mouth twice daily. - phenytoin ER (DILANTIN) 100 mg ER capsule 2 capsules in the am and 3 capsules in the pm - clopidogrel (PLAVIX) 75 mg tablet Take 1 tablet by mouth once daily. - Lancets lancets Test blood sugar(s) one times daily. Dx: Type 2 DM - Controlled E11.9 Insulin: No - atorvastatin (LIPITOR) 80 mg tablet Take 1 tablet by mouth daily at bedtime. For cholesterol. - isosorbide mononitrate ER (IMDUR) 30 mg 24 hr tablet Take 1 tablet by mouth once daily. - blood sugar diagnostic (BLOOD GLUCOSE TEST) test strip Test blood sugar(s) one times daily. Dx: Type 2 DM - Controlled E11.9 Insulin: No - betamethasone dipropionate 0.05 % ointment Apply 1 application to affected area twice daily. - blood sugar diagnostic (TRUETRACK TEST) test strip Test blood sugar(s) 1 times daily. Dx: 250.00. Insulin: No - FOLIC ACID/MULTIVIT-MIN/LUTEIN (CENTRUM SILVER ORAL) Take by mouth. - aspirin, enteric coated (ASPIRIN, ENTERIC COATED) 81 mg EC tablet Take 1 tablet by mouth once daily. Problem List As Of Date 08/10/2022 Noted Resolved ASTHMA UNSPECIFIED [J45.909] ESOPHAGEAL REFLUX [K21.9] HYPERTENSION NOS [I10] 01/26/2015 CHEST PAIN NOS [R07.9] DISC DEGENERATION NOS [[id number]] Pure hypercholesterolemia [E78.00] CONVULSIONS NEC [R56.9] BENIGN NEOPLASM LG BOWEL [D12.6] 03/30/2005 DIVERTICULOSIS OF COLON W/O BLEED [K57.30] 03/30/2005 INT HEMORRHOID W/O COMPL [K64.8] 03/30/2005 EPIDERMAL CYST [L72.3] 04/09/2006 SOMNOLENCE [R40.4] 04/09/2006 01/25/2016 JOINT PAIN-SHLDER [M25.519] 04/12/2006 DYSMETABOLIC SYNDROME X [E88.81] 06/14/2006 SLEEP APNEA [G47.30] 06/14/2006 Hypertriglyceridemia [E78.1] 09/24/2006 Nonspecific abnormal results of liver function *09/24/2006 05/17/2022 PERSONAL HISTORY OF COLONIC POLYPS [Z86.010] 09/23/2008 Type II or unspecified type diabetes mellitus w*10/25/2008 04/27/2014 Neuralgia, neuritis, and radiculitis, unspecifi*11/14/2010 DM type 2 (diabetes mellitus, type 2) (HCC) [E1*04/27/2014 08/13/2018 Essential hypertension [I10] 01/26/2015 Seizure disorder (HCC) [G40.909] 07/28/2015 Type 2 diabetes mellitus without complication (*07/28/2015 Encounter Status:Closed by ROBIN NJ on 08/13/22[facility] Miscellaneous Notes* Telephone Encounter - Stacia Chappell APRN.CNP - 07/20/2022 3:41 PM EDT Please let patient know there should be refills for the losartan dose of 100mg once daily at the pharmacy. Thank you Stacia Chappell APRN.CNP * Telephone Encounter - MASOUD Mcgee - 07/20/2022 2:43 PM EDT TC to patient who went to his medicine cabinet and looked at his script. Patient states he is taking the 100 mg. MASOUD Mcgee * Telephone Encounter - Stacia Chappell APRN.CNP - 07/20/2022 11:48 AM EDT Please verify with patient. He is supposed to be on 100mg by our records did a different provider decrease his losartan dosage? .tcjp * Telephone Encounter - Lizet De Luna LPN - 07/19/2022 2:30 PM EDT Records show pt is on Losartan 100 mg not 50 mg being requested below. Lizet ARREOLA Patient has been identified by name and date of : Yes, Provider Dr. Carrion Date 07/19/22 Time 2:35 pm Pharmacy phones for refill(s): Requested Prescriptions Pending Prescriptions Disp Refills blood sugar diagnostic (ONETOUCH ULTRA TEST) test strip [Pharmacy Med Name: ONE TOUCH ULTRA BLUE TEST STRP] 100 Strip 5 Sig: TEST BLOOD SUGAR(S) ONCE DAILY. Refused Prescriptions Disp Refills losartan (COZAAR) 50 mg tablet [Pharmacy Med Name: LOSARTAN POTASSIUM 50 MG TAB] 90 tablet 3 Sig: TAKE 1 TABLET BY MOUTH EVERY DAY Date of last office visit in primary care: 07/12/22 next apt 10/12/22 Last 2 Encounter Wt Readings: Date: Wt: 07/12/2022 109.3 kg (241 lb) 04/02/2022 111.1 kg (245 lb) Previous labs/tests for medication: Diabetes: Hemoglobin A1C (%) Date Value 07/09/2022 7.0 02/05/2022 6.9 02/22/2021 6.8 04/21/2020 6.6 Hemoglobin A1C (POCT) (%) Date Value 06/06/2021 6.7 12/02/2020 6.1 Thank you. Lizet De Luna LPN documented in this encounterW[facility]03-23-2023 NoteHNO ID: [id number] Author: Stacia Chappell APRN.CNP Service: ? Author Type: Nurse Practitioner Type: Progress Notes Filed: 07/12/2022 12:21 PM Note Text: CC: Patient presents with: Recheck: 3 month follow up HPI Lakeshia Thorpe is a 76 year old male who presents today for routine follow up. HTN: Mr. Thorpe indicates that he is feeling well and denies any symptoms referable to elevated blood pressure. Specifically denies headache, chest pain, palpitations, dyspnea, and peripheral edema. Patient denies any side effects of his medication(s) and is compliant with their regimen. He does not check BP's generally. Last 3 Encounter BP Readings: Date: BP: 07/12/2022 130/78 04/02/2022 150/78 02/19/2022 151/81 Seizure Disorder: No further seizure activity since last January. Sees neruology for routine follow up in August. DIABETES MELLITUS: Mr. Thorpe denies excessive thirst or increased frequency of urination, chest pain or dyspnea , numbness, tingling or pain in extremities, new or unusual visual symptoms, low sugar/hypoglycemic reactions, weight loss/gain, lightheadedness/dizziness, and bowel changes/loose stools. Follows a diabetic diet most of the time. He is compliant with medication(s) and is tolerating med(s) without any side effects. He reports checking his glucose on a once a day schedule with sugars in the fasting 140s range. Patient's last HgA1C was Hemoglobin A1C (%) Date Value 07/09/2022 7.0 02/05/2022 6.9 02/22/2021 6.8 04/21/2020 6.6 Hemoglobin A1C (POCT) (%) Date Value 06/06/2021 6.7 12/02/2020 6.1 ) Last Ophthalmology exam was within the past 6 months Has had slight increase to HgbA1c but has been becoming more active and trying to eat a healthier diet. Has lost 5 pounds recently with healthy lifestyle choices. REVIEW OF SYSTEMS General: no fevers, no chills, no night sweats, no recurrent infections, no change in appetite, no change in energy, and no significant changes in weight Respiratory: no cough, no wheezing, no shortness of breath, no hemoptysis Cardiovascular: no chest pain, no chest pressure, no palpitations, and no swelling GI: No nausea, vomiting, or diarrhea Psych: PHQ2 is 0 Endocrine: no fatigue, no polyuria, no polyphagia, and no polydipsia Neurologic: No headache, weakness, numbness, tingling, dizziness, syncope. PAST MEDICAL HISTORY Diagnosis Date Benign neoplasm of colon Benign neoplasm of colon Chest pain, unspecified Degeneration of intervertebral disc, site unspecified Diabetes (HCC) Diverticulosis of colon (without mention of hemorrhage) Esophageal reflux Internal hemorrhoids without mention of complication Other and unspecified hyperlipidemia 09/24/2006 Other convulsions Pure hypercholesterolemia Seizures (HCC) Unspecified asthma(493.90) Unspecified essential hypertension PAST SURGICAL HISTORY Procedure Laterality Date ANESTHESIA HERNIA REPAIR LOWER ABDOMEN NOS 07/05/05 CHOLECYSTECTOMY 03/27/89 Cholecystectomy COLECTOMY PARTIAL W/ANASTOMOSIS 07/05/05 LAP RIGHT COLECTOMY COLONOSCOPY FLX DX W/COLLJ SPEC WHEN PFRMD 03/30/2005 Colonoscopy COLONOSCOPY FLX DX W/COLLJ SPEC WHEN PFRMD 05/14/05 COLONOSCOPY FLX DX W/COLLJ SPEC WHEN PFRMD 10/22/08 COLONOSCOPY FLX DX W/COLLJ SPEC WHEN PFRMD 10-19-14 COLONOSCOPY W/BIOPSY SINGLE/MULTIPLE 08/09/06 Small polyp prox. transverse EGD TRANSORAL BIOPSY SINGLE/MULTIPLE 10-19-14 HEMORRHOIDECTOMY INTERNAL RUBBER BAND LIGATIONS 02/24/99 Hemorrhoidectomy REM LESION NEC,HND,SCAL,FEET,GENITALIA 1.1-2.0CM 05/22/06 Exc. catie cyst posterior neck SKIN BX, 1 LESION 12/19/10 Amputation left anterior thigh skin lesion ALLERGIES Cipro [Ciprofloxacin] MEDICATIONS niacin ER (NIASPAN) 500 mg tablet TAKE 1 TABLET BY MOUTH EVERYDAY AT BEDTIME esomeprazole (NEXIUM) 40 mg capsule TAKE 1 CAPSULE BY MOUTH ONCE DAILY NEEDED. atenolol (TENORMIN) 25 mg tablet TAKE 1 TABLET BY MOUTH EVERY DAY hydroCHLOROthiazide (HYDRODIURIL, ESIDRIX) 25 mg tablet TAKE 1 TABLET BY MOUTH EVERY DAY fenofibrate nanocrystallized (TRICOR) 145 mg tablet TAKE 1 TABLET BY MOUTH EVERY DAY metFORMIN ER (GLUCOPHAGE XR) 500 mg 24 hr tablet TAKE 1 TABLET BY MOUTH EVERY DAY losartan (COZAAR) 100 mg tablet Take 1 tablet by mouth once daily. levETIRAcetam (KEPPRA) 1,000 mg tablet Take 2 tablets by mouth twice daily. phenytoin ER (DILANTIN) 100 mg ER capsule 2 capsules in the am and 3 capsules in the pm clopidogrel (PLAVIX) 75 mg tablet Take 1 tablet by mouth once daily. Lancets lancets Test blood sugar(s) one times daily. Dx: Type 2 DM - Controlled E11.9 Insulin: No blood sugar diagnostic (TRUE METRIX GLUCOSE TEST STRIP) test strip TEST BLOOD SUGAR(S) ONCE DAILY. [DX: TYPE 2 DM - CONTROLLED E11.9 INSULIN: NO] atorvastatin (LIPITOR) 80 mg tablet Take 1 tablet by mouth daily at bedtime. For cholesterol. isosorbide mononitrate ER (IMDUR) 30 mg 24 hr tablet Take 1 tablet by mouth once daily. bloo (more content not included)...[facility]03-07-[facility] Note Patient Outreach (INTMMN) LAKESHIA THORPE ([id number]) 1945 M NFR Date Time Provider Department 06/26/22 DAVID CARRION INTMMN During your visit today, we recorded the following information about you: Allergies As of Date: 06/26/2022 Noted Allergy Reaction CIPRO (CIPROFLOXACIN) 05/14/2006 Comments: Mild rash on chest, was taking robitussin with codeine at same time Date Reviewed: 04/02/2022 Reviewed by: Renetta De Los Santos - Fully Assessed Visit Diagnosis:Type 2 diabetes mellitus without complication (HCC) [E11.9] Order(s):ALBUMIN/CREAT RATIO RND UR [SQUACR] Order #: [id number] FUTURE HGB A1C [[id number]] Order #: [id number] FUTURE SCHEDULE LAB TESTING [[id number]] Order #: [id number] FUTURE Prescriptions as of 06/29/2022 - niacin ER (NIASPAN) 500 mg tablet TAKE 1 TABLET BY MOUTH EVERYDAY AT BEDTIME - esomeprazole (NEXIUM) 40 mg capsule TAKE 1 CAPSULE BY MOUTH ONCE DAILY NEEDED. - atenolol (TENORMIN) 25 mg tablet TAKE 1 TABLET BY MOUTH EVERY DAY - hydroCHLOROthiazide (HYDRODIURIL, ESIDRIX) 25 mg tablet TAKE 1 TABLET BY MOUTH EVERY DAY - fenofibrate nanocrystallized (TRICOR) 145 mg tablet TAKE 1 TABLET BY MOUTH EVERY DAY - metFORMIN ER (GLUCOPHAGE XR) 500 mg 24 hr tablet TAKE 1 TABLET BY MOUTH EVERY DAY - losartan (COZAAR) 100 mg tablet Take 1 tablet by mouth once daily. - levETIRAcetam (KEPPRA) 1,000 mg tablet Take 2 tablets by mouth twice daily. - phenytoin ER (DILANTIN) 100 mg ER capsule 2 capsules in the am and 3 capsules in the pm - clopidogrel (PLAVIX) 75 mg tablet Take 1 tablet by mouth once daily. - Lancets lancets Test blood sugar(s) one times daily. Dx: Type 2 DM - Controlled E11.9 Insulin: No - blood sugar diagnostic (TRUE METRIX GLUCOSE TEST STRIP) test strip TEST BLOOD SUGAR(S) ONCE DAILY. [DX: TYPE 2 DM - CONTROLLED E11.9 INSULIN: NO] - atorvastatin (LIPITOR) 80 mg tablet Take 1 tablet by mouth daily at bedtime. For cholesterol. - isosorbide mononitrate ER (IMDUR) 30 mg 24 hr tablet Take 1 tablet by mouth once daily. - blood sugar diagnostic (BLOOD GLUCOSE TEST) test strip Test blood sugar(s) one times daily. Dx: Type 2 DM - Controlled E11.9 Insulin: No - betamethasone dipropionate 0.05 % ointment Apply 1 application to affected area twice daily. - blood sugar diagnostic (TRUETRACK TEST) test strip Test blood sugar(s) 1 times daily. Dx: 250.00. Insulin: No - FOLIC ACID/MULTIVIT-MIN/LUTEIN (CENTRUM SILVER ORAL) Take by mouth. - aspirin, enteric coated (ASPIRIN, ENTERIC COATED) 81 mg EC tablet Take 1 tablet by mouth once daily. Problem List As Of Date 06/26/2022 Noted Resolved ASTHMA UNSPECIFIED [J45.909] ESOPHAGEAL REFLUX [K21.9] HYPERTENSION NOS [I10] 01/26/2015 CHEST PAIN NOS [R07.9] DISC DEGENERATION NOS [[id number]] Pure hypercholesterolemia [E78.00] CONVULSIONS NEC [R56.9] BENIGN NEOPLASM LG BOWEL [D12.6] 03/30/2005 DIVERTICULOSIS OF COLON W/O BLEED [K57.30] 03/30/2005 INT HEMORRHOID W/O COMPL [K64.8] 03/30/2005 EPIDERMAL CYST [L72.3] 04/09/2006 SOMNOLENCE [R40.4] 04/09/2006 01/25/2016 JOINT PAIN-SHLDER [M25.519] 04/12/2006 DYSMETABOLIC SYNDROME X [E88.81] 06/14/2006 SLEEP APNEA [G47.30] 06/14/2006 Hypertriglyceridemia [E78.1] 09/24/2006 Nonspecific abnormal results of liver function *09/24/2006 05/17/2022 PERSONAL HISTORY OF COLONIC POLYPS [Z86.010] 09/23/2008 Type II or unspecified type diabetes mellitus w*10/25/2008 04/27/2014 Neuralgia, neuritis, and radiculitis, unspecifi*11/14/2010 DM type 2 (diabetes mellitus, type 2) (HCC) [E1*04/27/2014 08/13/2018 Essential hypertension [I10] 01/26/2015 Seizure disorder (HCC) [G40.909] 07/28/2015 Type 2 diabetes mellitus without complication (*07/28/2015 Encounter Status:Closed by Soapets, Artimplant ABUSER on 06/29/22[facility] 05[facility] Miscellaneous Notes* Telephone Encounter - Lizet De Luna MANAGER IMMUNOLOGY - 05/16/2022 7:34 AM EST Patient has been identified by name and date of : Yes, Provider Dr. Carrion Date 05/16/22 Time 7:36 am Pharmacy phones for refill(s): Requested Prescriptions Pending Prescriptions Disp Refills niacin ER (NIASPAN) 500 mg tablet [Pharmacy Med Name: NIACIN ER 500 MG TABLET] 90 tablet 3 Sig: TAKE 1 TABLET BY MOUTH EVERYDAY AT BEDTIME esomeprazole (NEXIUM) 40 mg capsule [Pharmacy Med Name: ESOMEPRAZOLE MAG DR 40 MG CAP] 90 capsule 3 Sig: TAKE 1 CAPSULE BY MOUTH ONCE DAILY NEEDED. atenolol (TENORMIN) 25 mg tablet [Pharmacy Med Name: ATENOLOL 25 MG TABLET] 90 tablet 3 Sig: TAKE 1 TABLET BY MOUTH EVERY DAY hydroCHLOROthiazide (HYDRODIURIL, ESIDRIX) 25 mg tablet [Pharmacy Med Name: HYDROCHLOROTHIAZIDE 25 MG TAB] 90 tablet 3 Sig: TAKE 1 TABLET BY MOUTH EVERY DAY fenofibrate nanocrystallized (TRICOR) 145 mg tablet [Pharmacy Med Name: FENOFIBRATE 145 MG TABLET] 90 tablet 3 Sig: TAKE 1 TABLET BY MOUTH EVERY DAY metFORMIN ER (GLUCOPHAGE XR) 500 mg 24 hr tablet [Pharmacy Med Name: METFORMIN HCL ER 500 MG TABLET] 90 tablet 3 Sig: TAKE 1 TABLET BY MOUTH EVERY DAY Date of last office visit in primary care: 04/02/22 next apt 07/04/22 Last 2 Encounter Wt Readings: Date: Wt: 04/02/2022 111.1 kg (245 lb) 02/19/2022 110.2 kg (243 lb) Previous labs/tests for medication: Diabetes: Hemoglobin A1C (%) Date Value 02/05/2022 6.9 09/05/2021 6.9 02/22/2021 6.8 04/21/2020 6.6 Hemoglobin A1C (POCT) (%) Date Value 06/06/2021 6.7 12/02/2020 6.1 Blood Pressure: BUN (mg/dL) Date Value 02/05/2022 19 02/22/2021 15 Sodium (mmol/L) Date Value 02/05/2022 136 02/22/2021 129 Last 1 Encounter BP Readings: Date: BP: 04/02/2022 150/78 Thank you. Lizet De Luna LPN documented in [facility] encounterW[facility]01-23-2023 Miscellaneous Notes* Telephone Encounter - Katie Calderon RN - 05/14/2022 5:12 PM EST Patient calling back to say he is out of medication. Katie Calderon RN * Telephone Encounter - Lizet De Luna LPN - 05/14/2022 2:41 PM EST Last entry was a med update for Losartan. Please call pt when the prescription has been sent to the pharmacy. Patient has been identified by name and date of : Yes, Provider Dr. Xie Date 05/14/22 Time2:43 pm Patient phones for refill(s): Requested Prescriptions Pending Prescriptions Disp Refills losartan (COZAAR) 100 mg tablet 90 tablet 3 Sig: Take 1 tablet by mouth once daily. Date of last office visit in primary care: . next apt 07/04/22 Last 2 Encounter Wt Readings: Date: Wt: 04/02/2022 111.1 kg (245 lb) 02/19/2022 110.2 kg (243 lb) Previous labs/tests for medication: Blood Pressure: BUN (mg/dL) Date Value 02/05/2022 19 02/22/2021 15 Sodium (mmol/L) Date Value 02/05/2022 136 02/22/2021 129 Last 1 Encounter BP Readings: Date: BP: 04/02/2022 150/78 Please advise. Thank you. Lizet De Luna LPN documented in this encounterWo[facility]01-11-2023 Miscellaneous Notes* Telephone Encounter - Leonela Webb - 05/02/2022 11:02 AM EST Patient has been identified by name and date of : Yes, Provider ganta Date 05-02-22 Time 11:02 Patient phones for refill(s): Requested Prescriptions No prescriptions requested or ordered in this encounter Date of last office visit in primary care: 04-02-22 Last 2 Encounter Wt Readings: Date: Wt: 04/02/2022 111.1 kg (245 lb) 02/19/2022 110.2 kg (243 lb) Previous labs/tests for medication: Not applicable Please advise. Thank you. Leonela Webb Resending as [facility] still has it as taking 1/2 a day not 1 full one documented in this encounterWooster [facility]12-12-2022 NoteHNO ID: [id number] Author: Stacia Chappell APRN.COIL CLEANER Service: ? Author Type: Nurse Practitioner Type: Progress Notes Filed: 04/02/2022 12:32 PM Note Text: CC Patient presents with: Follow Up HPI Lakeshia Thorpe is a 76 year old male who presents to the office for blood pressure. His visit today is for follow-up. Patient was last seen for this approximately 1 month ago. Medication changes: No. BP was elevated in office but he appointment with cardiology within a few days so no change to meds in office at that time. Cardiology increased his losartan to 1 full tablet equaling 100mg once daily Taking all medications as prescribed: Yes Side effects: No Home BP's: Yes 120s-130s/70s Denies: headache, chest pain, palpitations, dyspnea, and peripheral edema. Last 4 Encounter BP Readings: Date: BP: 04/02/2022 170/78 02/19/2022 151/81 02/14/2022 150/82 02/12/2022 142/80 Last 3 Encounter Wt Readings: Date: Wt: 04/02/2022 111.1 kg (245 lb) 02/19/2022 110.2 kg (243 lb) 02/14/2022 109.8 kg (242 lb) Exercise: works out regularly 2 times per week with walking on treadmill. Diet: Watch for salt, fat, cholesterol: Yes but not always. Caffeine: 2-3 Water intake: 3-4 bottles Alcohol intake: no . Smoking: No Frequent NSAID use: No Decongestants: No Thyroid disorders? No Sleep disorders/snoring? No REVIEW OF SYSTEMS General: no fevers, no chills, no night sweats, no recurrent infections, no change in appetite, no change in energy, and no significant changes in weight Respiratory: no cough, no wheezing, no shortness of breath, no hemoptysis Cardiovascular: no chest pain, no chest pressure, no palpitations, and no swelling Neurologic: No headache, weakness, numbness, tingling, dizziness, memory loss, syncope. PAST MEDICAL HISTORY Diagnosis Date Benign neoplasm of colon Benign neoplasm of colon Chest pain, unspecified Degeneration of intervertebral disc, site unspecified Diabetes (HCC) Diverticulosis of colon (without mention of hemorrhage) Esophageal reflux Internal hemorrhoids without mention of complication Other and unspecified hyperlipidemia 09/24/2006 Other convulsions Pure hypercholesterolemia Seizures (HCC) Unspecified asthma(493.90) Unspecified essential hypertension PAST SURGICAL HISTORY Procedure Laterality Date ANESTHESIA HERNIA REPAIR LOWER ABDOMEN NOS 07/05/05 CHOLECYSTECTOMY 03/27/89 Cholecystectomy COLECTOMY PARTIAL W/ANASTOMOSIS 07/05/05 LAP RIGHT COLECTOMY COLONOSCOPY FLX DX W/COLLJ SPEC WHEN PFRMD 03/30/2005 Colonoscopy COLONOSCOPY FLX DX W/COLLJ SPEC WHEN PFRMD 05/14/05 COLONOSCOPY FLX DX W/COLLJ SPEC WHEN PFRMD 10/22/08 COLONOSCOPY FLX DX W/COLLJ SPEC WHEN PFRMD 10-19-14 COLONOSCOPY W/BIOPSY SINGLE/MULTIPLE 08/09/06 Small polyp prox. transverse EGD TRANSORAL BIOPSY SINGLE/MULTIPLE 10-19-14 HEMORRHOIDECTOMY INTERNAL RUBBER BAND LIGATIONS 02/24/99 Hemorrhoidectomy REM LESION NEC,HND,SCAL,FEET,GENITALIA 1.1-2.0CM 05/22/06 Exc. catie cyst posterior neck SKIN BX, 1 LESION 12/19/10 Amputation left anterior thigh skin lesion ALLERGIES Cipro [Ciprofloxacin] MEDICATIONS losartan (COZAAR) 100 mg tablet TAKE 1/2 TABLET BY MOUTH ONCE DAILY levETIRAcetam (KEPPRA) 1,000 mg tablet Take 2 tablets by mouth twice daily. phenytoin ER (DILANTIN) 100 mg ER capsule 2 capsules in the am and 3 capsules in the pm clopidogrel (PLAVIX) 75 mg tablet Take 1 tablet by mouth once daily. Lancets lancets Test blood sugar(s) one times daily. Dx: Type 2 DM - Controlled E11.9 Insulin: No esomeprazole (NEXIUM) 40 mg capsule Take 1 capsule by mouth once daily as needed. niacin ER (NIASPAN) 500 mg tablet Take 1 tablet by mouth daily at bedtime. atenolol (TENORMIN) 25 mg tablet Take 1 tablet by mouth once daily. metFORMIN ER (GLUCOPHAGE XR) 500 mg 24 hr tablet Take 1 tablet by mouth once daily. blood sugar diagnostic (TRUE METRIX GLUCOSE TEST STRIP) test strip TEST BLOOD SUGAR(S) ONCE DAILY. [DX: TYPE 2 DM - CONTROLLED E11.9 INSULIN: NO] hydroCHLOROthiazide (HYDRODIURIL, ESIDRIX) 25 mg tablet TAKE 1 TABLET BY MOUTH EVERY DAY fenofibrate nanocrystallized (TRICOR) 145 mg tablet TAKE 1 TABLET BY MOUTH EVERY DAY atorvastatin (LIPITOR) 80 mg tablet Take 1 tablet by mouth daily at bedtime. For cholesterol. isosorbide mononitrate ER (IMDUR) 30 mg 24 hr tablet Take 1 tablet by mouth once daily. blood sugar diagnostic (BLOOD GLUCOSE TEST) test strip Test blood sugar(s) one times daily. Dx: Type 2 DM - Controlled E11.9 Insulin: No betamethasone dipropionate 0.05 % ointment Apply 1 application to affected area twice daily. blood sugar diagnostic (TRUETRACK TEST) test strip Test blood sugar(s) 1 times daily. Dx: 250.00. Insulin: No FOLIC ACID/MULTIVIT-MIN/LUTEIN (CENTRUM SILVER ORAL) Take by mouth. aspirin, enteric coated (ASPIRIN, ENTERIC COATED) 81 mg EC tablet Take 1 tablet by mouth once daily. FAMILY HISTORY Problem Relation Age of Onset Crystal (more content not included)...[facility]12-12-[facility] Instructions* Patient Instructions* Stacia Chappell APRN.CNP - 04/02/2022 10:52 AM EST Continue to monitor Blood Pressures at home. Goal Blood pressure is less than 130/80. Call for Blood Pressure consistently greater than 140/80. Bring Blood pressure cuff with you to next appointment for validation. documented in this encounter[facility]12[facility] History of Present illness Narrative* Stacia Chappell APRN.CNP - 04/02/2022 10:38 AM EST CC Patient presents with: Follow Up HPI Lakeshia Thorpe is a 76 year old male who presents to the office for blood pressure. His visit today is for follow-up. Patient was last seen for this approximately 1 month ago. Medication changes: No. BP was elevated in office but he appointment with cardiology within a few days so no change to meds in office at that time. Cardiology increased his losartan to 1 full tablet equaling 100mg once daily Taking all medications as prescribed: Yes Side effects: No Home BP's: Yes 120s-130s/70s Denies: headache, chest pain, palpitations, dyspnea, and peripheral edema. Last 4 Encounter BP Readings: Date: BP: 04/02/2022 170/78 02/19/2022 151/81 02/14/2022 150/82 02/12/2022 142/80 Last 3 Encounter Wt Readings: Date: Wt: 04/02/2022 111.1 kg (245 lb) 02/19/2022 110.2 kg (243 lb) 02/14/2022 109.8 kg (242 lb) Exercise: works out regularly 2 times per week with walking on treadmill. Diet: Watch for salt, fat, cholesterol: Yes but not always. Caffeine: 2-3 Water intake: 3-4 bottlesAlcohol intake: no . Smoking: No Frequent NSAID use: No Decongestants: No Thyroid disorders? No Sleep disorders/snoring? No REVIEW OF SYSTEMS General: no fevers, no chills, no night sweats, no recurrent infections, no change in appetite, no change in energy, and no significant changes in weight Respiratory: no cough, no wheezing, no shortness of breath, no hemoptysis Cardiovascular: no chest pain, no chest pressure, no palpitations, and no swelling Neurologic: No headache, weakness, numbness, tingling, dizziness, memory loss, syncope. PAST MEDICAL HISTORY Diagnosis Date Benign neoplasm of colon Benign neoplasm of colon Chest pain, unspecified Degeneration of intervertebral disc, site unspecified Diabetes (HCC) Diverticulosis of colon (without mention of hemorrhage) Esophageal reflux Internal hemorrhoids without mention of complication Other and unspecified hyperlipidemia 09/24/2006 Other convulsions Pure hypercholesterolemia Seizures (HCC) Unspecified asthma(493.90) Unspecified essential hypertension PAST SURGICAL HISTORY Procedure Laterality Date ANESTHESIA HERNIA REPAIR LOWER ABDOMEN NOS 07/05/05 CHOLECYSTECTOMY 03/27/89 Cholecystectomy COLECTOMY PARTIAL W/ANASTOMOSIS 07/05/05 LAP RIGHT COLECTOMY COLONOSCOPY FLX DX W/COLLJ SPEC WHEN PFRMD 03/30/2005 Colonoscopy COLONOSCOPY FLX DX W/COLLJ SPEC WHEN PFRMD 05/14/05 COLONOSCOPY FLX DX W/COLLJ SPEC WHEN PFRMD 10/22/08 COLONOSCOPY FLX DX W/COLLJ SPEC WHEN PFRMD 10-19-14 COLONOSCOPY W/BIOPSY SINGLE/MULTIPLE 08/09/06 Small polyp prox. transverse EGD TRANSORAL BIOPSY SINGLE/MULTIPLE 10-19-14 HEMORRHOIDECTOMY INTERNAL RUBBER BAND LIGATIONS 02/24/99 Hemorrhoidectomy REM LESION NEC,HND,SCAL,FEET,GENITALIA 1.1-2.0CM 05/22/06 Exc. catie cyst posterior neck SKIN BX, 1 LESION 12/19/10 Amputation left anterior thigh skin lesion ALLERGIES Cipro [Ciprofloxacin] MEDICATIONS losartan (COZAAR) 100 mg tablet TAKE 1/2 TABLET BY MOUTH ONCE DAILY levETIRAcetam (KEPPRA) 1,000 mg tablet Take 2 tablets by mouth twice daily. phenytoin ER (DILANTIN) 100 mg ER capsule 2 capsules in the am and 3 capsules in the pm clopidogrel (PLAVIX) 75 mg tablet Take 1 tablet by mouth once daily. Lancets lancets Test blood sugar(s) one times daily. Dx: Type 2 DM - Controlled E11.9 Insulin: No esomeprazole (NEXIUM) 40 mg capsule Take 1 capsule by mouth once daily as needed. niacin ER (NIASPAN) 500 mg tablet Take 1 tablet by mouth daily at bedtime. atenolol (TENORMIN) 25 mg tablet Take 1 tablet by mouth once daily. metFORMIN ER (GLUCOPHAGE XR) 500 mg 24 hr tablet Take 1 tablet by mouth once daily. blood sugar diagnostic (TRUE METRIX GLUCOSE TEST STRIP) test strip TEST BLOOD SUGAR(S) ONCE DAILY. [DX: TYPE 2 DM - CONTROLLED E11.9 INSULIN: NO] hydroCHLOROthiazide (HYDRODIURIL, ESIDRIX) 25 mg tablet TAKE 1 TABLET BY MOUTH EVERY DAY fenofibrate nanocrystallized (TRICOR) 145 mg tablet TAKE 1 TABLET BY MOUTH EVERY DAY atorvastatin (LIPITOR) 80 mg tablet Take 1 tablet by mouth daily at bedtime. For cholesterol. isosorbide mononitrate ER (IMDUR) 30 mg 24 hr tablet Take 1 tablet by mouth once daily. blood sugar diagnostic (BLOOD GLUCOSE TEST) test strip Test blood sugar(s) one times daily. Dx: Type 2 DM - Controlled E11.9 Insulin: No betamethasone dipropionate 0.05 % ointment Apply 1 application to affected area twice daily. blood sugar diagnostic (TRUETRACK TEST) test strip Test blood sugar(s) 1 times daily. Dx: 250.00. Insulin: No FOLIC ACID/MULTIVIT-MIN/LUTEIN (CENTRUM SILVER ORAL) Take by mouth. aspirin, enteric coated (ASPIRIN, ENTERIC COATED) 81 mg EC tablet Take 1 tablet by mouth once daily. FAMILY HISTORY Problem Relation Age of Onset Diabetes Mother other (stone cutters consumption [Other]) Father smoker, drinker Social History Tobacco Use Smoking status: Former Packs/day: 4.50 Years: 25.00 Pack years: 112.50 Types: Cigarettes Quit date: 02/16/1985 Years since quittin.1 Smokeless tobacco: Never Substance Use Topics Alcohol use: No Drug use: No PHYSICAL EXAM BP 170/78 Pulse 98 Ht 172.7 cm (5' 8 ) Wt 111.1 kg (245 lb) SpO2 97% BMI 37.25 kg/m General Appearance: well appearing, in no acute distress, alert Skin: Skin color, texture, turgor normal for age; Eyes: conjunctiva pink and moist, no icterus, sclera white, non-injected Neck: Thyroid normal size and symmetric without palpable nodules, No adenopathy Lymph nodes: No cervical lymphadenopathy and No supraclavicular lymphadenopathy Lungs: Lungs clear to auscultation. No wheezing, rhonchi, rales. Heart: RRR without murmur, gallop, or rubs. No ectopy DATA REVIEWED: No new labs ASSESSMENT/PLAN: 1. Essential hypertension - ICD9: 401.9, ICD10: I10 - good control as reported with home numbers. Patient feels it is elevated only in office - patient to monitor BP at home and call if BP is consistently greater than 140/80 - Continue current medication(s) - Encouraged dietary sodium restriction/DASH diet - Recommended regular aerobic exercise. - Recommend home blood pressure monitoring, to bring results in on next visit - Goal of BP <130/80 - follow up in 3 months Prescription instructions reviewed with patient as applicable. Potential red flag symptoms discussed with the patient. Reviewed appropriate action plan to take if red flag symptoms occur. Patient agreeable to treatment plan Stacia Chappell APRN.CNP documented in [facility]11-29-2022 Miscellaneous Notes* Telephone Encounter - Roselia Crystal Ma - 03/20/2022 12:27 PM EST Patient last visit 02/19/22 Follow up appointment scheduled 04/02/22 Roselia Crystal Ma documented in this [facility]11-18-2022 Miscellaneous Notes* Telephone Encounter - Stacia Chappell APRN.CNP - 03/09/2022 2:26 PM EST Noted. Stacia Chappell APRN.CNP * Telephone Encounter - Marta Jones RN - 03/09/2022 11:11 AM EST Pt called and is notified of providers message. Called Dr Natasha Ramos's office, number listed belowwas wrong number. Called [phone] and got through. Dose changed on 02/02/22, could not find whothe tele health neurologist was. Let them know Stacia Chappell [employer] thought the dose was high, but was justrefilling it until he could see Neurology. Asked if they could call us back with updated medication amount so we could update the patients med list. Marta Jones RN * Telephone Encounter - Britney Wadsworth Ma - 03/08/2022 4:10 PM EST Tried calling office, office is closed. Dr Natasha Ramos [phone], will try call Saturday. * Telephone Encounter - Stacia Chappell APRN.EVA - 03/08/2022 4:03 PM EST Please let neurology office know that I understand and agree with this, but the tele neurologist through [facility] changed the dosage to this high dose. I only refilled until he could see themfor further dosing and prescribing of his anti seizure medications. Thank you Stacia Chappell APRN.EVA * Telephone Encounter - Lizet De Luna LPN - 03/08/2022 3:07 PM EST Pt called and states he saw his neurologist in [place] and they are wondering why pt is taking such a high dose of Keppra. They were under the impression 2,000 mg was as much as you should take. Pt was put on this high dose when he was in [facility]. Please advise pt. Lizet De Luna LPN documented in this encounterW[facility]10-31-2022 History of Present illness Narrative* Stacia Chappell, [employer].COIL CLEANER - 02/19/2022 9:43 AM EDT CC: Patient presents with: Recheck: 1 week rash on arm follow up HPI Lakeshia Thorpe is a 76 year old male who presents today for follow up on cellulitis to Right flexor of elbow, but blood pressure was elevated in office as well. Was seen 1 week ago for hospital follow up with new occurring cellulitis of right flexor of elbow. Was prescribed cephalexin. Reports taking all meds as prescribed and that infection has resolved. Denies nay redness, edema, pain, fatigue, fever, or chills. HTN: Mr. Thorpe indicates that he is feeling well and denies any symptoms referable to elevated blood pressure. Specifically denies headache, chest pain, palpitations, dyspnea, and peripheral edema. Patient denies any side effects of his medication(s) and is compliant with their regimen. He does notcheck BP's generally. Last 3 Encounter BP Readings: Date: BP: 02/19/2022 168/80 02/14/2022 150/82 02/12/2022 142/80 Has not taken his blood pressure medication yet today and has appointment with cardiology in a few days. REVIEW OF SYSTEMS General: no fevers, no chills, no night sweats, no recurrent infections, no change in appetite, no change in energy, and no significant changes in weight Respiratory: no cough, no wheezing, no shortness of breath, no hemoptysis Cardiovascular: no chest pain, no chest pressure, no palpitations, and no swelling Skin: Negative for lesions, rash, and itching Neurologic: No headache, weakness, numbness, tingling, dizziness, memory loss, syncope. PAST MEDICAL HISTORY Diagnosis Date Benign neoplasm of colon Benign neoplasm of colon Chest pain, unspecified Degeneration of intervertebral disc, site unspecified Diabetes (HCC) Diverticulosis of colon (without mention of hemorrhage) Esophageal reflux Internal hemorrhoids without mention of complication Other and unspecified hyperlipidemia 09/24/2006 Other convulsions Pure hypercholesterolemia Seizures (HCC) Unspecified asthma(493.90) Unspecified essential hypertension PAST SURGICAL HISTORY Procedure Laterality Date ANESTHESIA HERNIA REPAIR LOWER ABDOMEN NOS 07/05/05 CHOLECYSTECTOMY 03/27/89 Cholecystectomy COLECTOMY PARTIAL W/ANASTOMOSIS 07/05/05 LAP RIGHT COLECTOMY COLONOSCOPY FLX DX W/COLLJ SPEC WHEN PFRMD 03/30/2005 Colonoscopy COLONOSCOPY FLX DX W/COLLJ SPEC WHEN PFRMD 05/14/05 COLONOSCOPY FLX DX W/COLLJ SPEC WHEN PFRMD 10/22/08 COLONOSCOPY FLX DX W/COLLJ SPEC WHEN PFRMD 10-19-14 COLONOSCOPY W/BIOPSY SINGLE/MULTIPLE 08/09/06 Small polyp prox. transverse EGD TRANSORAL BIOPSY SINGLE/MULTIPLE 10-19-14 HEMORRHOIDECTOMY INTERNAL RUBBER BAND LIGATIONS 02/24/99 Hemorrhoidectomy REM LESION NEC,HND,SCAL,FEET,GENITALIA 1.1-2.0CM 05/22/06 Exc. catie cyst posterior neck SKIN BX, 1 LESION 12/19/10 Amputation left anterior thigh skin lesion ALLERGIES Cipro [Ciprofloxacin] MEDICATIONS levETIRAcetam (KEPPRA) 1,000 mg tablet Take 1 tablet by mouth twice daily. losartan (COZAAR) 100 mg tablet Take 1 tablet by mouth once daily. phenytoin ER (DILANTIN) 100 mg ER capsule 2 capsules in the am and 3 capsules in the pm clopidogrel (PLAVIX) 75 mg tablet Take 1 tablet by mouth once daily. Lancets lancets Test blood sugar(s) one times daily. Dx: Type 2 DM - Controlled E11.9 Insulin: No esomeprazole (NEXIUM) 40 mg capsule Take 1 capsule by mouth once daily as needed. niacin ER (NIASPAN) 500 mg tablet Take 1 tablet by mouth daily at bedtime. atenolol (TENORMIN) 25 mg tablet Take 1 tablet by mouth once daily. metFORMIN ER (GLUCOPHAGE XR) 500 mg 24 hr tablet Take 1 tablet by mouth once daily. blood sugar diagnostic (TRUE METRIX GLUCOSE TEST STRIP) test strip TEST BLOOD SUGAR(S) ONCE DAILY. [DX: TYPE 2 DM - CONTROLLED E11.9 INSULIN: NO] hydroCHLOROthiazide (HYDRODIURIL, ESIDRIX) 25 mg tablet TAKE 1 TABLET BY MOUTH EVERY DAY fenofibrate nanocrystallized (TRICOR) 145 mg tablet TAKE 1 TABLET BY MOUTH EVERY DAY atorvastatin (LIPITOR) 80 mg tablet Take 1 tablet by mouth daily at bedtime. For cholesterol. isosorbide mononitrate ER (IMDUR) 30 mg 24 hr tablet Take 1 tablet by mouth once daily. blood sugar diagnostic (BLOOD GLUCOSE TEST) test strip Test blood sugar(s) one times daily. Dx: Type 2 DM - Controlled E11.9 Insulin: No betamethasone dipropionate 0.05 % ointment Apply 1 application to affected area twice daily. blood sugar diagnostic (TRUETRACK TEST) test strip Test blood sugar(s) 1 times daily. Dx: 250.00. Insulin: No FOLIC ACID/MULTIVIT-MIN/LUTEIN (CENTRUM SILVER ORAL) Take by mouth. aspirin, enteric coated (ASPIRIN, ENTERIC COATED) 81 mg EC tablet Take 1 tablet by mouth once daily. FAMILY HISTORY Problem Relation Age of Onset Diabetes Mother other (stone cutters consumption [Other]) Father smoker, drinker Social History Tobacco Use Smoking status: Former Packs/day: 4.50 Years: 25.00 Pack years: 112.50 Types: Cigarettes Quit date: 02/16/1985 Years since quittin.0 Smokeless tobacco: Never Substance Use Topics Alcohol use: No Drug use: No PHYSICAL EXAM BP 168/80 Pulse 88 Resp 16 Wt 110.2 kg (243 lb) BMI 36.95 kg/m General Appearance: well appearing, in no acute distress, alert Skin: Skin color, texture, turgor normal for age; Eyes: conjunctiva pink and moist, no icterus, sclera white, non-injected Lungs: Lungs clear to auscultation. No wheezing, rhonchi, rales. Heart: RRR without murmur, gallop, or rubs. No ectopy BUE Extremities: No deformities, edema, skin discoloration, clubbing or cyanosis. Good capillary refill. Right elbow without redness, edema, tenderness, or decreased ROM. Health maintenance reviewed with patient: BP CONTROLLED (<130/80) Never done COLORECTAL CANCER SCREENING due on 12/21/2020 DEPRESSION ASSESSMENT Never done COVID-19 VACCINE(4 - Booster for José Miguel series) due on 11/09/2021 URINE ALBUMIN:CREATININE RATIO due on 02/22/2022 DTAP,TDAP,TD(1 - Tdap) due on 10/13/2022 HEPATITIS C SCREENING due on 10/13/2022 SHINGRIX VACCINE(1 of 2) due on 10/13/2022 HBA1C due on 08/06/2022 DIABETIC FOOT EXAM due on 10/13/2022 DILATED RETINAL EXAM due on 01/16/2023 LDL CHOLESTEROL due on 02/05/2023 ANNUAL PCP TEAM CHRONIC DISEASE VISIT due on 02/14/2023 INFLUENZA Completed ADVANCE DIRECTIVE DISCUSSION Completed PNEUMOCOCCAL: 65+ Completed DATA REVIEWED: No new labs ASSESSMENT/PLAN: 1. Skin infection - ICD9: 686.9, ICD10: L08.9 (primary diagnosis) Resolved - follow up for any return of redness, tenderness, or other sign of infection 2. Essential hypertension - ICD9: 401.9, ICD10: I10 - suboptimal control - discussed checking blood pressures at home and following up with readings in 2 weeks but patient declined. Will see cardiology in 2 days. Discussed if he does not see cardiology for any reason, he really needs to follow up back in our office for blood pressure medication changes. Patient states he is too busy to be seen anytime soon - agreeable for a 6 week follow up - Continue current medication(s) - Encouraged dietary sodium restriction/DASH diet - Recommended regular aerobic exercise. - Recommend home blood pressure monitoring, to bring results in on next visit - Goal of BP <130/80 Prescription instructions reviewed with patient as applicable. Potential red flag symptoms discussed with the patient. Reviewed appropriate action plan to take if red flag symptoms occur. Patient agreeable to treatment plan. Stacia Chappell APRN.CNP documented in this encounterW[facility]10-[facility]22 History of Present illness Narrative* David Carrion MD - 02/14/2022 8:28 AM EDT Reason for Visit Patient presents with: Same Day Appointment: place heart monitor on and refills needed Lakeshia Thorpe is a 76 year old male who presents here today for Above Complaints.. Health Maintenance BP CONTROLLED (<130/80) COLORECTAL CANCER SCREENING DEPRESSION ASSESSMENT COVID-19 VACCINE(4 - Booster for José Miguel series) URINE ALBUMIN:CREATININE RATIO HPI Here today with his heart monitor as part of work up for his episode of LOC. Patient does not know to put it on, just got the monitor yesterday.this is one of the devices we are not familiar with. EEG was normal and so does ct scan. Refilled his keppra as the strength was increased. We need to recheck bp. Hyperlipidemia: he is on statin at 80 although his lipids are not the best. Sun the non ldl cholesterols Diabetes Mellitus: the patients sugar is doing well. He has been trying his best to keep his sugarsdown. He continues the metformin. He has cut out a lot of bread etc. Patient notes he watches what he is eating. It is hard to watch his sugar and cholesterol all together. We discussed trulicity, he seemed open t it. He has trouble with transportation. No problem-specific Assessment & Plan notes found for this encounter. PAST MEDICAL HISTORY Diagnosis Date Benign neoplasm of colon Benign neoplasm of colon Chest pain, unspecified Degeneration of intervertebral disc, site unspecified Diabetes (HCC) Diverticulosis of colon (without mention of hemorrhage) Esophageal reflux Internal hemorrhoids without mention of complication Other and unspecified hyperlipidemia 09/24/2006 Other convulsions Pure hypercholesterolemia Seizures (HCC) Unspecified asthma(493.90) Unspecified essential hypertension PAST SURGICAL HISTORY Procedure Laterality Date ANESTHESIA HERNIA REPAIR LOWER ABDOMEN NOS 07/05/05 CHOLECYSTECTOMY 03/27/89 Cholecystectomy COLECTOMY PARTIAL W/ANASTOMOSIS 07/05/05 LAP RIGHT COLECTOMY COLONOSCOPY FLX DX W/COLLJ SPEC WHEN PFRMD 03/30/2005 Colonoscopy COLONOSCOPY FLX DX W/COLLJ SPEC WHEN PFRMD 05/14/05 COLONOSCOPY FLX DX W/COLLJ SPEC WHEN PFRMD 10/22/08 COLONOSCOPY FLX DX W/COLLJ SPEC WHEN PFRMD 10-19-14 COLONOSCOPY W/BIOPSY SINGLE/MULTIPLE 08/09/06 Small polyp prox. transverse EGD TRANSORAL BIOPSY SINGLE/MULTIPLE 10-19-14 HEMORRHOIDECTOMY INTERNAL RUBBER BAND LIGATIONS 02/24/99 Hemorrhoidectomy REM LESION NEC,HND,SCAL,FEET,GENITALIA 1.1-2.0CM 05/22/06 Exc. catie cyst posterior neck SKIN BX, 1 LESION 12/19/10 Amputation left anterior thigh skin lesion FAMILY HISTORY Problem Relation Age of Onset Diabetes Mother other (stone cutters consumption [Other]) Father smoker, drinker Social History Tobacco Use Smoking status: Former Packs/day: 4.50 Years: 25.00 Pack years: 112.50 Types: Cigarettes Quit date: 02/16/1985 Years since quittin.0 Smokeless tobacco: Never Substance Use Topics Alcohol use: No Drug use: No Past medical history, appointments, medications, allergies reviewed. Pertinent Lab/Diagnostic Studies are reviewed and discussed today Current Outpatient Medications: levETIRAcetam (KEPPRA) 1,000 mg tablet losartan (COZAAR) 100 mg tablet cephALEXin (KEFLEX) 500 mg capsule phenytoin ER (DILANTIN) 100 mg ER capsule clopidogrel (PLAVIX) 75 mg tablet Lancets lancets esomeprazole (NEXIUM) 40 mg capsule niacin ER (NIASPAN) 500 mg tablet atenolol (TENORMIN) 25 mg tablet metFORMIN ER (GLUCOPHAGE XR) 500 mg 24 hr tablet blood sugar diagnostic (TRUE METRIX GLUCOSE TEST STRIP) test strip hydroCHLOROthiazide (HYDRODIURIL, ESIDRIX) 25 mg tablet fenofibrate nanocrystallized (TRICOR) 145 mg tablet atorvastatin (LIPITOR) 80 mg tablet isosorbide mononitrate ER (IMDUR) 30 mg 24 hr tablet blood sugar diagnostic (BLOOD GLUCOSE TEST) test strip betamethasone dipropionate 0.05 % ointment blood sugar diagnostic (TRUETRACK TEST) test strip FOLIC ACID/MULTIVIT-MIN/LUTEIN (CENTRUM SILVER ORAL) aspirin, enteric coated (ASPIRIN, ENTERIC COATED) 81 mg EC tablet Review of Systems CONSTITUTIONAL: No fevers, chills night sweats, unintended weight loss CARDIOVASCULAR: No chest pain, dyspnea, palpitations, orthopnea, PND, ankle edema. PULM: No dyspnea, unexplained cough. GI: No dysphagia/odynophagia, problematic reflux, constipation, diarrhea, changes in stool habits, hematochezia, melena. : No new urinary complaints, including dysuria, gross hematuria or pyuria. NEURO: No new balance problems, peripheral weakness/paresthesias or numbness of concern. Physical Exam BP 150/82 (BP Site: Left Arm, BP Position: Sitting, BP Cuff Size: Large Adult) Pulse 104 Temp 36.8 C (98.3 F) Resp 18 Ht 172.7 cm (5' 8 ) Wt 109.8 kg (242 lb) SpO2 95% BMI 36.80 kg/m General appearance: Well appearing, alert, in no acute distress, well nourished. Skin: Skin color, texture, turgor normal, no suspicious rashes or lesions Head: Normocephalic, no masses, lesions, tenderness or abnormalities Eyes: Anicteric sclera. Pupils are equally round and reactive to light. Extraocular movements are intact. Lungs: Lungs clear to auscultation. No wheezing, rhonchi, rales Heart: RRR without murmur, gallop, or rubs. Extremities: No deformities, edema, skin discoloration, clubbing or cyanosis. Good capillary refill. ASSESSMENT/PLAN: 1. Hospital discharge follow-up - ICD9: V67.59, ICD10: Z09 (primary diagnosis) Reviewed noted from discharge 2. Seizure disorder (HCC) - ICD9: 345.90, ICD10: G40.909 He is stressed out as she is not able to drive around which is very stressful for him. 3. Essential hypertension - ICD9: 401.9, ICD10: I10 We need to recheck his bp Says he was stressed walking in. - Recommended regular aerobic exercise. - Recommend home blood pressure monitoring, to bring results in on next visit - Goal of BP <130/80 4. Type 2 diabetes mellitus without complication, without long-term current use of insulin (HCC) - ICD9: 250.00, ICD10: E11.9 Controlled. - Continue current medications David Carrion MD documented in this encounterW[facility]10-24-2022 History of Present illness Narrative* Stacia Chappell, CRISTIN.COIL CLEANER - 02/12/2022 9:46 AM EDT CC: Patient presents with: Recheck: Hosp follow up, seizure HPI Lakeshia Thorpe is a 76 year old male who presents today for Hospital follow-up. Facility: [facility] Date of visit: 02/01/22 Reason for visit: Found unresponsive on bathroom floor - history of seizures Hospital course: Ct brain - nothing acute - EEG- normal, Teleneurology increased his keppra. Elevated troponins secondary to demand ischemia - will see Cardiology in 2 weeks. Discharge: Increased Keppra to 1000mg twice daily, Losartan increased Last seizure activity prior to recent hospitalization was a year ago. Has a neurologist in [facility] is scheduled to see them in a few weeks. Scheduled with cardiology in a week and a half. Has had redness to inside of right elbow since hospitalization. Unsure if he had an IV in this area. Denies fever, chills, edema, drainage, or tenderness to area. Reports a large bruise to his lower abdomen form fall that is improving. States it is not as tender, getting smaller, and appears to be healing well. His intermittent dull ache to RLE, right knee, and low back., from fall that he has been using aspercreme for. No xrays completed in hospital but feels ache is improving. Denies weakness, numbness, tingling, edema, or decreased ROM. REVIEW OF SYSTEMS General: no fevers, no chills, no night sweats, no recurrent infections, no change in appetite, no change in energy, and no significant changes in weight Respiratory: no cough, no wheezing, no shortness of breath, no hemoptysis Cardiovascular: no chest pain, no chest pressure, no palpitations, and no swelling GI: No nausea, vomiting, or diarrhea and denies any difficulty or incontinence of stool : No history of dysuria, frequency or incontinence Musculoskeletal: see HPI Neurologic: No headache, weakness, numbness, tingling, dizziness, memory loss, syncope. PAST MEDICAL HISTORY Diagnosis Date Benign neoplasm of colon Benign neoplasm of colon Chest pain, unspecified Degeneration of intervertebral disc, site unspecified Diabetes (HCC) Diverticulosis of colon (without mention of hemorrhage) Esophageal reflux Internal hemorrhoids without mention of complication Other and unspecified hyperlipidemia 09/24/2006 Other convulsions Pure hypercholesterolemia Seizures (HCC) Unspecified asthma(493.90) Unspecified essential hypertension PAST SURGICAL HISTORY Procedure Laterality Date ANESTHESIA HERNIA REPAIR LOWER ABDOMEN NOS 07/05/05 CHOLECYSTECTOMY 03/27/89 Cholecystectomy COLECTOMY PARTIAL W/ANASTOMOSIS 07/05/05 LAP RIGHT COLECTOMY COLONOSCOPY FLX DX W/COLLJ SPEC WHEN PFRMD 03/30/2005 Colonoscopy COLONOSCOPY FLX DX W/COLLJ SPEC WHEN PFRMD 05/14/05 COLONOSCOPY FLX DX W/COLLJ SPEC WHEN PFRMD 10/22/08 COLONOSCOPY FLX DX W/COLLJ SPEC WHEN PFRMD 10-19-14 COLONOSCOPY W/BIOPSY SINGLE/MULTIPLE 08/09/06 Small polyp prox. transverse EGD TRANSORAL BIOPSY SINGLE/MULTIPLE 10-19-14 HEMORRHOIDECTOMY INTERNAL RUBBER BAND LIGATIONS 02/24/99 Hemorrhoidectomy REM LESION NEC,HND,SCAL,FEET,GENITALIA 1.1-2.0CM 05/22/06 Exc. catie cyst posterior neck SKIN BX, 1 LESION 12/19/10 Amputation left anterior thigh skin lesion ALLERGIES Cipro [Ciprofloxacin] MEDICATIONS phenytoin ER (DILANTIN) 100 mg ER capsule 2 capsules in the am and 3 capsules in the pm clopidogrel (PLAVIX) 75 mg tablet Take 1 tablet by mouth once daily. levETIRAcetam (KEPPRA) 750 mg tablet Take 2 tablets by mouth twice daily. losartan (COZAAR) 100 mg tablet Take 0.5 tablets by mouth once daily. esomeprazole (NEXIUM) 40 mg capsule Take 1 capsule by mouth once daily as needed. niacin ER (NIASPAN) 500 mg tablet Take 1 tablet by mouth daily at bedtime. atenolol (TENORMIN) 25 mg tablet Take 1 tablet by mouth once daily. metFORMIN ER (GLUCOPHAGE XR) 500 mg 24 hr tablet Take 1 tablet by mouth once daily. hydroCHLOROthiazide (HYDRODIURIL, ESIDRIX) 25 mg tablet TAKE 1 TABLET BY MOUTH EVERY DAY fenofibrate nanocrystallized (TRICOR) 145 mg tablet TAKE 1 TABLET BY MOUTH EVERY DAY atorvastatin (LIPITOR) 80 mg tablet Take 1 tablet by mouth daily at bedtime. For cholesterol. isosorbide mononitrate ER (IMDUR) 30 mg 24 hr tablet Take 1 tablet by mouth once daily. Lancets lancets Test blood sugar(s) one times daily. Dx: Type 2 DM - Controlled E11.9 Insulin: No blood sugar diagnostic (TRUE METRIX GLUCOSE TEST STRIP) test strip TEST BLOOD SUGAR(S) ONCE DAILY. [DX: TYPE 2 DM - CONTROLLED E11.9 INSULIN: NO] blood sugar diagnostic (BLOOD GLUCOSE TEST) test strip Test blood sugar(s) one times daily. Dx: Type 2 DM - Controlled E11.9 Insulin: No betamethasone dipropionate 0.05 % ointment Apply 1 application to affected area twice daily. blood sugar diagnostic (TRUETRACK TEST) test strip Test blood sugar(s) 1 times daily. Dx: 250.00. Insulin: No FOLIC ACID/MULTIVIT-MIN/LUTEIN (CENTRUM SILVER ORAL) Take by mouth. aspirin, enteric coated (ASPIRIN, ENTERIC COATED) 81 mg EC tablet Take 1 tablet by mouth once daily. FAMILY HISTORY Problem Relation Age of Onset Diabetes Mother other (stone cutters consumption [Other]) Father smoker, drinker Social History Tobacco Use Smoking status: Former Packs/day: 4.50 Years: 25.00 Pack years: 112.50 Types: Cigarettes Quit date: 02/16/1985 Years since quittin.0 Smokeless tobacco: Never Substance Use Topics Alcohol use: No Drug use: No PHYSICAL EXAM BP 142/80 Pulse 80 Resp 16 Wt 108.9 kg (240 lb) BMI 36.49 kg/m General Appearance: well appearing, in no acute distress, alert Skin: Skin color, texture, turgor normal for age; Large echymotic area to right lower abdomen - soft and nontender Redness to flexor of right elbow with increased warmth - no drainage, red streaking, or edema noted. Eyes: conjunctiva pink and moist, no icterus, sclera white, non-injected Neck: Thyroid normal size and symmetric without palpable nodules, No adenopathy Lymph nodes: No cervical lymphadenopathy and No supraclavicular lymphadenopathy Lungs: Lungs clear to auscultation. No wheezing, rhonchi, rales. Heart: RRR without murmur, gallop, or rubs. No ectopy Abdomen: Abdomen soft, non-tender. Bowel sounds normal. No masses, organomegaly Extremities: No deformities, edema, skin discoloration, clubbing or cyanosis. Good capillary refill. Musculoskeletal: No joint swelling, deformity, or tenderness BP CONTROLLED (<130/80) Never done COLORECTAL CANCER SCREENING due on 12/21/2020 DEPRESSION ASSESSMENT Never done COVID-19 VACCINE(4 - Booster for José Miguel series) due on 11/09/2021 URINE ALBUMIN:CREATININE RATIO due on 02/22/2022 DTAP,TDAP,TD(1 - Tdap) due on 10/13/2022 HEPATITIS C SCREENING due on 10/13/2022 SHINGRIX VACCINE(1 of 2) due on 10/13/2022 HBA1C due on 08/06/2022 DIABETIC FOOT EXAM due on 10/13/2022 ANNUAL PCP TEAM CHRONIC DISEASE VISIT due on 10/13/2022 DILATED RETINAL EXAM due on 01/16/2023 LDL CHOLESTEROL due on 02/05/2023 INFLUENZA Completed ADVANCE DIRECTIVE DISCUSSION Completed PNEUMOCOCCAL: 65+ Completed DATA REVIEWED: Outside chart from [facility] reviewed. ASSESSMENT/PLAN: 1. History of recent hospitalization - ICD9: V13.9, ICD10: Z92.89 (primary diagnosis) - no further seizure activity, no cardiac complaints and assessment negative - continue with scheduled appointment with cardiology and neurology - continue with current medications including changes during hospitalization to increase keppra andlosartan. 2. Seizure disorder (HCC) - ICD9: 345.90, ICD10: G40.909 - see above - LEVETIRACETAM 1,000 MG TABLET 3. Coronary artery disease involving [place] coronary artery of [place] heart without angina pectoris- ICD9: 414.01, ICD10: I25.10 See #1 4. Skin infection - ICD9: 686.9, ICD10: L08.9 - Begin treatment with Cephalaxin (Keflex) - patient not able to drive and has to depend on neighbor for rides to appointment. States it worksif she knows ahead of time to be able to plan. Will follow up next week but may need to do so as telephone - knows to call if redness increases, area becomes firm or painful, or any other signs of infectionlike fever. - No lymphangetic streaking, this was defined for patient to watch for and to seek medical care immediately if appears - Follow up for recheck next week. 5. Ecchymosis - ICD9: 459.89, ICD10: R58 - very large amount of bruising to abdomen - improving per patient report - call office if this does not continue to improve, becomes firm, becomes tender, or any other changes. 6. Pain - ICD9: 780.96, ICD10: R52 - with the aching improving and no other concerning symptoms did not feel necessary for further imaging at this time. - follow up if aching does not continue to improve or new symptoms like change in sensation, edema,increased pain, weakness, or any other new symptoms appear. Prescription instructions reviewed with patient as applicable. Potential red flag symptoms discussed with the patient. Reviewed appropriate action plan to take if red flag symptoms occur. Patient agreeable to treatment plan. Stacia Chappell APRN.CNP [facility] History of Present illness Narrative* Stacia Chappell APRN.CNP - 10/13/2021 12:52 PM EDT CC: Patient presents with: Recheck: DM follow up HPI Lakeshia Thorpe is a 75 year old male who presents today for diabetes, hypertension, hyperlipidemia, and GERD follow up. DIABETES MELLITUS: Mr. Thorpe denies excessive thirst or increased frequency of urination, chest pain or dyspnea , numbness, tingling or pain in extremities, new or unusual visual symptoms, low sugar/hypoglycemic reactions, weight loss/gain, lightheadedness/dizziness, bowel changes/loose stools Follows a diabetic diet most of the time. He is compliant with medication(s) and is tolerating med(s) without any side effects. He reports checking his glucose on a infrequent to not at all basis schedulePatient's last HgA1C was Hemoglobin A1C (%) Date Value 09/05/2021 6.9 02/22/2021 6.8 04/21/2020 6.6 Hemoglobin A1C (POCT) (%) Date Value 06/06/2021 6.7 12/02/2020 6.1 ) Last Ophthalmology exam was within the past 12 months and goes to [facility]. Goes to podiatry every 3 months for toe nail clipping. GERD: Uses esomeprazole if he gets heartburn which frequency depends on how often he eats pizza or other spicy foods. Denies difficulty swallowing, abdominal pain, or nausea. HTN and HLD: Mr. Thorpe indicates that he is feeling well and denies any symptoms referable to elevated blood pressure. Specifically denies headache, chest pain, palpitations, dyspnea and peripheral edema. Patient denies any side effects of his medication(s) and is compliant with their regimen. He does check BP's away from this office with average BP's in the 140s/80s - 150s/80s depending on how physical he had been prior to checking his blood pressure. Lakeshia denies regular aerobic exercise. He watches his diet for sodium, low fat and low cholesterol most of the time. Last 3 Encounter BP Readings: Date: BP: 10/13/2021 150/80 06/06/2021 150/70 03/06/2021 146/72 Sees [facility] every 6 months. No history of cardiac stents at this time. Denies chest pain, shortness of breath, or exercise intolerance. History of seizures: No seizure activity in a very long time. Patient states he isn't even sure thelast time. Does not follow with cardiology any more REVIEW OF SYSTEMS General: no fevers, no chills, no night sweats, no recurrent infections, no change in appetite, no change in energy and no significant changes in weight Respiratory: no cough, no wheezing, no shortness of breath, no hemoptysis Cardiovascular: no chest pain, no chest pressure, no palpitations and no swelling GI: No nausea, vomiting, or diarrhea Endocrine: no fatigue, no weight gain, no weight loss, no cold intolerance, no heat intolerance, nopolyuria, no polyphagia and no polydipsia Neurologic: No headache, weakness, numbness, tingling, dizziness, syncope. PAST MEDICAL HISTORY Diagnosis Date Benign neoplasm of colon Benign neoplasm of colon Chest pain, unspecified Degeneration of intervertebral disc, site unspecified Diabetes (HCC) Diverticulosis of colon (without mention of hemorrhage) Esophageal reflux Internal hemorrhoids without mention of complication Other and unspecified hyperlipidemia 09/24/2006 Other convulsions Pure hypercholesterolemia Seizures (HCC) Unspecified asthma(493.90) Unspecified essential hypertension PAST SURGICAL HISTORY Procedure Laterality Date ANESTHESIA HERNIA REPAIR LOWER ABDOMEN NOS 07/05/05 CHOLECYSTECTOMY 03/27/89 Cholecystectomy COLECTOMY PARTIAL W/ANASTOMOSIS 07/05/05 LAP RIGHT COLECTOMY COLONOSCOPY FLX DX W/COLLJ SPEC WHEN PFRMD 03/30/2005 Colonoscopy COLONOSCOPY FLX DX W/COLLJ SPEC WHEN PFRMD 05/14/05 COLONOSCOPY FLX DX W/COLLJ SPEC WHEN PFRMD 10/22/08 COLONOSCOPY FLX DX W/COLLJ SPEC WHEN PFRMD 10-19-14 COLONOSCOPY W/BIOPSY SINGLE/MULTIPLE 08/09/06 Small polyp prox. transverse EGD TRANSORAL BIOPSY SINGLE/MULTIPLE 10-19-14 HEMORRHOIDECTOMY INTERNAL RUBBER BAND LIGATIONS 02/24/99 Hemorrhoidectomy REM LESION NEC,HND,SCAL,FEET,GENITALIA 1.1-2.0CM 05/22/06 Exc. catie cyst posterior neck SKIN BX, 1 LESION 12/19/10 Amputation left anterior thigh skin lesion ALLERGIES Cipro [Ciprofloxacin] MEDICATIONS esomeprazole (NEXIUM) 40 mg capsule Take 1 capsule by mouth once daily as needed. losartan (COZAAR) 50 mg tablet Take 1 tablet by mouth once daily. niacin ER (NIASPAN) 500 mg tablet Take 1 tablet by mouth daily at bedtime. atenolol (TENORMIN) 25 mg tablet Take 1 tablet by mouth once daily. metFORMIN ER (GLUCOPHAGE XR) 500 mg 24 hr tablet Take 1 tablet by mouth once daily. blood sugar diagnostic (TRUE METRIX GLUCOSE TEST STRIP) test strip TEST BLOOD SUGAR(S) ONCE DAILY. [DX: TYPE 2 DM - CONTROLLED E11.9 INSULIN: NO] hydroCHLOROthiazide (HYDRODIURIL, ESIDRIX) 25 mg tablet TAKE 1 TABLET BY MOUTH EVERY DAY fenofibrate nanocrystallized (TRICOR) 145 mg tablet TAKE 1 TABLET BY MOUTH EVERY DAY phenytoin ER (DILANTIN) 100 mg ER capsule 2 capsules in the am and 3 capsules in the pm atorvastatin (LIPITOR) 80 mg tablet Take 1 tablet by mouth daily at bedtime. For cholesterol. clopidogrel (PLAVIX) 75 mg tablet Take 1 tablet by mouth once daily. isosorbide mononitrate ER (IMDUR) 30 mg 24 hr tablet Take 1 tablet by mouth once daily. blood sugar diagnostic (BLOOD GLUCOSE TEST) test strip Test blood sugar(s) one times daily. Dx: Type 2 DM - Controlled E11.9 Insulin: No Lancets lancets Test blood sugar(s) one times daily. Dx: Type 2 DM - Controlled E11.9 Insulin: No levETIRAcetam (KEPPRA) 750 mg tablet Take 2 tablets by mouth twice daily. benzonatate (TESSALON PERLE) 100 mg capsule Take 1 capsule by mouth three times daily as needed forCough. titanium dioxide-zinc oxide (VANICREAM SUNSCREEN) 50 SPF crea Apply 1 application to affected area as needed. hydrocortisone 2.5 % cream Apply 1 application to affected area twice daily. Location: Apply to affected areas of rash on face and ears every day betamethasone dipropionate 0.05 % ointment Apply 1 application to affected area twice daily. blood sugar diagnostic (TRUETRACK TEST) test strip Test blood sugar(s) 1 times daily. Dx: 250.00. Insulin: No FOLIC ACID/MULTIVIT-MIN/LUTEIN (CENTRUM SILVER ORAL) Take by mouth. aspirin, enteric coated (ASPIRIN, ENTERIC COATED) 81 mg EC tablet Take 1 tablet by mouth once daily. FAMILY HISTORY Problem Relation Age of Onset Diabetes Mother other (stone cutters consumption [Other]) Father smoker, drinker Social History Tobacco Use Smoking status: Former Smoker Packs/day: 4.50 Years: 25.00 Pack years: 112.50 Types: Cigarettes Quit date: 02/16/1985 Years since quittin.6 Smokeless tobacco: Never Used Substance Use Topics Alcohol use: No Drug use: No PHYSICAL EXAM BP 150/80 Pulse 80 Resp 16 Wt 111.1 kg (245 lb) BMI 37.25 kg/m General Appearance: well appearing, in no acute distress, alert Eyes: conjunctiva pink and moist, no icterus, sclera white, non-injected Neck: Thyroid normal size and symmetric without palpable nodules, No adenopathy Lymph nodes: No cervical lymphadenopathy and No supraclavicular lymphadenopathy Lungs: Lungs clear to auscultation. No wheezing, rhonchi, rales. Heart: RRR without murmur, gallop, or rubs. No ectopy Extremities: No deformities, edema, skin discoloration, clubbing or cyanosis. Good capillary refill. Feet:Shoes and socks removed, normal distal pulses, sensitive to 10 gm monofilament and vibratory perception normal Health maintenance reviewed with patient: HEPATITIS C SCREENING Never done BP CONTROLLED (<130/80) Never done SHINGRIX VACCINE(1 of 2) Never done DTAP,TDAP,TD(1 - Tdap) due on 08/04/2002 DEPRESSION SCREENING due on 05/14/2019 DILATED RETINAL EXAM due on 08/26/2020 COLORECTAL CANCER SCREENING due on 12/21/2020 ADVANCE DIRECTIVE DISCUSSION Never done DIABETIC FOOT EXAM due on 07/13/2021 URINE ALBUMIN:CREATININE RATIO due on 02/22/2022 HBA1C due on 03/08/2022 ANNUAL PCP TEAM CHRONIC DISEASE VISIT due on 06/06/2022 LDL CHOLESTEROL due on 09/05/2022 INFLUENZA Completed COVID-19 VACCINE Completed PNEUMOCOCCAL: 65+ Completed DATA REVIEWED: Most recent labs ASSESSMENT/PLAN: 1. Essential hypertension - ICD9: 401.9, ICD10: I10 (primary diagnosis) - poor control - Encouraged dietary sodium restriction/DASH diet - Recommended regular aerobic exercise. - Recommend home blood pressure monitoring, to bring results in on next visit - Goal of BP <130/80 - LOSARTAN 100 MG TABLET - nurse BP check in 2 weeks 2. Controlled type 2 diabetes mellitus without complication, without long-term current use of insulin (HCC) - ICD9: 250.00, ICD10: E11.9 Controlled. - Continue current medications - Blood glucose monitoring on a once a day schedule - BP goal of <130/80 - LDL goal of <100 - LANCETS 3. Seizure disorder (HCC) - ICD9: 345.90, ICD10: G40.909 - no recent seizure activity - PHENYTOIN SODIUM EXTENDED 100 MG CAPSULE - LEVETIRACETAM 750 MG TABLET 4. Pure hypercholesterolemia - ICD9: 272.0, ICD10: E78.00 - triglycerides elevated . Diet should be rich in fruits, vegetables, lean meats and healthy fats/oils. Avoid processed foods, trans fats, vegetable oils and simple sugars. Watch portion sizes. Aerobic exercise for at least 20 minutes, 3-5 days a week. - continue current medicaiton - will recheck at follow up appointment Prescription instructions reviewed with patient as applicable. Potential red flag symptoms discussed with the patient. Reviewed appropriate action plan to take if red flag symptoms occur. Patient agreeable to treatment plan. Stacia Chappell APRN.CNP documented [facility] History of Past illness Narrative* Problem Noted Date Resolved Date DM type 2 (diabetes mellitus, type 2) 04/27/2014 08/13/2018 Last Assessment & Plan: His hba1c is 5.9 He consciously makes effort to do better, he had gained 40 pounds in 3 years. But is now try ing to cut down the weight as much as possible ge eats taters and beans most of the meals, the taters are usually fried, Else he has mashed potatoes, drinks only 2 percent milk. Most of the time he opens up a can of beans. He will try to eat better, He is walking as best as he can, he is active most of the day. Type II or unspecified type diabetes mellitus without mention of complication, not stated as uncontrolled 10/25/2008 Last Assessment & Plan: Excellent control in HgbA1c. Controlled through diet and metformin. He does have sx of nocturia 3-4 times at night; no interrupted stream or hesistancy, dribbling. FBS at home range around 110s. 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 Continues with yearly exams as well. SOMNOLENCE 04/09/2006 01/25/2016 HYPERTENSION NOS 01/26/2015 documented as of this encounter (statuses as of 10/13/2021) [facility] of Past illness Narrative* Problem Noted Date Resolved Date DM type 2 (diabetes mellitus, type 2) 04/27/2014 08/13/2018 Last Assessment & Plan: His hba1c is 5.9 He consciously makes effort to do better, he had gained 40 pounds in 3 years. But is now try ing to cut down the weight as much as possible ge eats taters and beans most of the meals, the taters are usually fried, Else he has mashed potatoes, drinks only 2 percent milk. Most of the time he opens up a can of beans. He will try to eat better, He is walking as best as he can, he is active most of the day. Type II or unspecified type diabetes mellitus without mention of complication, not stated as uncontrolled 10/25/2008 Last Assessment & Plan: Excellent control in HgbA1c. Controlled through diet and metformin. He does have sx of nocturia 3-4 times at night; no interrupted stream or hesistancy, dribbling. FBS at home range around 110s. 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 Continues with yearly exams as well. SOMNOLENCE 04/09/2006 01/25/2016 HYPERTENSION NOS 01/26/2015 documented as of this encounter (statuses as of 12/18/2021) [facility] illness Narrative* Problem Noted Date Resolved Date DM type 2 (diabetes mellitus, type 2) 04/27/2014 08/13/2018 Last Assessment & Plan: His hba1c is 5.9 He consciously makes effort to do better, he had gained 40 pounds in 3 years. But is now try ing to cut down the weight as much as possible ge eats taters and beans most of the meals, the taters are usually fried, Else he has mashed potatoes, drinks only 2 percent milk. Most of the time he opens up a can of beans. He will try to eat better, He is walking as best as he can, he is active most of the day. Type II or unspecified type diabetes mellitus without mention of complication, not stated as uncontrolled 10/25/2008 Last Assessment & Plan: Excellent control in HgbA1c. Controlled through diet and metformin. He does have sx of nocturia 3-4 times at night; no interrupted stream or hesistancy, dribbling. FBS at home range around 110s. 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 Continues with yearly exams as well. SOMNOLENCE 04/09/2006 01/25/2016 HYPERTENSION NOS 01/26/2015 documented as of this encounter (statuses as of 02/12/2022) [facility] illness Narrative* Problem Noted Date Resolved Date DM type 2 (diabetes mellitus, type 2) 04/27/2014 08/13/2018 Last Assessment & Plan: His hba1c is 5.9 He consciously makes effort to do better, he had gained 40 pounds in 3 years. But is now try ing to cut down the weight as much as possible ge eats taters and beans most of the meals, the taters are usually fried, Else he has mashed potatoes, drinks only 2 percent milk. Most of the time he opens up a can of beans. He will try to eat better, He is walking as best as he can, he is active most of the day. Type II or unspecified type diabetes mellitus without mention of complication, not stated as uncontrolled 10/25/2008 Last Assessment & Plan: Excellent control in HgbA1c. Controlled through diet and metformin. He does have sx of nocturia 3-4 times at night; no interrupted stream or hesistancy, dribbling. FBS at home range around 110s. 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 Continues with yearly exams as well. SOMNOLENCE 04/09/2006 01/25/2016 HYPERTENSION NOS 01/26/2015 documented as of this encounter (statuses as of 02/14/2022) [facility] illness Narrative* Problem Noted Date Resolved Date DM type 2 (diabetes mellitus, type 2) 04/27/2014 08/13/2018 Last Assessment & Plan: His hba1c is 5.9 He consciously makes effort to do better, he had gained 40 pounds in 3 years. But is now try ing to cut down the weight as much as possible ge eats taters and beans most of the meals, the taters are usually fried, Else he has mashed potatoes, drinks only 2 percent milk. Most of the time he opens up a can of beans. He will try to eat better, He is walking as best as he can, he is active most of the day. Type II or unspecified type diabetes mellitus without mention of complication, not stated as uncontrolled 10/25/2008 Last Assessment & Plan: Excellent control in HgbA1c. Controlled through diet and metformin. He does have sx of nocturia 3-4 times at night; no interrupted stream or hesistancy, dribbling. FBS at home range around 110s. 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 Continues with yearly exams as well. SOMNOLENCE 04/09/2006 01/25/2016 HYPERTENSION NOS 01/26/2015 documented as of this encounter (statuses as of 02/19/2022) [facility] illness Narrative* Problem Noted Date Resolved Date DM type 2 (diabetes mellitus, type 2) 04/27/2014 08/13/2018 Last Assessment & Plan: His hba1c is 5.9 He consciously makes effort to do better, he had gained 40 pounds in 3 years. But is now try ing to cut down the weight as much as possible ge eats taters and beans most of the meals, the taters are usually fried, Else he has mashed potatoes, drinks only 2 percent milk. Most of the time he opens up a can of beans. He will try to eat better, He is walking as best as he can, he is active most of the day. Type II or unspecified type diabetes mellitus without mention of complication, not stated as uncontrolled 10/25/2008 Last Assessment & Plan: Excellent control in HgbA1c. Controlled through diet and metformin. He does have sx of nocturia 3-4 times at night; no interrupted stream or hesistancy, dribbling. FBS at home range around 110s. 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 Continues with yearly exams as well. SOMNOLENCE 04/09/2006 01/25/2016 HYPERTENSION NOS 01/26/2015 documented as of this encounter (statuses as of 03/09/2022) [facility] illness Narrative* Problem Noted Date Resolved Date DM type 2 (diabetes mellitus, type 2) 04/27/2014 08/13/2018 Last Assessment & Plan: His hba1c is 5.9 He consciously makes effort to do better, he had gained 40 pounds in 3 years. But is now try ing to cut down the weight as much as possible ge eats taters and beans most of the meals, the taters are usually fried, Else he has mashed potatoes, drinks only 2 percent milk. Most of the time he opens up a can of beans. He will try to eat better, He is walking as best as he can, he is active most of the day. Type II or unspecified type diabetes mellitus without mention of complication, not stated as uncontrolled 10/25/2008 Last Assessment & Plan: Excellent control in HgbA1c. Controlled through diet and metformin. He does have sx of nocturia 3-4 times at night; no interrupted stream or hesistancy, dribbling. FBS at home range around 110s. 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 Continues with yearly exams as well. SOMNOLENCE 04/09/2006 01/25/2016 HYPERTENSION NOS 01/26/2015 documented as of this encounter (statuses as of 03/21/2022) [facility]01-[facility]2015 History of Past illness Narrative* Problem Noted Date Resolved Date DM type 2 (diabetes mellitus, type 2) 04/27/2014 08/13/2018 Last Assessment & Plan: His hba1c is 5.9 He consciously makes effort to do better, he had gained 40 pounds in 3 years. But is now try ing to cut down the weight as much as possible ge eats taters and beans most of the meals, the taters are usually fried, Else he has mashed potatoes, drinks only 2 percent milk. Most of the time he opens up a can of beans. He will try to eat better, He is walking as best as he can, he is active most of the day. Type II or unspecified type diabetes mellitus without mention of complication, not stated as uncontrolled 10/25/2008 Last Assessment & Plan: Excellent control in HgbA1c. Controlled through diet and metformin. He does have sx of nocturia 3-4 times at night; no interrupted stream or hesistancy, dribbling. FBS at home range around 110s. 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 Continues with yearly exams as well. SOMNOLENCE 04/09/2006 01/25/2016 HYPERTENSION NOS 01/26/2015 documented as of this encounter (statuses as of 03/27/2022) [facility] History of Past illness Narrative* Problem Noted Date Resolved Date DM type 2 (diabetes mellitus, type 2) 04/27/2014 08/13/2018 Last Assessment & Plan: His hba1c is 5.9 He consciously makes effort to do better, he had gained 40 pounds in 3 years. But is now try ing to cut down the weight as much as possible ge eats taters and beans most of the meals, the taters are usually fried, Else he has mashed potatoes, drinks only 2 percent milk. Most of the time he opens up a can of beans. He will try to eat better, He is walking as best as he can, he is active most of the day. Type II or unspecified type diabetes mellitus without mention of complication, not stated as uncontrolled 10/25/2008 Last Assessment & Plan: Excellent control in HgbA1c. Controlled through diet and metformin. He does have sx of nocturia 3-4 times at night; no interrupted stream or hesistancy, dribbling. FBS at home range around 110s. 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 Continues with yearly exams as well. SOMNOLENCE 04/09/2006 01/25/2016 HYPERTENSION NOS 01/26/2015 documented as of this encounter (statuses as of 04/02/2022) [facility] History of Past illness Narrative* Problem Noted Date Resolved Date DM type 2 (diabetes mellitus, type 2) 04/27/2014 08/13/2018 Last Assessment & Plan: His hba1c is 5.9 He consciously makes effort to do better, he had gained 40 pounds in 3 years. But is now try ing to cut down the weight as much as possible ge eats taters and beans most of the meals, the taters are usually fried, Else he has mashed potatoes, drinks only 2 percent milk. Most of the time he opens up a can of beans. He will try to eat better, He is walking as best as he can, he is active most of the day. Type II or unspecified type diabetes mellitus without mention of complication, not stated as uncontrolled 10/25/2008 Last Assessment & Plan: Excellent control in HgbA1c. Controlled through diet and metformin. He does have sx of nocturia 3-4 times at night; no interrupted stream or hesistancy, dribbling. FBS at home range around 110s. 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 Continues with yearly exams as well. SOMNOLENCE 04/09/2006 01/25/2016 HYPERTENSION NOS 01/26/2015 documented as of this encounter (statuses as of 05/14/2022) [facility] History of Past illness Narrative* Problem Noted Date Resolved Date DM type 2 (diabetes mellitus, type 2) 04/27/2014 08/13/2018 Last Assessment & Plan: His hba1c is 5.9 He consciously makes effort to do better, he had gained 40 pounds in 3 years. But is now try ing to cut down the weight as much as possible ge eats taters and beans most of the meals, the taters are usually fried, Else he has mashed potatoes, drinks only 2 percent milk. Most of the time he opens up a can of beans. He will try to eat better, He is walking as best as he can, he is active most of the day. Type II or unspecified type diabetes mellitus without mention of complication, not stated as uncontrolled 10/25/2008 Last Assessment & Plan: Excellent control in HgbA1c. Controlled through diet and metformin. He does have sx of nocturia 3-4 times at night; no interrupted stream or hesistancy, dribbling. FBS at home range around 110s. 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 Continues with yearly exams as well. SOMNOLENCE 04/09/2006 01/25/2016 HYPERTENSION NOS 01/26/2015 documented as of this encounter (statuses as of 05/15/2022) [facility] History of Past illness Narrative* Problem Noted Date Resolved Date DM type 2 (diabetes mellitus, type 2) 04/27/2014 08/13/2018 Last Assessment & Plan: His hba1c is 5.9 He consciously makes effort to do better, he had gained 40 pounds in 3 years. But is now try ing to cut down the weight as much as possible ge eats taters and beans most of the meals, the taters are usually fried, Else he has mashed potatoes, drinks only 2 percent milk. Most of the time he opens up a can of beans. He will try to eat better, He is walking as best as he can, he is active most of the day. Type II or unspecified type diabetes mellitus without mention of complication, not stated as uncontrolled 10/25/2008 Last Assessment & Plan: Excellent control in HgbA1c. Controlled through diet and metformin. He does have sx of nocturia 3-4 times at night; no interrupted stream or hesistancy, dribbling. FBS at home range around 110s. 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 Continues with yearly exams as well. Nonspecific abnormal results of liver function s tudy 09/24/2006 05/17/2022 SOMNOLENCE 04/09/2006 01/25/2016 HYPERTENSION NOS 01/26/2015 documented as of this encounter (statuses as of 05/17/2022) [facility] History of Past illness Narrative* Problem Noted Date Resolved Date DM type 2 (diabetes mellitus, type 2) 04/27/2014 08/13/2018 Last Assessment & Plan: His hba1c is 5.9 He consciously makes effort to do better, he had gained 40 pounds in 3 years. But is now try ing to cut down the weight as much as possible ge eats taters and beans most of the meals, the taters are usually fried, Else he has mashed potatoes, drinks only 2 percent milk. Most of the time he opens up a can of beans. He will try to eat better, He is walking as best as he can, he is active most of the day. Type II or unspecified type diabetes mellitus without mention of complication, not stated as uncontrolled 10/25/2008 Last Assessment & Plan: Excellent control in HgbA1c. Controlled through diet and metformin. He does have sx of nocturia 3-4 times at night; no interrupted stream or hesistancy, dribbling. FBS at home range around 110s. 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 Continues with yearly exams as well. Nonspecific abnormal results of liver function s tudy 09/24/2006 05/17/2022 SOMNOLENCE 04/09/2006 01/25/2016 HYPERTENSION NOS 01/26/2015 documented as of this encounter (statuses as of 07/17/2022) [facility] History of Past illness Narrative* Problem Noted Date Resolved Date DM type 2 (diabetes mellitus, type 2) 04/27/2014 08/13/2018 Last Assessment & Plan: His hba1c is 5.9 He consciously makes effort to do better, he had gained 40 pounds in 3 years. But is now try ing to cut down the weight as much as possible ge eats taters and beans most of the meals, the taters are usually fried, Else he has mashed potatoes, drinks only 2 percent milk. Most of the time he opens up a can of beans. He will try to eat better, He is walking as best as he can, he is active most of the day. Type II or unspecified type diabetes mellitus without mention of complication, not stated as uncontrolled 10/25/2008 Last Assessment & Plan: Excellent control in HgbA1c. Controlled through diet and metformin. He does have sx of nocturia 3-4 times at night; no interrupted stream or hesistancy, dribbling. FBS at home range around 110s. 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 Continues with yearly exams as well. Nonspecific abnormal results of liver function s radhady 09/24/2006 05/17/2022 SOMNOLENCE 04/09/2006 01/25/2016 HYPERTENSION NOS 01/26/2015 documented as of this encounter (statuses as of 07/23/2022) [facility] History of Past illness Narrative* Problem Noted Date Resolved Date DM type 2 (diabetes mellitus, type 2) 04/27/2014 08/13/2018 Last Assessment & Plan: His hba1c is 5.9 He consciously makes effort to do better, he had gained 40 pounds in 3 years. But is now try ing to cut down the weight as much as possible ge eats taters and beans most of the meals, the taters are usually fried, Else he has mashed potatoes, drinks only 2 percent milk. Most of the time he opens up a can of beans. He will try to eat better, He is walking as best as he can, he is active most of the day. Type II or unspecified type diabetes mellitus without mention of complication, not stated as uncontrolled 10/25/2008 Last Assessment & Plan: Excellent control in HgbA1c. Controlled through diet and metformin. He does have sx of nocturia 3-4 times at night; no interrupted stream or hesistancy, dribbling. FBS at home range around 110s. 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 Continues with yearly exams as well. Nonspecific abnormal results of liver function s vee 09/24/2006 05/17/2022 SOMNOLENCE 04/09/2006 01/25/2016 HYPERTENSION NOS 01/26/2015 documented as of this encounter (statuses as of 08/13/2022) [facility] History of Past illness Narrative* Problem Noted Date Resolved Date DM type 2 (diabetes mellitus, type 2) 04/27/2014 08/13/2018 Last Assessment & Plan: His hba1c is 5.9 He consciously makes effort to do better, he had gained 40 pounds in 3 years. But is now try ing to cut down the weight as much as possible ge eats taters and beans most of the meals, the taters are usually fried, Else he has mashed potatoes, drinks only 2 percent milk. Most of the time he opens up a can of beans. He will try to eat better, He is walking as best as he can, he is active most of the day. Type II or unspecified type diabetes mellitus without mention of complication, not stated as uncontrolled 10/25/2008 Last Assessment & Plan: Excellent control in HgbA1c. Controlled through diet and metformin. He does have sx of nocturia 3-4 times at night; no interrupted stream or hesistancy, dribbling. FBS at home range around 110s. 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 Continues with yearly exams as well. Nonspecific abnormal results of liver function s tudy 09/24/2006 05/17/2022 SOMNOLENCE 04/09/2006 01/25/2016 HYPERTENSION NOS 01/26/2015 documented as of this encounter (statuses as of 08/16/2022) [facility] History of Past illness Narrative* Problem Noted Date Resolved Date DM type 2 (diabetes mellitus, type 2) 04/27/2014 08/13/2018 Last Assessment & Plan: His hba1c is 5.9 He consciously makes effort to do better, he had gained 40 pounds in 3 years. But is now try ing to cut down the weight as much as possible ge eats taters and beans most of the meals, the taters are usually fried, Else he has mashed potatoes, drinks only 2 percent milk. Most of the time he opens up a can of beans. He will try to eat better, He is walking as best as he can, he is active most of the day. Type II or unspecified type diabetes mellitus without mention of complication, not stated as uncontrolled 10/25/2008 Last Assessment & Plan: Excellent control in HgbA1c. Controlled through diet and metformin. He does have sx of nocturia 3-4 times at night; no interrupted stream or hesistancy, dribbling. FBS at home range around 110s. 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 Continues with yearly exams as well. Nonspecific abnormal results of liver function s vee 09/24/2006 05/17/2022 SOMNOLENCE 04/09/2006 01/25/2016 HYPERTENSION NOS 01/26/2015 documented as of this encounter (statuses as of 10/12/2022) [facility] History of Past illness Narrative* Problem Noted Date Resolved Date DM type 2 (diabetes mellitus, type 2) 04/27/2014 08/13/2018 Last Assessment & Plan: His hba1c is 5.9 He consciously makes effort to do better, he had gained 40 pounds in 3 years. But is now try ing to cut down the weight as much as possible ge eats taters and beans most of the meals, the taters are usually fried, Else he has mashed potatoes, drinks only 2 percent milk. Most of the time he opens up a can of beans. He will try to eat better, He is walking as best as he can, he is active most of the day. Type II or unspecified type diabetes mellitus without mention of complication, not stated as uncontrolled 10/25/2008 Last Assessment & Plan: Excellent control in HgbA1c. Controlled through diet and metformin. He does have sx of nocturia 3-4 times at night; no interrupted stream or hesistancy, dribbling. FBS at home range around 110s. 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 Continues with yearly exams as well. Nonspecific abnormal results of liver function s vee 09/24/2006 05/17/2022 SOMNOLENCE 04/09/2006 01/25/2016 HYPERTENSION NOS 01/26/2015 documented as of this encounter (statuses as of 10/25/2022) [facility] History of Past illness Narrative* Problem Noted Date Resolved Date DM type 2 (diabetes mellitus, type 2) 04/27/2014 08/13/2018 Last Assessment & Plan: His hba1c is 5.9 He consciously makes effort to do better, he had gained 40 pounds in 3 years. But is now try ing to cut down the weight as much as possible ge eats taters and beans most of the meals, the taters are usually fried, Else he has mashed potatoes, drinks only 2 percent milk. Most of the time he opens up a can of beans. He will try to eat better, He is walking as best as he can, he is active most of the day. Type II or unspecified type diabetes mellitus without mention of complication, not stated as uncontrolled 10/25/2008 Last Assessment & Plan: Excellent control in HgbA1c. Controlled through diet and metformin. He does have sx of nocturia 3-4 times at night; no interrupted stream or hesistancy, dribbling. FBS at home range around 110s. 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 Continues with yearly exams as well. Nonspecific abnormal results of liver function s tudy 09/24/2006 05/17/2022 SOMNOLENCE 04/09/2006 01/25/2016 HYPERTENSION NOS 01/26/2015 documented as of this encounter (statuses as of 10/26/2022) [facility] History of Past illness Narrative* Problem Noted Date Diagnosed Date Resolved Date DM type 2 (diabetes mellitus, type 2) 04/27/2014 08/13/2018 Last Assessment & Plan: His hba1c is 5.9 He consciously makes effort to do better, he had gained 40 pounds in 3 years. But is now try ing to cut down the weight as much as possible ge eats taters and beans most of the meals, the taters are usually fried, Else he has mashed potatoes, drinks only 2 percent milk. Most of the time he opens up a can of beans. He will try to eat better, He is walking as best as he can, he is active most of the day. Type II or unspecified type diabetes mellitus without mention of complication, not stated as uncontrolled 10/25/2008 04/27/2014 Last Assessment & Plan: Excellent control in HgbA1c. Controlled through diet and metformin. He does have sx of nocturia 3-4 times at night; no interrupted stream or hesistancy, dribbling. FBS at home range around 110s. 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 Continues with yearly exams as well. Nonspecific abnormal results of liver function study 09/24/2006 05/17/2022 SOMNOLENCE 04/09/2006 01/25/2016 HYPERTENSION NOS 01/26/2015 documented as of this encounter (statuses as of 12/26/2022) [facility] History of Past illness Narrative* Problem Noted Date Diagnosed Date Resolved Date DM type 2 (diabetes mellitus, type 2) 04/27/2014 08/13/2018 Last Assessment & Plan: His hba1c is 5.9 He consciously makes effort to do better, he had gained 40 pounds in 3 years. But is now try ing to cut down the weight as much as possible ge eats taters and beans most of the meals, the taters are usually fried, Else he has mashed potatoes, drinks only 2 percent milk. Most of the time he opens up a can of beans. He will try to eat better, He is walking as best as he can, he is active most of the day. Type II or unspecified type diabetes mellitus without mention of complication, not stated as uncontrolled 10/25/2008 04/27/2014 Last Assessment & Plan: Excellent control in HgbA1c. Controlled through diet and metformin. He does have sx of nocturia 3-4 times at night; no interrupted stream or hesistancy, dribbling. FBS at home range around 110s. 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 Continues with yearly exams as well. Nonspecific abnormal results of liver function study 09/24/2006 05/17/2022 SOMNOLENCE 04/09/2006 01/25/2016 HYPERTENSION NOS 01/26/2015 documented as of this encounter (statuses as of 02/28/2023) [facility] History of Past illness Narrative* Problem Noted Date Diagnosed Date Resolved Date DM type 2 (diabetes mellitus, type 2) 04/27/2014 08/13/2018 Last Assessment & Plan: His hba1c is 5.9 He consciously makes effort to do better, he had gained 40 pounds in 3 years. But is now try ing to cut down the weight as much as possible ge eats taters and beans most of the meals, the taters are usually fried, Else he has mashed potatoes, drinks only 2 percent milk. Most of the time he opens up a can of beans. He will try to eat better, He is walking as best as he can, he is active most of the day. Type II or unspecified type diabetes mellitus without mention of complication, not stated as uncontrolled 10/25/2008 04/27/2014 Last Assessment & Plan: Excellent control in HgbA1c. Controlled through diet and metformin. He does have sx of nocturia 3-4 times at night; no interrupted stream or hesistancy, dribbling. FBS at home range around 110s. 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 Continues with yearly exams as well. Nonspecific abnormal results of liver function study 09/24/2006 05/17/2022 SOMNOLENCE 04/09/2006 01/25/2016 HYPERTENSION NOS 01/26/2015 documented as of this encounter (statuses as of 03/20/2023) [facility] History of Past illness Narrative* Problem Noted Date Diagnosed Date Resolved Date DM type 2 (diabetes mellitus, type 2) 04/27/2014 08/13/2018 Last Assessment & Plan: His hba1c is 5.9 He consciously makes effort to do better, he had gained 40 pounds in 3 years. But is now try ing to cut down the weight as much as possible ge eats taters and beans most of the meals, the taters are usually fried, Else he has mashed potatoes, drinks only 2 percent milk. Most of the time he opens up a can of beans. He will try to eat better, He is walking as best as he can, he is active most of the day. Type II or unspecified type diabetes mellitus without mention of complication, not stated as uncontrolled 10/25/2008 04/27/2014 Last Assessment & Plan: Excellent control in HgbA1c. Controlled through diet and metformin. He does have sx of nocturia 3-4 times at night; no interrupted stream or hesistancy, dribbling. FBS at home range around 110s. 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 Continues with yearly exams as well. Nonspecific abnormal results of liver function study 09/24/2006 05/17/2022 SOMNOLENCE 04/09/2006 01/25/2016 HYPERTENSION NOS 01/26/2015 documented as of this encounter (statuses as of 04/05/2023) [facility] Future Appointments Appointment Date:05/02/2023 10:15:00 AM Scheduled Provider: Location:XRAY Appointment Type:CT Head or Brain w/o Contrast Appointment Date:05/02/2023 11:00:00 AM Scheduled Provider: Location:NEUROS Appointment Type:NS OV Future Scheduled Tests Radiology* CT Head or Brain w/o Contrast 05/02/23 [facility] Evaluation note* Diagnosis Essential hypertension- Primary Unspecified essential hypertension Controlled type 2 diabetes mellitus without complication, without long-term current use of insulin (HCC) Seizure disorder (HCC) Unspecified epilepsy without mention of intractable epilepsy Pure hypercholesterolemia [facility]* Diagnosis Essential hypertension Unspecified essential hypertension documented in this encounter [facility] note* Diagnosis History of recent hospitalization- Primary Personal history of unspecified disease Seizure disorder (HCC) Unspecified epilepsy without mention of intractable epilepsy Coronary artery disease involving [place] coronary artery of [place] heart without angina pectoris Skin infection Unspecified local infection of skin and subcutaneous tissue Ecchymosis Other specified circulatory system disorders Pain Generalized pain [facility]* Diagnosis Hospital discharge follow-up- Primary Other follow-up examination Seizure disorder (HCC) Unspecified epilepsy without mention of intractable epilepsy Essential hypertension Unspecified essential hypertension Type 2 diabetes mellitus without complication, without long-term current use of insulin (HCC) documented [facility] encounter [facility]* Diagnosis Skin infection- Primary Unspecified local infection of skin and subcutaneous tissue Essential hypertension Unspecified essential hypertension documented [facility] encounter [facility]* Diagnosis Gastroesophageal reflux disease without esophagitis Esophageal reflux Type 2 diabetes mellitus without complication, without long-term current use of insulin (HCC) Pure hypercholesterolemia Essential hypertension Unspecified essential hypertension documented in this encounter [facility] note* Diagnosis Essential hypertension- Primary Unspecified essential hypertension documented in this encounter [facility] note* Diagnosis Pure hypercholesterolemia Gastroesophageal reflux disease without esophagitis Esophageal reflux Essential hypertension Unspecified essential hypertension Type 2 diabetes mellitus without complication, without long-term current use of insulin (HCC) documented in this encounter [facility] note* Diagnosis Gastroesophageal reflux disease without esophagitis Esophageal reflux documented in this encounter [facility] note* Diagnosis Essential hypertension Unspecified essential hypertension Controlled type 2 diabetes mellitus without complication, without long-term current use of insulin (HCC) documented in this encounter [facility] note* Diagnosis Type 2 diabetes mellitus without complication, without long-term current use of insulin (HCC)- Primary Essential hypertension Unspecified essential hypertension Seizure disorder (HCC) Unspecified epilepsy without mention of intractable epilepsy Pure hypercholesterolemia documented in this encounter [facility] note* Diagnosis Essential hypertension- Primary Unspecified essential hypertension Type 2 diabetes mellitus without complication, without long-term current use of insulin (HCC) Leg edema Edema documented in this encounter [facility] note* Diagnosis Seizure disorder (HCC) Unspecified epilepsy without mention of intractable epilepsy documented in this encounter [facility] note* Diagnosis Seizure disorder (HCC)- Primary Unspecified epilepsy without mention of intractable epilepsy documented in this encounter [facility] note* Diagnosis Controlled type 2 diabetes mellitus without complication, without long-term current use of insulin (HCC) documented in this encounter [facility] note* Diagnosis Elevated TSH- Primary Nonspecific abnormal results of thyroid function study documented in this encounter [facility] note* Diagnosis Type 2 diabetes mellitus without complication, without long-term current use of insulin (HCC) documented in this encounter [facility] course Narrative No data available for this section [facility] Discharge instructions No data available for this section [facility] note No data available for this section [facility] Summary Purpose Family History No Family History Records FoundNo Family History Records Found No data available for this section No data available for this section No Family History Records Found Advance Directives No Advanced Directives Records FoundNo Advanced Directives Records FoundNo Advanced Directives Records Found Additional Source Comments (unrecognized sect ion and content) No Status Records FoundNo Status Records FoundNo Status Records Found INFORMATION SOURCE (unrecogn ized section and content) DATE CREATED AUTHOR AUTHOR'S ORGANIZ ATION 03/22/[address] [facility] DATE CREATED AUTHOR AUTHOR'S ORGANIZ ATION 04/20/2023 [facility] ([place]) Source Comments (unrecognize d section and content) In the event this informatio n is protected by the Federal Confidentiality of Alcohol and Drug Abuse Patient Records regulations: The Federal rules restrict any use of the information to criminally investigate or prosecute any alcohol or drug abuse patient.[facility] the event this information is protected by the Federal Confidentiality of Alcohol and Drug Abuse Patient Records regulations: The Federal rules restrict any use of the information to criminally investigate or prosecute any alcohol or drug abuse patient.[facility] the event this information is protected by the Federal Confidentiality of Alcohol and Drug Abuse Patient Records regulations: The Federal rules restrict any use of the information to criminally investigate or prosecute any alcohol or drug abuse patient.[facility] the event this information is protected by the Federal Confidentiality of Alcohol and Drug Abuse Patient Records regulations: The Federal rules restrict any use of the information to criminally investigate or prosecute any alcohol or drug abuse patient.[facility] the event this information is protected by the Federal Confidentiality of Alcohol and Drug Abuse Patient Records regulations: The Federal rules restrict any use of the information to criminally investigate or prosecute any alcohol or drug abuse patient.[facility] the event this information is protected by the Federal Confidentiality of Alcohol and Drug Abuse Patient Records regulations: The Federal rules restrict any use of the information to criminally investigate or prosecute any alcohol or drug abuse patient.[facility] the event this information is protected by the Federal Confidentiality of Alcohol and Drug Abuse Patient Records regulations: The Federal rules restrict any use of the information to criminally investigate or prosecute any alcohol or drug abuse patient.[facility] the event this information is protected by the Federal Confidentiality of Alcohol and Drug Abuse Patient Records regulations: The Federal rules restrict any use of the information to criminally investigate or prosecute any alcohol or drug abuse patient.[facility] the event this information is protected by the Federal Confidentiality of Alcohol and Drug Abuse Patient Records regulations: The Federal rules restrict any use of the information to criminally investigate or prosecute any alcohol or drug abuse patient.[facility] the event this information is protected by the Federal Confidentiality of Alcohol and Drug Abuse Patient Records regulations: The Federal rules restrict any use of the information to criminally investigate or prosecute any alcohol or drug abuse patient.[facility] the event this information is protected by the Federal Confidentiality of Alcohol and Drug Abuse Patient Records regulations: The Federal rules restrict any use of the information to criminally investigate or prosecute any alcohol or drug abuse patient.[facility] the event this information is protected by the Federal Confidentiality of Alcohol and Drug Abuse Patient Records regulations: The Federal rules restrict any use of the information to criminally investigate or prosecute any alcohol or drug abuse patient.[facility] the event this information is protected by the Federal Confidentiality of Alcohol and Drug Abuse Patient Records regulations: The Federal rules restrict any use of the information to criminally investigate or prosecute any alcohol or drug abuse patient.[facility] the event this information is protected by the Federal Confidentiality of Alcohol and Drug Abuse Patient Records regulations: The Federal rules restrict any use of the information to criminally investigate or prosecute any alcohol or drug abuse patient.[facility] the event this information is protected by the Federal Confidentiality of Alcohol and Drug Abuse Patient Records regulations: The Federal rules restrict any use of the information to criminally investigate or prosecute any alcohol or drug abuse patient.[facility] the event this information is protected by the Federal Confidentiality of Alcohol and Drug Abuse Patient Records regulations: The Federal rules restrict any use of the information to criminally investigate or prosecute any alcohol or drug abuse patient.[facility] the event this information is protected by the Federal Confidentiality of Alcohol and Drug Abuse Patient Records regulations: The Federal rules restrict any use of the information to criminally investigate or prosecute any alcohol or drug abuse patient.[facility] Hospital[facility] the event this information is protected by the Federal Confidentiality of Alcohol and Drug Abuse Patient Records regulations: The Federal rules restrict any use of the information to criminally investigate or prosecute any alcohol or drug abuse patient.[facility] HospitalIn the event this information is protected by the Federal Confidentiality of Alcohol and Drug Abuse Patient Records regulations: The Federal rules restrict any use of the information to criminally investigate or prosecute any alcohol or drug abuse patient.[facility] HospitalIn the event this information is protected by the Federal Confidentiality of Alcohol and Drug Abuse Patient Records regulations: The Federal rules restrict any use of the information to criminally investigate or prosecute any alcohol or drug abuse patient.[facility] HospitalIn the event this information is protected by the Federal Confidentiality of Alcohol and Drug Abuse Patient Records regulations: The Federal rules restrict any use of the information to criminally investigate or prosecute any alcohol or drug abuse patient.[facility] HospitalIn the event this information is protected by the Federal Confidentiality of Alcohol and Drug Abuse Patient Records regulations: The Federal rules restrict any use of the information to criminally investigate or prosecute any alcohol or drug abuse patient.[facility] HospitalIn the event this information is protected by the Federal Confidentiality of Alcohol and Drug Abuse Patient Records regulations: The Federal rules restrict any use of the information to criminally investigate or prosecute any alcohol or drug abuse patient.[facility] HospitalIn the event this information is protected by the Federal Confidentiality of Alcohol and Drug Abuse Patient Records regulations: The Federal rules restrict any use of the information to criminally investigate or prosecute any alcohol or drug abuse patient.[facility] Reason for Visit (unrecogniz ed section and content) Reason Comments Refill Request Reason Comments Recheck Hosp follow up, seiz ure Reason Comments Same Day Appointment place heart monitor on and refills needed Reason Comments Recheck 1 week rash on arm f ollow up Reason Comments Medication Problem Reason Comments Follow Up Reason Onset Date Comments Refill Request 05/02/2022 Refill Request 05/14/2022 Reason Onset Date Comments Refill Request 05/14/2022 Reason Onset Date Comments Refill Request 07/17/2022 Reason Onset Date Comments Refill Request 08/15/2022 Reason Comments Recheck 3 Month DM follow up Reason Comments Follow Up blood pressure Reason Comments Medication Question Reason Onset Date Comments Refill Request 12/25/2022 Reason Comments Results Care Teams (unrecognized sec tion and content) 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 Relationship Specialty Start Date End Date David Carrion MD [address] [place], [place] [id number] PCP - General Internal Medicine 02/02/16 [address] [place], [place] [address] Physician Ophthalmology 09/07/19 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 Relationship Specialty Start Date End Date David Carrion MD [address] [place] [address] PCP - General Internal Medicine 02/02/16 Herson Roca [address] [facility] [place] [address] Physician Ophthalmology 09/07/19 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 Relationship Specialty Start Date End Date David Carrion MD [address] [place] [address] PCP - General Internal Medicine 02/02/16 Herson Roca [address] [facility] [place] [address] Physician Ophthalmology 09/07/19 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 Relationship Specialty Start Date End Date David Carrion MD [address] [place] [address] PCP - General Internal Medicine 02/02/16 Herson Roca [address] [facility] [place] [address] Physician Ophthalmology 09/07/19 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 Relationship Specialty Start Date End Date David Carrion MD [address] [place] [address] PCP - General Internal Medicine 02/02/16 Herson Roca [address] [facility] [place] [address] Physician Ophthalmology 09/07/19 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 Relationship Specialty Start Date End Date David Carrion MD [address] [place] [address] PCP - General Internal Medicine 02/02/16 Herson Roca [address] [facility] [place] [address] Physician Ophthalmology 09/07/19 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 Relationship Specialty Start Date End Date David Carrion MD [address] [place] [address] PCP - General Internal Medicine 02/02/16 Herson Roca [address] [facility] [place] [address] Physician Ophthalmology 09/07/19 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 Relationship Specialty Start Date End Date David Carrion MD [address] [place] [address] PCP - General Internal Medicine 02/02/16 Herson Roca [address] [facility] [place] [address] Physician Ophthalmology 09/07/19 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 Relationship Specialty Start Date End Date David Carrion MD [address] [place] [address] PCP - General Internal Medicine 02/02/16 Herson Roca [address] [facility] [place] [address] Physician Ophthalmology 09/07/19 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 Relationship Specialty Start Date End Date David Carrion MD [address] [place] [address] PCP - General Internal Medicine 02/02/16 Herson Roca [address] [facility] [place] [address] Physician Ophthalmology 09/07/19 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 Relationship Specialty Start Date End Date David Carrion MD [address] [place] [address] PCP - General Internal Medicine 02/02/16 Herson Roca [address] [facility] [place] [address] Physician Ophthalmology 09/07/19 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 Relationship Specialty Start Date End Date David Carrion MD [address] [place], [place] [id number] PCP - General Internal Medicine 02/02/16 Herson Roca [address] [place] [address] Physician Ophthalmology 09/07/19 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 Relationship Specialty Start Date End Date David Carrion MD [address] [place], [place] [id number] PCP - General Internal Medicine 02/02/16 Herson Roca [address] [place] [address] Physician Ophthalmology 09/07/19 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 Relationship Specialty Start Date End Date David Carrion MD [address] [place] [address] PCP - General Internal Medicine 02/02/16 Herson Roca [address] [place] [address] Physician Ophthalmology 09/07/19 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 Relationship Specialty Start Date End Date David Carrion MD [address] [place] [address] PCP - General Internal Medicine 02/02/16 Herson Roca [address] [place] [address] Physician Ophthalmology 09/07/19 FOR RECORDS PERTAINING TO PATIENTS WHO ARE OR HAVE BEEN ENROLLED IN A CHEMICAL DEPENDENCY/SUBSTANCEABUSE PROGRAM, SOME INFORMATION MAY BE OMITTED. This clinical summary was aggregated from multiple sources. Caution should be exercised in using it in the provision of clinical care. This summary normalizes information from multiple sources, and as a consequence, information in this document may materially change the coding, format and clinical context of patient data. In addition, data may be omitted in some cases. CLINICAL DECISIONS SHOULD BE BASED ON THE PRIMARY CLINICAL RECORDS. [facility] provides no warranty or guarantee of the accuracy or completeness of information in this document.
[2023-04-21] MEDS: levETIRAcetam IV 1,000 MG/100 ML BAG 400 MG IV (08:21)
[2023-04-21 08:28] VITALS: BP 164/70; PULSE 107; RESP 25; O2SAT 96
[2023-04-21] MEDS: Atenolol 25 MG Tablet PO (08:36)
[2023-04-21 10:07] VITALS: BP 150/94
== END 2023-04-21 10:08 | disposition home or self-care (01) ==
PROVIDERS: Emergency Provider Emergency Medicine; PCP Internal Medicine; Visit Provider Emergency Medicine
DX: R56.9 Unspecified convulsions (principal); Z87.891 Personal history of nicotine dependence
CPT/HCPCS: 70450; 96365; 99283; J7050; A4216